=== PATIENT | female | born 1960 | race Caucasian/White ===

== ENCOUNTER → 2019-12-19 10:47 | Outpatient (BNVA) | payer MEDICAID, SELFPAY | PROVIDERS: Family Provider Physician Assistant Medical; PCP Physician Assistant Medical; Visit Provider Nurse Practitioner | DX: M51.36 Other intervertebral disc degeneration, lumbar region (principal); M25.511 Pain in right shoulder; F17.210 Nicotine dependence, cigarettes, uncomplicated; Z99.81 Dependence on supplemental oxygen; Z79.891 Long term (current) use of opiate analgesic | CPT/HCPCS: 99213; 99214 ==

== ENCOUNTER 2020-01-14 00:47 | Inpatient (IN) | payer MEDICAID, SELFPAY ==
[2020-01-14] VITALS (89 sets, daily range): BP systolic 107–143; BP diastolic 66–90; PULSE 83–108; RESP 12–33; TEMP 36.5–36.7; O2SAT 87–99; BMI 44.6
[2020-01-14 01:15] LABS: ABG PCO2 47.5 mmHg (35-45); ABG PH Result 7.39 (7.35-7.45); Arterial Blood Gas Hematocrit 46.1 % (37-47); Base Excess ABG 2.5 mmol/L (-2.0-2.0); Blood Gas Allen Test Pos; Blood Gas Sample Site Radial, right; Blood Gas Sample Type Arterial; HCO3 ABG 28.4 mmol/L (22-26); Oxygen Device BIPAP
[2020-01-14 02:05] LABS: Influenza A by IFA Negative (Negative); Influenza B by IFA Negative (Negative)
--- NOTE | 2020-01-14 02:39 | USCV_ITS ---
NunnSkylaReyna Age: 59 Gender: F : 1960 Exam Date: 01/14/2020 06:48 Ordering Phys: Teo Jay MD Technologist: Annmarie Wright [place] [facility] [place] SOB BP: 122 / 82 HR: 105 Rhythm: Sinus Technical Quality: TDS MEASUREMENTS (Male / Female) Normal Values 2D ECHO LV Diastolic Diameter PLAX 3.9 cm 4.2 - 5.9 / 3.9 - 5.3 cm LV Systolic Diameter PLAX 2.8 cm LV Chamber Size 3.2 cm IVS Diastolic Thickness 1.5 cm 0.6 - 1.0 / 0.6 - 0.9 cm IVS Systolic Thickness 2.0 cm LVPW Diastolic Thickness 1.4 cm 0.6 - 1.0 / 0.6 - 0.9 cm LVPW Systolic Thickness 1.8 cm RV Chamber Size 2.8 cm LVOT Diameter 2.1 cm LV Ejection Fraction 2D Teich 54.2 % LV Ejection Fraction MOD 2C 50.1 % LV Ejection Fraction 2C AL 47.8 % LA Diameter 3.5 cm LA Width 2.7 cm LA Height 5.1 cm RA Width 3.1 cm RA Height 5.0 cm Aorta at Sinotubular Diameter 3.0 cm M-MODE LV Diastolic Diameter MM 4.4 cm 4.2 - 5.9 / 3.9 - 5.3 cm LV Systolic Diameter MM 3.0 cm LV Ejection Fraction MM Teich 59.9 % IVS Diastolic Thickness MM 1.3 cm 0.6 - 1.0 / 0.6 - 0.9 cm IVS Systolic Thickness MM 1.4 cm LVPW Diastolic Thickness MM 1.3 cm 0.6 - 1.0 / 0.6 - 0.9 cm LVPW Systolic Thickness MM 1.6 cm RV Diastolic Diameter MM 1.9 cm Aortic Annulus Diameter 3.4 cm LA Ao Ratio MM 1.0 MV E Point Septal Separation 0.8 cm DOPPLER AV Peak Velocity 201.0 cm/s LVOT Peak Velocity 113.0 cm/s AV Area Cont Eq vti 2.1 cm squared AV Area Cont Eq pk 1.9 cm squared MV Area PHT 5.9 cm squared Mitral E to A Ratio 0.9 MV E' Velocity 10.0 cm/s Mitral E to MV E' Ratio 15.7 Mitral E to LV E' Lateral Ratio 13.3 Mitral E to LV E' Septal Ratio 19.4 TR Peak Velocity 298.3 cm/s TR Peak Gradient 35.6 mmHg TR Mean Velocity 198.6 cm/s TR Mean Gradient 19.1 mmHg TR Velocity Time Integral 72.8 cm TV Peak E Velocity 77.0 cm/s Right Atrial Pressure 8.0 mmHg Pulmonary Artery Systolic Pressu 43.6 mmHg PV Peak Velocity 85.0 cm/s RV Acceleration Time 0.1 s RV Ejection Time 0.2 s RV AcT/ET 0.5 FINDINGS Left Ventricle Examination is technically difficult due to the patient's constant coughing during the examination. The ventricle is poorly seen. There is likely normal size and wall motion of the ventricle. Ejection fraction is within normal limits. Grade 1 diastolic dysfunction. Right Ventricle Right ventricle not well visualized. Mild pulmonary hypertension, RVSP 43.6 mmHg. Right Atrium The right atrium is normal in size. Left Atrium The left atrium is normal in size. Mitral Valve Mitral valve not well visualized. Moderate mitral annular calcification. No mitral valve regurgitation. Aortic Valve Aortic valve not well visualized. There is at least mild mitral regurgitation though the valve is difficult to see. No obvious aortic stenosis. There may be slight aortic sclerosis. Tricuspid Valve Structurally normal tricuspid valve. Trace to mild tricuspid valve regurgitation. Pulmonic Valve Pulmonic valve not well visualized. Pericardium Normal pericardium without effusion. Aorta Normal ascending aorta dimension. CONCLUSIONS Examination is technically difficult due to the patient's constant coughing during the examination. The ventricle is poorly seen. There is likely normal size and wall motion of the ventricle. Ejection fraction is within normal limits. Grade 1 diastolic dysfunction. Right ventricle not well visualized. Mild pulmonary hypertension, RVSP 43.6 mmHg. There are no prior echocardiogram studies to compare. Dr. Mike Montelongo MD (Electronically Signed) Final Date: 14 January 2020 09:10 S
--- NOTE | 2020-01-14 02:39 | CTR_ITS ---
PROCEDURE INFORMATION: Exam: CT Chest With Contrast Exam date and time: 01/14/2020 9:11 AM Age: 59 years old Clinical indication: Shortness of breath; Additional info: SOB, cough TECHNIQUE: Imaging protocol: Computed tomography of the chest with intravenous contrast. Total DLP: 966.38 mGy-cm Radiation optimization: All CT scans at this facility use at least one of these dose optimization techniques: automated exposure control; mA and/or kV adjustment per patient size (includes targeted exams where dose is matched to clinical indication); or iterative reconstruction. Contrast material: OMNI 300; Contrast volume: 95 ml; Contrast route: LT AC; COMPARISON: No relevant prior studies available. FINDINGS: Lungs: Extensive tree in bud opacities/small acinar infiltrates throughout portions of both lungs somewhat greater on the right worrisome for infectious process. Pleural space: Unremarkable. No pneumothorax. No pleural effusion. Heart: Unremarkable. No cardiomegaly. No pericardial effusion. Aorta: 1.4 cm area of calcification aortic root region. No aortic aneurysm. Lymph nodes: 2.1 cm calcified azygos region mediastinal lymph node. Liver: Probable left hepatic lobe cysts the largest measuring 2.7 cm. Bones/joints: Degenerative lower thoracic spine vertebral body spurring. L1 superior endplate concave deformity, chronic. Soft tissues: Unremarkable. CT/CT chest w con* [id number] IMPRESSION: Extensive tree in bud opacities/small acinar infiltrates throughout portions of both lungs somewhat greater on the right worrisome for infectious process. Radiation Dose CTDIVOL = (mGy): DLP = 966.38 (mGy-cm)
--- NOTE | 2020-01-14 02:42 | PM.HP ---
Providers/Chief Complaint Admitting Physician: Teo Jay MD Primary Care Provider: Ed Hunter Chief Complaint: RESPIRATORY DISTRESS History of Present Illness Reyna Nunn is a 59 year old female with a past medical history of COPD 2 to 3 L oxygen dependent, chronic smoker, history of congestive heart failure, hypertension, chronic pain on opiate medications, bilateral lower extremity edema, hypothyroidism, GERD who presents to the emergency room due to complaints of shortness of breath, productive cough, fevers, chills for the last week and a half. Patient was a transfer from [facility] due to concerns for acute hypoxic hypercarbic respiratory failure. Patient states that for the past week and a half she has had shortness of breath at rest and with exertion, shortness of breath has progressively worsened, she has had a productive cough of yellow-green sputum, intermittent subjective fevers, chills, no lightheadedness, no dizziness, no chest pain, no sick contacts, no recent travel, no URI symptoms, denies orthopnea, no paroxysmal nocturnal dyspnea, but no bilateral lower extremity edema, no chest pain. Patient has been taking her medications as prescribed. At [facility] patient was found to have acute hypoxic hypercarbic respiratory failure she was put on 60 L high flow, still was short of breath, found to have a pneumonia, found to have pulmonary vascular congestion, was given Lasix, vancomycin, Zosyn, azithromycin, breathing treatments, steroids, the patient did not clinically improve, was still requiring 60 L 35% FiO2 thus was transferred to [facility] for further evaluation and treatment. Patient arrived in the intensive care unit, was found to be short of breath, having retractions, was placed on BiPAP, was doing well, her ABG shows a pH of 7.39, PCO2 47.5, PO2 of 181, is doing well on BiPAP, states that her breathing has improved, her flu was negative. Review of Systems Const: Reports: fever and chills; Denies: fatigue or malaise Eyes: Denies: change in vision or blurry vision ENMT: Denies: nasal congestion Card: Denies: chest pain or palpitations Resp: Reports: shortness of breath and productive cough GI: Denies: abdominal pain, nausea, vomiting, vomiting blood, diarrhea, constipation, blood in stool or black tarry stool : Denies: flank pain, painful urination or urinary frequency Musc: Denies: neck pain or back pain Skin/Breast: Denies: rash Neuro: Denies: headache, dizziness or vertigo Psych: Denies: anxiety or depression Endo: Denies: excessive urination or excessive thirst Medications/Allergies Home Medications Medication Instructions Recorded Confirmed Last Taken Type Nystop 100,000 unit TOPICAL BID 01/14/20 01/14/20 01/12/20 22:00 History famotidine 20 mg PO DAILY 01/14/20 01/14/20 01/12/20 08:00 History Allergies Allergy/AdvReac Type Severity Reaction Status Date / Time No Known Allergies Allergy Verified 12/19/19 10:56 Additional Medication Information Additional Medication Information: Albuterol Amlodipine 10 mg once daily Budesonide 0.25 mg twice daily Duloxetine 30 mg twice daily Famotidine 20 mg p.o. daily Lasix 20 mg p.o. every morning as needed Levothyroxine 25 mcg daily Lisinopril 10 mg twice daily Oxycodone 15 mg every 6 as needed Tiotropium PFSH Acute PFSH: Medical History (Updated 01/14/20 @ 02:48 by Teo Jay MD) Bilateral shoulder pain Carpal tunnel syndrome, bilateral CHF (congestive heart failure) COPD (chronic obstructive pulmonary disease) DDD (degenerative disc disease), lumbar Hypertension Hypothyroidism Long-term use of high-risk medication Paresthesia of right upper extremity Requires oxygen therapy Tobacco abuse Surgical History History of nasal surgery NOSE RESECTION S/P hernia surgery S/P hysterectomy Social History Smoking and tobacco status: current every day smoker cigarettes Packs smoked per day: 1 Alcohol intake: never Vitals/I&O/Wt Last Vital Signs Pulse 89 01/14/20 01:28 Pulse Ox 98 01/14/20 01:28 Weight last 48 hrs Weight 107.218 kg Physical Exam Const: COMMON NORMALS: no apparent distress and oriented x3 GENERAL APPEARANCE: cooperative and comfortable HENMT: COMMON NORMALS: normocephalic HEAD & SCALP: normocephalic Eye: COMMON NORMALS: PERRL, EOMs intact bilaterally and no papilledema GENERAL EYE: normal appearance of both eyes PUPIL: Yes PERRL DIRECT OPHTHALMOSCOPY: Yes no papilledema Neck/C-Spine: COMMON NORMALS: full ROM, no lymphadenopathy, no JVD and thyroid normal THYROID: thyroid normal Lymph: LYMPHATIC: no lymphadenopathy noted Resp: COMMON NORMALS: normal respiratory effort, no retractions, no use of accessory muscles and clear to auscultation bilaterally AUSCULTATION: clear to auscultation bilaterally Cardio: COMMON NORMALS: no JVD, regular rate, regular rhythm, S1 normal heart sound, S2 normal heart sound, no gallops, no clicks and no murmurs RATE: regular rate RHYTHM: regular rhythm HEART SOUNDS: S1 normal and S2 normal GI: COMMON NORMALS: normal to inspection, nondistended, normoactive bowel sounds, soft to palpation, non-tender and no hepatosplenomegaly PALPATION: Yes soft and Yes no hepatosplenomegaly Extremity: COMMON NORMALS: normal to inspection, full ROM and no pedal edema Neuro: COMMON NORMALS: oriented x3, moves all extremities and no focal motor deficits OTHER: Cannot follow full neurologic exam as is on BiPAP Psych: COMMON NORMALS: mental status grossly normal, thought process normal and cooperative THOUGHT PROCESS: normal thought process A&P Assessment and plan (1) Acute on chronic respiratory failure with hypoxia and hypercapnia: -Secondary to COPD, CHF, pneumonia, KEO -We will obtain a chest x-ray here, and a BNP Plan: -Admit to the ICU -BiPAP, can transition to nasal cannula when tolerated -Solu-Medrol 40 every 8 -Ipratropium every 4 hours scheduled, every 2 as needed -Azithromycin and Rocephin -Lasix 40 IV twice daily, monitor urine output -Respiratory cultures, blood cultures, urine bacterial antigen, Legionella -Continue telemetry monitoring Status: Acute Code(s): J96.21 - Acute and chronic respiratory failure with hypoxia; J96.22 - Acute and chronic respiratory failure with hypercapnia (2) KEO (obstructive sleep apnea): Stated that she could not do the sleep study, likely has sleep apnea Status: Acute Code(s): G47.33 - Obstructive sleep apnea (adult) (pediatric) (3) Hypertension: Status: Acute Code(s): I10 - Essential (primary) hypertension (4) COPD (chronic obstructive pulmonary disease): 2-3 oxygen later dependent at home Status: Acute Code(s): J44.9 - Chronic obstructive pulmonary disease, unspecified (5) CHF (congestive heart failure): Patient is not sure if she has systolic or diastolic CHF, no history of CAD We will obtain a cardiac echocardiogram Status: Acute Code(s): I50.9 - Heart failure, unspecified (6) Requires oxygen therapy: Status: Chronic Code(s): Z99.81 - Dependence on supplemental oxygen (7) Tobacco abuse: Status: Chronic Code(s): Z72.0 - Tobacco use (8) Chronically on opiate therapy: Status: Acute Code(s): Z79.891 - [facility] (current) use of opiate analgesic (9) Hypothyroidism: Status: Acute Code(s): E03.9 - Hypothyroidism, unspecified (10) Hypertensive urgency: -Had hypertensive urgency and [facility], systolics 200s over diastolic 100s -Resolved with treatment at [facility], -Blood pressure here is 138/50 -Continue home medications Status: Acute Code(s): I16.0 - Hypertensive urgency (11) NSTEMI (non-ST elevated myocardial infarction): -Troponin was 20, likely supply demand ischemia from respiratory failure -No active chest pain -Continue telemetry monitoring, monitor for chest pain -Aspirin, statin Status: Acute Code(s): I21.4 - Non-ST elevation (NSTEMI) myocardial infarction Attestations Medical Necessity Statement*: Patient requires ICU mission, greater than 2 minutes, for acute respiratory failure Coding Level of Care Code Acute Strategy Manager for [facility] Diagnoses Acute on chronic respiratory failure with hypoxia and hypercapnia J96.21; J96.22 KEO (obstructive sleep apnea) G47.33 Hypertension I10 COPD (chronic obstructive pulmonary disease) J44.9 CHF (congestive heart failure) I50.9 Requires oxygen therapy Z99.81 Tobacco abuse Z72.0 Chronically on opiate therapy Z79.891 Hypothyroidism E03.9 Hypertensive urgency I16.0 NSTEMI (non-ST elevated myocardial infarction) I21.4
[2020-01-14] MEDS: ipratropium-albuterol 3 mL Neb INHALATION ×5 (03:11→19:42)
[2020-01-14 03:16] LABS: NT Pro B Type Natriuretic Pept 649 pg/mL (0-125)
[2020-01-14] MEDS: enoxaparin 40 mg/0.4 mL Syringe SUBCUT (04:35)
[2020-01-14] MEDS: oxyCODONE IR 30 mg Tablet 15 MG PO ×3 (04:36→20:21)
[2020-01-14] MEDS: amlodipine 10 mg Tablet PO ×2 (04:36→09:37)
--- NOTE | 2020-01-14 05:43 | PC.NURSE ---
Patient arrived to the floor at 00:47 via direct admit from [facility] on a stretcher. staff assisted in the transfer x5. patient alert and oriented, pleasant. patient transferred to bipap on arrival, patient sob but looking better an hour or so after starting treatment.
--- NOTE | 2020-01-14 07:35 | PC.NURSE ---
resting in bed. moist raspy cough
[2020-01-14] MEDS: budesonide 0.5 mg/2 mL Neb 0.25 MG INHALATION ×2 (08:11→19:42)
[2020-01-14] MEDS: levothyroxine 25 mcg Tablet PO (09:37)
[2020-01-14] MEDS: famotidine 20 mg Tablet PO (09:37)
[2020-01-14] MEDS: aspirin 81 mg EC Tablet PO (09:37)
[2020-01-14] MEDS: duloxetine 30 mg Capsule PO ×2 (09:37→17:35)
[2020-01-14] MEDS: lisinopril 10 mg Tablet PO ×2 (09:37→17:35)
[2020-01-14] MEDS: FUROsemide 10 mg/mL SDV 4mL 40 MG IVP ×2 (09:38→17:36)
--- NOTE | 2020-01-14 09:49 | ECG_ITS ---
Measurements Intervals [place] Rate: 95 P: 67 [place]: 148 QRS: 56 QRSD: 85 T: 61 QT: 321 QTc: 405 SINUS RHYTHM No previous ECG available for comparison Electronically Signed On 01-15-2020 11:21:39 [employer]ORM DOOR MAKER by Mike Montelongo M.D. [email or web address]
--- NOTE | 2020-01-14 09:58 | PM.PN ---
Subjective Subjective: Interval history: Admitted overnight. H&P noted. Labs noted. Today morning on evaluation patient is lying comfortably in bed on 5 L nasal mask saturating at 94%. She denies of having any nausea, vomiting, headache, palpitations. She is concerned with her cough. Complains of greenish colored expectoration for last 10 days which is been getting worse. Medications: Medication Review Details: Albuterol Amlodipine 10 mg once daily Budesonide 0.25 mg twice daily Duloxetine 30 mg twice daily Famotidine 20 mg p.o. daily Lasix 20 mg p.o. every morning as needed Levothyroxine 25 mcg daily Lisinopril 10 mg twice daily Oxycodone 15 mg every 6 as needed Tiotropium Vitals/I&O/Wt Last Vital Signs Pulse 99 01/14/20 08:15 Resp 18 01/14/20 08:15 BP 143/84 01/14/20 04:00 Pulse Ox 98 01/14/20 08:15 01/13/20 01/14/20 01/14/20 22:59 06:59 14:59 Intake Total 400 / 400 Output Total 200 / 200 Balance 200 / 200 Weight last 48 hrs Weight 107.218 kg Weight 107.218 kg Physical Exam Const: COMMON NORMALS: no apparent distress and oriented x3 GENERAL APPEARANCE: cooperative and comfortable HENMT: COMMON NORMALS: normocephalic HEAD & SCALP: normocephalic Eye: COMMON NORMALS: PERRL, EOMs intact bilaterally and no papilledema GENERAL EYE: normal appearance of both eyes PUPIL: Yes PERRL DIRECT OPHTHALMOSCOPY: Yes no papilledema Neck/C-Spine: COMMON NORMALS: full ROM, no lymphadenopathy, no JVD and thyroid normal THYROID: thyroid normal Lymph: LYMPHATIC: no lymphadenopathy noted Resp: COMMON NORMALS: normal respiratory effort, no retractions, no use of accessory muscles and clear to auscultation bilaterally AUSCULTATION: clear to auscultation bilaterally Cardio: COMMON NORMALS: no JVD, regular rate, regular rhythm, S1 normal heart sound, S2 normal heart sound, no gallops, no clicks and no murmurs RATE: regular rate RHYTHM: regular rhythm HEART SOUNDS: S1 normal and S2 normal GI: COMMON NORMALS: normal to inspection, nondistended, normoactive bowel sounds, soft to palpation, non-tender and no hepatosplenomegaly PALPATION: Yes soft and Yes no hepatosplenomegaly Extremity: COMMON NORMALS: normal to inspection, full ROM and no pedal edema Neuro: COMMON NORMALS: oriented x3, moves all extremities and no focal motor deficits OTHER: Cannot follow full neurologic exam as is on BiPAP Psych: COMMON NORMALS: mental status grossly normal, thought process normal and cooperative THOUGHT PROCESS: normal thought process Data : 01/14/20 10:15 01/14/20 10:15 A&P Assessment and plan (1) Acute on chronic respiratory failure with hypoxia and hypercapnia: Status: Acute Code(s): J96.21 - Acute and chronic respiratory failure with hypoxia; J96.22 - Acute and chronic respiratory failure with hypercapnia (2) KEO (obstructive sleep apnea): Stated that she could not do the sleep study as is claustrophobic, likely has sleep apnea Status: Acute Code(s): G47.33 - Obstructive sleep apnea (adult) (pediatric) (3) COPD (chronic obstructive pulmonary disease): Status: Acute Code(s): J44.9 - Chronic obstructive pulmonary disease, unspecified (4) CHF (congestive heart failure): Status: Acute Code(s): I50.9 - Heart failure, unspecified (5) Hypertension: Status: Acute Code(s): I10 - Essential (primary) hypertension (6) Hypertensive urgency: Resolved. BP as above Status: Acute Code(s): I16.0 - Hypertensive urgency (7) Chronically on opiate therapy: Status: Acute Code(s): Z79.891 - [facility] (current) use of opiate analgesic (8) Hypothyroidism: Status: Acute Code(s): E03.9 - Hypothyroidism, unspecified (9) NSTEMI (non-ST elevated myocardial infarction): -Troponin was 20, likely supply demand ischemia from respiratory failure -No active chest pain -Continue telemetry monitoring, monitor for chest pain -Aspirin, statin Status: Acute Code(s): I21.4 - Non-ST elevation (NSTEMI) myocardial infarction (10) Tobacco abuse: Discussed in detail for over 10 minutes and advised and counseled for tobacco use cessation. Nicotine patch for now. Status: Chronic Code(s): Z72.0 - Tobacco use Additional A&P Information Acute hypercapnica nd hypoxic Resp failure: -Secondary to PNA causing COPD exacerbation with KEO and mild CHF Already started on ceftriaxone for community-acquired pneumonia. We will continue the same. Patient already started on ceftriaxone and azithromycin for community-acquired pneumonia. We will continue the same for now. We will de-escalate or change antibiotics as per the culture results. Blood culture and sputum culture already sent. Continue with budesonide twice daily and DuoNebs every 4 hours [id number]. Wean solumedrol to 40 mg IV Q12h Echocardiogram results appreciated. We will do CT chest with contrast. Chances of CHF low. proBNP only 649. For now we will decrease the Lasix from 40 mg every 12 to daily. Oxygen supplementation keeping saturation over 90%. Most likely exacerbation of KEO as well. BiPAP overnight as needed. Patient is noncompliant with CPAP at home. HTN: Blood pressure well controlled. Continue with home dose of amlodipine and lisinopril. We will continue to monitor. Transfer to floors. FC Lovenox Famotidine for PUD Cardiac diet Attestations Medical Necessity Statement*: Needs continued hospital stay for Resp failure Time Spent in Patient Care: Greater than 35 minutes Coding Level of Care Code Acute Hand Scraper for [facility] Diagnoses Acute on chronic respiratory failure with hypoxia and hypercapnia J96.21; J96.22 KEO (obstructive sleep apnea) G47.33 COPD (chronic obstructive pulmonary disease) J44.9 CHF (congestive heart failure) I50.9 Hypertension I10 Hypertensive urgency I16.0 Chronically on opiate therapy Z79.891 Hypothyroidism E03.9 NSTEMI (non-ST elevated myocardial infarction) I21.4 Tobacco abuse Z72.0
--- NOTE | 2020-01-14 10:44 | PC.NURSE ---
iv in left forearm, fell out. after 4 sticks by 2 staff members, household assistant inserted 20 ga. jelco in left ac space
[2020-01-14 10:49] LABS: Basophils % 0.3 %; Eosinophils % 0.2 %; Mean Corpuscular Volume 96.7 fL (81-99); Mean Platelet Volume 11.1 fL (7.4-10.4); Nucleated Red Blood Cells % 0 %; Red Cell Distribution Width 14.6 % (12.1-15.1)
[2020-01-14 10:55] LABS: Hematocrit 40.7 % (37.0-47.0); Hemoglobin 12.6 g/dL (11.5-15.3); Lymphocytes # 1.3 10^3/uL (0.8-4.8); Lymphocytes % 10.5 %; Mean Corpuscular Hemoglobin 29.9 pg (28.0-34.0); Monocytes # 0.9 10^3/uL (0.2-0.9); Monocytes % 7.4 %; Neutrophils # 9.7 10^3/uL (1.8-7.7); Neutrophils % 81.3 %; Platelet Count 297 10^3/cmm (130-400); Red Blood Count 4.21 10^6/uL (4.1-5.3); White Blood Count 11.9 10^3/uL (4.0-10.0)
[2020-01-14 11:22] LABS: Slide Review Slide Review Perform
[2020-01-14 11:23] LABS: Procalcitonin 0.64 ng/mL (0-0.5); Thyroid Stimulating Hormone 0.48 uIU/mL (0.27-4.20)
[2020-01-14 11:30] LABS: Absolute Segmented Neutrophil 4.7 10/cmm (1.6-7.1); Band Neutrophils Absolute 5.5 10^3/cmm (0.0-1.2); Lymphocytes 11 %; Monocytes Absolute 0.2 10^3/cmm (0.1-0.6); Segmented Neutrophils 40 %; Total Cells Counted 100 (0-100)
[2020-01-14 11:31] LABS: Platelet Estimate Normal (Normal); Toxic Granulation 1+
[2020-01-14 11:34] LABS: Alanine Aminotransferase 30 U/L (0-33); Albumin Level 2.8 g/dL (3.5-5.2); Alkaline Phosphatase 98 IU/L (35-105); Anion Gap 17.1 (5-19); Aspartate Amino Transferase 26 U/L (0-32); Blood Urea Nitrogen 35 mg/dL (8-23); Calcium 9.1 mg/dL (8.5-10.5); Carbon Dioxide 25 mmol/L (22-29); Chloride 100 mmol/L (98-107); Globulin 4.5 g/dL (1.3-4.6); Glomerular Filtration Rate 50.5 mL/min (90-130); Glucose 222 mg/dL (65-115); Potassium 4.1 mmol/L (3.5-5.1); Sodium 138 mmol/L (136-145); Total Bilirubin 0.3 mg/dL (0.15-1.2); Total Protein 7.3 g/dL (6.6-8.7)
[2020-01-14] MEDS: iohexol 300 mg/mL 100 mL Btl IV (12:59)
--- NOTE | 2020-01-14 14:12 | PC.NURSE ---
1100. new iv to left ac.
--- NOTE | 2020-01-14 19:00 | PC.NURSE ---
Introduction of staff and report received, aidet.
[2020-01-14] MEDS: guaiFENesin 100 mg/5 mL UDC 10 mL 200 MG PO (20:15)
[2020-01-14] MEDS: atorvastatin 40 mg Tablet PO (20:15)
[2020-01-14] MEDS: cefTRIAXone 1,000 MG in sodium chloride 0.9% (plus) 50 ML 100 MG IV (20:16)
[2020-01-14] MEDS: azithromycin 500 MG in sodium chloride 0.9% 250 ML 250 MG IV (21:53)
[2020-01-15] VITALS (23 sets, daily range): BP systolic 105–138; BP diastolic 54–72; PULSE 80–104; RESP 16–28; TEMP 36.5–36.7; O2SAT 90–98
[2020-01-15] MEDS: ipratropium-albuterol 3 mL Neb INHALATION ×7 (00:08→23:07)
[2020-01-15] MEDS: oxyCODONE IR 30 mg Tablet 15 MG PO ×3 (04:23→18:29)
[2020-01-15] MEDS: guaiFENesin 100 mg/5 mL UDC 10 mL 200 MG PO ×2 (04:23→21:26)
[2020-01-15] MEDS: enoxaparin 40 mg/0.4 mL Syringe SUBCUT (04:23)
--- NOTE | 2020-01-15 07:00 | XR_ITS ---
WS: [id number] XR chest 1V portable [id number] REASON FOR EXAM: sob FINDINGS: Along the right azygous lobe there is a nodular density suggesting either lymphadenopathy o r mass consideration of follow-up CT recommended. The heart is not grossly enlarged. The remaining lung art show normal aeration. No pneumonia, pleural effusion or pulmonary edema. XR/XR chest 1V portable [id number] IMPRESSION: A nodular density is seen in the region of the azygos lobe follow-up CT recomme nded.
[2020-01-15 07:04] LABS: Basophils % 0.2 %; Hematocrit 42.2 % (37.0-47.0); Hemoglobin 12.9 g/dL (11.5-15.3); Lymphocytes # 1.8 10^3/uL (0.8-4.8); Lymphocytes % 11.8 %; Mean Corpuscular HGB Conc 30.6 g/dL (30.0-36.0); Mean Corpuscular Hemoglobin 30.4 pg (28.0-34.0); Mean Corpuscular Volume 99.5 fL (81-99); Mean Platelet Volume 10.6 fL (7.4-10.4); Monocytes # 1.6 10^3/uL (0.2-0.9); Monocytes % 10.4 %; Neutrophils # 11.9 10^3/uL (1.8-7.7); Neutrophils % 76.9 %; Nucleated Red Blood Cells % 0 %; Platelet Count 351 10^3/cmm (130-400); Red Blood Count 4.24 10^6/uL (4.1-5.3); Red Cell Distribution Width 14.7 % (12.1-15.1); White Blood Count 15.5 10^3/uL (4.0-10.0)
[2020-01-15 07:22] LABS: Alanine Aminotransferase 26 U/L (0-33); Albumin Level 2.9 g/dL (3.5-5.2); Alkaline Phosphatase 121 IU/L (35-105); Anion Gap 16.4 (5-19); Aspartate Amino Transferase 18 U/L (0-32); Blood Urea Nitrogen 46 mg/dL (8-23); Calcium 9.3 mg/dL (8.5-10.5); Carbon Dioxide 26 mmol/L (22-29); Chloride 98 mmol/L (98-107); Globulin 4.5 g/dL (1.3-4.6); Glomerular Filtration Rate 45.7 mL/min (90-130); Glucose 244 mg/dL (65-115); Magnesium 2.4 mg/dL (1.7-2.3); Phosphorus 3.8 mg/dL (2.5-4.5); Potassium 4.4 mmol/L (3.5-5.1); Sodium 136 mmol/L (136-145); Total Bilirubin 0.2 mg/dL (0.15-1.2); Total Protein 7.4 g/dL (6.6-8.7)
[2020-01-15 07:37] LABS: Estmated Average Glucose 126
[2020-01-15] MEDS: budesonide 0.5 mg/2 mL Neb 0.25 MG INHALATION ×2 (08:08→19:53)
[2020-01-15] MEDS: duloxetine 30 mg Capsule PO ×2 (09:11→18:29)
[2020-01-15] MEDS: levothyroxine 25 mcg Tablet PO (09:11)
[2020-01-15] MEDS: famotidine 20 mg Tablet PO (09:11)
[2020-01-15] MEDS: lisinopril 10 mg Tablet PO ×2 (09:12→18:29)
[2020-01-15] MEDS: FUROsemide 10 mg/mL SDV 4mL 40 MG IVP (09:12)
[2020-01-15] MEDS: amlodipine 10 mg Tablet PO (09:12)
[2020-01-15] MEDS: aspirin 81 mg EC Tablet PO (09:12)
--- NOTE | 2020-01-15 13:58 | PC.RESP ---
Patient was given information on Smoking Cessation and Pulmonary Rehab.
--- NOTE | 2020-01-15 15:27 | P.PN_ITS ---
Subjective Subjective: Interval history: No acute overnight. This morning on evaluation patient states she is feeling very weak. Both the same her breathing is a lot better now. She is saturating more than 92% on 4 L nasal cannula. She denies of having any nausea, vomiting, headache. Continues to have cough but better than before. Vitals/I&O/Wt Last Vital Signs Temp 98.0 F 01/15/20 15:25 Pulse 88 01/15/20 15:25 Resp 18 01/15/20 15:25 BP 138/71 01/15/20 15:25 Pulse Ox 95 01/15/20 15:25 01/15/20 01/15/20 01/15/20 06:59 14:59 22:59 Intake Total 250 / 1740 900 / 900 Output Total 900 / 3450 1175 / 1175 Balance -650 / -1710 900 / 900 -1175 / -275 Weight last 48 hrs Weight 102.603 kg Weight 106.226 kg Weight 107.048 kg Weight 105.687 kg Weight 107.218 kg Weight 107.218 kg Physical Exam Narrative: EXAM NARRATIVE: General: No acute distress, AO x3 HEENT: PERRLA, pupils bilaterally equal and reactive Chest: Bilateral bronchial breath sounds left more than right, anterior more than posterior, more so than upper, equal good air entry bilaterally CVS: S1-S2 regular, no murmurs, no tachycardia, no gallops, no rubs Abdomen: Soft, nontender, no organomegaly, bowel sounds present Neuro: No focal deficits, no facial deformity, AO x3, power 5/5 in all limbs Data : 01/15/20 06:36 01/15/20 06:36 Micro: Microbiology 01/14/20 10:20 Blood Culture - Preliminary Blood NEGATIVE TO DATE 01/14/20 10:15 Blood Culture - Preliminary Blood NEGATIVE TO DATE 01/14/20 12:00 Gram Stain - Final Sputum - Expectorated Sputum Sputum Culture - Preliminary A&P Assessment and plan (1) Acute on chronic respiratory failure with hypoxia and hypercapnia: Status: Acute Code(s): J96.21 - Acute and chronic respiratory failure with hypoxia; J96.22 - Acute and chronic respiratory failure with hypercapnia (2) KEO (obstructive sleep apnea): Stated that she could not do the sleep study as is claustrophobic, likely has sleep apnea Status: Acute Code(s): G47.33 - Obstructive sleep apnea (adult) (pediatric) (3) COPD (chronic obstructive pulmonary disease): Status: Acute Code(s): J44.9 - Chronic obstructive pulmonary disease, unspecified (4) CHF (congestive heart failure): Status: Acute Code(s): I50.9 - Heart failure, unspecified (5) Hypertension: Status: Acute Code(s): I10 - Essential (primary) hypertension (6) Hypertensive urgency: Resolved. BP as above Status: Acute Code(s): I16.0 - Hypertensive urgency (7) Chronically on opiate therapy: Status: Acute Code(s): Z79.891 - custodial (current) use of opiate analgesic (8) Hypothyroidism: Status: Acute Code(s): E03.9 - Hypothyroidism, unspecified (9) NSTEMI (non-ST elevated myocardial infarction): -Troponin was 20, likely supply demand ischemia from respiratory failure -No active chest pain -Continue telemetry monitoring, monitor for chest pain -Aspirin, statin Status: Acute Code(s): I21.4 - Non-ST elevation (NSTEMI) myocardial infarction (10) Tobacco abuse: Discussed in detail for over 10 minutes and advised and counseled for tobacco use cessation. Nicotine patch for now. Status: Chronic Code(s): Z72.0 - Tobacco use Additional A&P Information Acute hypercapnica nd hypoxic Resp failure: -Secondary to PNA causing COPD exacerbation with KEO and mild CHF C/w Ceftriaxone and Azithro. Day 3 of treatment. We will de-escalate or change antibiotics as per the culture results. Blood culture and sputum culture already sent. Continue with budesonide twice daily and DuoNebs every 4 hours [id number]. C/w solumedrol to 40 mg IV Q12h CHF: Less likley. Echocardiogram results appreciated. Change lasix to orally 40 mg daily as creat 1.2 today from 1.1 yesterday. Net negative 1.8 L Strict I/O Daily weight. Oxygen supplementation keeping saturation over 90%. Most likely exacerbation of KEO as well. BiPAP overnight as needed. Patient is noncompliant with CPAP at home. HTN: Blood pressure well controlled. Continue with home dose of amlodipine and lisinopril. We will continue to monitor. Out of bed to chair. PT eval and treat FC Lovenox Famotidine for PUD Cardiac diet Attestations Medical Necessity Statement*: Continued for PNA and acute hypoxic and hypercapnic resp failure. Time Spent in Patient Care: Greater than 35 minutes Coding Level of Care Code Acute Principal Ios Developer for Chg Fwd Diagnoses Acute on chronic respiratory failure with hypoxia and hypercapnia J96.21; J96.22 KEO (obstructive sleep apnea) G47.33 COPD (chronic obstructive pulmonary disease) J44.9 CHF (congestive heart failure) I50.9 Hypertension I10 Hypertensive urgency I16.0 Chronically on opiate therapy Z79.891 Hypothyroidism E03.9 NSTEMI (non-ST elevated myocardial infarction) I21.4 Tobacco abuse Z72.0
--- NOTE | 2020-01-15 19:00 | PC.NURSE ---
Introduction of staff and report received, aidet.
[2020-01-15] MEDS: atorvastatin 40 mg Tablet PO (21:26)
[2020-01-15] MEDS: azithromycin 500 MG in sodium chloride 0.9% 250 ML 250 MG IV (21:28)
[2020-01-15] MEDS: cefTRIAXone 1,000 MG in sodium chloride 0.9% (plus) 50 ML 100 MG IV (21:28)
[2020-01-16] VITALS (19 sets, daily range): BP systolic 120–145; BP diastolic 69–82; PULSE 82–97; RESP 16–24; TEMP 36.4–36.7; O2SAT 90–96
[2020-01-16] MEDS: ipratropium-albuterol 3 mL Neb INHALATION ×6 (03:11→23:51)
[2020-01-16] MEDS: enoxaparin 40 mg/0.4 mL Syringe SUBCUT (04:14)
[2020-01-16] MEDS: oxyCODONE IR 30 mg Tablet 15 MG PO ×3 (04:18→17:37)
[2020-01-16 05:15] LABS: Basophils % 0.2 %; Hematocrit 43.2 % (37.0-47.0); Hemoglobin 13.4 g/dL (11.5-15.3); Lymphocytes % 13.7 %; Mean Corpuscular Hemoglobin 30.5 pg (28.0-34.0); Mean Corpuscular Volume 98.2 fL (81-99); Mean Platelet Volume 10.4 fL (7.4-10.4); Neutrophils # 11.3 10^3/uL (1.8-7.7); Neutrophils % 77.9 %; Nucleated Red Blood Cells % 0 %; Platelet Count 350 10^3/cmm (130-400); Red Cell Distribution Width 14.5 % (12.1-15.1); White Blood Count 14.5 10^3/uL (4.0-10.0)
[2020-01-16 05:30] LABS: Alanine Aminotransferase 29 U/L (0-33); Alkaline Phosphatase 111 IU/L (35-105); Anion Gap 16.6 (5-19); Aspartate Amino Transferase 26 U/L (0-32); Blood Urea Nitrogen 31 mg/dL (8-23); Calcium 9.5 mg/dL (8.5-10.5); Carbon Dioxide 28 mmol/L (22-29); Chloride 98 mmol/L (98-107); Globulin 4.4 g/dL (1.3-4.6); Glomerular Filtration Rate 63.7 mL/min (90-130); Glucose 179 mg/dL (65-115); Magnesium 2.5 mg/dL (1.7-2.3); Phosphorus 3.4 mg/dL (2.5-4.5); Potassium 4.6 mmol/L (3.5-5.1); Sodium 138 mmol/L (136-145); Total Bilirubin 0.2 mg/dL (0.15-1.2); Total Protein 7.4 g/dL (6.6-8.7)
[2020-01-16] MEDS: budesonide 0.5 mg/2 mL Neb 0.25 MG INHALATION ×2 (08:17→20:19)
[2020-01-16] MEDS: FUROsemide 40 mg Tablet PO (08:28)
[2020-01-16] MEDS: amlodipine 10 mg Tablet PO (08:28)
[2020-01-16] MEDS: levothyroxine 25 mcg Tablet PO (08:28)
[2020-01-16] MEDS: lisinopril 10 mg Tablet PO ×2 (08:28→17:37)
[2020-01-16] MEDS: aspirin 81 mg EC Tablet PO (08:28)
[2020-01-16] MEDS: famotidine 20 mg Tablet PO (08:28)
[2020-01-16] MEDS: duloxetine 30 mg Capsule PO ×2 (08:28→17:37)
--- NOTE | 2020-01-16 10:31 | PC.CHAP ---
Pastoral Care Encounter/Spiritual Assessment Type of Contact [] Declined marine engineering technicians visit [] Patient/Family/Request visit [] Outpatient visit [] Follow-up visit [] Physician referral [] Code/Alert [x] Routine visit [] Staff referral [] Actively dying [] Patient sleeping [] Family support [] [] Out of room [] Palliative care [] [] Receiving care in room [] Pre-surgical visit [] Trauma [] Long length of stay [] ICU visit [] Other: Relational/Emotional Strength [x] Patient feels connected with others/family/visitors/staff [x] Distress [] Loneliness/isolation [] Abandonment Spirituality of Patient [x] Person of Isa [] Attends Caodaism of their Isa [x] Believes in Prayer [] Reads Bible or Yarsanism materials [] There are Spiritual issues to be addressed Pension Manager Interventions [x] Prayer [x] Active listening [x] Non-anxious presence [x] Spiritual/emotional support [] Crisis/trauma care [x] Spiritual counseling [] Bereavement support [] Provided bereavement packet [] Provided Bible/devotional materials [] Provided toy/stuffed animal, coloring book to patient or family member [] Provided Communion [] Anointing/[place] [] Salvation [] Completed spiritual assessment [] Other: Impact on Illness or Injury [] Angry [x] Fearful [x] Anxious [] Often cries [] Exhaustion [x] Unable to work [] Unable to attend shinto [] Unable to walk/stand [] Unable to read [x] Unable to drive [] Unable to eat/drink [] Unable to sleep [] Unable to be with family [] Patient intubated [] Other: Summary Patient is depressed, shortness of breath, Dr are running tests. Patient is aware knows what shes is dealing with, not very hopefully and has a negative attitude. Time spent with patient 15 min
--- NOTE | 2020-01-16 14:28 | P.PN_ITS ---
Subjective Subjective: Interval history: Patient states that she continues to feel quite weak, fatigued, no fevers, no chills, no nausea, no vomiting, no lightheadedness, no dizziness, no chest pain, no palpitations, does feel short of breath with exertion I had a long discussion with the patient about her fatigue, weakness, shortness of breath, she is multifocal pneumonia, and a history of smoking and COPD, so it can take up to a year for lungs to fully recover from this insult, the best th ing that she can do for herself is to get up out of bed with physical therapy and use her incentive spirometer every hour. In addition it would be right my recommendation for her to go to short-term rehab for assistance and physical therapy if she feels this weak, patient states that she will think about this. Vitals/I&O/Wt Last Vital Signs Temp 97.8 F 01/16/20 11:00 Pulse 89 01/16/20 12:20 Resp 18 01/16/20 12:15 BP 145/82 01/16/20 11:00 Pulse Ox 94 01/16/20 12:15 01/15/20 01/16/20 01/16/20 22:59 06:59 14:59 Intake Total 600 / 1500 480 / 1980 600 / 600 Output Total 1400 / 1400 Balance -800 / 100 480 / 580 600 / 600 Weight last 48 hrs Weight 103.958 kg Weight 102.603 kg Weight 106.226 kg Physical Exam Const: COMMON NORMALS: no apparent distress and oriented x3 HENMT: COMMON NORMALS: normocephalic HEAD & SCALP: normocephalic Neck/C-Spine: COMMON NORMALS: no JVD Resp: COMMON NORMALS: normal respiratory effort, no retractions, no use of accessory muscles and clear to auscultation bilaterally AUSCULTATION: clear to auscultation bilaterally Cardio: COMMON NORMALS: no JVD, regular rate, regular rhythm, S1 normal heart sound and S2 normal heart sound RATE: regular rate RHYTHM: regular rhythm HEART SOUNDS: S1 normal and S2 normal GI: COMMON NORMALS: normal to inspection, nondistended, normoactive bowel soun ds, soft to palpation, non-tender, no hepatosplenomegaly, no masses and no bruits PALPATION: Yes soft and Yes no hepatosplenomegaly Extremity: COMMON NORMALS: normal capillary refill, no clubbing, cyanosis or edema, no calf tenderness and no pedal edema Neuro: COMMON NORMALS: oriented x3 Psych: COMMON NORMALS: mental status grossly normal Data : 01/16/20 04:56 01/16/20 04:56 Micro: Microbiology 01/16/20 05:30 MRSA Culture - Final Nose 01/14/20 12:00 Gram Stain - Final Sputum - Expectorated Sputum Sputum Culture - Preliminary 01/14/20 10:20 Blood Culture - Preliminary Blood NEGATIVE TO DATE 01/14/20 10:15 Blood Culture - Preliminary Blood NEGATIVE TO DATE A&P Assessment and plan (1) Acute on chronic respiratory failure with hypoxia and hypercapnia: Status: Acute Code(s): J96.21 - Acute and chronic respiratory failure with hypoxia; J96.22 - Acute and chronic respiratory failure with hypercapnia (2) KEO (obstructive sleep apnea): Stated that she could not do the sleep study as is claustrophobic, likely has sleep apnea Status: Acute Code(s): G47.33 - Obstructive sleep apnea (adult) (pediatric) (3) COPD (chronic obstructive pulmonary disease): Status: Acute Code(s): J44.9 - Chronic obstructive pulmonary disease, unspecified (4) CHF (congestive heart failure): Status: Acute Code(s): I50.9 - Heart failure, unspecified (5) Hypertension: Status: Acute Code(s): I10 - Essential (primary) hypertension (6) Hypertensive urgency: Resolved. BP as above Status: Acute Code(s): I16.0 - Hypertensive urgency (7) Chronically on opiate therapy: Status: Acute Code(s): Z79.891 - net development manager (current) use of opiate analgesic (8) Hypothyroidism: Status: Acute Code(s): E03.9 - Hypothyroidism, unspecified (9) NSTEMI (non-ST elevated myocardial infarction): -Troponin was 20, likely supply demand ischemia from respiratory failure -No active chest pain -Continue telemetry monitoring, monitor for chest pain -Aspirin, statin Status: Acute Code(s): I21.4 - Non-ST elevation (NSTEMI) myocardial infarction (10) Tobacco abuse: Discussed in detail for over 10 minutes and advised and counseled for tobacco use cessation. Nicotine patch for now. Status: Chronic Code(s): Z72.0 - Tobacco use Additional A&P Information Acute hypercapnica nd hypoxic Resp failure: -Secondary to PNA causing COPD exacerbation with KEO and mild CHF C/w Ceftriaxone and Azithro. Day 3 of treatment. We will de-escalate based on blood culture and sputum culture already sent. Continue with budesonide twice daily and DuoNebs every 4 hours [id number]. C/w solumedrol to 40 mg IV Q12h CHF: Less likley. Echocardiogram Grade 1 DDCHF, RVSP 43.6 lasix 40mg PO daily Strict I/O Daily weight. Oxygen supplementation keeping saturation over 90%. Most likely exacerbation of KEO as well. BiPAP overnight as needed. Patient is noncompliant with CPAP at home. HTN: Blood pressure well controlled. Continue with home dose of amlodipine and lisinopril. We will continue to monitor. Out of bed to chair. PT eval and treat FC Lovenox Famotidine for PUD Cardiac diet Attestations Medical Necessity Statement*: patient requires hospitalization for respiratory failure Coding Level of Care Code Acute Lard Bleacher for Chg Fwd Diagnoses Acute on chronic respiratory failure with hypoxia and hypercapnia J96.21; J96.22 KEO (obstructive sleep apnea) G47.33 COPD (chronic obstructive pulmonary disease) J44.9 CHF (congestive heart failure) I50.9 Hypertension I10 Hypertensive urgency I16.0 Chronically on opiate therapy Z79.891 Hypothyroidism E03.9 NSTEMI (non-ST elevated myocardial infarction) I21.4 Tobacco abuse Z72.0
--- NOTE | 2020-01-16 14:38 | PC.CHAP ---
Pastoral Care Encounter/Spiritual Assessment Type of Contact [] Declined roper operator visit [] Patient/Family/Request visit [] Outpatient visit [] Follow-up visit [] Physician referral [] Code/Alert [x] Routine visit [] Staff referral [] Actively dying [x] Patient sleeping [] Family support [] [] Out of room [] Palliative care [] [] Receiving care in room [] Pre-surgical visit [] Trauma [] Long length of stay [] ICU visit [] Other: Relational/Emotional Strength [] Patient feels connected with others/family/visitors/staff [] Distress [] Loneliness/isolation [] Abandonment Spirituality of Patient [] Person of Isa [] Attends Yazidi of their Isa [] Believes in Prayer [] Reads Bible or Zoroastrianism materials [] There are Spiritual issues to be addressed Food Mixer Interventions [] Prayer [] Active listening [] Non-anxious presence [] Spiritual/emotional support [] Crisis/trauma care [] Spiritual counseling [] Bereavement support [] Provided bereavement packet [] Provided Bible/devotional materials [] Provided toy/stuffed animal, coloring book to patient or family member [] Provided Communion [] Anointing/[place] [] Salvation [] Completed spiritual assessment [] Other: Impact on Illness or Injury [] Angry [] Fearful [] Anxious [] Often cries [] Exhaustion [] Unable to work [] Unable to attend gnosticism [] Unable to walk/stand [] Unable to read [] Unable to drive [] Unable to eat/drink [] Unable to sleep [] Unable to be with family [] Patient intubated [] Other: Summary Food Mixer attempted visit, but Patient sleeping. roper operator request follow up from on-coming roper operator Time spent with patient
[2020-01-16 15:23] LABS: Thyroid Stimulating Hormone 0.57 uIU/mL (0.27-4.20)
--- NOTE | 2020-01-16 19:00 | PC.NURSE ---
Introduction of staff and report received, aidet.
[2020-01-16] MEDS: atorvastatin 40 mg Tablet PO (21:02)
[2020-01-16] MEDS: cefTRIAXone 1,000 MG in sodium chloride 0.9% (plus) 50 ML 100 MG IV (21:04)
[2020-01-16] MEDS: azithromycin 500 MG in sodium chloride 0.9% 250 ML 250 MG IV (21:07)
[2020-01-16] MEDS: guaiFENesin 100 mg/5 mL UDC 10 mL 200 MG PO (21:08)
[2020-01-17] VITALS (19 sets, daily range): BP systolic 126–150; BP diastolic 72–86; PULSE 80–102; RESP 12–22; TEMP 36.6–37; O2SAT 90–96
[2020-01-17] MEDS: oxyCODONE IR 30 mg Tablet 15 MG PO ×3 (00:20→17:43)
[2020-01-17] MEDS: enoxaparin 40 mg/0.4 mL Syringe SUBCUT (01:41)
[2020-01-17] MEDS: ipratropium-albuterol 3 mL Neb INHALATION ×5 (03:33→20:24)
[2020-01-17 05:04] LABS: Basophils % 0.3 %; Hematocrit 42.8 % (37.0-47.0); Hemoglobin 13.5 g/dL (11.5-15.3); Lymphocytes # 2.2 10^3/uL (0.8-4.8); Lymphocytes % 16.9 %; Mean Corpuscular HGB Conc 31.5 g/dL (30.0-36.0); Mean Corpuscular Hemoglobin 29.5 pg (28.0-34.0); Mean Corpuscular Volume 93.4 fL (81-99); Mean Platelet Volume 10.5 fL (7.4-10.4); Monocytes % 7.8 %; Neutrophils # 9.4 10^3/uL (1.8-7.7); Neutrophils % 71.2 %; Nucleated Red Blood Cells % 0 %; Platelet Count 354 10^3/cmm (130-400); Red Blood Count 4.58 10^6/uL (4.1-5.3); Red Cell Distribution Width 14.3 % (12.1-15.1); White Blood Count 13.2 10^3/uL (4.0-10.0)
[2020-01-17 05:31] LABS: Alanine Aminotransferase 46 U/L (0-33); Albumin Level 3.2 g/dL (3.5-5.2); Alkaline Phosphatase 123 IU/L (35-105); Anion Gap 16.9 (5-19); Blood Urea Nitrogen 27 mg/dL (8-23); Calcium 9.3 mg/dL (8.5-10.5); Carbon Dioxide 30 mmol/L (22-29); Chloride 95 mmol/L (98-107); Globulin 4.3 g/dL (1.3-4.6); Glomerular Filtration Rate 63.7 mL/min (90-130); Glucose 203 mg/dL (65-115); Magnesium 2.4 mg/dL (1.7-2.3); Phosphorus 3.4 mg/dL (2.5-4.5); Potassium 4.9 mmol/L (3.5-5.1); Sodium 137 mmol/L (136-145); Total Bilirubin 0.2 mg/dL (0.15-1.2); Total Protein 7.5 g/dL (6.6-8.7)
[2020-01-17 05:53] LABS: Aspartate Amino Transferase 46 U/L (0-32)
[2020-01-17] MEDS: FUROsemide 40 mg Tablet PO (08:24)
[2020-01-17] MEDS: famotidine 20 mg Tablet PO (08:24)
[2020-01-17] MEDS: lisinopril 10 mg Tablet PO ×2 (08:24→17:43)
[2020-01-17] MEDS: duloxetine 30 mg Capsule PO ×2 (08:24→17:43)
[2020-01-17] MEDS: levothyroxine 25 mcg Tablet PO (08:24)
[2020-01-17] MEDS: aspirin 81 mg EC Tablet PO (08:24)
[2020-01-17] MEDS: amlodipine 10 mg Tablet PO (08:24)
[2020-01-17] MEDS: budesonide 0.5 mg/2 mL Neb 0.25 MG INHALATION ×2 (08:37→20:23)
[2020-01-17] MEDS: benzonatate 100 mg Capsule 200 MG PO (11:22)
--- NOTE | 2020-01-17 14:01 | P.PN_ITS ---
Subjective Subjective: Interval history: She still is complaining of significant shortness of breath, wheezing, shortness of breath with exertion, productive cough, but is improving, she states that she is just not ready to go home today Vitals/I&O/Wt Last Vital Signs Temp 97.8 F 01/17/20 11:12 Pulse 94 01/17/20 12:32 Resp 22 H 01/17/20 12:29 BP 126/76 01/17/20 11:12 Pulse Ox 92 01/17/20 12:32 01/16/20 01/17/20 01/17/20 22:59 06:59 14:59 Intake Total 540 / 1140 600 / 600 Output Total 550 / 550 150 / 700 Balance -10 / 590 -150 / 440 600 / 600 Weight last 48 hrs Weight 104.099 kg Weight 103.958 kg Physical Exam Const: COMMON NORMALS: no apparent distress and oriented x3 GENERAL APPEARANCE: cooperative and comfortable HENMT: COMMON NORMALS: normocephalic HEAD & SCALP: normocephalic Eye: COMMON NORMALS: PERRL, EOMs intact bilaterally and no papilledema GENERAL EYE: normal appearance of both eyes PUPIL: Yes PERRL DIRECT OPHTHALMOSCOPY: Yes no papilledema Neck/C-Spine: COMMON NORMALS: full ROM, no lymphadenopathy, no JVD and thyroid normal THYROID: thyroid normal Lymph: LYMPHATIC: no lymphadenopathy noted Resp: COMMON NORMALS: normal respiratory effort, no retractions, no use of accessory muscles and clear to auscultation bilaterally AUSCULTATION: clear to auscultation bilaterally Cardio: COMMON NORMALS: no JVD, regular rate, regular rhythm, S1 normal heart sound, S2 normal heart sound, no gallops, no clicks and no murmurs RATE: regular rate RHYTHM: regular rhythm HEART SOUNDS: S1 normal and S2 normal GI: COMMON NORMALS: normal to inspection, nondistended, normoactive bowel sounds, soft to palpation, non-tender, no hepatosplenomegaly, no masses and no bruits PALPATION: Yes soft and Yes no hepatosplenomegaly Extremity: COMMON NORMALS: normal to inspection, full ROM, normal capillary refill, no clubbing, cyanosis or edema, no calf tenderness and no pedal edema Neuro: COMMON NORMALS: oriented x3, moves all extremities and no focal motor deficits OTHER: Cannot follow full neurologic exam as is on BiPAP Psych: COMMON NORMALS: mental status grossly normal, thought process normal and cooperative THOUGHT PROCESS: normal thought process Data : 01/17/20 04:50 01/17/20 04:50 Micro: Microbiology 01/14/20 12:00 Gram Stain - Final Sputum - Expectorated Sputum Sputum Culture - Preliminary 01/16/20 05:30 MRSA Culture - Final Nose A&P Assessment and plan (1) Acute on chronic respiratory failure with hypoxia and hypercapnia: Status: Acute Code(s): J96.21 - Acute and chronic respiratory failure with hypoxia; J96.22 - Acute and chronic respiratory failure with hypercapnia (2) KEO (obstructive sleep apnea): Stated that she could not do the sleep study as is claustrophobic, likely has sleep apnea Status: Acute Code(s): G47.33 - Obstructive sleep apnea (adult) (pediatric) (3) COPD (chronic obstructive pulmonary disease): Status: Acute Code(s): J44.9 - Chronic obstructive pulmonary disease, unspecified (4) CHF (congestive heart failure): Status: Acute Code(s): I50.9 - Heart failure, unspecified (5) Hypertension: Status: Acute Code(s): I10 - Essential (primary) hypertension (6) Hypertensive urgency: Resolved. BP as above Status: Acute Code(s): I16.0 - Hypertensive urgency (7) Chronically on opiate therapy: Status: Acute Code(s): Z79.891 - [facility] (current) use of opiate analgesic (8) Hypothyroidism: Status: Acute Code(s): E03.9 - Hypothyroidism, unspecified (9) NSTEMI (non-ST elevated myocardial infarction): -Troponin was 20, likely supply demand ischemia from respiratory failure -No active chest pain -Continue telemetry monitoring, monitor for chest pain -Aspirin, statin Status: Acute Code(s): I21.4 - Non-ST elevation (NSTEMI) myocardial infarction (10) Tobacco abuse: Discussed in detail for over 10 minutes and advised and counseled for tobacco use cessation. Nicotine patch for now. Status: Chronic Code(s): Z72.0 - Tobacco use Additional A&P Information Acute hypercapnica nd hypoxic Resp failure: -Secondary to PNA causing COPD exacerbation with KEO and mild CHF C/w Ceftriaxone and Azithro. Day 4 of treatment. Continue with budesonide twice daily and DuoNebs every 4 hours [id number]. C/w solumedrol to 40 mg IV Q12h CHF: Less likley. Echocardiogram Grade 1 DDCHF, RVSP 43.6 lasix 40mg PO daily Strict I/O Daily weight. Oxygen supplementation keeping saturation over 90%. Most likely exacerbation of KEO as well. BiPAP overnight as needed. Patient is noncompliant with CPAP at home. HTN: Blood pressure well controlled. Continue with home dose of amlodipine and lisinopril. We will continue to monitor. Out of bed to chair. PT eval and treat FC Lovenox Famotidine for PUD Cardiac diet Attestations Medical Necessity Statement*: Requires continued hospitalization due to acute respiratory failure Coding Level of Care Code Acute Internal Grinder for Chg Fwd Diagnoses Acute on chronic respiratory failure with hypoxia and hypercapnia J96.21; J96.22 KEO (obstructive sleep apnea) G47.33 COPD (chronic obstructive pulmonary disease) J44.9 CHF (congestive heart failure) I50.9 Hypertension I10 Hypertensive urgency I16.0 Chronically on opiate therapy Z79.891 Hypothyroidism E03.9 NSTEMI (non-ST elevated myocardial infarction) I21.4 Tobacco abuse Z72.0
[2020-01-17 16:16] LABS: Legionella Antibody <1:256
--- NOTE | 2020-01-17 19:05 | PC.NURSE ---
Introduction of staff and report received, aidet.
[2020-01-17] MEDS: cefTRIAXone 1,000 MG in sodium chloride 0.9% (plus) 50 ML 100 MG IV (20:14)
[2020-01-17] MEDS: atorvastatin 40 mg Tablet PO (20:14)
[2020-01-17] MEDS: azithromycin 250 mg Tablet 500 MG PO (20:21)
[2020-01-17] MEDS: guaiFENesin 100 mg/5 mL UDC 10 mL 200 MG PO (23:19)
[2020-01-18] VITALS (18 sets, daily range): BP systolic 132–153; BP diastolic 75–83; PULSE 76–97; RESP 17–20; TEMP 36.6–36.9; O2SAT 90–96; BMI 42.7
[2020-01-18] MEDS: ipratropium-albuterol 3 mL Neb INHALATION ×5 (01:05→15:00)
[2020-01-18] MEDS: oxyCODONE IR 30 mg Tablet 15 MG PO ×2 (01:24→08:19)
[2020-01-18] MEDS: enoxaparin 40 mg/0.4 mL Syringe SUBCUT (03:58)
[2020-01-18 05:56] LABS: Basophils % 0.3 %; Hematocrit 42.6 % (37.0-47.0); Hemoglobin 13.7 g/dL (11.5-15.3); Lymphocytes # 2.6 10^3/uL (0.8-4.8); Lymphocytes % 16.2 %; Mean Corpuscular HGB Conc 32.2 g/dL (30.0-36.0); Mean Corpuscular Hemoglobin 29.7 pg (28.0-34.0); Mean Corpuscular Volume 92.4 fL (81-99); Mean Platelet Volume 10.6 fL (7.4-10.4); Monocytes # 1.7 10^3/uL (0.2-0.9); Monocytes % 10.7 %; Neutrophils # 10.8 10^3/uL (1.8-7.7); Neutrophils % 68.1 %; Nucleated Red Blood Cells % 0 %; Platelet Count 351 10^3/cmm (130-400); Red Blood Count 4.61 10^6/uL (4.1-5.3); Red Cell Distribution Width 13.9 % (12.1-15.1); White Blood Count 15.8 10^3/uL (4.0-10.0)
[2020-01-18 06:15] LABS: Alanine Aminotransferase 57 U/L (0-33); Albumin Level 3.4 g/dL (3.5-5.2); Alkaline Phosphatase 138 IU/L (35-105); Anion Gap 17.2 (5-19); Aspartate Amino Transferase 45 U/L (0-32); Blood Urea Nitrogen 25 mg/dL (8-23); Calcium 9.5 mg/dL (8.5-10.5); Carbon Dioxide 32 mmol/L (22-29); Chloride 92 mmol/L (98-107); Globulin 3.9 g/dL (1.3-4.6); Glomerular Filtration Rate 63.7 mL/min (90-130); Glucose 212 mg/dL (65-115); Magnesium 2.4 mg/dL (1.7-2.3); Phosphorus 3.1 mg/dL (2.5-4.5); Potassium 4.2 mmol/L (3.5-5.1); Sodium 137 mmol/L (136-145); Total Bilirubin 0.3 mg/dL (0.15-1.2); Total Protein 7.3 g/dL (6.6-8.7)
[2020-01-18] MEDS: budesonide 0.5 mg/2 mL Neb 0.25 MG INHALATION ×2 (07:24→11:29)
[2020-01-18] MEDS: amlodipine 10 mg Tablet PO (08:19)
[2020-01-18] MEDS: lisinopril 10 mg Tablet PO ×2 (08:19→17:05)
[2020-01-18] MEDS: levothyroxine 25 mcg Tablet PO (08:19)
[2020-01-18] MEDS: famotidine 20 mg Tablet PO (08:19)
[2020-01-18] MEDS: aspirin 81 mg EC Tablet PO (08:19)
[2020-01-18] MEDS: FUROsemide 40 mg Tablet PO (08:19)
[2020-01-18] MEDS: duloxetine 30 mg Capsule PO ×2 (08:19→17:05)
--- NOTE | 2020-01-18 12:20 | PM.PN ---
Subjective Subjective: Interval history: No acute events overnight. Patient states she is feeling a lot better now. She still continues to feel weak though. At present she denies of having any nausea, vomiting, shortness of breath, cough. Patient has been ambulating in her room does have some shortness of breath while ambulation but has improved than before as per the patient. Medications: Medication Review Details: Albuterol Amlodipine 10 mg once daily Budesonide 0.25 mg twice daily Duloxetine 30 mg twice daily Famotidine 20 mg p.o. daily Lasix 20 mg p.o. every morning as needed Levothyroxine 25 mcg daily Lisinopril 10 mg twice daily Oxycodone 15 mg every 6 as needed Tiotropium Vitals/I&O/Wt Last Vital Signs Temp 98.2 F 01/18/20 11:47 Pulse 97 01/18/20 11:47 Resp 18 01/18/20 11:47 BP 132/75 01/18/20 11:47 Pulse Ox 93 01/18/20 11:47 01/17/20 01/18/20 01/18/20 22:59 06:59 14:59 Intake Total 1160 / 1760 300 / 300 Output Total 1850 / 1850 400 / 2250 Balance -690 / -90 -400 / -490 300 / 300 Weight last 48 hrs Weight 102.71 kg Weight 102.71 kg Weight 104.099 kg Physical Exam Narrative: EXAM NARRATIVE: General: No acute distress, AO x3 HEENT: PERRLA, pupils bilaterally equal and reactive Chest: Bronchial breath sounds improving than before, equal good air entry bilaterally CVS: S1-S2 regular, no murmurs, no tachycardia, no gallops, no rubs Abdomen: Soft, nontender, no organomegaly, bowel sounds present Neuro: No focal deficits, no facial deformity, AO x3, power 5/5 in all limbs Data : 01/18/20 05:14 01/18/20 05:14 Micro: Microbiology 01/14/20 12:00 Gram Stain - Final Sputum - Expectorated Sputum Sputum Culture - Final A&P Assessment and plan (1) Acute on chronic respiratory failure with hypoxia and hypercapnia: Status: Acute Code(s): J96.21 - Acute and chronic respiratory failure with hypoxia; J96.22 - Acute and chronic respiratory failure with hypercapnia (2) KEO (obstructive sleep apnea): Stated that she could not do the sleep study as is claustrophobic, likely has sleep apnea Status: Acute Code(s): G47.33 - Obstructive sleep apnea (adult) (pediatric) (3) COPD (chronic obstructive pulmonary disease): Status: Acute Code(s): J44.9 - Chronic obstructive pulmonary disease, unspecified (4) CHF (congestive heart failure): Status: Acute Code(s): I50.9 - Heart failure, unspecified (5) Hypertension: Status: Acute Code(s): I10 - Essential (primary) hypertension (6) Hypertensive urgency: Resolved. BP as above Status: Acute Code(s): I16.0 - Hypertensive urgency (7) Chronically on opiate therapy: Status: Acute Code(s): Z79.891 - half-way (current) use of opiate analgesic (8) Hypothyroidism: Status: Acute Code(s): E03.9 - Hypothyroidism, unspecified (9) NSTEMI (non-ST elevated myocardial infarction): -Troponin was 20, likely supply demand ischemia from respiratory failure -No active chest pain -Continue telemetry monitoring, monitor for chest pain -Aspirin, statin Status: Acute Code(s): I21.4 - Non-ST elevation (NSTEMI) myocardial infarction (10) Tobacco abuse: Discussed in detail for over 10 minutes and advised and counseled for tobacco use cessation. Nicotine patch for now. Status: Chronic Code(s): Z72.0 - Tobacco use Additional A&P Information Acute hypercapnica nd hypoxic Resp failure: -Secondary to PNA causing COPD exacerbation with KEO and mild CHF C/w Ceftriaxone. Day 5 of treatment.Will d/c Azithromycin Continue with budesonide twice daily and DuoNebs every 6 hours [id number]. Decrease solumedrol to 40 mg IV daily. Will switch to Prednisone 40 mg for 5 days on discharge. CHF: Euvoluemic now. Echocardiogram Grade 1 DDCHF, RVSP 43.6 lasix 40mg PO daily Strict I/O Daily weight. Oxygen supplementation keeping saturation over 90%. Most likely exacerbation of KEO as well. BiPAP overnight as needed. Patient is noncompliant with CPAP at home. HTN: Blood pressure well controlled. Continue with home dose of amlodipine and lisinopril. We will continue to monitor. Out of bed to chair. Plan to d/c home tomorrow with home health. Patient was given option of going to SNF given severe weakness and deconditioning but would want to go to home health for further rehabilitation. FC Lovenox Famotidine for PUD Cardiac diet Attestations Medical Necessity Statement*: Resolving PNA Time Spent in Patient Care: Greater than 35 minutes Coding Level of Care Code Acute Transport Analyst for Chg Fwd Diagnoses Acute on chronic respiratory failure with hypoxia and hypercapnia J96.21; J96.22 KEO (obstructive sleep apnea) G47.33 COPD (chronic obstructive pulmonary disease) J44.9 CHF (congestive heart failure) I50.9 Hypertension I10 Hypertensive urgency I16.0 Chronically on opiate therapy Z79.891 Hypothyroidism E03.9 NSTEMI (non-ST elevated myocardial infarction) I21.4 Tobacco abuse Z72.0
[2020-01-18] MEDS: benzonatate 100 mg Capsule 200 MG PO (15:08)
[2020-01-18] MEDS: guaiFENesin 100 mg/5 mL UDC 10 mL 200 MG PO (17:07)
[2020-01-18] MEDS: cefTRIAXone 1,000 MG in sodium chloride 0.9% (plus) 50 ML 100 MG IV (21:22)
[2020-01-18] MEDS: atorvastatin 40 mg Tablet PO (21:22)
[2020-01-19] VITALS (20 sets, daily range): BP systolic 124–155; BP diastolic 72–88; PULSE 75–94; RESP 16–20; TEMP 36.6–36.9; O2SAT 87–95
[2020-01-19] MEDS: oxyCODONE IR 30 mg Tablet 15 MG PO ×4 (00:48→21:51)
[2020-01-19] MEDS: enoxaparin 40 mg/0.4 mL Syringe SUBCUT (03:40)
[2020-01-19] MEDS: ipratropium-albuterol 3 mL Neb INHALATION ×4 (04:19→15:57)
[2020-01-19 05:37] LABS: Alanine Aminotransferase 94 U/L (0-33); Albumin Level 3.4 g/dL (3.5-5.2); Alkaline Phosphatase 128 IU/L (35-105); Anion Gap 14.5 (5-19); Aspartate Amino Transferase 73 U/L (0-32); Blood Urea Nitrogen 35 mg/dL (8-23); Calcium 9.2 mg/dL (8.5-10.5); Carbon Dioxide 32 mmol/L (22-29); Chloride 96 mmol/L (98-107); Globulin 3.4 g/dL (1.3-4.6); Glomerular Filtration Rate 72.9 mL/min (90-130); Glucose 116 mg/dL (65-115); Potassium 4.5 mmol/L (3.5-5.1); Sodium 138 mmol/L (136-145); Total Bilirubin 0.3 mg/dL (0.15-1.2); Total Protein 6.8 g/dL (6.6-8.7)
[2020-01-19 05:52] LABS: Basophils # 0.1 10^3/uL (0.0-0.1); Basophils % 0.3 %; Hematocrit 43.8 % (37.0-47.0); Hemoglobin 13.9 g/dL (11.5-15.3); Lymphocytes # 5.7 10^3/uL (0.8-4.8); Mean Corpuscular HGB Conc 31.7 g/dL (30.0-36.0); Mean Corpuscular Hemoglobin 29.5 pg (28.0-34.0); Mean Platelet Volume 10.3 fL (7.4-10.4); Monocytes # 2.3 10^3/uL (0.2-0.9); Monocytes % 11.5 %; Neutrophils # 11.5 10^3/uL (1.8-7.7); Neutrophils % 56.5 %; Nucleated Red Blood Cells % 0 %; Platelet Count 388 10^3/cmm (130-400); Red Blood Count 4.71 10^6/uL (4.1-5.3); White Blood Count 20.4 10^3/uL (4.0-10.0)
[2020-01-19 06:23] LABS: Slide Review Slide Review Perform
[2020-01-19] MEDS: aspirin 81 mg EC Tablet PO (08:25)
[2020-01-19] MEDS: lisinopril 10 mg Tablet PO ×2 (08:25→17:07)
[2020-01-19] MEDS: levothyroxine 25 mcg Tablet PO (08:25)
[2020-01-19] MEDS: FUROsemide 40 mg Tablet PO (08:25)
[2020-01-19] MEDS: famotidine 20 mg Tablet PO (08:25)
[2020-01-19] MEDS: duloxetine 30 mg Capsule PO ×2 (08:25→17:07)
[2020-01-19] MEDS: amlodipine 10 mg Tablet PO (08:25)
[2020-01-19] MEDS: budesonide 0.5 mg/2 mL Neb 0.25 MG INHALATION (08:27)
[2020-01-19] MEDS: azithromycin 250 mg Tablet 500 MG PO (12:12)
[2020-01-19] MEDS: predniSONE 20 mg Tablet 40 MG PO (12:13)
--- NOTE | 2020-01-19 14:31 | PM.PN ---
Subjective Subjective: Interval history: No acute events overnight. Patient states she is feeling a lot better now. States she is not feeling as weak any more and is able to ambulate well in room with walker. She denies of having any nausea, vomiting, shortness of breath, cough. Medications: Medication Review Details: Albuterol Amlodipine 10 mg once daily Budesonide 0.25 mg twice daily Duloxetine 30 mg twice daily Famotidine 20 mg p.o. daily Lasix 20 mg p.o. every morning as needed Levothyroxine 25 mcg daily Lisinopril 10 mg twice daily Oxycodone 15 mg every 6 as needed Tiotropium Vitals/I&O/Wt Last Vital Signs Temp 98.1 F 01/19/20 11:45 Pulse 79 01/19/20 11:45 Resp 18 01/19/20 11:45 BP 124/72 01/19/20 11:45 Pulse Ox 88 L 01/19/20 14:05 01/18/20 01/19/20 01/19/20 22:59 06:59 14:59 Intake Total 360 / 780 250 / 1030 180 / 180 Output Total 1000 / 1000 Balance -640 / -220 250 / 30 180 / 180 Weight last 48 hrs Weight 103.419 kg Weight 103.419 kg Weight 102.71 kg Weight 102.71 kg Physical Exam Narrative: EXAM NARRATIVE: General: No acute distress, AO x3 HEENT: PERRLA, pupils bilaterally equal and reactive Chest: Bronchial breath sounds improving than before, equal good air entry bilaterally CVS: S1-S2 regular, no murmurs, no tachycardia, no gallops, no rubs Abdomen: Soft, nontender, no organomegaly, bowel sounds present Neuro: No focal deficits, no facial deformity, AO x3, power 5/5 in all limbs Const: COMMON NORMALS: no apparent distress and oriented x3 GENERAL APPEARANCE: cooperative and comfortable HENMT: COMMON NORMALS: normocephalic HEAD & SCALP: normocephalic Eye: COMMON NORMALS: PERRL, EOMs intact bilaterally and no papilledema GENERAL EYE: normal appearance of both eyes PUPIL: Yes PERRL DIRECT OPHTHALMOSCOPY: Yes no papilledema Neck/C-Spine: COMMON NORMALS: full ROM, no lymphadenopathy, no JVD and thyroid normal THYROID: thyroid normal Lymph: LYMPHATIC: no lymphadenopathy noted Resp: COMMON NORMALS: normal respiratory effort, no retractions, no use of accessory muscles and clear to auscultation bilaterally AUSCULTATION: clear to auscultation bilaterally Cardio: COMMON NORMALS: no JVD, regular rate, regular rhythm, S1 normal heart sound, S2 normal heart sound, no gallops, no clicks and no murmurs RATE: regular rate RHYTHM: regular rhythm HEART SOUNDS: S1 normal and S2 normal GI: COMMON NORMALS: normal to inspection, nondistended, normoactive bowel sounds, soft to palpation, non-tender and no hepatosplenomegaly PALPATION: Yes soft and Yes no hepatosplenomegaly Extremity: COMMON NORMALS: normal to inspection, full ROM and no pedal edema Neuro: COMMON NORMALS: oriented x3, moves all extremities and no focal motor deficits OTHER: Cannot follow full neurologic exam as is on BiPAP Psych: COMMON NORMALS: mental status grossly normal, thought process normal and cooperative THOUGHT PROCESS: normal thought process Data : 01/19/20 04:51 01/19/20 04:51 Micro: Microbiology 01/14/20 10:20 Blood Culture - Final Blood NO GROWTH AFTER 5 DAYS 01/14/20 10:15 Blood Culture - Final Blood NO GROWTH AFTER 5 DAYS 01/14/20 12:00 Gram Stain - Final Sputum - Expectorated Sputum Sputum Culture - Final A&P Assessment and plan (1) Acute on chronic respiratory failure with hypoxia and hypercapnia: Status: Acute Code(s): J96.21 - Acute and chronic respiratory failure with hypoxia; J96.22 - Acute and chronic respiratory failure with hypercapnia (2) KEO (obstructive sleep apnea): Stated that she could not do the sleep study as is claustrophobic, likely has sleep apnea Status: Acute Code(s): G47.33 - Obstructive sleep apnea (adult) (pediatric) (3) COPD (chronic obstructive pulmonary disease): Status: Acute Code(s): J44.9 - Chronic obstructive pulmonary disease, unspecified (4) CHF (congestive heart failure): Status: Acute Code(s): I50.9 - Heart failure, unspecified (5) Hypertension: Status: Acute Code(s): I10 - Essential (primary) hypertension (6) Hypertensive urgency: Resolved. 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 Nicotine patch for now. Status: Chronic Code(s): Z72.0 - Tobacco use Additional A&P Information Acute hypercapnica nd hypoxic Resp failure: -Secondary to PNA causing COPD exacerbation with KEO and mild CHF Last day of treatment with Ceftriaxone. Finisher day 5 of treatment. Legionella Ab positive so will c/w Azithromycin and finish a 7 day course. Continue with budesonide twice daily and DuoNebs every 6 hours [id number]. Decrease solumedrol to 40 mg IV daily. Will switch to Prednisone 40 mg for 5 days on discharge. CHF: Euvoluemic now. Echocardiogram Grade 1 DDCHF, RVSP 43.6 lasix 40mg PO daily Strict I/O Daily weight. Oxygen supplementation keeping saturation over 90%. Most likely exacerbation of KEO as well. BiPAP overnight as needed. Patient is noncompliant with CPAP at home. HTN: Blood pressure well controlled. Continue with home dose of amlodipine and lisinopril. We will continue to monitor. Out of bed to chair. Plan to d/c home tomorrow. Pt is refusing home health and SNF at present. Patient was given option of going to SNF given severe weakness and deconditioning but is refusing. Would like to do PT on her own . FC Lovenox Famotidine for PUD Cardiac diet Attestations Medical Necessity Statement*: For resolving acute hypoxic resp failure. Time Spent in Patient Care: 16 - 35 minutes Coding Level of Care Code Acute Pressure Vessel Inspector for Landon Fwjodi Diagnoses Acute on chronic respiratory failure with hypoxia and hypercapnia J96.21; J96.22 KEO (obstructive sleep apnea) G47.33 COPD (chronic obstructive pulmonary disease) J44.9 CHF (congestive heart failure) I50.9 Hypertension I10 Hypertensive urgency I16.0 Chronically on opiate therapy Z79.891 Hypothyroidism E03.9 NSTEMI (non-ST elevated myocardial infarction) I21.4 Tobacco abuse Z72.0
[2020-01-19] MEDS: guaiFENesin 100 mg/5 mL UDC 10 mL 200 MG PO ×2 (14:36→21:51)
[2020-01-19] MEDS: atorvastatin 40 mg Tablet PO (21:51)
[2020-01-19] MEDS: cefTRIAXone 1,000 MG in sodium chloride 0.9% (plus) 50 ML 100 MG IV (21:51)
[2020-01-20] VITALS (11 sets, daily range): BP systolic 123–132; BP diastolic 69–80; PULSE 72–97; RESP 17–18; TEMP 36.4–36.9; O2SAT 92–94
[2020-01-20] MEDS: ipratropium-albuterol 3 mL Neb INHALATION ×2 (00:47→07:36)
[2020-01-20] MEDS: enoxaparin 40 mg/0.4 mL Syringe SUBCUT (06:17)
[2020-01-20] MEDS: oxyCODONE IR 30 mg Tablet 15 MG PO (06:18)
[2020-01-20] MEDS: budesonide 0.5 mg/2 mL Neb 0.25 MG INHALATION (07:36)
[2020-01-20] MEDS: guaiFENesin 100 mg/5 mL UDC 10 mL 200 MG PO (08:15)
[2020-01-20] MEDS: lisinopril 10 mg Tablet PO (08:15)
[2020-01-20] MEDS: amlodipine 10 mg Tablet PO (08:15)
[2020-01-20] MEDS: levothyroxine 25 mcg Tablet PO (08:15)
[2020-01-20] MEDS: aspirin 81 mg EC Tablet PO (08:15)
[2020-01-20] MEDS: azithromycin 250 mg Tablet 500 MG PO (08:15)
[2020-01-20] MEDS: FUROsemide 40 mg Tablet PO (08:15)
[2020-01-20] MEDS: famotidine 20 mg Tablet PO (08:15)
[2020-01-20] MEDS: predniSONE 20 mg Tablet 40 MG PO (08:15)
[2020-01-20] MEDS: duloxetine 30 mg Capsule PO (08:15)
--- NOTE | 2020-01-20 12:23 | PM.DCS ---
Discharge Providers Date of Admission: 01/14/20 00:47 Date of Discharge: January 20, 2020 Attending Provider at Admission: Teo Jay MD Attending Provider at Discharge: Edwin Pace MD Primary Care Provider: Ed Hunter Diagnoses at Discharge Discharge Diagnosis (1) Acute on chronic respiratory failure with hypoxia and hypercapnia: Status: Acute (2) KEO (obstructive sleep apnea): Status: Acute (3) COPD (chronic obstructive pulmonary disease): Status: Acute (4) CHF (congestive heart failure): Status: Acute (5) Hypertension: Status: Acute (6) Hypertensive urgency: Status: Acute (7) Chronically on opiate therapy: Status: Acute (8) Hypothyroidism: Status: Acute (9) NSTEMI (non-ST elevated myocardial infarction): Status: Acute (10) Tobacco abuse: Status: Chronic Reason for Visit Reason for Visit: Reason For Visit: RESPIRATORY DISTRESS Hospital Course Discharge Summary: Reyna Nunn is a 59 year old female with a past medical history of COPD 2 to 3 L oxygen dependent, chronic smoker, history of congestive heart failure, hypertension, chronic pain on opiate medications, bilateral lower extremity edema, hypothyroidism, GERD who presented to the emergency room due to complaints of shortness of breath, productive cough, fevers, chills for the last week and a half. Patient was a transfer from [facility] on January 14 due to concerns for acute hypoxic hypercarbic respiratory failure. Patient states that for the past week and a half she has had shortness of breath at rest and with exertion, shortness of breath has progressively worsened, she has had a productive cough of yellow-green sputum, intermittent subjective fevers, chills, no lightheadedness, no dizziness, no chest pain, no sick contacts, no recent travel, no URI symptoms, denies orthopnea, no paroxysmal nocturnal dyspnea, but no bilateral lower extremity edema, no chest pain. Patient has been taking her medications as prescribed. At [facility] patient was found to have acute hypoxic hypercarbic respiratory failure she was put on 60 L high flow, still was short of breath, found to have a pneumonia, found to have pulmonary vascular congestion, was given Lasix, vancomycin, Zosyn, azithromycin, breathing treatments, steroids, the patient did not clinically improve, was still requiring 60 L 35% FiO2 thus was transferred to [facility] for further evaluation and treatment. Patient arrived in the intensive care unit, was found to be short of breath, having retractions, was placed on BiPAP, was doing well, her ABG shows a pH of 7.39, PCO2 47.5, PO2 of 181, is doing well on BiPAP, states that her breathing has improved, her flu was negative. Patient was treated with IV steroids, on top of nebulizations and antibiotics for community-acquired pneumonia. Patient's antibiotics were changed as per the culture results. Her Legionella antibody was mildly positive so she was continued on azithromycin and will need azithromycin for 7 more days on discharge. Patient responded well to the treatment and the steroids were weaned off. She requires steroids for 5 more days and then can be stopped. Echocardiogram was done which revealed a normal EF with a grade 1 diastolic dysfunction with mild pulmonary hypertension with RVSP of 44. CT chest was done which was concerning for tree-in-bud infiltrations bilaterally in the lung art concerning for atypical pneumonia. Patient responded well to the treatment and worked well with physical therapy. Due to her severe deconditioning and weakness home health option was given to the patient which she declined so she is been discharged in hemodynamically stable condition with home O2 evaluation needing 2 to 3 L oxygenation and has been provided with a list of exercises which she should be doing on her own. Physical Exam Narrative: EXAM NARRATIVE: General: No acute distress, AO x3 HEENT: PERRLA, pupils bilaterally equal and reactive Chest: Bronchial breath sounds improving than before, equal good air entry bilaterally CVS: S1-S2 regular, no murmurs, no tachycardia, no gallops, no rubs Abdomen: Soft, nontender, no organomegaly, bowel sounds present Neuro: No focal deficits, no facial deformity, AO x3, power 5/5 in all limbs Discharge Data Data Completed and Pending: Completed Studies During Hospitalization Category Date Time Status CT chest w con* [id number] Routine Cat Scan 01/14/20 02:39 Completed XR chest 1V yosvany ble [id number] Routine Exams 01/15/20 07:00 Completed CV echo complete* [id number] Routine Ultrasound 01/14/20 02:39 Completed Vitals: Last Vital Signs Temp 97.5 F L 01/20/20 08:00 Pulse 79 01/20/20 08:00 Resp 18 01/20/20 08:00 BP 125/74 01/20/20 08:00 Pulse Ox 92 02/22/20 08:00 Discharge Plan Discharge Patient Disposition: Home, Self-Care Condition: Stable Prescriptions: New guaifenesin 100 mg/5 mL Liquid 200 mg PO Q4H PRN (Reason: Cough And Congestion) Qty: 50 RF: 0 benzonatate 100 mg Capsule 200 mg PO TID PRN (Reason: Cough) Qty: 10 RF: 0 azithromycin 250 mg Tablet 500 mg PO DAILY 7 Days Qty: 7 RF: 0 prednisone 20 mg Tablet 40 mg PO DAILY Qty: 5 RF: 0 Continued duloxetine [Cymbalta] 30 mg capsule,delayed release(DR/EC) 30 mg PO BID Qty: 60 RF: 4 naproxen 500 mg tablet 500 mg PO BID Qty: 60 RF: 5 oxycodone 15 mg tablet 15 mg PO Q6H PRN (Reason: pain) 30 Days Qty: 120 RF: 0 lisinopril 10 mg tablet 10 mg PO BID RF: 0 amlodipine [Norvasc] 10 mg tablet 10 mg PO QDAY RF: 0 levothyroxine 25 mcg capsule 25 mcg PO QDAY RF: 0 promethazine-DM 6.25-15 mg/5 mL syrup 5 ml PO Q6H PRN (Reason: Cough) RF: 0 albuterol sulfate [Proventil HFA] 90 mcg/actuation HFA aerosol inhaler 2 puff INHALATION Q6H PRN (Reason: Shortness Of Breath) RF: 0 Stiolto Respimat 2.5-2.5 mcg/actuation mist 2 puff INHALATION QDAY RF: 0 budesonide [Pulmicort] 0.5 mg/2 mL suspension for nebulization 0.25 mg INHALATION BID RF: 0 famotidine 20 mg Tablet 20 mg PO DAILY RF: 0 Nystop powder 100,000 unit topical BID RF: 0 Changed furosemide [Lasix] 20 mg tablet 20 mg PO QAM Qty: 30 RF: 0 Discharge Orders: Discharge Order (Routine); Ordered 01/20/20 Ordered By: Edwin Pace Other Ambulatory Orders: DME: Vinny (Order) Location: None Selected Ordered By: Edwin Pace Referrals: Ed Hunter [Primary Care Provider] - 2 weeks Discharge Diet: Cardiac Discharge Activity: Resume usual activity Discharge Attestations Time Spent in Discharge Care*: greater than 30 min Specific Discharge Activities: Specific discharge activities: educating patient, discussing with case picker/social workers/dc planners and evaluating patient/reviewing data Status at Discharge: Cognitive status at discharge: cognitively intact, Behavioral status at discharge: cooperative, Functional status at discharge: uses cane/walker Overall status at discharge: patient is back to baseline Quality Metrics Clinical Quality Measures During this hospital stay, did patient experience: None Coding Level of Care Code Acute Photoengraving Finisher for Izzyg Fwd Diagnoses Acute on chronic respiratory failure with hypoxia and hypercapnia J96.21; J96.22 KEO (obstructive sleep apnea) G47.33 COPD (chronic obstructive pulmonary disease) J44.9 CHF (congestive heart failure) I50.9 Hypertension I10 Hypertensive urgency I16.0 Chronically on opiate therapy Z79.891 Hypothyroidism E03.9 NSTEMI (non-ST elevated myocardial infarction) I21.4 Tobacco abuse Z72.0
== END 2020-01-20 14:02 | disposition home or self-care (01) | DRG 189 ==
LOC: ICU 07:26 → MEDSURG 13:19
PROVIDERS: Admitting Provider Family Medicine; Family Provider Physician Assistant Medical; PCP Physician Assistant Medical; Visit Provider Student in an Organized Health Care Education/Training Program
DX: J96.21 Acute and chronic respiratory failure with hypoxia (principal); I21.A1 Myocardial infarction type 2; J18.9 Pneumonia, unspecified organism; J44.0 Chronic obstructive pulmonary disease with (acute) lower respiratory infection; J44.1 Chronic obstructive pulmonary disease with (acute) exacerbation; J96.22 Acute and chronic respiratory failure with hypercapnia; G47.33 Obstructive sleep apnea (adult) (pediatric); I50.9 Heart failure, unspecified; Z99.81 Dependence on supplemental oxygen; Z79.891 Long term (current) use of opiate analgesic; E03.9 Hypothyroidism, unspecified; I16.0 Hypertensive urgency; F40.240 Claustrophobia; K21.9 Gastro-esophageal reflux disease without esophagitis; M51.36 Other intervertebral disc degeneration, lumbar region; F17.210 Nicotine dependence, cigarettes, uncomplicated; Z79.890 Hormone replacement therapy; Z79.52 Long term (current) use of systemic steroids; Z79.899 Other long term (current) drug therapy; I11.0 Hypertensive heart disease with heart failure; I27.20 Pulmonary hypertension, unspecified
CPT/HCPCS: 12345; 36415; 71045; 71260; 80053; 82803; 83036; 83735; 83880; 84100; 84145; 84443; 85007; 85025; 86713; 87040; 87070; 87205; 87641; 87804; 93005; 93306; 94640; 94660; 96372; 96375; 97116; 97162; 97530; J0456; J0696; J1650; J1940; J2920; J7050; J7512; J7626; Q0144; Q9967

== ENCOUNTER → 2020-02-13 10:40 | Outpatient (BNVA) | payer MEDICAID, SELFPAY | PROVIDERS: Family Provider Physician Assistant Medical; PCP Physician Assistant Medical; Visit Provider Nurse Practitioner | DX: M54.9 Dorsalgia, unspecified (principal); M25.511 Pain in right shoulder; F17.210 Nicotine dependence, cigarettes, uncomplicated; Z79.891 Long term (current) use of opiate analgesic; Z71.6 Tobacco abuse counseling | CPT/HCPCS: 99213; 99214 ==

== ENCOUNTER 2020-06-10 19:26 | Inpatient (IN) | payer MEDICAID, SELFPAY ==
[2020-06-10] VITALS (7 sets, daily range): BP systolic 70–120; BP diastolic 53–63; PULSE 88–104; RESP 12–24; TEMP 36.4; O2SAT 91–99; BMI 43.4
--- NOTE | 2020-06-10 19:35 | XR_ITS ---
WS: [id number] CHEST XRAY TECHNIQUE: Portable chest. CLINICAL INFORMATION: Dyspnea COMPARISON: January 15, 2020 FINDINGS: Heart: Normal cardiac silhouette. Lungs: Patchy airspace infiltrates in the right lower lobe with a small right pleural effusion. Left lung is well aerated. Bones: Normal visualized bony structures. XR/XR chest 1V portable [id number] IMPRESSION: Right lower lobe pneumonia with small right pleural effusion.
--- NOTE | 2020-06-10 19:37 | ECG_ITS ---
[facility] Test Date: 2020-06-10 Pat Name: Reyna Nunn Department: Room: Gender: Female [employer] Operator: : 1960 Requested By: Alexandra Swain Order Number: [id number] Jaqueline MD: Elmo Spencer M.D. Measurements Intervals [place] Rate: 98 P: 55 AK: 139 QRS: 54 QRSD: 86 T: 27 QT: 310 QTc: 396 Interpretive Statements SINUS RHYTHM Compared to ECG 01/14/2020 10:52:09 No significant changes Electronically Signed On 06-11-2020 19:16:41 CDT by Elmo Spencer M.D. [id number]
[2020-06-10 19:54] LABS: ABG PCO2 55.2 mmHg (35-45); ABG PH Result 7.25 (7.35-7.45); Arterial Blood Gas Hematocrit 45.5 % (37-47); Base Excess ABG -3.9 mmol/L (-2.0-2.0); Blood Gas Sample Site Radial, left; Blood Gas Sample Type Arterial; Carboxyhemoglobin 0.1 %THgb (0.4-20.1); HCO3 ABG 24.2 mmol/L (22-26); HGB O2 Sat 92.7 % (95-100); Ionized Calcium Level - ABG 1.1 mmol/L (1.1-1.4); Methemoglobin 0.7 % (0.4-1.5); Oxygen Device NC; Oxygen Saturation ABG 93.4; PO2 ABG 83.9 mmHg (80.0-100.0); Potassium Level - ABG 4.4 mmol/L (3.5-5.0); Total Hemoglobin 14.8 g/dL (12-16)
[2020-06-10] MEDS: doxycycline 100 MG in sodium chloride 0.9% (plus) 100 ML IV (20:06)
[2020-06-10] MEDS: sodium chloride 0.9% 1,000 ML 75 ML IV (20:07)
[2020-06-10] MEDS: ipratropium-albuterol 3 mL Neb 9 ML INHALATION (20:19)
[2020-06-10 20:25] LABS: Basophils % 0.1 %; Eosinophils % 0.1 %; Hematocrit 44.7 % (37.0-47.0); Hemoglobin 13.9 g/dL (11.5-15.3); Lymphocytes # 1.6 10^3/uL (0.8-4.8); Lymphocytes % 11.8 %; Mean Corpuscular HGB Conc 31.1 g/dL (30.0-36.0); Mean Corpuscular Hemoglobin 30.7 pg (28.0-34.0); Mean Corpuscular Volume 98.7 fL (81-99); Mean Platelet Volume 11.2 fL (7.4-10.4); Monocytes % 7.3 %; Neutrophils # 10.81 10^3/uL (1.8-7.7); Neutrophils % 79.7 %; Nucleated Red Blood Cells % 0.3 %; Platelet Count 269 10^3/cmm (130-400); Red Blood Count 4.53 10^6/uL (4.1-5.3); Red Cell Distribution Width 14.3 % (12.1-15.1); White Blood Count 13.6 10^3/uL (4.0-10.0)
[2020-06-10 20:36] LABS: INR 1.05 (0.8-1.2)
--- NOTE | 2020-06-10 20:37 | ED_ITS ---
HPI - SOB/Dyspnea General: Chief Complaint: Shortness of Breath/Dyspnea Stated Complaint: SOB Time Seen by Provider: 06/10/20 19:34 Source: patient and EMS Mode of arrival: EMS Limitations: other (Respiratory distress) History of Present Illness: HPI Narrative: Reyna is a 59-year-old female brought in by EMS that is unable to give much if any history secondary to her respiratory distress. EMS reports the patient has been complaining of shortness of breath for 1 to 2 days. Anytime they try to get her to do anything in the room her symptoms got much worse. Patient only answers some yes/no questions otherwise is not cooperative. She does appear to be in significant respiratory distress at this time. All other information is taken from EMS or old charts. Review of Systems General: Reports: ROS unobtainable due to medical condition PFSH ED PFSH: Medical History Bilateral shoulder pain Carpal tunnel syndrome, bilateral CHF (congestive heart failure) COPD (chronic obstructive pulmonary disease) DDD (degenerative disc disease), lumbar Hypertension Hypothyroidism Long-term use of high-risk medication Opioid contract exists Paresthesia of right upper extremity Requires oxygen therapy Tobacco abuse Surgical History History of nasal surgery NOSE RESECTION S/P hernia surgery S/P hysterectomy Family History Father Cancer Heart disease Diabetes Mother Heart disease Diabetes Fibromyalgia Brother Heart disease Sister Heart disease Diabetes Social History Smoking and tobacco status: current every day smoker cigarettes Packs smoked per day: 1 Alcohol intake: never Lives independently: Yes Household members: other Details: Says daughter, although not sure how reliable her history is. It takes a while to recall her daughter's name. Marital status: / Physical Exam Const: EXAM LIMITATIONS: other limitations (Respiratory distress) GENERAL APPEARANCE: in distress, lethargic and ill appearing NUTRITIONAL APPEARANCE: obese ORIENTATION/CONSCIOUSNESS: Yes awake and Yes lethargic HENMT: COMMON NORMALS: normocephalic, atraumatic, external ears normal, EAC's normal and Normal external nose present HEAD & SCALP: normal to inspection, normocephalic and atraumatic FACE & SINUS: normal facial exam and face symmetric NOSE: Normal external nose present and Normal nares present EXTERNAL EAR: Yes external ears normal EXTERNAL AUDITORY CANAL: EAC's normal MOUTH: Normal oral and palatal mucosa present, lip normal and tongue normal Eye: COMMON NORMALS: Equal, round and reactive pupils present and conjunctivae normal GENERAL EYE: appearance normal, both eyes and all related structures ALIGNMENT: Yes alignment normal PERIORBITAL: periorbital findings normal EYELID: eyelids normal CONJUNCTIVA: Yes conjunctivae normal SCLERA: sclerae normal PUPIL: Yes Equal, round and reactive pupils present Neck/C-Spine: COMMON NORMALS: full ROM, no lymphadenopathy, supple, no meningeal signs and no JVD GENERAL: Yes normal visual inspection and Yes trachea midline Chest: COMMONS NORMALS: normal inspection of the chest and normal palpation of entire chest wall Resp: EFFORT & INSPECTION: Yes symmetric chest movement, Yes respiratory distress, Yes labored, Yes uses accessory muscles and Yes audible wheezes AUSCULTATION: no crackles, no rales, rhonchi, wheezes and diminished lung sounds Cardio: COMMON NORMALS: no JVD, regular rate, regular rhythm, S1 normal heart sound present and S2 normal heart sound present RATE: regular rate RHYTHM: regular rhythm HEART SOUNDS: S1 normal heart sound present, S2 normal heart sound present, no click, no gallops, no murmurs, no rubs and abnormal split S2 GI: COMMON NORMALS: Soft to palpation and No hepatosplenomegaly present PALPATION: Yes Soft to palpation, No Tenderness to palpation present (GI), No Guarding due to palpation present (GI), No Rigid due to palpation, Yes No hepatosplenomegaly present, No Hernia present, No Palpable mass present and No Pulsatile mass present : COMMON NORMALS: Yes no CVA tenderness BLADDER/KIDNEY EXAM: Yes no CVA tenderness EXTERNAL FEMALE EXAM: No Hernia present Back/Pelvis: COMMON NORMALS: no CVA tenderness, thoracic and lumbar spine normal to inspection, no thoracic nor lumbar tenderness and thoraco-lumbar ROM normal Extremity: COMMON NORMALS: normal to inspection, full ROM, capillary refill normal, no joint enlargement, no clubbing, cyanosis or edema and no calf tenderness Neuro: COMMON NORMALS: CN's II-XII intact bilaterally, moves all extremities, no focal motor deficits and no sensory deficits noted SENSORIUM/ORIENTATION: Yes lethargic MENINGEAL SIGNS: Yes no meningeal signs SPEECH: speech normal Psych: COMMON NORMALS: mental status grossly normal, Normal thought process present, cooperative, normal affect, speech normal and activity/motor behavior normal SPEECH: Yes normal speech THOUGHT PROCESS: Normal thought process present Skin: COMMON NORMALS: no rashes or lesions noted, turgor normal, no jaundice, no petechiae and no mottling GENERAL SKIN EXAM: no rashes or lesions noted and turgor normal Procedures Intubation Time out performed: Yes sedative: Etomidate Mg Given: 20 paralytic: Succinylcholine Mg Given: 150 Laryngoscope: Crystal ET Tube Size: 7.5 Tube Secured Depth (cm): 22 Tube Secured Location: lips Tube Placement Confirmation: visualized tube passing through cords, equal breath sounds bilaterally, no breath sounds over epigastrium and confirmation by capnometry Patient Tolerated Procedure: well Intubation Complications: none Course ED course: 2037 -Case reviewed with Dr. Kenyon. He agrees to a trial of a small dose of Ativan as the patient is severely anxious on the ventilator. 2223 -the patient's mentation has not changed she still alert but her ABG shows that she is continuing to fail. I have reviewed the case again with Dr. Lennon and he agrees with intubation. Vital Signs: Vital signs: Vital Signs Temperature 98.5 F 06/11/20 01:53 Pulse Rate 90 06/11/20 02:07 Respiratory Rate 15 06/11/20 02:10 Blood Pressure 119/68 06/11/20 01:52 Pulse Oximetry 95 06/11/20 02:07 MDM - SOB/Dyspnea MDM Narrative: Medical decision making narrative: The patient did not improve on BiPAP. Her mentation was unchanged but her ABG was not improving. I reviewed the case with Dr. Emanuel and he was agreeable to intubation. Patient's intubation went well. She has required some pressors after the intubation as she is very dehydrated and is receiving the bolus of IV fluids per the sepsis protocol but will need norepinephrine for a short time I believe until she has had volume repletion with saline and lactated Ringer's. She is be en covered empirically for pneumonia and aspiration with Zosyn. Cervantes catheter is been placed in the ET tube was confirmed on chest x-ray. Dr. Giraldo will continue care in the ICU. Lab Data: Attestation: I reviewed the patient's lab results. Labs: Lab Results 06/10/20 06/10/20 06/10/20 Range/Units 19:48 20:11 20:11 WBC 13.6 H (4.0-10.0) 10^3/ uL RBC 4.53 (4.1-5.3) 10^6/u L Hgb 13.9 (11.5-15.3) g/dL Hct 44.7 (37.0-47.0) % MCV 98.7 (81-99) fL MCH 30.7 (28.0-34.0) pg MCHC 31.1 (30.0-36.0) g/dL RDW 14.3 (12.1-15.1) % Plt Count 269 (130-400) 10^3/c mm MPV 11.2 H (7.4-10.4) fL Neut % (Auto) 79.7 % Lymph % (Auto) 11.8 % Harvey % (Auto) 7.3 % Eos % (Auto) 0.1 % Baso % (Auto) 0.1 % Neut # (Auto) 10.81 H (1.8-7.7) 10^3/u L Lymph # (Auto) 1.6 (0.8-4.8) 10^3/u L Harvey # (Auto) 1.0 H (0.2-0.9) 10^3/u L Eos # (Auto) 0.0 (0.0-0.8) 10^3/u L Baso # (Auto) 0.0 (0.0-0.1) 10^3/u L Nucleated RBC % (a uto) 0.3 % Nucleated RBCs # 0.0 /100WBC PT 14.10 H (10.5-13.3) SECO NDS INR 1.05 (0.8-1.2) Specimen Type Arterial Sample Site Radial, left ABG pH 7.25 L (7.35-7.45) ABG pCO2 55.2 H (35-45) mmHg ABG pO2 83.9 (80.0-100.0) mmH g ABG HCO3 24.2 (22-26) mmol/L ABG O2 Saturation 93.4 ABG Base Excess -3.9 L (-2.0-2.0) mmol/ L Faheem Test N/a Hematocrit 45.5 (37-47) % Hgb O2 Saturation 92.7 L (95-100) % Carboxyhemoglobin 0.1 L (0.4-20.1) %THgb Methemoglobin 0.7 (0.4-1.5) % Total Hemoglobin 14.8 (12-16) g/dL Sodium 135.0 (131-143) mmol/L Potassium 4.4 (3.5-5.0) mmol/L Glucose 128.0 H (70-115) mg/dL Ionized Calcium 1.1 (1.1-1.4) mmol/L O2 Delivery Device Nc O2 Liters/Min 6.0 % FiO2 % Supply Service Worker ID [email or web address] Chloride (98-107) mmol/L Carbon Dioxide (22-29) mmol/L Anion Gap (5-19) BUN (8-23) mg/dL Creatinine (0.5-0.9) mg/dL GFR Calculation (90-130) mL/min Calculated Osmolal ity (285-295) mOsm/k g Lactic Acid (0.5-2.2) mmol/L Calcium (8.5-10.5) mg/dL Magnesium (1.7-2.3) mg/dL Total Bilirubin (0.15-1.2) mg/dL AST (0-32) U/L ALT (0-33) U/L Alkaline Phosphata se (35-105) IU/L Troponin T Baselin e (0-10) ng/L Troponin T 120 Min [place] (0-10) ng/L Delta Troponin T (0-10) ABS# NT-Pro-B Natriuret Pep (0-125) pg/mL Total Protein (6.6-8.7) g/dL Albumin (3.5-5.2) g/dL Globulin (1.3-4.6) g/dL 06/10/20 06/10/20 06/10/20 Range/Units 20:11 20:11 20:12 WBC (4.0-10.0) 10^3/ uL RBC (4.1-5.3) 10^6/u L Hgb (11.5-15.3) g/dL Hct (37.0-47.0) % MCV (81-99) fL MCH (28.0-34.0) pg MCHC (30.0-36.0) g/dL RDW (12.1-15.1) % Plt Count (130-400) 10^3/c mm MPV (7.4-10.4) fL Neut % (Auto) % Lymph % (Auto) % Harvey % (Auto) % Eos % (Auto) % Baso % (Auto) % Neut # (Auto) (1.8-7.7) 10^3/u L Lymph # (Auto) (0.8-4.8) 10^3/u L Harvey # (Auto) (0.2-0.9) 10^3/u L Eos # (Auto) (0.0-0.8) 10^3/u L Baso # (Auto) (0.0-0.1) 10^3/u L Nucleated RBC % (a uto) % Nucleated RBCs # /100WBC PT (10.5-13.3) SECO NDS INR (0.8-1.2) Specimen Type Sample Site ABG pH (7.35-7.45) ABG pCO2 (35-45) mmHg ABG pO2 (80.0-100.0) mmH g ABG HCO3 (22-26) mmol/L ABG O2 Saturation ABG Base Excess (-2.0-2.0) mmol/ L Faheem Test Hematocrit (37-47) % Hgb O2 Saturation (95-100) % Carboxyhemoglobin (0.4-20.1) %THgb Methemoglobin (0.4-1.5) % Total Hemoglobin (12-16) g/dL Sodium 133 L (131-143) mmol/L Potassium 4.6 (3.5-5.0) mmol/L Glucose 139 H (70-115) mg/dL Ionized Calcium (1.1-1.4) mmol/L O2 Delivery Device O2 Liters/Min % FiO2 % Supply Service Worker ID Chloride 93 L (98-107) mmol/L Carbon Dioxide 24 (22-29) mmol/L Anion Gap 20.6 H (5-19) BUN 68 H (8-23) mg/dL Creatinine 2.5 H (0.5-0.9) mg/dL GFR Calculation 19.6 L (90-130) mL/min Calculated Osmolal ity 277 L (285-295) mOsm/k g Lactic Acid 2.2 (0.5-2.2) mmol/L Calcium 8.7 (8.5-10.5) mg/dL Magnesium 2.0 (1.7-2.3) mg/dL Total Bilirubin 0.8 (0.15-1.2) mg/dL AST 32 (0-32) U/L ALT 24 (0-33) U/L Alkaline Phosphata se 104 (35-105) IU/L Troponin T Baselin e 34 H (0-10) ng/L Troponin T 120 Min [place] (0-10) ng/L Delta Troponin T (0-10) ABS# NT-Pro-B Natriuret Pep 1713 H (0-125) pg/mL Total Protein 7.1 (6.6-8.7) g/dL Albumin 2.7 L (3.5-5.2) g/dL Globulin 4.4 (1.3-4.6) g/dL 06/10/20 06/10/20 Range/Units 22:04 22:05 WBC (4.0-10.0) 10^3/ uL RBC (4.1-5.3) 10^6/u L Hgb (11.5-15.3) g/dL Hct (37.0-47.0) % MCV (81-99) fL MCH (28.0-34.0) pg MCHC (30.0-36.0) g/dL RDW (12.1-15.1) % Plt Count (130-400) 10^3/c mm MPV (7.4-10.4) fL Neut % (Auto) % Lymph % (Auto) % Harvey % (Auto) % Eos % (Auto) % Baso % (Auto) % Neut # (Auto) (1.8-7.7) 10^3/u L Lymph # (Auto) (0.8-4.8) 10^3/u L Harvey # (Auto) (0.2-0.9) 10^3/u L Eos # (Auto) (0.0-0.8) 10^3/u L Baso # (Auto) (0.0-0.1) 10^3/u L Nucleated RBC % (a uto) % Nucleated RBCs # /100WBC PT (10.5-13.3) SECO NDS INR (0.8-1.2) Specimen Type Arterial Sample Site Brachial, left ABG pH 7.21 L (7.35-7.45) ABG pCO2 58.5 H (35-45) mmHg ABG pO2 95.6 (80.0-100.0) mmH g ABG HCO3 23.3 (22-26) mmol/L ABG O2 Saturation ABG Base Excess -5.5 L (-2.0-2.0) mmol/ L Faheem Test N/a Hematocrit 43.1 (37-47) % Hgb O2 Saturation (95-100) % Carboxyhemoglobin (0.4-20.1) %THgb Methemoglobin (0.4-1.5) % Total Hemoglobin (12-16) g/dL Sodium (131-143) mmol/L Potassium (3.5-5.0) mmol/L Glucose (70-115) mg/dL Ionized Calcium (1.1-1.4) mmol/L O2 Delivery Device Bipap O2 Liters/Min % FiO2 60.0 % Supply Service Worker ID [email or web address] Chloride (98-107) mmol/L Carbon Dioxide (22-29) mmol/L Anion Gap (5-19) BUN (8-23) mg/dL Creatinine (0.5-0.9) mg/dL GFR Calculation (90-130) mL/min Calculated Osmolal ity (285-295) mOsm/k g Lactic Acid (0.5-2.2) mmol/L Calcium (8.5-10.5) mg/dL Magnesium (1.7-2.3) mg/dL Total Bilirubin (0.15-1.2) mg/dL AST (0-32) U/L ALT (0-33) U/L Alkaline Phosphata se (35-105) IU/L Troponin T Baselin e (0-10) ng/L Troponin T 120 Min [place] 32.77 H (0-10) ng/L Delta Troponin T -1.23 L (0-10) ABS# NT-Pro-B Natriuret Pep (0-125) pg/mL Total Protein (6.6-8.7) g/dL Albumin (3.5-5.2) g/dL Globulin (1.3-4.6) g/dL Imaging Data^: CXR: My impression: Right lower lobe infiltrate, no evidence of CHF. CXR -post intubation: My impression: ET tube with good placement. EKG Data^: EKG 1: Attestation: I personally reviewed and interpreted this EKG as follows: EKG Interpretation Date: 06/10/20 EKG interpretation time: 20:01 Interpretation: Normal sinus rhythm at 98 beats a minute, normal axis, no acute ST or T wave changes. Critical Care Time Critical Care Time: Critical Care Time: Yes Total Critical Care Time: 30 Attestation: Critical care of the patient was necessitated by ongoing respiratory distress. Patient was acidotic and necessitated prolonged breathing treatments, BiPAP and management of her settings while on BiPAP. Critical care time consisted of assessing patient's response to BiPAP as well as reviewing labs and EKGs and radiologic studies. Discharge Plan Discharge Patient Disposition: Admitted As Inpatient Admit Provider: Ravi Emanuel Clinical Impression: Acute hypercapnic respiratory failure Condition: Stable Referrals: Ed Hunter [Primary Care Provider] - Discharge Date/Time: 06/11/20 01:47 Coding Level of Care Code ED Docent Coordinator for Chg Fwd Exam Comprehensive
[2020-06-10 20:50] LABS: Lactic Sepsis W/Reflex 2.2 mmol/L (0.5-2.2)
[2020-06-10] MEDS: LORazepam 2 mg/mL INJ 1 mL 0.25 MG IVP (20:50)
[2020-06-10] MEDS: levofloxacin-dextrose 5 % 750 MG/150 ML PREMIX 150 MG IV (20:50)
[2020-06-10 20:53] LABS: Troponin(5th) Baseline 34 ng/L (0-10)
[2020-06-10 21:02] LABS: Alanine Aminotransferase 24 U/L (0-33); Albumin Level 2.7 g/dL (3.5-5.2); Alkaline Phosphatase 104 IU/L (35-105); Anion Gap 20.6 (5-19); Aspartate Amino Transferase 32 U/L (0-32); Blood Urea Nitrogen 68 mg/dL (8-23); Calcium 8.7 mg/dL (8.5-10.5); Carbon Dioxide 24 mmol/L (22-29); Chloride 93 mmol/L (98-107); Globulin 4.4 g/dL (1.3-4.6); Glomerular Filtration Rate 19.6 mL/min (90-130); Glucose 139 mg/dL (65-115); NT Pro B Type Natriuretic Pept 1713 pg/mL (0-125); Osmolality Calculated 277 mOsm/kg (285-295); Potassium 4.6 mmol/L (3.5-5.1); Sodium 133 mmol/L (136-145); Total Bilirubin 0.8 mg/dL (0.15-1.2); Total Protein 7.1 g/dL (6.6-8.7)
[2020-06-10 21:36] LABS: Slide Review Slide Review Perform
--- NOTE | 2020-06-10 21:37 | ECG_ITS ---
[facility] Test Date: 2020-06-10 Pat Name: Reyna Nunn Department: Room: Gender: Female Ramp Supervisor: : 1960 Requested By: Alexandra Swain Order Number: [id number] Jaqueline MD: Elmo Spencer M.D. Measurements Intervals [place] Rate: 104 P: 53 IA: 134 QRS: 54 QRSD: 94 T: 31 QT: 307 QTc: 404 Interpretive Statements SINUS TACHYCARDIA ABNORMAL RHYTHM ECG Compared to ECG 06/10/2020 20:01:00 Sinus rhythm no longer present Electronically Signed On 06-11-2020 19:19:00 CDT by Elmo Spencer M.D. [id number]
[2020-06-10 22:01] LABS: Reflex Lactate Order REFLEX LACTIC ORDERD
--- NOTE | 2020-06-10 22:02 | PC.NURSE ---
Patient iv infiltrated, resp in room trying to get ABGs.
[2020-06-10 22:09] LABS: ABG PCO2 58.5 mmHg (35-45); ABG PH Result 7.21 (7.35-7.45); Arterial Blood Gas Hematocrit 43.1 % (37-47); Base Excess ABG -5.5 mmol/L (-2.0-2.0); Blood Gas Sample Site Brachial, left; Blood Gas Sample Type Arterial; HCO3 ABG 23.3 mmol/L (22-26); Oxygen Device BIPAP; PO2 ABG 95.6 mmHg (80.0-100.0)
[2020-06-10] MEDS: piperacillin-tazobactam 3.375 GM in sodium chloride 0.9% (plus) 50 ML IV (22:24)
[2020-06-10 22:25] LABS: Troponin 5 2HR 32.77 ng/L (0-10)
[2020-06-10 22:26] LABS: Troponin 5 2HR Delta -1.23 ABS# (0-10)
[2020-06-10] MEDS: LORazepam 2 mg/mL INJ 1 mL IVP (22:34)
[2020-06-10] MEDS: fentaNYL 50 mcg/mL INJ 2mL 100 MCG IVP (22:47)
[2020-06-10] MEDS: succinylcholine 20 mg/mL SDV 10mL 150 MG IVP (22:47)
--- NOTE | 2020-06-10 22:53 | XR_ITS ---
WS: [id number] CHEST XRAY TECHNIQUE: Portable chest. CLINICAL INFORMATION: Post intubation COMPARISON: June 10, 2020 FINDINGS: Enteric tube with tip in the stomach. Endotracheal tube with tip above the lois measuring 3.5 CM. Heart: Normal cardiac silhouette. Lungs: Small right pleural effusion with patchy infiltrates in right lower lobe consistent with pneum onia. Bones: Normal visualized bony structures. XR/XR chest 1V portable [id number] IMPRESSION: 1. Right lower lobe pneumonia. 2. Endotracheal tube with tip 3.4 cm above the lois. 3. Enteric tube with tip below the diaphragm.
[2020-06-10] MEDS: propofol 1,000 MG/100 ML INJ 12.5 MG IV (22:59)
--- NOTE | 2020-06-10 23:18 | P.HP_ITS ---
Providers/Chief Complaint Primary Care Provider: Ed Hunter Chief Complaint: SOB History of Present Illness Reyna Nunn is a 59 year old lady with COPD, on chronic O2 3L, from what she can remember, although very poor historian, active smoker, was assessed in ER for respiratory failure, with hypoxia, hypercapnia, respiratory acidosis, with acute encephalopathy, with noted right lower lobe pneumonia, suspected severe sepsis with leukocytosis, tachycardia on presentation, acute kidney injury, creatinine 2.5, with normal baseline previously. She received Solu- Medrol in route for COPD, 120 mg. In ER treatment was started initially with breathing treatment, doxycycline, Levaquin, and started on BiPAP support, although unfortunately did not respond well, with worsening respiratory acidosis, hypercapnia. Persistent encephalopathy. Due to this had to be intubated. This was discussed with her, although not sure how much insight she actually has into her condition currently. She is able to relate that she uses about 3 L of oxygen at home. She says she has breathing treatments. She says she smokes. She cannot recall exactly about whether she is a CPAP, although later states no. She is rather somnolent, and loses train of thought very easily. I attempted to contact her home number as she states her daughter and has been living with her, but could not reach anybody. She states that she is no longer . Attempted to reach her mother on listed phone number as well, but no answer. Review of Systems General: Reports: Other (She cannot provide a review of systems which is beyond very limited statements, confirming that she is short of breath.) Medications/Allergies Home Medications Medication Instructions Recorded Confirmed Last Taken Type albuterol sulfate 90 mcg/actuation 2 puff INHALATION Q6H PRN 12/18/19 06/10/20 01/12/20 08:00 History aerosol inhaler budesonide 0.5 mg/2 mL suspension 0.5 mg INHALATION BID 12/18/19 06/10/20 01/12/20 22:00 History for nebulization levothyroxine 25 mcg capsule 25 mcg PO DAILY 12/18/19 06/10/20 01/12/20 08:00 History lisinopril 10 mg tablet 10 mg PO BID 12/18/19 06/10/20 01/12/20 12:00 History tiotropium 2.5 mcg-olodaterol 2.5 2 puff INHALATION QDAY 12/18/19 06/10/20 01/12/20 08:00 History mcg/actuation mist for inhalation naproxen 500 mg tablet 500 mg PO BID #60 tab 12/19/19 06/10/20 01/12/20 22:00 Rx famotidine 20 mg PO BID 01/14/20 06/10/20 01/12/20 08:00 History furosemide [Lasix] 20 mg PO QAM #30 tab 01/20/20 06/10/20 01/12/20 08:00 Rx amlodipine 10 mg tablet 10 mg PO DAILY 02/13/20 06/10/20 Unknown History aspirin 81 mg chewable tablet 81 mg PO DAILY tab 02/13/20 06/10/20 Unknown History duloxetine 30 mg capsule,delayed 30 mg PO BID #60 cap 04/18/20 06/10/20 Unknown Rx release Stool Softener See Rx Instructions .ROUTE .COMPLEX 06/10/20 06/10/20 Unknown History nystatin [Nystop] 1 applic TOPICAL BID 06/10/20 06/10/20 Unknown History oxycodone 15 mg PO QID PRN 06/10/20 06/10/20 Unknown History Allergies Allergy/AdvReac Type Severity Reaction Status Date / Time No Known Allergies Allergy Verified 04/18/20 10:37 PFSH Acute PFSH: Medical History Bilateral shoulder pain Carpal tunnel syndrome, bilateral CHF (congestive heart failure) COPD (chronic obstructive pulmonary disease) DDD (degenerative disc disease), lumbar Hypertension Hypothyroidism Long-term use of high-risk medication Opioid contract exists Paresthesia of right upper extremity Requires oxygen therapy Tobacco abuse Surgical History History of nasal surgery NOSE RESECTION S/P hernia surgery S/P hysterectomy Family History Father Cancer Heart disease Diabetes Mother Heart disease Diabetes Fibromyalgia Brother Heart disease Sister Heart disease Diabetes Social History Smoking and tobacco status: current every day smoker cigarettes Packs smoked per day: 1 Alcohol intake: never Lives independently: Yes Household members: other Details: Says daughter, although not sure how reliable her history is. It takes a while to recall her daughter's name. Marital status: / Vitals/I&O/Wt Last Vital Signs Temp 97.6 F 06/10/20 19:32 Pulse 88 06/10/20 21:15 Resp 12 06/10/20 22:51 BP 70/53 06/10/20 21:09 Pulse Ox 99 06/10/20 21:15 Weight last 48 hrs Weight 104.326 kg Physical Exam Const: COMMON NORMALS: no acute distress EXAM LIMITATIONS: altered mental status (Lethargic) NUTRITIONAL APPEARANCE: obese ORIENTATION/CONSCIOUSNE SS: Yes confused HENMT: COMMON NORMALS: oropharynx normal Neck/C-Spine: OTHER: Very thick neck, cannot assess for JVD. Resp: COMMON NORMALS: normal respiratory effort AUSCULTATION: rales (RLL) and diminished lung sounds Cardio: COMMON NORMALS: no JVD, regular rhythm, S1 normal heart sound present, S2 normal heart sound present and No murmurs present (Cardio) RHYTHM: reg ular rhythm HEART SOUNDS: S1 normal heart sound present and S2 normal heart sound present GI: COMMON NORMALS: Normal to inspection, nondistended, normoactive bowel sounds present, Soft to palpation and non-tender PALPATION: Yes Soft to palpation Extremity: COMMON NORMALS: no joint enlargement and no pedal edema Neuro: COMMON NORMALS: patient oriented x3 and moves all extremities Skin: COMMON NORMALS: no rashes or lesions noted GENERAL SKIN EXAM: no rashes or lesions noted Data : 06/10/20 20:11 06/10/20 20:11 Micro: Microbiology 06/10/20 20:12 Blood Culture - Preliminary Blood SPECIMEN COLLECTED 06/10/20 20:11 Blood Culture - Preliminary Blood SPECIMEN COLLECTED A&P Assessment and plan (1) Acute on chronic respiratory failure with hypoxia and hypercapnia: Secondary to acute pneumonia, community-acquired, although suspect likely may be aspiration due to right lower lobe infiltrate, as well as acute encephalopathy, suspected secondary to acute hypercapnic respiratory failure. Failed BiPAP trial in ER. Required intubation. Due to suspected aspiration Zosyn was added. Continue Levaquin. No known recent hospitalizations since December. At this time admitted to intensive care for further ventilator support and treatment. Unfortunately could not reach any of the family. We will continue steroids, breathing treatments for COPD exacerbation. Status: Acute (2) Community acquired pneumonia: Right lower lobe infiltrate. With severe sepsis. Suspect aspiration may have been the cause given also respiratory acidosis probably being the cause of acute encephalopathy. At this time started on Zosyn plus Levaquin. Blood cultures requested. Will request sputum culture. Bacterial antigens. Antibiotics renally dosed for now. Monitor renal function, adjust dosing depending on progress. Status: Acute (3) COPD exacerbation: As above. At home on 3 L of oxygen. Reports has a nebulizer. We will request sputum culture, urine bacterial antigens. Breathing treatments are to be continued, as well as IV steroids at this time. Antibiotics as above for pneumonia. Status: Acute (4) Tobacco abuse: We will add nicotine replacement. Encourage cessation. Status: Chronic (5) Septic shock: At this time severe sepsis, with pulmonary source due to pneumonia, with leukocytosis 13.6, tachycardia on presentation. With acute kidney injury, creatinine 2.5. Lactic acid high normal at 2.2. Received 30 mL/kg fluid boluses. Blood pressure still soft 70/53. At this time we will add Levophed to be titrated per protocol, maintain MAP above 60 mmHg. Titrate down as tolerating. Status: Acute (6) SELVIN (acute kidney injury): Creatinine 2.5. Previously back in December normal. At this time suspected secondary to severe sepsis and septic shock. Hold lisinopril, appears also may be on naproxen at home, although medication list cannot be obtained. We will obtain kidney ultrasound at this time to rule out obstruction. Treatment for severe sepsis as above. Maintain blood pressure. Status: Acute Additional A&P Information Mild troponin elevation, baseline 34, 2-hour 32.7. Complete EKG and troponin trend. Not having chest pain, although review of systems is not very reliable. Suspected secondary to mismatch and demand supply. Attestations Medical Necessity Statement*: Admission of over 2 midnights is going to be needed for assessment of management of acute respiratory failure, sepsis with septic shock. Critical Care Time: In addition to noncritical issues medical care time 45 minutes critical care time spent on assessment management of hemodynamic instability, severe sepsis with kidney injury, troponin abnormality, pneumonia, respiratory failure requiring intubation, mechanical ventilatory support. Discussed with ER physician. Coding Level of Care Code Acute Recruitment Advertising Manager for Chg Fwd Exam Comprehensive Diagnoses Acute on chronic respiratory failure with hypoxia and hypercapnia J96.21; J96.22 Community acquired pneumonia J18.9 COPD exacerbation J44.1 Tobacco abuse Z72.0 Septic shock A41.9; R65.21 SELVIN (acute kidney injury) N17.9
[2020-06-10] MEDS: vecuronium 10 mg SDV IVP (23:36)
[2020-06-11] VITALS (25 sets, daily range): BP systolic 101–171; BP diastolic 53–93; PULSE 88–116; RESP 14–25; TEMP 36.9–37.5; O2SAT 95–100
[2020-06-11 00:06] LABS: Lactic Acid level (Lactate) 2.1 mmol/L (0.5-2.2)
[2020-06-11] MEDS: piperacillin-tazobactam 3.375 GM in sodium chloride 0.9% (plus) 50 ML IV ×3 (00:43→17:04)
--- NOTE | 2020-06-11 01:23 | US_ITS ---
WS: [id number] ULTRASOUND RENAL TECHNIQUE: Ultrasound examination of both kidneys. CLINICAL INFORMATION: SELVIN COMPARISON: None. FINDINGS: RIGHT: Right kidney is normal in size and appearance. Echogenicity: Normal. Cortical thickness: 1.1 cm; Normal. Hydronephrosis: None. Perinephric fluid: None. Right kidney measures: 10.8 cm x 4.6 cm x 4.1 cm. LEFT: Left kidney difficult to visualize. Left kidney appears normal visualized Echogenicity: Normal. Cortical thickness: 1.9 cm; Normal. Hydronephrosis: None. Perinephric fluid: None. Left kidney measures: 10.9 cm x 5.1 cm x 5.5 cm. Normal visualized aorta. Cervantes catheter. US/US renal BI with bladder IMPRESSION: 1. Technically difficult examination. 2. Considering limitations, kidneys are normal in appearance. No hydronephrosi s. 3. Limited views of the left kidney. 4. Cervantes catheter in the bladder.
[2020-06-11] MEDS: sodium chloride 0.9% 1,000 ML 100 ML IV ×3 (02:06→22:34)
[2020-06-11] MEDS: ipratropium-albuterol 3 mL Neb INHALATION ×8 (02:06→23:52)
[2020-06-11] MEDS: heparin 5,000 unit/mL INJ 1 mL 5000 UNIT SUBCUT ×3 (02:06→17:49)
[2020-06-11 03:51] LABS: ABG PCO2 53.8 mmHg (35-45); ABG PH Result 7.21 (7.35-7.45); Arterial Blood Gas Hematocrit 45.4 % (37-47); Base Excess ABG -7.2 mmol/L (-2.0-2.0); Blood Gas Sample Site Brachial, left; Blood Gas Sample Type Arterial; HCO3 ABG 21.3 mmol/L (22-26); Oxygen Device VENT
[2020-06-11] MEDS: propofol 1,000 MG/100 ML INJ 12.5 MG IV (04:43)
[2020-06-11 05:20] LABS: Basophils % 0.1 %; Hematocrit 42.9 % (37.0-47.0); Hemoglobin 13.3 g/dL (11.5-15.3); Lymphocytes % 7.7 %; Mean Corpuscular Hemoglobin 30.6 pg (28.0-34.0); Mean Corpuscular Volume 98.8 fL (81-99); Mean Platelet Volume 11.3 fL (7.4-10.4); Monocytes # 0.9 10^3/uL (0.2-0.9); Monocytes % 6.4 %; Neutrophils # 11.37 10^3/uL (1.8-7.7); Neutrophils % 84.8 %; Nucleated Red Blood Cells # 0.1 /100WBC; Nucleated Red Blood Cells % 0.5 %; Platelet Count 230 10^3/cmm (130-400); Red Blood Count 4.34 10^6/uL (4.1-5.3); Red Cell Distribution Width 14.5 % (12.1-15.1); White Blood Count 13.4 10^3/uL (4.0-10.0)
[2020-06-11 05:33] LABS: Alanine Aminotransferase 24 U/L (0-33); Albumin Level 2.2 g/dL (3.5-5.2); Alkaline Phosphatase 91 IU/L (35-105); Anion Gap 17.8 (5-19); Aspartate Amino Transferase 39 U/L (0-32); Blood Urea Nitrogen 64 mg/dL (8-23); Calcium 7.8 mg/dL (8.5-10.5); Carbon Dioxide 20 mmol/L (22-29); Chloride 101 mmol/L (98-107); Globulin 4.1 g/dL (1.3-4.6); Glomerular Filtration Rate 25.3 mL/min (90-130); Glucose 176 mg/dL (65-115); Osmolality Calculated 281 mOsm/kg (285-295); Potassium 4.8 mmol/L (3.5-5.1); Sodium 134 mmol/L (136-145); Total Bilirubin 1.1 mg/dL (0.15-1.2); Total Protein 6.3 g/dL (6.6-8.7)
[2020-06-11 05:48] LABS: Slide Review Slide Review Perform
[2020-06-11] MEDS: FUROsemide 20 mg Tablet PO (06:12)
[2020-06-11] MEDS: budesonide 0.5 mg/2 mL Neb INHALATION ×2 (08:25→20:19)
[2020-06-11] MEDS: levothyroxine 25 mcg Tablet PO (08:35)
[2020-06-11] MEDS: nicotine 21 mg Patch 1 PATCH TRANSDERMA (08:35)
[2020-06-11] MEDS: aspirin 81 mg Chew Tablet PO (08:35)
[2020-06-11] MEDS: nystatin powder 15 gm Btl 1 APPLIC TOPICAL ×2 (08:37→17:49)
[2020-06-11 12:06] LABS: Glucose Point of Care 132 mg/dL (70-110)
--- NOTE | 2020-06-11 12:20 | PM.PN ---
Subjective Subjective: Interval history: Chart reviewed, had 500 mL urine output overnight, remains on vent support with FiO2-60%, hypercapnic, and respiratory acidosis per ABG this AM. Some improvement in renal function, stable leukocytosis. Has had some intermittent grimacing and restlessness per nursing staff. Arouses easily to verbal and tactile stimulation. Off Levophed. BP trending up, mild tachycardia. Has had a fair amount of thick secretions so far requiring quite a bit of suctioning. Medications: Reviewed: Yes Medication Review Details: Active Medications Generic Name Dose Route Start Last Admin Trade Name Freq PRN Reason Stop Dose Admin Acetaminophen 650 mg 06/11/20 01:23 Tylenol PO Q6H PRN Mild/Mod Pain Or Temp >/= 101 Albuterol/Ipratrop ium 3 ml 06/11/20 01:23 06/11/20 11:05 Duoneb INHALATION 3 ml Q4H PRN Administration SHORTNESS OF ERICA TH Albuterol/Ipratrop ium 3 ml 06/11/20 01:23 06/11/20 08:25 Duoneb INHALATION 3 ml Q4H.RESPIRATORY S CH Administration Aspirin 81 mg 06/11/20 09:00 06/11/20 08:35 Aspirin Chewable PO 81 mg DAILY LALITO Administration Budesonide 0.5 mg 06/11/20 09:00 06/11/20 08:25 Pulmicort INHALATION 0.5 mg BID LALITO Administration Furosemide 20 mg 06/11/20 06:00 06/11/20 06:12 Lasix PO 20 mg QAM LALITO Administration Heparin Sodium (Be ef Lung) 5,000 unit 06/11/20 01:30 06/11/20 08:34 Heparin SUBCUT 5,000 unit Q8H LALITO Administration Propofol 1,000 mg in 100 m ls @ 0 mls/hr 06/10/20 22:15 06/11/20 04:43 Diprivan IV 20 mcg/kg/min .Q0M LALITO 12.5 mls/hr Administration Protocol Per Protocol Norepinephrine Bit artrate 4 mg 254 mls @ 0 mls/h r 06/10/20 22:15 06/11/20 01:23 / Dextrose IV 2 mcg/min .Q0M LALITO 7.6 mls/hr Titration Protocol Per Protocol Sodium Chloride 1,000 mls @ 100 m ls/hr 06/11/20 01:23 06/11/20 12:06 Sodium Chloride 0.9% IV 100 mls/hr .Q10H LALITO Administration Levofloxacin/Dextr ose 750 mg in 150 mls @ 100 mls/hr 06/12/20 20:30 Levaquin-D5w IV Q48H LALITO Protocol Piperacillin Sod/T azobactam 50 mls @ 12.5 mls /hr 06/11/20 16:30 Sod 3.375 gm/ So dium Chloride IV Q8H LALITO Protocol Levothyroxine Sodi um 25 mcg 06/11/20 09:00 06/11/20 08:35 Synthroid PO 25 mcg DAILY LALITO Administration Methylprednisolone Sodium Succinate 60 mg 06/11/20 01:23 06/11/20 08:34 Solu-Medrol IVP 60 mg Q6H LALITO Administration Nicotine 1 patch 06/11/20 09:00 06/11/20 08:35 Nicoderm 21 Mg P atch TRANSDERMA 1 patch DAILY LALITO Administration Non-Formulary Medi cation 20 mg 06/11/20 09:00 Famotidine PO BID LALITO Nystatin 1 applic 06/11/20 09:00 06/11/20 08:37 Nystatin Powder TOPICAL 1 applic BID LALITO Administration No Known Allergies Allergy (Verified 04/18/20 10:37) Vitals/I&O/Wt Last Vital Signs Temp 98.5 F 06/11/20 03:56 Pulse 116 H 06/11/20 11:05 Resp 20 H 06/11/20 11:05 BP 171/93 06/11/20 07:23 Pulse Ox 96 06/11/20 11:05 06/10/20 06/11/20 06/11/20 22:59 06:59 14:59 Intake Total 73.575 / 73.575 1000 / 1000 Output Total 500 / 500 Balance -426.425 / -175.751 4153 / 1000 Weight last 48 hrs Weight 107.048 kg Weight 104.326 kg Physical Exam Const: COMMON NORMALS: no acute distress GENERAL APPEARANCE: cooperative, comfortable and patient mechanically ventilated NUTRITIONAL APPEARANCE: obese morbidly obese OTHER: -arouses easily to verbal and tactile stimulation HENMT: COMMON NORMALS: normocephalic, atraumatic and hearing grossly normal bilaterally HEAD & SCALP: normocephalic and atraumatic OTHER: -ETT-24 cm at lip Eye: COMMON NORMALS: Equal, round and reactive pupils present, EOMs intact bilaterally and conjunctivae normal CONJUNCTIVA: Yes conjunctivae normal PUPIL: Yes Equal, round and reactive pupils present Neck/C-Spine: COMMON NORMALS: full ROM GENERAL: Yes normal visual inspection and Yes trachea midline Resp: COMMON NORMALS: normal respiratory effort, No retractions and No use of accessory muscles EFFORT & INSPECTION: Yes symmetric chest movement and Yes tachypneic AUSCULTATION: diminished lung sounds bilateral OTHER: -on vent support, FiO2-60% Cardio: COMMON NORMALS: regular rhythm, S1 normal heart sound present, S2 normal heart sound present and No murmurs present (Cardio) RATE: tachycardic (mildly) RHYTHM: regular rhythm HEART SOUNDS: S1 normal heart sound present and S2 normal heart sound present GI: COMMON NORMALS: Normal to inspection, nondistended, normoactive bowel sounds present, Soft to palpation and non-tender INSPECTION: Yes central obesity PALPATION: Yes Soft to palpation : BLADDER/KIDNEY EXAM: Yes catheter in place Catheter type (Female): urethral Extremity: COMMON NORMALS: normal to inspection, full ROM and no clubbing, cyanosis or edema; negative for no pedal edema Neuro: COMMON NORMALS: moves all extremities, no focal motor deficits and no sensory deficits noted SENSORIUM/ORIENTATION: Yes other (sedated though arouses easily to stimulation) Psych: OTHER: -sedated Skin: COMMON NORMALS: no rashes or lesions noted, no jaundice, no petechiae and no mottling GENERAL SKIN EXAM: no rashes or lesions noted Urinary Catheter Management^: Cervantes: Cath Placed During This Visit: yes Reason for Continuing Indwelling Catheter: Accurate Measurement of Urinary Output in Critically Ill Patients Urinary Catheter Date of Insertion: 06/10/20 Urinary Catheter Time of Insertion: 23:33 Data : 06/11/20 05:01 06/11/20 05:01 Micro: Microbiology 06/11/20 02:15 Bacterial Antigens - Final Urine,Voided 06/11/20 02:15 Legionella Urinary Antigen - Final Urine Catheterized 06/10/20 20:12 Blood Culture - Preliminary Blood SPECIMEN COLLECTED 06/10/20 20:11 Blood Culture - Preliminary Blood SPECIMEN COLLECTED A&P Assessment and plan (1) Acute on chronic respiratory failure with hypoxia and hypercapnia: -failed trial of BiPAP, intubated in ED (06/10) -remains on vent support, sedation -daily ABGs, CXR while intubated -noted respiratory acidosis, hypercapnia on AM ABG -stable leukocytosis, afebrile, lactic acid wnl -continue to trend WBC -continue to monitor respiratory status -continue to monitor vital signs -weaning trial when appropriate -secondary to RLL pneumonia, acute COPD exacerbation -telemetry monitoring Status: Acute (2) Community acquired pneumonia: -imaging reviewed, evidence of RLL infiltrate consistent with pneumonia -with associated severe sepsis as evidenced by respiratory failure requiring intubation, leukocytosis, hypotension, tachycardia, tachypnea, SELVIN -continue broad spectrum IV antibiotics with Levaquin, Zosyn -negative bacterial antigens, Legionella -f/u blood and sputum cx Status: Acute Qualifiers: Laterality: right Lung location: lower lobe of lung Qualified Code(s): J18.9 - Pneumonia, unspecified organism (3) SELVIN (acute kidney injury): -likely secondary to severe sepsis -some improvement in renal function today, continue to monitor -avoid nephrotoxins, renally dose meds -has Cervantes catheter in place, monitor urine output -renal US pending -ACEi on hold Status: Acute (4) Septic shock: -pressor support as needed; weaned off currently -as noted above -noted troponin elevation, with no significant delta. likely type II due to demand ischemia from respiratory illness Status: Acute (5) COPD exacerbation: -on IV steroids in addition to treatment noted above -baseline oxygen requirement of 3 L NC Status: Acute (6) Hypothyroidism: -on levothyroxine Status: Chronic Qualifiers: Hypothyroidism type: unspecified Qualified Code(s): E03.9 - Hypothyroidism, unspecified (7) CHF (congestive heart failure): -on Lasix -Echo (12/2019): EF wnl, G1DD, mild pulmonary HTN Status: Chronic Qualifiers: Heart failure chronicity: chronic Heart failure type: diastolic Qualified Code(s): I50.32 - Chronic diastolic (congestive) heart failure (8) Hypertension: -due to hypotension, required pressor support which has since been weaned off -continue to monitor vital signs closely Status: Chronic Qualifiers: Hypertension type: essential hypertension Qualified Code(s): I10 - Essential (primary) hypertension (9) KEO (obstructive sleep apnea): Status: Chronic (10) Tobacco abuse: -nicotine replacement therapy Status: Chronic Additional A&P Information -Morbid obesity: BMI-45 kg/m2 -limited hx, unable to reach family for collateral information. Attempted to reach daughter Areli Chandler ([phone]) unsuccessfully -NPO as on vent support -DVT ppx with heparin -GI ppx with famotidine -Dispo: home -Code status: FULL code -ICU care due to vent support Attestations Medical Necessity Statement*: Patient requires hospitalization for continued vent support, IV antibiotics, IV steroids, due to acute respiratory failure, pneumonia, acute COPD exacerbation, sepsis. Time Spent in Patient Care: Greater than 35 minutes (>than 50% of time spent in counselling and/or direct pt care on unit). Critical Care Time: The high probability of a clinically significant, sudden or life threatening deterioration of the patient's [cardiovascular, respiratory] system(s) required my full and direct attention, intervention and personal management. The critical care time is as shown. This time is in addition to time spent performing any reported procedures but includes the following: [x] Data and vital sign review and interpretation [x] Patient assessment, examination and intervention [x] Documentation [x] Medication orders and management Critical Care Time (min): 25 Coding Level of Care Code Acute Health Director for Chg Fwd Exam Comprehensive Diagnoses Acute on chronic respiratory failure with hypoxia and hypercapnia J96.21; J96.22 Community acquired pneumonia J18.9 Laterality: right Lung location: lower lobe of lung SELVIN (acute kidney injury) N17.9 Septic shock A41.9; R65.21 COPD exacerbation J44.1 Hypothyroidism E03.9 Hypothyroidism type: unspecified CHF (congestive heart failure) I50.32 Heart failure chronicity: chronic Heart failure type: diastolic Hypertension I10 Hypertension type: essential hypertension KEO (obstructive sleep apnea) G47.33 Tobacco abuse Z72.0
[2020-06-11] MEDS: famotidine 20 mg/2 mL INJ IVP (14:36)
[2020-06-11] MEDS: morphine 4 mg/mL SDV 1 mL 2 MG IVP (14:37)
--- NOTE | 2020-06-11 19:00 | PC.NURSE ---
Received report from DEBO Molina. Patient is resting comfortably at this time. Vital signs are stable. Soft restraints are applied to bilateral upper extremities. Pulses are present, skin is warm. Bed in lowest position. No concerns at this time.
[2020-06-11] MEDS: propofol 1,000 MG/100 ML INJ 25 MG IV (20:42)
[2020-06-11] MEDS: LORazepam 2 mg/mL INJ 1 mL IVP (20:56)
[2020-06-12] VITALS (29 sets, daily range): BP systolic 102–178; BP diastolic 58–98; PULSE 76–128; RESP 14–30; TEMP 37.5–37.7; O2SAT 93–96
[2020-06-12] MEDS: piperacillin-tazobactam 3.375 GM in sodium chloride 0.9% (plus) 50 ML IV ×3 (00:03→15:45)
[2020-06-12] MEDS: propofol 1,000 MG/100 ML INJ 25 MG IV (00:03)
[2020-06-12] MEDS: famotidine 20 mg/2 mL INJ IVP ×2 (00:03→13:38)
[2020-06-12] MEDS: heparin 5,000 unit/mL INJ 1 mL 5000 UNIT SUBCUT ×3 (01:33→15:51)
[2020-06-12] MEDS: propofol 1,000 MG/100 ML INJ 31.3 MG IV ×3 (03:38→08:59)
[2020-06-12] MEDS: hyDRALAzine 20 mg/mL INJ 1 mL 10 MG IVP (03:52)
[2020-06-12] MEDS: LORazepam 2 mg/mL INJ 1 mL IVP ×2 (04:03→08:42)
[2020-06-12 05:05] LABS: Basophils # 0.1 10^3/uL (0.0-0.1); Basophils % 0.5 %; Hematocrit 39.5 % (37.0-47.0); Hemoglobin 13.2 g/dL (11.5-15.3); Lymphocytes # 1.4 10^3/uL (0.8-4.8); Mean Corpuscular HGB Conc 33.4 g/dL (30.0-36.0); Mean Corpuscular Hemoglobin 30.8 pg (28.0-34.0); Mean Corpuscular Volume 92.3 fL (81-99); Monocytes # 1.3 10^3/uL (0.2-0.9); Monocytes % 10.5 %; Neutrophils # 9.18 10^3/uL (1.8-7.7); Neutrophils % 74.4 %; Nucleated Red Blood Cells % 0.3 %; Platelet Count 284 10^3/cmm (130-400); Red Blood Count 4.28 10^6/uL (4.1-5.3); Red Cell Distribution Width 14.6 % (12.1-15.1); White Blood Count 12.3 10^3/uL (4.0-10.0)
--- NOTE | 2020-06-12 06:00 | XRR_ITS ---
PROCEDURE INFORMATION: Exam: XR Chest, 1 View Exam date and time: 06/12/2020 5:42 AM Age: 59 years old Clinical indication: Shortness of breath; Additional info: On vent support, rll pneumonia TECHNIQUE: Imaging protocol: XR of the chest Views: 1 view. COMPARISON: [facility] X[facility] chest 1V portable [id number] 06/10/2020 11:31 PM FINDINGS: Tubes, catheters and devices: Endotracheal tube, tip 2.7 cm above lois. Nasogastric tube, tip below diaphragm and off image. Lungs: Marked patchy airspace opacities (atelectasis and/or pneumonia) in the right lung base, similar to prior study. Mild patchy airspace opacities (atelectasis and/or pneumonia) in the left lung base, similar to prior study. Pulmonary vasculature within normal limits. Pleural space: No visible pneumothorax. Small right pleural effusion, similar to prior study. Heart/Mediastinum: Heart size within normal limits. Bones/joints: No emergent findings identified. XR/XR chest 1V portable [id number] IMPRESSION: 1. Marked patchy airspace opacities (atelectasis and/or pneumonia) in the right lung base, similar to prior study. 2. Mild patchy airspace opacities (atelectasis and/or pneumonia) in the left lung base, similar to prior study. 3. Small right pleural effusion, similar to prior study.
[2020-06-12 06:02] LABS: ABG PCO2 32.6 mmHg (35-45); ABG PH Result 7.45 (7.35-7.45); Arterial Blood Gas Hematocrit 40.7 % (37-47); Base Excess ABG -0.4 mmol/L (-2.0-2.0); Blood Gas Sample Site Brachial, right; Blood Gas Sample Type Arterial; HCO3 ABG 22.8 mmol/L (22-26); Oxygen Device VENT
[2020-06-12] MEDS: FUROsemide 20 mg Tablet PO (06:24)
[2020-06-12] MEDS: ipratropium-albuterol 3 mL Neb INHALATION ×5 (08:01→23:10)
[2020-06-12] MEDS: budesonide 0.5 mg/2 mL Neb INHALATION ×2 (08:01→19:39)
[2020-06-12] MEDS: sodium chloride 0.9% 1,000 ML 100 ML IV ×2 (08:40→15:49)
[2020-06-12] MEDS: metoprolol tartrate 1 mg/1 mL SDV 5 mL 5 MG IV (08:41)
[2020-06-12] MEDS: morphine 4 mg/mL SDV 1 mL 2 MG IVP ×3 (08:41→22:36)
[2020-06-12] MEDS: acetaminophen 325 mg Tablet 650 MG PO (08:43)
[2020-06-12] MEDS: nicotine 21 mg Patch 1 PATCH TRANSDERMA (08:43)
[2020-06-12] MEDS: levothyroxine 25 mcg Tablet PO (08:43)
[2020-06-12] MEDS: aspirin 81 mg Chew Tablet PO (08:43)
[2020-06-12 09:39] LABS: Alanine Aminotransferase 26 U/L (0-33); Albumin Level 2.2 g/dL (3.5-5.2); Alkaline Phosphatase 99 IU/L (35-105); Blood Urea Nitrogen 60 mg/dL (8-23); Calcium 8.2 mg/dL (8.5-10.5); Carbon Dioxide 22 mmol/L (22-29); Chloride 106 mmol/L (98-107); Globulin 4.1 g/dL (1.3-4.6); Glomerular Filtration Rate 41.6 mL/min (90-130); Glucose 173 mg/dL (65-115); Osmolality Calculated 291 mOsm/kg (285-295); Sodium 139 mmol/L (136-145); Total Bilirubin 0.8 mg/dL (0.15-1.2); Total Protein 6.3 g/dL (6.6-8.7)
[2020-06-12 09:55] LABS: Anion Gap 15.3 (5-19); Aspartate Amino Transferase 44 U/L (0-32); Potassium 4.3 mmol/L (3.5-5.1)
--- NOTE | 2020-06-12 10:29 | PC.RESP ---
Smoking Cessation and Pulmonary Rehab information sent to patient with a schedule of classes.
--- NOTE | 2020-06-12 11:33 | P.PN_ITS ---
Subjective Subjective: Interval history: Remains on vent support, FiO2 down to 50%, ABG shows decreased hypercapnia, stable vital signs though intermittently tachypneic. Had 900 mL urine output overnight. Currently on propofol at 50 mcg/kg/min. decreased leukocytosis, stable hemoglobin, improved renal function. Chest x-ray per my review shows improved aeration of the left lung, persistent right lower lobe infiltrate. Received a dose of hydralazine this morning. Medications: Reviewed: Yes Medication Review Details: Active Medications Generic Name Dose Route Start Last Admin Trade Name Freq PRN Reason Stop Dose Admin Acetaminophen 650 mg 06/11/20 01:23 06/12/20 08:43 Tylenol PO 650 mg Q6H PRN Administration Mild/Mod Pain Or Temp >/= 101 Albuterol/Ipratrop ium 3 ml 06/11/20 01:23 06/11/20 11:05 Duoneb INHALATION 3 ml Q4H PRN Administration SHORTNESS OF ERICA TH Albuterol/Ipratrop ium 3 ml 06/11/20 01:23 06/12/20 08:01 Duoneb INHALATION 3 ml Q4H.RESPIRATORY S CH Administration Aspirin 81 mg 06/11/20 09:00 06/12/20 08:43 Aspirin Chewable PO 81 mg DAILY LALITO Administration Budesonide 0.5 mg 06/11/20 09:00 06/12/20 08:01 Pulmicort INHALATION 0.5 mg BID LALITO Administration Famotidine 20 mg 06/11/20 12:45 06/12/20 00:03 Pepcid Inj IVP 20 mg Q12H LALITO Administration Furosemide 20 mg 06/11/20 06:00 06/12/20 06:24 Lasix PO 20 mg QAM LALITO Administration Heparin Sodium (Be ef Lung) 5,000 unit 06/11/20 01:30 06/12/20 01:33 Heparin SUBCUT 5,000 unit Q8H LALITO Administration Hydralazine HCl 10 mg 06/11/20 13:49 06/12/20 03:52 Apresoline IVP 10 mg Q4H PRN Administration SYSTOLIC BLOOD HI ESSURE Propofol 1,000 mg in 100 m ls @ 0 mls/hr 06/10/20 22:15 06/12/20 09:32 Diprivan IV 35 mcg/kg/min .Q0M LALITO 21.9 mls/hr Titration Protocol Per Protocol Sodium Chloride 1,000 mls @ 50 ml s/hr 06/11/20 01:23 06/12/20 08:40 Sodium Chloride 0.9% IV 100 mls/hr .Q20H LALITO Administration Levofloxacin/Dextr ose 750 mg in 150 mls @ 100 mls/hr 06/12/20 20:30 Levaquin-D5w IV Q48H LALITO Protocol Piperacillin Sod/T azobactam 50 mls @ 12.5 mls /hr 06/11/20 16:30 06/12/20 08:40 Sod 3.375 gm/ So dium Chloride IV 12.5 mls/hr Q8H LALITO Administration Protocol Levothyroxine Sodi um 25 mcg 06/11/20 09:00 06/12/20 08:43 Synthroid PO 25 mcg DAILY LALITO Administration Lorazepam 2 mg 06/11/20 13:49 06/12/20 08:42 Ativan IVP 2 mg Q4H PRN Administration ANXIETY Methylprednisolone Sodium Succinate 60 mg 06/11/20 01:23 06/12/20 08:39 Solu-Medrol IVP 60 mg Q6H LALITO Administration Metoprolol Tartrat e 5 mg 06/11/20 13:49 06/12/20 08:41 Metoprolol Tartr ate IV 5 mg Q4H PRN Administration HEART RATE-HIGH Morphine Sulfate 2 mg 06/11/20 13:49 06/12/20 08:41 Morphine IVP 2 mg Q4H PRN Administration SEVERE PAIN Nicotine 1 patch 06/11/20 09:00 06/12/20 08:43 Nicoderm 21 Mg P atch TRANSDERMA 1 patch DAILY LALITO Administration Nystatin 1 applic 06/11/20 09:00 06/11/20 17:49 Nystatin Powder TOPICAL 1 applic BID LALITO Administration No Known Allergies Allergy (Verified 04/18/20 10:37) Vitals/I&O/Wt Last Vital Signs Temp 99.4 F 06/11/20 22:30 Pulse 99 06/12/20 08:02 Resp 21 H 06/12/20 11:15 BP 142/88 06/12/20 06:08 Pulse Ox 95 06/12/20 08:02 06/11/20 06/12/20 06/12/20 22:59 06:59 14:59 Intake Total 1050 / 2150 309.930 / 2459.930 1098.073 / 1098.073 Output Total 1025 / 1025 1500 / 2525 Balance 25 / 1125 -1190.070 / -65.070 1098.073 / 1098.073 Weight last 48 hrs Weight 108.522 kg Weight 107.048 kg Weight 104.326 kg Physical Exam Const: COMMON NORMALS: no acute distress GENERAL APPEARANCE: cooperative, comfortable and patient mechanically ventilated NUTRITIONAL APPEARANCE: obese morbidly obese ORIENTATION/CONSCIOUSNESS: Yes awake OTHER: -arouses easily to verbal and tactile stimulation HENMT: COMMON NORMALS: normocephalic, atraumatic and hearing grossly normal bilaterally HEAD & SCALP: normocephalic and atraumatic OTHER: -ETT-24 cm at lip Eye: COMMON NORMALS: Equal, round and reactive pupils present, EOMs intact bilaterally and conjunctivae normal CONJUNCTIVA: Yes conjunctivae normal PUPIL: Yes Equal, round and reactive pupils present Neck/C-Spine: COMMON NORMALS: full ROM GENERAL: Yes normal visual inspection and Yes trachea midline Resp: COMMON NORMALS: normal respiratory effort, No retractions and No use of accessory muscles EFFORT & INSPECTION: Yes symmetric chest movement and Yes tachypneic AUSCULTATION: diminished lung sounds bilateral OTHER: -on vent support, FiO2-50% Cardio: COMMON NORMALS: regular rate, regular rhythm, S1 normal heart sound present, S2 normal heart sound present and No murmurs present (Cardio) RATE: regular rate RHYTHM: regular rhythm HEART SOUNDS: S1 normal heart sound present and S2 normal heart sound present GI: COMMON NORMALS: Normal to inspection, nondistended, normoactive bowel sounds present, Soft to palpation and non-tender INSPECTION: Yes central obesity PALPATION: Yes Soft to palpation : BLADDER/KIDNEY EXAM: Yes catheter in place Catheter type (Female): urethral Extremity: COMMON NORMALS: normal to inspection, full ROM and no clubbing, cyanosis or edema; negative for no pedal edema Neuro: COMMON NORMALS: moves all extremities, no focal motor deficits and no sensory deficits noted SENSORIUM/ORIENTATION: Yes other (sedated though arouses easily to stimulation) Psych: OTHER: -sedated Skin: COMMON NORMALS: no rashes or lesions noted, no jaundice, no petechiae and no mottling GENERAL SKIN EXAM: no rashes or lesions noted Urinary Catheter Management^: Cervantes: Cath Placed During This Visit: yes Reason for Continuing Indwelling Catheter: Accurate Measurement of Urinary Output in Critically Ill Patients Urinary Catheter Date of Insertion: 06/10/20 Urinary Catheter Time of Insertion: 23:33 Data : 06/12/20 04:12 06/12/20 09:12 Micro: Microbiology 06/10/20 20:12 Blood Culture - Preliminary Blood NEGATIVE TO DATE 06/10/20 20:11 Blood Culture - Preliminary Blood NEGATIVE TO DATE 06/11/20 16:40 Gram Stain - Final Sputum - Endotracheal Tube Aspirate 06/11/20 02:15 Bacterial Antigens - Final Urine,Voided 06/11/20 02:15 Legionella Urinary Antigen - Final Urine Catheterized A&P Assessment and plan (1) Acute on chronic respiratory failure with hypoxia and hypercapnia: -failed trial of BiPAP, intubated in ED (06/10) -remains on vent support, sedation -daily ABGs, CXR while intubated -noted respiratory acidosis, hypercapnia on AM ABG -decreasing leukocytosis, afebrile, lactic acid wnl -continue to trend WBC -continue to monitor respiratory status -continue to monitor vital signs; stable -weaning trial when appropriate -secondary to RLL pneumonia, acute COPD exacerbation -telemetry monitoring Status: Acute (2) Community acquired pneumonia: -imaging reviewed, evidence of RLL infiltrate consistent with pneumonia -with associated severe sepsis as evidenced by respiratory failure requiring intubation, leukocytosis, hypotension, tachycardia, tachypnea, SELVIN all of which is improving -continue broad spectrum IV antibiotics with Levaquin, Zosyn -negative bacterial antigens, Legionella -blood cx: prelim negative -sputum cx: pending, gram stain with few WBC Status: Acute Qualifiers: Laterality: right Lung location: lower lobe of lung Qualified Code(s): J18.9 - Pneumonia, unspecified organism (3) SELVIN (acute kidney injury): -likely secondary to severe sepsis -improvement in renal function today, continue to monitor -avoid nephrotoxins, renally dose meds -has Cervantes catheter in place, continue to monitor urine output -renal US unremarkable -ACEi on hold Status: Acute (4) Septic shock: -weaned off pressor support -as noted above -noted troponin elevation, with no significant delta. likely type II due to demand ischemia from respiratory illness Status: Acute (5) COPD exacerbation: -on IV steroids in addition to treatment noted above -baseline oxygen requirement of 3 L NC Status: Acute (6) Hypothyroidism: -on levothyroxine Status: Chronic Qualifiers: Hypothyroidism type: unspecified Qualified Code(s): E03.9 - Hypothyroidism, unspecified (7) CHF (congestive heart failure): -on Lasix -Echo (12/2019): EF wnl, G1DD, mild pulmonary HTN Status: Chronic Qualifiers: Heart failure type: diastolic Heart failure chronicity: chronic Qualified Code(s): I50.32 - Chronic diastolic (congestive) heart failure (8) Hypertension: -due to hypotension, required pressor support which has since been weaned off. BP starting to trend up; hydralazine PRN -continue to monitor vital signs closely -resume amlodipine Status: Chronic Qualifiers: Hypertension type: essential hypertension Qualified Code(s): I10 - Essential (primary) hypertension (9) KEO (obstructive sleep apnea): Status: Chronic (10) Tobacco abuse: -nicotine replacement therapy Status: Chronic Additional A&P Information -Morbid obesity: BMI-45 kg/m2 -limited hx, unable to reach family for collateral information. Attempted to reach daughter Areli Chandler ([phone]) unsuccessfully -NPO as on vent support -DVT ppx with heparin -GI ppx with famotidine -Dispo: home -Code status: FULL code -ICU care due to vent support Attestations Medical Necessity Statement*: Patient requires hospitalization for continued management of acute respiratory failure, on vent support, IV antibiotics, steroids; needs continued monitoring of hemodynamic and respiratory status. Time Spent in Patient Care: 16 - 35 minutes (>than 50% of time spent in counselling and/or direct pt care on unit) . Critical Care Time: The high probability of a clinically significant, sudden or life threatening deterioration of the patient's [cardivascular, respiratory] system(s) required my full and direct attention, intervention and personal management. The critical care time is as shown. This time is in addition to time spent performing any reported procedures but includes the following: [x] Data and vital sign review and interpretation [x] Patient assessment, examination and intervention [x] Documentation [x] Medication orders and management Critical Care Time (min): 15 Coding Level of Care Code Acute Septic Tank Servicer for Izzy Fwd Diagnoses Acute on chronic respiratory failure with hypoxia and hypercapnia J96.21; J96.22 Community acquired pneumonia J18.9 Laterality: right Lung location: lower lobe of lung SELVIN (acute kidney injury) N17.9 Septic shock A41.9; R65.21 COPD exacerbation J44.1 Hypothyroidism E03.9 Hypothyroidism type: unspecified CHF (congestive heart failure) I50.32 Heart failure type: diastolic Heart failure chronicity: chronic Hypertension I10 Hypertension type: essential hypertension KEO (obstructive sleep apnea) G47.33 Tobacco abuse Z72.0
[2020-06-12] MEDS: propofol 1,000 MG/100 ML INJ 21.9 MG IV (13:38)
[2020-06-12] MEDS: amlodipine 5 mg Tablet OG-TUBE (13:38)
[2020-06-12] MEDS: propofol 1,000 MG/100 ML INJ 18.8 MG IV ×2 (15:48→22:37)
--- NOTE | 2020-06-12 18:09 | PC.NURSE ---
Patient turned q2hr. skin wnl other than groin and under panus. nystatin crusting and noted bleeding in spots of the creases, interdry ag placed after skin cleaned well. patient given a fan. noted patient takes chronic pain meds and duloxtine so morphine was given and ativan given in smaller doses in hopes she would wake up enough to follow directions. by the end of the shift she maintained calm and did not have a continuous coughing fit with dipravan at 25 to 30 , morphine and one divided dose of ms 2 , pain was treated 2x. her family was tod on the phone that she could not visit with them ie speak to them but her son did not get this message and came to see her but left in 3 min.
--- NOTE | 2020-06-12 19:00 | PC.NURSE ---
Received report from DEBO Camejo. Patient is currently on Propofol at 30 mcg/kg/min. Resting comfortably. Vital signs stable. Soft restraints present, pulses present, skin warm.
[2020-06-12] MEDS: levofloxacin-dextrose 5 % 750 MG/150 ML PREMIX 100 MG IV (19:54)
[2020-06-13] VITALS (44 sets, daily range): BP systolic 116–165; BP diastolic 56–105; PULSE 68–93; RESP 15–24; TEMP 37–37.8; O2SAT 91–98
[2020-06-13] MEDS: famotidine 20 mg/2 mL INJ IVP ×2 (00:42→12:34)
[2020-06-13] MEDS: piperacillin-tazobactam 3.375 GM in sodium chloride 0.9% (plus) 50 ML IV ×3 (00:42→16:36)
[2020-06-13] MEDS: LORazepam 2 mg/mL INJ 1 mL IVP ×3 (00:57→20:24)
[2020-06-13] MEDS: propofol 1,000 MG/100 ML INJ 18.8 MG IV (01:05)
[2020-06-13] MEDS: acetaminophen 325 mg Tablet 650 MG PO (01:16)
[2020-06-13] MEDS: heparin 5,000 unit/mL INJ 1 mL 5000 UNIT SUBCUT ×3 (01:16→16:36)
[2020-06-13] MEDS: ipratropium-albuterol 3 mL Neb INHALATION ×5 (03:02→23:45)
[2020-06-13] MEDS: propofol 1,000 MG/100 ML INJ 25 MG IV ×3 (04:13→22:46)
[2020-06-13 05:19] LABS: ABG PCO2 30.7 mmHg (35-45); ABG PH Result 7.45 (7.35-7.45); Arterial Blood Gas Hematocrit 40.5 % (37-47); Base Excess ABG -1.8 mmol/L (-2.0-2.0); Blood Gas Allen Test Pos; Blood Gas Sample Site Radial, left; Blood Gas Sample Type Arterial; HCO3 ABG 21.3 mmol/L (22-26); Oxygen Device VENT
[2020-06-13] MEDS: FUROsemide 20 mg Tablet PO (05:50)
--- NOTE | 2020-06-13 06:00 | XR_ITS ---
WS: [id number] CHEST XRAY TECHNIQUE: Portable chest. CLINICAL INFORMATION: on vent support, RLL pneumonia COMPARISON: June 12, 2020 FINDINGS: Endotracheal tube with tip above the lois. Enteric tube with tip below the diaphragm. Heart: Normal cardiac silhouette. Lungs: Chronic emphysematous changes. Right lower lobe pneumonia with small right greater than left p leural effusions. Slight patchy infiltrates left lower lobe. Bones: Normal visualized bony structures. XR/XR chest 1V portable [id number] IMPRESSION: Stable right lower lobe pneumonia
[2020-06-13 06:11] LABS: Basophils % 0.3 %; Hematocrit 37.8 % (37.0-47.0); Hemoglobin 12.3 g/dL (11.5-15.3); Lymphocytes # 1.4 10^3/uL (0.8-4.8); Lymphocytes % 15.5 %; Mean Corpuscular HGB Conc 32.5 g/dL (30.0-36.0); Mean Corpuscular Hemoglobin 29.6 pg (28.0-34.0); Mean Corpuscular Volume 91.1 fL (81-99); Mean Platelet Volume 10.9 fL (7.4-10.4); Monocytes % 10.6 %; Neutrophils # 6.31 10^3/uL (1.8-7.7); Neutrophils % 67.9 %; Nucleated Red Blood Cells % 0 %; Platelet Count 281 10^3/cmm (130-400); Red Blood Count 4.15 10^6/uL (4.1-5.3); Red Cell Distribution Width 14.9 % (12.1-15.1); White Blood Count 9.3 10^3/uL (4.0-10.0)
--- NOTE | 2020-06-13 06:28 | PC.NURSE ---
SHIFT SUMMARY No acute events over night. Vital signs are stable. Propofol is currently at 35 mcg/kg/min. Patient is resting comfortably.
[2020-06-13 06:38] LABS: Alanine Aminotransferase 22 U/L (0-33); Albumin Level 2.4 g/dL (3.5-5.2); Alkaline Phosphatase 82 IU/L (35-105); Aspartate Amino Transferase 29 U/L (0-32); Blood Urea Nitrogen 62 mg/dL (8-23); Calcium 7.7 mg/dL (8.5-10.5); Carbon Dioxide 20 mmol/L (22-29); Chloride 109 mmol/L (98-107); Globulin 3.3 g/dL (1.3-4.6); Glomerular Filtration Rate 38.2 mL/min (90-130); Glucose 187 mg/dL (65-115); Osmolality Calculated 298 mOsm/kg (285-295); Sodium 142 mmol/L (136-145); Total Bilirubin 0.6 mg/dL (0.15-1.2); Total Protein 5.7 g/dL (6.6-8.7)
[2020-06-13 07:18] LABS: Slide Review Slide Review Perform
[2020-06-13] MEDS: propofol 1,000 MG/100 ML INJ 21.9 MG IV ×2 (07:22→12:40)
[2020-06-13] MEDS: nicotine 21 mg Patch 1 PATCH TRANSDERMA (08:48)
[2020-06-13] MEDS: levothyroxine 25 mcg Tablet PO (08:49)
[2020-06-13] MEDS: amlodipine 5 mg Tablet OG-TUBE (08:49)
[2020-06-13] MEDS: aspirin 81 mg Chew Tablet PO (08:49)
[2020-06-13] MEDS: budesonide 0.5 mg/2 mL Neb INHALATION ×2 (08:53→20:00)
--- NOTE | 2020-06-13 09:21 | PM.PN ---
Subjective Subjective: Interval history: Remains on vent support, FiO2-50%, had 900 mL urine output overnight and 150 mL gastric output. Resolved leukocytosis, stable renal function, low grade temp of 100 F early this AM, afebrile and otherwise hemodynamically stable. ABG noted, CXR relatively unchanged. During afternoon rounds noted to have FiO2 dropped to 40%. Attempts earlier in the day at weaning unsuccessful. Medications: Reviewed: Yes Medication Review Details: Active Medications Generic Name Dose Route Start Last Admin Trade Name Freq PRN Reason Stop Dose Admin Acetaminophen 650 mg 06/11/20 01:23 06/13/20 01:16 Tylenol PO 650 mg Q6H PRN Administration Mild/Mod Pain Or Temp >/= 101 Albuterol/Ipratrop ium 3 ml 06/11/20 01:23 06/11/20 11:05 Duoneb INHALATION 3 ml Q4H PRN Administration SHORTNESS OF ERICA TH Albuterol/Ipratrop ium 3 ml 06/11/20 01:23 06/13/20 08:53 Duoneb INHALATION 3 ml Q4H.RESPIRATORY S CH Administration Amlodipine Besylat e 5 mg 06/12/20 11:45 06/13/20 08:49 Norvasc OG-TUBE 5 mg DAILY LALITO Administration Aspirin 81 mg 06/11/20 09:00 06/13/20 08:49 Aspirin Chewable PO 81 mg DAILY LALITO Administration Budesonide 0.5 mg 06/11/20 09:00 06/13/20 08:53 Pulmicort INHALATION 0.5 mg BID LALITO Administration Famotidine 20 mg 06/11/20 12:45 06/13/20 00:42 Pepcid Inj IVP 20 mg Q12H LALITO Administration Furosemide 20 mg 06/11/20 06:00 06/13/20 05:50 Lasix PO 20 mg QAM LALITO Administration Heparin Sodium (Be ef Lung) 5,000 unit 06/11/20 01:30 06/13/20 08:49 Heparin SUBCUT 5,000 unit Q8H LALITO Administration Hydralazine HCl 10 mg 06/11/20 13:49 06/12/20 03:52 Apresoline IVP 10 mg Q4H PRN Administration SYSTOLIC BLOOD PA ESSURE Propofol 1,000 mg in 100 m ls @ 0 mls/hr 06/10/20 22:15 06/13/20 08:43 Diprivan IV 30 mcg/kg/min .Q0M LALITO 18.8 mls/hr Titration Protocol Per Protocol Sodium Chloride 1,000 mls @ 50 ml s/hr 06/11/20 01:23 06/12/20 15:49 Sodium Chloride 0.9% IV 100 mls/hr .Q20H LALITO Administration Levofloxacin/Dextr ose 750 mg in 150 mls @ 100 mls/hr 06/12/20 20:30 06/12/20 21:24 Levaquin-D5w IV Infused Q48H LALITO Infusion Protocol Piperacillin Sod/T azobactam 50 mls @ 12.5 mls /hr 06/11/20 16:30 06/13/20 08:33 Sod 3.375 gm/ So dium Chloride IV 12.5 mls/hr Q8H LALITO Administration Protocol Levothyroxine Sodi um 25 mcg 06/11/20 09:00 06/13/20 08:49 Synthroid PO 25 mcg DAILY LALITO Administration Lorazepam 2 mg 06/11/20 13:49 06/13/20 05:50 Ativan IVP 2 mg Q4H PRN Administration ANXIETY Methylprednisolone Sodium Succinate 60 mg 06/11/20 01:23 06/13/20 07:18 Solu-Medrol IVP 60 mg Q6H LALITO Administration Metoprolol Tartrat e 5 mg 06/11/20 13:49 06/12/20 08:41 Metoprolol Tartr ate IV 5 mg Q4H PRN Administration HEART RATE-HIGH Morphine Sulfate 2 mg 06/11/20 13:49 06/12/20 22:36 Morphine IVP 2 mg Q4H PRN Administration SEVERE PAIN Nicotine 1 patch 06/11/20 09:00 06/13/20 08:48 Nicoderm 21 Mg P atch TRANSDERMA 1 patch DAILY LALITO Administration Nystatin 1 applic 06/11/20 09:00 06/12/20 15:49 Nystatin Powder TOPICAL Not Given BID [facility] No Known Allergies Allergy (Verified 04/18/20 10:37) Vitals/I&O/Wt Last Vital Signs Temp 98.6 F 06/13/20 07:00 Pulse 82 06/13/20 08:58 Resp 15 06/13/20 08:54 BP 147/87 06/13/20 07:00 Pulse Ox 94 06/13/20 08:54 06/12/20 06/13/20 06/13/20 22:59 06:59 14:59 Intake Total 1102.595 / 2642.378 199.863 / 2842.241 59.495 / 59.495 Output Total 1115 / 1115 1050 / 2165 Balance -12.405 / 1527.378 -850.137 / 677.241 59.495 / 59.495 Weight last 48 hrs Weight 109.911 kg Weight 108.522 kg Physical Exam Const: COMMON NORMALS: no acute distress GENERAL APPEARANCE: cooperative, comfortable and patient mechanically ventilated NUTRITIONAL APPEARANCE: obese morbidly obese ORIENTATION/CONSCIOUSNESS: Yes awake OTHER: -arouses easily to verbal and tactile stimulation HENMT: COMMON NORMALS: normocephalic, atraumatic and hearing grossly normal bilaterally HEAD & SCALP: normocephalic and atraumatic OTHER: -ETT-24 cm at lip Eye: COMMON NORMALS: Equal, round and reactive pupils present, EOMs intact bilaterally and conjunctivae normal CONJUNCTIVA: Yes conjunctivae normal PUPIL: Yes Equal, round and reactive pupils present Neck/C-Spine: COMMON NORMALS: full ROM GENERAL: Yes normal visual inspection and Yes trachea midline Resp: COMMON NORMALS: normal respiratory effort, No retractions and No use of accessory muscles EFFORT & INSPECTION: Yes symmetric chest movement and Yes tachypneic AUSCULTATION: diminished lung sounds bilateral OTHER: -on vent support, FiO2-50% -Air entry is improving though she continues to have lots of thick secretions Cardio: COMMON NORMALS: regular rate, regular rhythm, S1 normal heart sound present, S2 normal heart sound present and No murmurs present (Cardio) RATE: regular rate RHYTHM: regular rhythm HEART SOUNDS: S1 normal heart sound present and S2 normal heart sound present GI: COMMON NORMALS: Normal to inspection, nondistended, normoactive bowel sounds present, Soft to palpation and non-tender INSPECTION: Yes central obesity PALPATION: Yes Soft to palpation : BLADDER/KIDNEY EXAM: Yes catheter in place Catheter type (Female): urethral Extremity: COMMON NORMALS: normal to inspection, full ROM and no clubbing, cyanosis or edema; negative for no pedal edema Neuro: COMMON NORMALS: moves all extremities, no focal motor deficits and no sensory deficits noted SENSORIUM/ORIENTATION: Yes other (sedated though arouses easily to stimulation) Psych: COMMON NORMALS: mental status grossly normal, Normal thought process present, cooperative, normal affect and speech normal SPEECH: Yes normal speech THOUGHT PROCESS: Normal thought process present OTHER: -sedated Skin: COMMON NORMALS: no rashes or lesions noted, no jaundice, no petechiae and no mottling GENERAL SKIN EXAM: no rashes or lesions noted Urinary Catheter Management^: Cervantes: Cath Placed During This Visit: yes Reason for Continuing Indwelling Catheter: Accurate Measurement of Urinary Output in Critically Ill Patients Urinary Catheter Date of Insertion: 06/10/20 Urinary Catheter Time of Insertion: 23:33 Data : 06/13/20 05:45 06/13/20 05:45 A&P Assessment and plan (1) Acute on chronic respiratory failure with hypoxia and hypercapnia: -failed trial of BiPAP, intubated in ED (06/10) -remains on vent support, sedation -daily ABGs, CXR while intubated -noted AM ABG -resolved leukocytosis, afebrile, lactic acid wnl -continue to monitor respiratory status -continue to monitor vital signs; stable -weaning trial today -secondary to RLL pneumonia, acute COPD exacerbation -telemetry monitoring Status: Acute (2) Community acquired pneumonia: -imaging reviewed, evidence of RLL infiltrate consistent with pneumonia -with associated severe sepsis as evidenced by respiratory failure requiring intubation, leukocytosis, hypotension, tachycardia, tachypnea, SELVIN all of which is improving -continue broad spectrum IV antibiotics with Levaquin, Zosyn -negative bacterial antigens, Legionella -blood cx: prelim negative -sputum cx: pending, gram stain with few WBC Status: Acute Qualifiers: Laterality: right Lung location: lower lobe of lung Qualified Code(s): J18.9 - Pneumonia, unspecified organism (3) SELVIN (acute kidney injury): -likely secondary to severe sepsis -stable renal function today, continue to monitor -avoid nephrotoxins, renally dose meds -has Cervantes catheter in place, continue to monitor urine output -renal US unremarkable -ACEi on hold Status: Acute (4) Septic shock: -weaned off pressor support -as noted above -noted troponin elevation, with no significant delta. likely type II due to demand ischemia from respiratory illness Status: Resolved (5) COPD exacerbation: -on IV steroids in addition to treatment noted above -baseline oxygen requirement of 3 L NC Status: Acute (6) Hypothyroidism: -on levothyroxine Status: Chronic Qualifiers: Hypothyroidism type: unspecified Qualified Code(s): E03.9 - Hypothyroidism, unspecified (7) CHF (congestive heart failure): -on Lasix -Echo (12/2019): EF wnl, G1DD, mild pulmonary HTN Status: Chronic Qualifiers: Heart failure chronicity: chronic Heart failure type: diastolic Qualified Code(s): I50.32 - Chronic diastolic (congestive) heart failure (8) Hypertension: -due to hypotension, required pressor support which has since been weaned off. BP starting to trend up; hydralazine PRN, scheduled amlodipine -continue to monitor vital signs closely Status: Chronic Qualifiers: Hypertension type: essential hypertension Qualified Code(s): I10 - Essential (primary) hypertension (9) KEO (obstructive sleep apnea): Status: Chronic (10) Tobacco abuse: -nicotine replacement therapy Status: Chronic Additional A&P Information -Morbid obesity: BMI-46 kg/m2 -limited hx, unable to reach family for collateral information. Attempted to reach daughter Areli Chandler ([phone]) unsuccessfully -NPO as on vent support -DVT ppx with heparin -GI ppx with famotidine -Dispo: home -Code status: FULL code -ICU care due to vent support Attestations Medical Necessity Statement*: Patient requires hospitalization for continued management of acute respiratory failure, remains on vent support, IV antibiotics, IV steroids. Time Spent in Patient Care: 16 - 35 minutes (>than 50% of time spent in counselling and/or direct pt care on unit). Critical Care Time: The high probability of a clinically significant, sudden or life threatening deterioration of the patient's [cardiovascular, respiratory] system(s) required my full and direct attention, intervention and personal management. The critical care time is as shown. This time is in addition to time spent performing any reported procedures but includes the following: [x] Data and vital sign review and interpretation [x] Patient assessment, examination and intervention [x] Documentation [x] Medication orders and management Critical Care Time (min): 25 Coding Level of Care Code Acute Zinc Etcher for [facility] Fwd Exam Comprehensive Diagnoses Acute on chronic respiratory failure with hypoxia and hypercapnia J96.21; J96.22 Community acquired pneumonia J18.9 Laterality: right Lung location: lower lobe of lung SELVIN (acute kidney injury) N17.9 Septic shock A41.9; R65.21 COPD exacerbation J44.1 Hypothyroidism E03.9 Hypothyroidism type: unspecified CHF (congestive heart failure) I50.32 Heart failure chronicity: chronic Heart failure type: diastolic Hypertension I10 Hypertension type: essential hypertension KEO (obstructive sleep apnea) G47.33 Tobacco abuse Z72.0
[2020-06-13] MEDS: nystatin powder 15 gm Btl 1 APPLIC TOPICAL ×2 (10:39→17:12)
--- NOTE | 2020-06-13 12:51 | PC.NURSE ---
propofol was increased. conts. to reach for e.t. at times
[2020-06-13] MEDS: sodium chloride 0.9% 1,000 ML 50 ML IV (14:35)
[2020-06-13] MEDS: propofol 1,000 MG/100 ML INJ 28.2 MG IV (20:06)
--- NOTE | 2020-06-13 20:54 | PC.NURSE ---
call to physician Patient very restless after ETT suction. respirations staying above 40 and restless in bed. ativan 2mg given per PRN order to help calm patient and Propofol increased to 50mcg. patient hard to calm down and still restless even after medications. call to and informed of patient condition. verbal order for additional sedation medication of fentanyl drip. will continue to monitor.
[2020-06-14] VITALS (37 sets, daily range): BP systolic 130–163; BP diastolic 66–97; PULSE 60–87; RESP 15–26; TEMP 36.5–37.2; O2SAT 94–97
[2020-06-14] MEDS: famotidine 20 mg/2 mL INJ IVP ×2 (01:06→11:46)
[2020-06-14] MEDS: piperacillin-tazobactam 3.375 GM in sodium chloride 0.9% (plus) 50 ML IV ×3 (01:06→16:54)
[2020-06-14] MEDS: hyDRALAzine 20 mg/mL INJ 1 mL 10 MG IVP (01:20)
[2020-06-14] MEDS: heparin 5,000 unit/mL INJ 1 mL 5000 UNIT SUBCUT ×3 (01:20→17:04)
[2020-06-14] MEDS: propofol 1,000 MG/100 ML INJ 25 MG IV ×4 (02:12→23:04)
[2020-06-14] MEDS: LORazepam 2 mg/mL INJ 1 mL IVP ×2 (03:35→21:11)
[2020-06-14 05:15] LABS: ABG PCO2 31.8 mmHg (35-45); ABG PH Result 7.45 (7.35-7.45); Arterial Blood Gas Hematocrit 41.5 % (37-47); Base Excess ABG -0.8 mmol/L (-2.0-2.0); Blood Gas Sample Site Brachial, right; Blood Gas Sample Type Arterial; HCO3 ABG 22.3 mmol/L (22-26)
[2020-06-14] MEDS: FUROsemide 20 mg Tablet PO (05:55)
[2020-06-14 06:54] LABS: Basophils % 0.2 %; Hematocrit 40.1 % (37.0-47.0); Hemoglobin 12.8 g/dL (11.5-15.3); Lymphocytes # 1.5 10^3/uL (0.8-4.8); Lymphocytes % 16.2 %; Mean Corpuscular HGB Conc 31.9 g/dL (30.0-36.0); Mean Corpuscular Hemoglobin 29.4 pg (28.0-34.0); Monocytes # 0.7 10^3/uL (0.2-0.9); Monocytes % 7.8 %; Neutrophils # 6.35 10^3/uL (1.8-7.7); Neutrophils % 70.5 %; Nucleated Red Blood Cells % 0 %; Platelet Count 312 10^3/cmm (130-400); Red Blood Count 4.36 10^6/uL (4.1-5.3); Red Cell Distribution Width 14.6 % (12.1-15.1)
[2020-06-14 07:14] LABS: Blood Urea Nitrogen 55 mg/dL (8-23); Calcium 7.8 mg/dL (8.5-10.5); Carbon Dioxide 21 mmol/L (22-29); Chloride 112 mmol/L (98-107); Glomerular Filtration Rate 50.5 mL/min (90-130); Glucose 209 mg/dL (65-115); Osmolality Calculated 305 mOsm/kg (285-295); Sodium 145 mmol/L (136-145)
[2020-06-14] MEDS: ipratropium-albuterol 3 mL Neb INHALATION ×7 (07:37→19:51)
[2020-06-14 07:43] LABS: Anion Gap 16.1 (5-19); Potassium 4.1 mmol/L (3.5-5.1)
[2020-06-14 07:44] LABS: Slide Review Slide Review Perform
--- NOTE | 2020-06-14 07:49 | P.PN_ITS ---
Subjective Subjective: Interval history: FiO2 down to 40%, tolerating tube feeds well so far though at low rate, secretions seem to be loosening, had 1050 mL urine output overnight. Received dose of hydralazine this AM due to increased BP. Fentanyl started overnight for additional sedation. Afebrile, no leukocytosis, normal H/H, improving renal function. Corrected calcium is 9.1. Medications: Reviewed: Yes Medication Review Details: Active Medications Generic Name Dose Route Start Last Admin Trade Name Freq PRN Reason Stop Dose Admin Acetaminophen 650 mg 06/11/20 01:23 06/13/20 01:16 Tylenol PO 650 mg Q6H PRN Administration Mild/Mod Pain Or Temp >/= 101 Albuterol/Ipratrop ium 3 ml 06/11/20 01:23 06/13/20 23:45 Duoneb INHALATION 3 ml Q4H PRN Administration SHORTNESS OF ERICA TH Albuterol/Ipratrop ium 3 ml 06/11/20 01:23 06/14/20 07:38 Duoneb INHALATION 3 ml Q4H.RESPIRATORY S CH Administration Amlodipine Besylat e 10 mg 06/14/20 09:00 Norvasc OG-TUBE DAILY LALITO Aspirin 81 mg 06/11/20 09:00 06/13/20 08:49 Aspirin Chewable PO 81 mg DAILY LALITO Administration Budesonide 0.5 mg 06/11/20 09:00 06/13/20 20:00 Pulmicort INHALATION 0.5 mg BID LALITO Administration Famotidine 20 mg 06/11/20 12:45 06/14/20 01:06 Pepcid Inj IVP 20 mg Q12H LALITO Administration Furosemide 20 mg 06/11/20 06:00 06/14/20 05:55 Lasix PO 20 mg QAM LALITO Administration Heparin Sodium (Be ef Lung) 5,000 unit 06/11/20 01:30 06/14/20 01:20 Heparin SUBCUT 5,000 unit Q8H LALITO Administration Hydralazine HCl 10 mg 06/11/20 13:49 06/14/20 01:20 Apresoline IVP 10 mg Q4H PRN Administration SYSTOLIC BLOOD ID ESSURE Propofol 1,000 mg in 100 m ls @ 0 mls/hr 06/10/20 22:15 06/14/20 07:37 Diprivan IV 25 mcg/kg/min .Q0M LALITO 15.6 mls/hr Titration Protocol Per Protocol Sodium Chloride 1,000 mls @ 50 ml s/hr 06/11/20 01:23 06/13/20 14:35 Sodium Chloride 0.9% IV 50 mls/hr .Q20H LALITO Administration Levofloxacin/Dextr ose 750 mg in 150 mls @ 100 mls/hr 06/12/20 20:30 06/12/20 21:24 Levaquin-D5w IV Infused Q48H LALITO Infusion Protocol Piperacillin Sod/T azobactam 50 mls @ 12.5 mls /hr 06/11/20 16:30 06/14/20 01:06 Sod 3.375 gm/ So dium Chloride IV 12.5 mls/hr Q8H LALITO Administration Protocol Fentanyl 1,000 mcg / Sodium 100 mls @ 0 mls/h r 06/13/20 21:00 06/14/20 02:13 Chloride IV 50 mcg/hr .Q0M LALITO 5 mls/hr Titration Protocol Per Protocol Levothyroxine Sodi um 25 mcg 06/11/20 09:00 06/13/20 08:49 Synthroid PO 25 mcg DAILY LALITO Administration Lorazepam 2 mg 06/11/20 13:49 06/14/20 03:35 Ativan IVP 2 mg Q4H PRN Administration ANXIETY Methylprednisolone Sodium Succinate 60 mg 06/11/20 01:23 06/14/20 01:20 Solu-Medrol IVP 60 mg Q6H LALITO Administration Metoprolol Tartrat e 5 mg 06/11/20 13:49 06/12/20 08:41 Metoprolol Tartr ate IV 5 mg Q4H PRN Administration HEART RATE-HIGH Morphine Sulfate 2 mg 06/11/20 13:49 06/12/20 22:36 Morphine IVP 2 mg Q4H PRN Administration SEVERE PAIN Nicotine 1 patch 06/11/20 09:00 06/13/20 08:48 Nicoderm 21 Mg P atch TRANSDERMA 1 patch DAILY LALITO Administration Nystatin 1 applic 06/11/20 09:00 06/13/20 17:12 Nystatin Powder TOPICAL 1 applic BID LALITO Administration No Known Allergies Allergy (Verified 04/18/20 10:37) Vitals/I&O/Wt Last Vital Signs Temp 98.9 F 06/14/20 01:00 Pulse 74 06/14/20 07:39 Resp 24 H 06/14/20 07:39 BP 150/79 06/14/20 05:00 Pulse Ox 96 06/14/20 07:39 06/13/20 06/14/20 06/14/20 22:59 06:59 14:59 Intake Total 319.926 / 1520.296 203.500 / 1723.796 26.645 / 26.645 Output Total 1450 / 2200 550 / 2750 Balance -1130.074 / -679.704 -346.500 / -1026.204 26.645 / 26.645 Weight last 48 hrs Weight 108.097 kg Weight 109.911 kg Physical Exam Const: COMMON NORMALS: no acute distress GENERAL APPEARANCE: cooperative, comfortable and patient mechanically ventilated NUTRITIONAL APPEARANCE: obese morbidly obese ORIENTATION/CONSCIOUSNESS: Yes awake OTHER: -arouses easily to verbal and tactile stimulation HENMT: COMMON NORMALS: normocephalic, atraumatic and hearing grossly normal bilaterally HEAD & SCALP: normocephalic and atraumatic OTHER: -ETT-24 cm at lip -OGT in place Eye: COMMON NORMALS: Equal, round and reactive pupils present, EOMs intact bilaterally and conjunctivae normal CONJUNCTIVA: Yes conjunctivae normal PUPIL: Yes Equal, round and reactive pupils present Neck/C-Spine: COMMON NORMALS: full ROM GENERAL: Yes normal visual inspection and Yes trachea midline Resp: COMMON NORMALS: normal respiratory effort, No retractions and No use of accessory muscles EFFORT & INSPECTION: Yes symmetric chest movement and Yes tachypneic AUSCULTATION: diminished lung sounds bilateral OTHER: -on vent support, FiO2-40% -Air entry is improving though she continues to have lots of thick secretions, somewhat loosening -coarse breath sounds Cardio: COMMON NORMALS: regular rate, regular rhythm, S1 normal heart sound present, S2 normal heart sound present and No murmurs present (Cardio) RATE: regular rate RHYTHM: regular rhythm HEART SOUNDS: S1 normal heart sound present and S2 normal heart sound present GI: COMMON NORMALS: Normal to inspection, nondistended, normoactive bowel sounds present, Soft to palpation and non-tender INSPECTION: Yes central obesity PALPATION: Yes Soft to palpation : BLADDER/KIDNEY EXAM: Yes catheter in place Catheter type (Female): urethral Extremity: COMMON NORMALS: normal to inspection, full ROM and no pedal edema NARRATIVE EXTREMITY EXAM: -non-pitting edema of bilateral hands Neuro: COMMON NORMALS: moves all extremities, no focal motor deficits and no sensory deficits noted SENSORIUM/ORIENTATION: Yes other (sedated though arouses easily to stimulation) Psych: OTHER: -sedated Skin: COMMON NORMALS: no rashes or lesions noted, no jaundice, no petechiae and no mottling GENERAL SKIN EXAM: no rashes or lesions noted Urinary Catheter Management^: Cervantes: Cath Placed During This Visit: yes Reason for Continuing Indwelling Catheter: Accurate Measurement of Urinary Output in Critically Ill Patients Urinary Catheter Date of Insertion: 06/10/20 Urinary Catheter Time of Insertion: 23:33 Data : 06/14/20 06:06 06/14/20 06:06 Micro: Microbiology 06/11/20 16:40 Gram Stain - Final Sputum - Endotracheal Tube Aspirate Sputum Culture - Preliminary A&P Assessment and plan (1) Acute on chronic respiratory failure with hypoxia and hypercapnia: -failed trial of BiPAP, intubated in ED (06/10) -remains on vent support, sedation -daily ABGs, CXR while intubated -noted AM ABG -resolved leukocytosis, afebrile, lactic acid wnl -continue to monitor respiratory status -continue to monitor vital signs; stable -weaning trial today -secondary to RLL pneumonia, acute COPD exacerbation -telemetry monitoring -with initiation of tube feeds, will d/c IVF Status: Acute (2) Community acquired pneumonia: -imaging reviewed, evidence of RLL infiltrate consistent with pneumonia -with associated severe sepsis as evidenced by respiratory failure requiring intubation, leukocytosis, hypotension, tachycardia, tachypnea, SELVIN all of which is improving -continue broad spectrum IV antibiotics with Levaquin, Zosyn -negative bacterial antigens, Legionella -blood cx: prelim negative -sputum cx: prelim mixed bhupendra; gram stain with few WBC Status: Acute Qualifiers: Laterality: right Lung location: lower lobe of lung Qualified Code(s): J18.9 - Pneumonia, unspecified organism (3) SELVIN (acute kidney injury): -likely secondary to severe sepsis -improved renal function today, continue to monitor -avoid nephrotoxins, renally dose meds -has Cervantes catheter in place, continue to monitor urine output -renal US unremarkable -ACEi on hold -baseline Cr wnl Status: Acute (4) Septic shock: -weaned off pressor support -as noted above -noted troponin elevation, with no significant delta. likely type II due to demand ischemia from respiratory illness Status: Resolved (5) COPD exacerbation: -on IV steroids in addition to treatment noted above -baseline oxygen requirement of 3 L NC Status: Acute (6) Hypothyroidism: -on levothyroxine Status: Chronic Qualifiers: Hypothyroidism type: unspecified Qualified Code(s): E03.9 - Hypo thyroidism, unspecified (7) CHF (congestive heart failure): -on Lasix -Echo (12/2019): EF wnl, G1DD, mild pulmonary HTN Status: Chronic Qualifiers: Heart failure type: diastolic Heart failure chronicity: chronic Qualified Code(s): I50.32 - Chronic diastolic (congestive) heart failure (8) Hypertension: -due to hypotension, required pressor support which has since been weaned off. BP starting to trend up; hydralazine PRN, scheduled amlodipine, add low dose BB -continue to monitor vital signs closely -may be able to resume ACEi once renal function normalizes Status: Chronic Qualifiers: Hypertension type: essential hypertension Qualified Code(s): I10 - Essential (primary) hypertension (9) KEO (obstructive sleep apnea): Status: Chronic (10) Tobacco abuse: -nicotine replacement therapy Status: Chronic Additional A&P Information -Morbid obesity: BMI-45 kg/m2 -Hypocalcemia; corrected Ca is 9.1 -Hyperglycemia, no hx of DM with last A1c-6.0 (12/2019), likely secondary to acute illness and steroids -limited hx, unable to reach family for collateral information initially. Daughter Areli Chandler ([phone]) -started on tube feeding with [facility] as on vent support; tolerating well, titrate as tolerated -DVT ppx with heparin -GI ppx with famotidine -Dispo: home -Code status: FULL code -ICU care due to vent support Attestations Medical Necessity Statement*: Patient requires hospitalization for continued management of acute respiratory failure on vent support, weaning trial today. Time Spent in Patient Care: 16 - 35 minutes (>than 50% of time spent in counselling and/or direct pt care on unit) . Critical Care Time: The high probability of a clinically significant, sudden or life threatening deterioration of the patient's [cardiovascular, respiratory] system(s) required my full and direct attention, intervention and personal management. The critical care time is as shown. 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
[2020-06-14] MEDS: budesonide 0.5 mg/2 mL Neb INHALATION ×2 (08:01→19:51)
[2020-06-14] MEDS: amlodipine 10 mg Tablet OG-TUBE (08:27)
[2020-06-14] MEDS: aspirin 81 mg Chew Tablet PO (08:27)
[2020-06-14] MEDS: levothyroxine 25 mcg Tablet PO (08:27)
[2020-06-14] MEDS: nicotine 21 mg Patch 1 PATCH TRANSDERMA (08:28)
[2020-06-14] MEDS: metoprolol tartrate 25 mg Tablet OG-TUBE ×2 (08:28→17:01)
[2020-06-14] MEDS: nystatin powder 15 gm Btl 1 APPLIC TOPICAL ×2 (11:15→17:01)
[2020-06-14] MEDS: levofloxacin-dextrose 5 % 750 MG/150 ML PREMIX 100 MG IV (11:47)
--- NOTE | 2020-06-14 12:43 | PC.NURSE ---
labored RR noted, RR low 30's, increased propofol to from 20 to 30 mcg/kg/min per protocol, regular RR 18 at this time, o2 95 with FIO2 40%resting quietly 45 degrees at this time, responds to verbal stimuli
[2020-06-14 14:03] LABS: Glucose Point of Care 210 mg/dL (70-110)
[2020-06-14] MEDS: propofol 1,000 MG/100 ML INJ 18.8 MG IV (16:51)
--- NOTE | 2020-06-14 17:56 | PC.NURSE ---
rapid RR noted, not resting comfortably, Propofol increased to 40 mcg/kg/min per protocol, regular unlabored RR 15 resting quietly HOB 45 degrees at this time, responds to verbal stimuli
[2020-06-14] MEDS: morphine 4 mg/mL SDV 1 mL 2 MG IVP (19:41)
[2020-06-14 20:44] LABS: Glucose Point of Care 166 mg/dL (70-110)
[2020-06-15] VITALS (35 sets, daily range): BP systolic 133–167; BP diastolic 71–90; PULSE 56–82; RESP 15–28; TEMP 36.4–36.9; O2SAT 92–97; BMI 45.0
[2020-06-15] MEDS: ipratropium-albuterol 3 mL Neb INHALATION ×7 (00:30→23:58)
[2020-06-15] MEDS: famotidine 20 mg/2 mL INJ IVP ×2 (00:41→12:50)
[2020-06-15] MEDS: piperacillin-tazobactam 3.375 GM in sodium chloride 0.9% (plus) 50 ML IV ×3 (00:41→15:42)
[2020-06-15] MEDS: heparin 5,000 unit/mL INJ 1 mL 5000 UNIT SUBCUT ×3 (00:41→17:40)
[2020-06-15] MEDS: morphine 4 mg/mL SDV 1 mL 2 MG IVP ×4 (01:20→21:37)
[2020-06-15] MEDS: LORazepam 2 mg/mL INJ 1 mL IVP (02:05)
[2020-06-15] MEDS: propofol 1,000 MG/100 ML INJ 25 MG IV ×2 (03:14→07:23)
[2020-06-15 05:15] LABS: ABG PCO2 33.6 mmHg (35-45); ABG PH Result 7.46 (7.35-7.45); Arterial Blood Gas Hematocrit 40.7 % (37-47); Base Excess ABG 0.8 mmol/L (-2.0-2.0); Blood Gas Allen Test Pos; Blood Gas Sample Site Radial, right; Blood Gas Sample Type Arterial; Oxygen Device VENT
[2020-06-15] MEDS: FUROsemide 20 mg Tablet PO (05:58)
--- NOTE | 2020-06-15 06:00 | XRR_ITS ---
PROCEDURE INFORMATION: Exam: XR Chest, 1 View Exam date and time: 06/15/2020 4:56 AM Age: 59 years old Clinical indication: Other: Pneumonia on vent; Additional info: On vent support, rll pneumonia TECHNIQUE: Imaging protocol: XR of the chest Views: 1 view. COMPARISON: CR XR chest 1V portable [id number] 06/13/2020 5:27 AM FINDINGS: Tubes, catheters and devices: Traci not well visualized, but tip of the ET tube probably about 4 cm above it representing no significant interval change. Continued extension of the enteric tube below the diaphragm with its tip not included. Lungs: Interval decrease in the airspace disease in both lung bases. Suspicion of slight residual atelectasis in the left base. Possible atelectasis or fluid in the minor fissure over the lower right lung. Pleural space: Right pleural effusion again evident. No suggestion of an interval pneumothorax. No obvious left pleural fluid currently. Heart/Mediastinum: Still no cardiomegaly. Calcified azygos node still conceivable. Bones/joints: No visible acute bony disease. XR/XR chest 1V portable [id number] IMPRESSION: Interval improvement in the bibasilar lung disease as detailed above. Right pleural effusion again evident. Life-supporting tubes still in adequate position.
[2020-06-15 07:14] LABS: Blood Urea Nitrogen 54 mg/dL (8-23); Calcium 8.2 mg/dL (8.5-10.5); Carbon Dioxide 18 mmol/L (22-29); Chloride 112 mmol/L (98-107); Glomerular Filtration Rate 63.7 mL/min (90-130); Glucose 200 mg/dL (65-115); Osmolality Calculated 298 mOsm/kg (285-295); Sodium 142 mmol/L (136-145)
[2020-06-15 07:29] LABS: Glucose Point of Care 175 mg/dL (70-110)
[2020-06-15] MEDS: metoprolol tartrate 25 mg Tablet OG-TUBE (08:10)
[2020-06-15] MEDS: amlodipine 10 mg Tablet OG-TUBE (08:10)
[2020-06-15] MEDS: nystatin powder 15 gm Btl 1 APPLIC TOPICAL ×2 (08:11→17:45)
[2020-06-15] MEDS: nicotine 21 mg Patch 1 PATCH TRANSDERMA (08:11)
[2020-06-15] MEDS: levothyroxine 25 mcg Tablet PO (08:11)
[2020-06-15] MEDS: aspirin 81 mg Chew Tablet PO (08:11)
[2020-06-15] MEDS: budesonide 0.5 mg/2 mL Neb INHALATION ×2 (08:52→20:51)
[2020-06-15 09:15] LABS: Basophils % 0.1 %; Hematocrit 40.8 % (37.0-47.0); Hemoglobin 12.7 g/dL (11.5-15.3); Lymphocytes # 1.5 10^3/uL (0.8-4.8); Lymphocytes % 17.1 %; Mean Corpuscular HGB Conc 31.1 g/dL (30.0-36.0); Mean Corpuscular Hemoglobin 29.7 pg (28.0-34.0); Mean Corpuscular Volume 95.3 fL (81-99); Mean Platelet Volume 10.8 fL (7.4-10.4); Monocytes # 0.6 10^3/uL (0.2-0.9); Monocytes % 7.1 %; Neutrophils # 6.51 10^3/uL (1.8-7.7); Neutrophils % 72.3 %; Nucleated Red Blood Cells % 0.2 %; Platelet Count 322 10^3/cmm (130-400); Red Blood Count 4.28 10^6/uL (4.1-5.3); Red Cell Distribution Width 14.5 % (12.1-15.1)
--- NOTE | 2020-06-15 09:30 | P.PN_ITS ---
Subjective Subjective: Interval history: Remains on vent support, FiO2-30%, normalized Cr. Some improvement noted on repeat CXR. Weaning trial again today. Had 825 mL urine output overnight. Has been on pressure support for about 1 hr per respiratory therapy, propofol has already been weaned off, working on titrating fentanyl. She is quite anxious particularly when multiple people in the room. Medications: Reviewed: Yes Medication Review Details: Active Medications Generic Name Dose Route Start Last Admin Trade Name Freq PRN Reason Stop Dose Admin Acetaminophen 650 mg 06/11/20 01:23 06/13/20 01:16 Tylenol PO 650 mg Q6H PRN Administration Mild/Mod Pain Or Temp >/= 101 Albuterol/Ipratrop ium 3 ml 06/11/20 01:23 06/13/20 23:45 Duoneb INHALATION 3 ml Q4H PRN Administration SHORTNESS OF ERICA TH Albuterol/Ipratrop ium 3 ml 06/11/20 01:23 06/15/20 08:52 Duoneb INHALATION 3 ml Q4H.RESPIRATORY S CH Administration Amlodipine Besylat e 10 mg 06/14/20 09:00 06/15/20 08:10 Norvasc OG-TUBE 10 mg DAILY LALITO Administration Aspirin 81 mg 06/11/20 09:00 06/15/20 08:11 Aspirin Chewable PO 81 mg DAILY LALITO Administration Budesonide 0.5 mg 06/11/20 09:00 06/15/20 08:52 Pulmicort INHALATION 0.5 mg BID LALITO Administration Dextrose 25 ml 06/14/20 20:02 D50w IVP ONCE PRN hypoglycemia prot ocol Protocol Dextrose 50 ml 06/14/20 20:02 D50w IVP PRN PRN hypoglycemia prot ocol Protocol Famotidine 20 mg 06/11/20 12:45 06/15/20 00:41 Pepcid Inj IVP 20 mg Q12H LALITO Administration Furosemide 20 mg 06/11/20 06:00 06/15/20 05:58 Lasix PO 20 mg QAM LALITO Administration Glucagon 1 mg 06/14/20 20:02 Glucagen IM ONCE PRN Adult Acute Hypog lycemia Prot. Protocol Heparin Sodium (Be ef Lung) 5,000 unit 06/11/20 01:30 06/15/20 08:27 Heparin SUBCUT 5,000 unit Q8H LALITO Administration Hydralazine HCl 10 mg 06/11/20 13:49 06/14/20 01:20 Apresoline IVP 10 mg Q4H PRN Administration SYSTOLIC BLOOD LA ESSURE Propofol 1,000 mg in 100 m ls @ 0 mls/hr 06/10/20 22:15 06/15/20 07:23 Diprivan IV 40 mcg/kg/min .Q0M LALITO 25 mls/hr Administration Protocol Per Protocol Piperacillin Sod/T azobactam 50 mls @ 12.5 mls /hr 06/11/20 16:30 06/15/20 08:00 Sod 3.375 gm/ So dium Chloride IV 12.5 mls/hr Q8H LALITO Administration Protocol Fentanyl 1,000 mcg / Sodium 100 mls @ 0 mls/h r 06/13/20 21:00 06/15/20 05:58 Chloride IV 50 mcg/hr .Q0M LALITO 5 mls/hr Administration Protocol Per Protocol Levofloxacin/Dextr ose 750 mg in 150 mls @ 100 mls/hr 06/14/20 11:30 06/14/20 15:03 Levaquin-D5w IV Infused Q24H LALITO Infusion Protocol Dextrose 500 mls @ 100 mls /hr 06/14/20 20:02 D5w IV ONCE PRN Adult Acute Hypog lycemia Prot Protocol Insulin Aspart 0 unit 06/14/20 21:00 06/15/20 07:29 Novolog SUBCUT 2 unit WM&BEDTIME LALITO Administration Protocol Levothyroxine Sodi um 25 mcg 06/11/20 09:00 06/15/20 08:11 Synthroid PO 25 mcg DAILY LALITO Administration Lorazepam 2 mg 06/11/20 13:49 06/15/20 02:05 Ativan IVP 2 mg Q4H PRN Administration ANXIETY Methylprednisolone Sodium Succinate 40 mg 06/14/20 08:00 06/15/20 07:22 Solu-Medrol IVP 40 mg Q6H LALITO Administration Metoprolol Tartrat e 5 mg 06/11/20 13:49 06/12/20 08:41 Metoprolol Tartr ate IV 5 mg Q4H PRN Administration HEART RATE-HIGH Metoprolol Tartrat e 25 mg 06/14/20 09:00 06/15/20 08:10 Lopressor OG-TUBE 25 mg BID LALITO Administration Morphine Sulfate 2 mg 06/11/20 13:49 06/15/20 05:57 Morphine IVP 2 mg Q4H PRN Administration SEVERE PAIN Nicotine 1 patch 06/11/20 09:00 06/15/20 08:11 Nicoderm 21 Mg P atch TRANSDERMA 1 patch DAILY LALITO Administration Nystatin 1 applic 06/11/20 09:00 06/15/20 08:11 Nystatin Powder TOPICAL 1 applic BID LALITO Administration No Known Allergies Allergy (Verified 04/18/20 10:37) Vitals/I&O/Wt Last Vital Signs Temp 98.4 F 06/15/20 08:00 Pulse 62 06/15/20 09:09 Resp 20 H 06/15/20 09:09 BP 165/86 06/15/20 08:00 Pulse Ox 95 06/15/20 09:09 06/14/20 06/15/20 06/15/20 22:59 06:59 14:59 Intake Total 2283.829 / 2421.746 513.333 / 2935.079 100 / 100 Output Total 2024 400 / 2425 150 / 150 Balance 258.829 / 396.746 113.333 / 510.079 -50 / -50 Weight last 48 hrs Weight 108.136 kg Weight 108.097 kg Physical Exam Const: COMMON NORMALS: no acute distress GENERAL APPEARANCE: cooperative, comfortable, anxious and patient mechanically ventilated NUTRITIONAL APPEARANCE: obese morbidly obese ORIENTATION/CONSCIOUSNESS: Yes awake OTHER: -arouses easily to verbal and tactile stimulation HENMT: COMMON NORMALS: normocephalic, atraumatic and hearing grossly normal bilaterally HEAD & SCALP: normocephalic and atraumatic OTHER: -ETT-24 cm at lip -OGT in place Eye: COMMON NORMALS: Equal, round and reactive pupils present, EOMs intact bilaterally and conjunctivae normal CONJUNCTIVA: Yes conjunctivae normal PUPIL: Yes Equal, round and reactive pupils present Neck/C-Spine: COMMON NORMALS: full ROM GENERAL: Yes normal visual inspection and Yes trachea midline Resp: COMMON NORMALS: normal respiratory effort, No retractions and No use of accessory muscles EFFORT & INSPECTION: Yes symmetric chest movement and Yes tachypneic (seems anxiety-driven) AUSCULTATION: diminished lung sounds bilateral OTHER: -on vent support, FiO2-30% -Air entry is improving though she continues to have lots of thick secretions, somewhat loosening -coarse breath sounds Cardio: COMMON NORMALS: regular rate, regular rhythm, S1 normal heart sound present, S2 normal heart sound present and No murmurs present (Cardio) RATE: regular rate RHYTHM: regular rhythm HEART SOUNDS: S1 normal heart sound p resent and S2 normal heart sound present GI: COMMON NORMALS: Normal to inspection, nondistended, normoactive bowel sounds present, Soft to palpation and non-tender INSPECTION: Yes central obesity PALPATION: Yes Soft to palpation : BLADDER/KIDNEY EXAM: Yes catheter in place Catheter type (Female): urethral Extremity: COMMON NORMALS: normal to inspection, full ROM and no pedal edema NARRATIVE EXTREMITY EXAM: -non-pitting edema of bilateral hands, worse on the R likely due to some infiltration due to peripheral IV Neuro: COMMON NORMALS: moves all extremities, no focal motor deficits and no sensory deficits noted SENSORIUM/ORIENTATION: Yes other (sedated though arouses easily to stimulation) Psych: MOOD & AFFECT: Yes anxious OTHER: -sedated Skin: COMMON NORMALS: no rashes or lesions noted, no jaundice, no petechiae and no mottling GENERAL SKIN EXAM: no rashes or lesions noted Urinary Catheter Management^: Cervantes: Cath Placed During This Visit: yes Reason for Continuing Indwelling Catheter: Accurate Measurement of Urinary Output in Critically Ill Patients Urinary Catheter Date of Insertion: 06/10/20 Urinary Catheter Time of Insertion: 23:33 Data : 06/15/20 08:58 06/15/20 05:47 Micro: Microbiology 06/11/20 16:40 Gram Stain - Final Sputum - Endotracheal Tube Aspirate Sputum Culture - Final A&P Assessment and plan (1) Acute on chronic respiratory failure with hypoxia and hypercapnia: -failed trial of BiPAP, intubated in ED (06/10) -remains on vent support, sedation -daily ABGs, CXR while intubated -noted AM ABG -resolved leukocytosis, afebrile, lactic acid wnl -continue to monitor respiratory status -continue to monitor vital signs; stable -weaning trial today, anticipate extubation later this AM -secondary to RLL pneumonia, acute COPD exacerbation -telemetry monitoring -on tube feeds, off IVF Status: Acute (2) Community acquired pneumonia: -imaging reviewed, evidence of RLL infiltrate consistent with pneumonia -with associated severe sepsis as evidenced by respiratory failure requiring intubation, leukocytosis, hypotension, tachycardia, tachypnea, SELVIN all of which has resolved -continue broad spectrum IV antibiotics with Levaquin, Zosyn -negative bacterial antigens, Legionella -blood cx: negative -sputum cx: prelim mixed bhupendra; gram stain with few WBC Status: Acute Qualifiers: Laterality: right Lung location: lower lobe of lung Qualified Code(s): J18.9 - Pneumonia, unspecified organism (3) SELVIN (acute kidney injury): -likely secondary to severe sepsis -improved BUN, normalized Cr, continue to monitor -avoid nephrotoxins, renally dose meds -has Cervantes catheter in place, continue to monitor urine output -renal US unremarkable -start on low dose ACEi -baseline Cr wnl Status: Acute (4) Septic shock: -weaned off pressor support -as noted above -noted troponin elevation, with no significant delta. likely type II due to demand ischemia from respiratory illness Status: Resolved (5) COPD exacerbation: -on IV steroids in addition to treatment noted above -baseline oxygen requirement of 3 L NC Status: Acute (6) Hypothyroidism: -on levothyroxine Status: Chronic Qualifiers: Hypothyroidism type: unspecified Qualified Code(s): E03.9 - Hypothyroidism, unspecified (7) CHF (congestive heart failure): -on Lasix -Echo (12/2019): EF wnl, G1DD, mild pulmonary HTN Status: Chronic Qualifiers: Heart failure chronicity: chronic Heart failure type: diastolic Qualified Code(s): I50.32 - Chronic diastolic (congestive) heart failure (8) Hypertension: -due to hypotension, required pressor support which has since been weaned off. Hypertensive; hydralazine PRN, amlodipine, low dose BB; resume low dose ACEi -continue to monitor vital signs closely Status: Chronic Qualifiers: Hypertension type: essential hypertension Qualified Code(s): I10 - Essential (primary) hypertension (9) KEO (obstructive sleep apnea): Status: Chronic (10) Tobacco abuse: -nicotine replacement therapy Status: Chronic Additional A&P Information -Morbid obesity: BMI-45 kg/m2 -Hypocalcemia; corrected Ca is 9.5 -Hyperglycemia, no hx of DM with last A1c-6.0 (12/2019), likely secondary to acute illness and steroids, Accuchecks, ISS -limited hx, unable to reach family for collateral information initially. Jose Chandler ([phone]) -on tube feeding with [employer] as on vent support; tolerating well, titrate as tolerated -DVT ppx with heparin -GI ppx with famotidine -Dispo: home -Code status: FULL code -ICU care due to vent support Attestations Medical Necessity Statement*: Patient requires hospitalization for continued management of acute respiratory failure, on vent support, IV steroids, IV anti biotics. Time Spent in Patient Care: 16 - 35 minutes (>than 50% of time spent in counselling and/or direct pt care on unit) . Critical Care Time: The high probability of a clinically significant, sudden or life threatening deterioration of the patient's [respiratory, cardiovascular] system(s) required my full and direct attention, intervention and personal management. The critical care time is as shown. 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
[2020-06-15 09:38] LABS: Anion Gap 16.7 (5-19); Potassium 4.7 mmol/L (3.5-5.1)
[2020-06-15] MEDS: levofloxacin-dextrose 5 % 750 MG/150 ML PREMIX 100 MG IV (10:36)
--- NOTE | 2020-06-15 10:46 | PC.NURSE ---
71.1 ml of fentanyl was wasted with RN SOLOMON present as a witness. This was the remaining amount from the Infusion.
[2020-06-15] MEDS: sodium chloride 0.9% (100 ml) 100 ML 10 ML ×2 (10:49→11:55)
[2020-06-15 12:48] LABS: Glucose Point of Care 158 mg/dL (70-110)
[2020-06-15 16:49] LABS: Glucose Point of Care 124 mg/dL (70-110)
[2020-06-15] MEDS: metoprolol tartrate 25 mg Tablet PO (17:40)
--- NOTE | 2020-06-15 18:25 | PC.NURSE ---
monitored wasted james shannon
[2020-06-15 20:30] LABS: Glucose Point of Care 145 mg/dL (70-110)
[2020-06-16] VITALS (22 sets, daily range): BP systolic 115–148; BP diastolic 61–108; PULSE 63–80; RESP 12–26; TEMP 36.4–36.7; O2SAT 90–98; BMI 45.0
[2020-06-16] MEDS: piperacillin-tazobactam 3.375 GM in sodium chloride 0.9% (plus) 50 ML IV ×2 (00:20→08:03)
[2020-06-16] MEDS: famotidine 20 mg/2 mL INJ IVP ×2 (00:20→14:09)
[2020-06-16] MEDS: heparin 5,000 unit/mL INJ 1 mL 5000 UNIT SUBCUT ×3 (03:07→18:53)
[2020-06-16] MEDS: ipratropium-albuterol 3 mL Neb INHALATION ×5 (03:25→21:06)
[2020-06-16 05:20] LABS: Anion Gap 15.4 (5-19); Blood Urea Nitrogen 41 mg/dL (8-23); Calcium 8.5 mg/dL (8.5-10.5); Carbon Dioxide 23 mmol/L (22-29); Chloride 109 mmol/L (98-107); Glomerular Filtration Rate 72.9 mL/min (90-130); Glucose 97 mg/dL (65-115); Osmolality Calculated 294 mOsm/kg (285-295); Potassium 4.4 mmol/L (3.5-5.1); Sodium 143 mmol/L (136-145)
[2020-06-16] MEDS: FUROsemide 20 mg Tablet PO (06:23)
[2020-06-16 06:28] LABS: Glucose Point of Care 90 mg/dL (70-110)
[2020-06-16 07:48] LABS: Glucose Point of Care 88 mg/dL (70-110)
[2020-06-16] MEDS: budesonide 0.5 mg/2 mL Neb INHALATION ×2 (08:03→21:06)
[2020-06-16] MEDS: morphine 4 mg/mL SDV 1 mL 2 MG IVP ×4 (08:04→22:08)
--- NOTE | 2020-06-16 08:27 | P.PN_ITS ---
Subjective Subjective: Interval history: Patient did well overnight, down to 3 L NC which is her baseline, hemodynamically stable, afebrile, had 1900 mL urine output overnight. Seen and examined, sitting in chair by bedside, states that she is quite weak and has noted difficulty transferring from bed to chair. Tolerating oral intake without difficulty. Medications: Reviewed: Yes Medication Review Details: Active Medications Generic Name Dose Route Start Last Admin Trade Name Freq PRN Reason Stop Dose Admin Acetaminophen 650 mg 06/11/20 01:23 06/13/20 01:16 Tylenol PO 650 mg Q6H PRN Administration Mild/Mod Pain Or Temp >/= 101 Albuterol/Ipratrop ium 3 ml 06/11/20 01:23 06/13/20 23:45 Duoneb INHALATION 3 ml Q4H PRN Administration SHORTNESS OF ERICA TH Albuterol/Ipratrop ium 3 ml 06/11/20 01:23 06/16/20 08:03 Duoneb INHALATION 3 ml Q4H.RESPIRATORY S CH Administration Amlodipine Besylat e 10 mg 06/16/20 09:00 Norvasc PO DAILY LALITO Aspirin 81 mg 06/11/20 09:00 06/15/20 08:11 Aspirin Chewable PO 81 mg DAILY LAILTO Administration Budesonide 0.5 mg 06/11/20 09:00 06/16/20 08:03 Pulmicort INHALATION 0.5 mg BID LALITO Administration Dextrose 25 ml 06/14/20 20:02 D50w IVP ONCE PRN hypoglycemia prot ocol Protocol Dextrose 50 ml 06/14/20 20:02 D50w IVP PRN PRN hypoglycemia prot ocol Protocol Famotidine 20 mg 06/11/20 12:45 06/16/20 00:20 Pepcid Inj IVP 20 mg Q12H LALITO Administration Furosemide 20 mg 06/11/20 06:00 06/16/20 06:23 Lasix PO 20 mg QAM LALITO Administration Glucagon 1 mg 06/14/20 20:02 Glucagen IM ONCE PRN Adult Acute Hypog lycemia Prot. Protocol Heparin Sodium (Be ef Lung) 5,000 unit 06/11/20 01:30 06/16/20 03:07 Heparin SUBCUT 5,000 unit Q8H LALITO Administration Hydralazine HCl 10 mg 06/11/20 13:49 06/14/20 01:20 Apresoline IVP 10 mg Q4H PRN Administration SYSTOLIC BLOOD [place] ESSURE Piperacillin Sod/T azobactam 50 mls @ 12.5 mls /hr 06/11/20 16:30 06/16/20 08:03 Sod 3.375 gm/ So dium Chloride IV 12.5 mls/hr Q8H LALITO Administration Protocol Levofloxacin/Dextr ose 750 mg in 150 mls @ 100 mls/hr 06/14/20 11:30 06/15/20 12:46 Levaquin-D5w IV Infused Q24H LALITO Infusion Protocol Dextrose 500 mls @ 100 mls /hr 06/14/20 20:02 D5w IV ONCE PRN Adult Acute Hypog lycemia Prot Protocol Insulin Aspart 0 unit 06/14/20 21:00 06/16/20 07:55 Novolog SUBCUT Not Given WM&BEDTIME [facility] Protocol Lanolin 1 applic 06/15/20 22:25 Lanolin Oint TOPICAL PRN PRN DRYNESS Levothyroxine Sodi um 25 mcg 06/11/20 09:00 06/15/20 08:11 Synthroid PO 25 mcg DAILY [facility] Administration Lisinopril 5 mg 06/16/20 09:00 Prinivil PO DAILY [facility] Lorazepam 2 mg 06/11/20 13:49 06/15/20 02:05 Ativan IVP 2 mg Q4H PRN Administration ANXIETY Metoprolol Tartrat e 5 mg 06/11/20 13:49 06/12/20 08:41 Metoprolol Tartr ate IV 5 mg Q4H PRN Administration HEART RATE-HIGH Metoprolol Tartrat e 25 mg 06/15/20 18:00 06/15/20 17:40 Lopressor PO 25 mg BID [facility] Administration Morphine Sulfate 2 mg 06/11/20 13:49 06/16/20 08:04 Morphine IVP 2 mg Q4H PRN Administration SEVERE PAIN Nicotine 1 patch 06/11/20 09:00 06/15/20 08:11 Nicoderm 21 Mg P atch TRANSDERMA 1 patch DAILY [facility] Administration Nystatin 1 applic 06/11/20 09:00 06/15/20 17:45 Nystatin Powder TOPICAL 1 applic BID [facility] Administration Prednisone 40 mg 06/16/20 09:00 Prednisone PO DAILY [facility] No Known Allergies Allergy (Verified 04/18/20 10:37) Vitals/I&O/Wt Last Vital Signs Temp 98.1 F 06/16/20 06:00 Pulse 70 06/16/20 08:06 Resp 18 06/16/20 08:06 BP 148/93 06/16/20 06:00 Pulse Ox 93 06/16/20 08:06 06/15/20 06/16/20 06/16/20 22:59 06:59 14:59 Intake Total 600 / 1173.459 350 / 1523.459 Output Total 850 / 1300 1900 / 3200 Balance -250 / -126.541 -1550 / -1676.541 Weight last 48 hrs Weight 108.136 kg Weight 108.136 kg Physical Exam Const: COMMON NORMALS: no acute distress, patient oriented x3 and alert GENERAL APPEARANCE: cooperative and comfortable NUTRITIONAL APPEARANCE: obese morbidly obese ORIENTATION/CONSCIOUSNESS: Yes awake HENMT: COMMON NORMALS: normocephalic, atraumatic and hearing grossly normal bilaterally HEAD & SCALP: normocephalic and atraumatic Eye: COMMON NORMALS: Equal, round and reactive pupils present, EOMs intact bilaterally and conjunctivae normal CONJUNCTIVA: Yes conjunctivae normal PUPIL: Yes Equal, round and reactive pupils present Neck/C-Spine: COMMON NORMALS: full ROM GENERAL: Yes normal visual inspection and Yes trachea midline Resp: COMMON NORMALS: normal respiratory effort, No retractions and No use of accessory muscles EFFORT & INSPECTION: Yes symmetric chest movement AUSCULTATION: diminished lung sounds bilateral OTHER: -Air entry is improving Cardio: COMMON NORMALS: regular rate, regular rhythm, S1 normal heart sound present, S2 normal heart sound present and No murmurs present (Cardio) RATE: regular rate RHYTHM: regular rhythm HEART SOUNDS: S1 normal heart sound present and S2 normal heart sound present GI: COMMON NORMALS: Normal to inspection, nondistended, normoactive bowel sounds present, Soft to palpation and non-tender INSPECTION: Yes central obesity PALPATION: Yes Soft to palpation : BLADDER/KIDNEY EXAM: Yes catheter in place Catheter type (Female): uret hral Extremity: COMMON NORMALS: normal to inspection, full ROM and no pedal edema NARRATIVE EXTREMITY EXAM: -non-pitting edema of bilateral hands, worse on the R likely due to some infiltration due to peripheral IV; improving Neuro: COMMON NORMALS: patient oriented x3, moves all extremities, no focal motor deficits and no sensory deficits noted SENSORIUM/ORIENTATION: Yes alert OTHER: -Generally quite weak Psych: COMMON NORMALS: mental status grossly normal, Normal thought process present, cooperative, normal affect and speech normal SPEECH: Yes normal speech THOUGHT PROCESS: Normal thought process present Skin: COMMON NORMALS: no rashes or lesions noted, no jaundice, no petechiae and no mottling GENERAL SKIN EXAM: no rashes or lesions noted Urinary Catheter Management^: Cervantes: Cath Placed During This Visit: yes Reason for Continuing Indwelling Catheter: Accurate Measurement of Urinary Output in Critically Ill Patients Urinary Catheter Date of Insertion: 06/10/20 Urinary Catheter Time of Insertion: 23:33 Data : 06/15/20 08:58 06/16/20 04:25 Micro: Microbiology 06/10/20 20:12 Blood Culture - Final Blood NO GROWTH AFTER 5 DAYS 06/10/20 20:11 Blood Culture - Final Blood NO GROWTH AFTER 5 DAYS A&P Assessment and plan (1) Acute on chronic respiratory failure with hypoxia and hypercapnia: -failed trial of BiPAP, intubated in ED (06/10) -extubated and off sedation (06/15) -resolved leukocytosis, afebrile, lactic acid wnl -continue to monitor respiratory status -continue to monitor vital signs; stable -secondary to RLL pneumonia, acute COPD exacerbation; both of which are improving -telemetry monitoring Status: Acute (2) Community acquired pneumonia: -imaging reviewed, evidence of RLL infiltrate consistent with pneumonia -with associated severe sepsis as evidenced by respiratory failure requiring intubation, leukocytosis, hypotension, tachycardia, tachypnea, SELVIN all of which has resolved -continue broad spectrum IV antibiotics with Levaquin, Zosyn. With clinical improvement, will de-escalate abx regimen -negative bacterial antigens, Legionella -blood cx: negative -sputum cx: prelim mixed bhupendra; gram stain with few WBC Status: Acute Qualifiers: Laterality: right Lung location: lower lobe of lung Qualified Code(s): J18.9 - Pneumonia, unspecified organism (3) SELVIN (acute kidney injury): -likely secondary to severe sepsis -improved BUN, normalized Cr, continue to monitor -avoid nephrotoxins, renally dose meds -has Cervantes catheter in place, continue to monitor urine output -renal US unremarkable -on low dose ACEi -baseline Cr wnl Status: Acute (4) Septic shock: -off pressor support -as noted above -noted troponin elevation, with no significant delta. likely type II due to demand ischemia from respiratory illness Status: Resolved (5) COPD exacerbation: -on steroids in addition to treatment noted above -baseline oxygen requirement of 3 L NC Status: Acute (6) Hypothyroidism: -on levothyroxine Status: Chronic Qualifiers: Hypothyroidism type: unspecified Qualified Code(s): E03.9 - Hypothyroidism, unspecified (7) CHF (congestive heart failure): -on Lasix -Echo (12/2019): EF wnl, G1DD, mild pulmonary HTN Status: Chronic Qualifiers: Heart failure chronicity: chronic Heart failure type: diastolic Qualified Code(s): I50.32 - Chronic diastolic (congestive) heart failure (8) Hypertension: -due to hypotension, required pressor support which has since been weaned off. Hypertensive; hydralazine PRN, amlodipine, low dose BB, low dose ACEi -continue to monitor vital signs closely Status: Chronic Qualifiers: Hypertension type: essential hypertension Qualified Code(s): I10 - Essential (primary) hypertension (9) KEO (obstructive sleep apnea): Status: Chronic (10) Tobacco abuse: -nicotine replacement therapy Status: Chronic Additional A&P Information -Morbid obesity: BMI-45 kg/m2 -Hypocalcemia; corrected Ca is 9.5 -Hyperglycemia, no hx of DM with last A1c-6.0 (12/2019), likely secondary to acute illness and steroids, Accuchecks, ISS. Hyperglycemia resolved -Deconditioning with acute illness; up with assist, PT evaluation -limited hx, unable to reach family for collateral information initially. Daughter Areli Chandler ([phone]) -on consistent carb diet -DVT ppx with heparin -GI ppx with famotidine -Dispo: home -Code status: FULL code -transfer to floor for continued care Attestations Medical Necessity Statement*: Patient requires hospitalization for continued t reatment of pneumonia, off vent support. Time Spent in Patient Care: 16 - 35 minutes (>than 50% of time spent in counselling and/or direct pt care on unit) . 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
[2020-06-16] MEDS: nicotine 21 mg Patch 1 PATCH TRANSDERMA (09:21)
[2020-06-16] MEDS: levothyroxine 25 mcg Tablet PO (09:21)
[2020-06-16] MEDS: aspirin 81 mg Chew Tablet PO (09:22)
[2020-06-16] MEDS: lisinopril 5 mg Tablet PO (09:22)
[2020-06-16] MEDS: metoprolol tartrate 25 mg Tablet PO ×2 (09:22→18:05)
[2020-06-16] MEDS: amlodipine 10 mg Tablet PO (09:23)
[2020-06-16] MEDS: predniSONE 20 mg Tablet 40 MG PO (09:23)
[2020-06-16] MEDS: nystatin powder 15 gm Btl 1 APPLIC TOPICAL ×2 (09:38→18:08)
[2020-06-16 11:25] LABS: Glucose Point of Care 118 mg/dL (70-110)
[2020-06-16] MEDS: levofloxacin-dextrose 5 % 750 MG/150 ML PREMIX 100 MG IV (14:44)
[2020-06-16 17:01] LABS: Glucose Point of Care 189 mg/dL (70-110)
[2020-06-16] MEDS: acetaminophen 325 mg Tablet 650 MG PO (18:05)
[2020-06-16 22:09] LABS: Glucose Point of Care 95 mg/dL (70-110)
[2020-06-17] VITALS (20 sets, daily range): BP systolic 107–164; BP diastolic 68–81; PULSE 65–78; RESP 16–28; TEMP 36–36.8; O2SAT 93–98
[2020-06-17] MEDS: famotidine 20 mg/2 mL INJ IVP (00:16)
[2020-06-17] MEDS: ipratropium-albuterol 3 mL Neb INHALATION ×5 (00:37→23:23)
[2020-06-17] MEDS: morphine 4 mg/mL SDV 1 mL 2 MG IVP ×2 (02:04→10:32)
[2020-06-17] MEDS: heparin 5,000 unit/mL INJ 1 mL 5000 UNIT SUBCUT ×3 (02:51→20:17)
[2020-06-17] MEDS: acetaminophen 325 mg Tablet 650 MG PO ×2 (04:19→12:52)
[2020-06-17] MEDS: FUROsemide 20 mg Tablet PO (05:52)
--- NOTE | 2020-06-17 06:10 | PC.NURSE ---
SHIFT SUMMARY Spent much of the night up in recliner. Says she sleeps in recliner at home all the time. c/o back pain and receiving IV Morphine and po Tylenol for this. Says would like to get back to taking her Oxycodone that she receives from pain clinic because it works better for her. SOB with exertion and occ prod cough. Has edema to BLE but says is much improved. Numerous bruises to arms and abdomen
[2020-06-17 06:58] LABS: Glucose Point of Care 90 mg/dL (70-110)
[2020-06-17] MEDS: nicotine 21 mg Patch 1 PATCH TRANSDERMA (08:40)
[2020-06-17] MEDS: predniSONE 20 mg Tablet 40 MG PO (08:40)
[2020-06-17] MEDS: aspirin 81 mg Chew Tablet PO (08:40)
[2020-06-17] MEDS: lisinopril 5 mg Tablet PO (08:40)
[2020-06-17] MEDS: amlodipine 10 mg Tablet PO (08:40)
[2020-06-17] MEDS: metoprolol tartrate 25 mg Tablet PO ×2 (08:40→17:31)
[2020-06-17] MEDS: levothyroxine 25 mcg Tablet PO (08:40)
[2020-06-17] MEDS: nystatin powder 15 gm Btl 1 APPLIC TOPICAL ×2 (08:43→17:32)
[2020-06-17] MEDS: budesonide 0.5 mg/2 mL Neb INHALATION ×2 (09:02→19:54)
[2020-06-17] MEDS: levofloxacin-dextrose 5 % 750 MG/150 ML PREMIX 100 MG IV (10:49)
[2020-06-17 11:13] LABS: Glucose Point of Care 133 mg/dL (70-110)
[2020-06-17 12:59] LABS: Oxygen Device VENT
--- NOTE | 2020-06-17 13:14 | PM.PN ---
Subjective Subjective: Interval history: Patient seen and examined, sitting in recliner, it seems that she slept in the recliner as this is what she does at home as well. Had 2400 mL urine output overnight for total negative fluid balance of 4.9 L. Complains of nausea so we will go ahead and give some Zofran. Requesting resumption of her home dose of oxycodone for osteoarthritis. She is concerned about having missed her pain clinic appointment due to need for narcotic refill. Has been maintained on her baseline oxygen requirement of 3 L nasal cannula. Is still concerned about unsteady gait and difficulty maintaining her balance. Rollator at bedside. Will discontinue Cervantes catheter. Medications: Reviewed: Yes Medication Review Details: Active Medications Generic Name Dose Route Start Last Admin Trade Name Freq PRN Reason Stop Dose Admin Acetaminophen 650 mg 06/11/20 01:23 06/17/20 12:52 Tylenol PO 650 mg Q6H PRN Administration Mild/Mod Pain Or Temp >/= 101 Albuterol/Ipratrop ium 3 ml 06/11/20 01:23 06/13/20 23:45 Duoneb INHALATION 3 ml Q4H PRN Administration SHORTNESS OF ERICA TH Albuterol/Ipratrop ium 3 ml 06/11/20 01:23 06/17/20 09:02 Duoneb INHALATION 3 ml Q4H.RESPIRATORY S CH Administration Amlodipine Besylat e 10 mg 06/16/20 09:00 06/17/20 08:40 Norvasc PO 10 mg DAILY LALITO Administration Aspirin 81 mg 06/11/20 09:00 06/17/20 08:40 Aspirin Chewable PO 81 mg DAILY LALITO Administration Budesonide 0.5 mg 06/11/20 09:00 06/17/20 09:02 Pulmicort INHALATION 0.5 mg BID LALITO Administration Dextrose 25 ml 06/14/20 20:02 D50w IVP ONCE PRN hypoglycemia prot ocol Protocol Dextrose 50 ml 06/14/20 20:02 D50w IVP PRN PRN hypoglycemia prot ocol Protocol Furosemide 20 mg 06/11/20 06:00 06/17/20 05:52 Lasix PO 20 mg QAM LALITO Administration Glucagon 1 mg 06/14/20 20:02 Glucagen IM ONCE PRN Adult Acute Hypog lycemia Prot. Protocol Heparin Sodium (Be ef Lung) 5,000 unit 06/11/20 01:30 06/17/20 10:54 Heparin SUBCUT 5,000 unit Q8H LALITO Administration Dextrose 500 mls @ 100 mls /hr 06/14/20 20:02 D5w IV ONCE PRN Adult Acute Hypog lycemia Prot Protocol Insulin Aspart 0 unit 06/14/20 21:00 06/17/20 11:16 Novolog SUBCUT Not Given WM&BEDTIME [facility] Protocol Lanolin 1 applic 06/15/20 22:25 Lanolin Oint TOPICAL PRN PRN DRYNESS Levofloxacin 750 mg 06/18/20 06:00 Levaquin PO DAILY@0600 [facility] Protocol Levothyroxine Sodi um 25 mcg 06/11/20 09:00 06/17/20 08:40 Synthroid PO 25 mcg DAILY [facility] Administration Lisinopril 5 mg 06/16/20 09:00 06/17/20 08:40 Prinivil PO 5 mg DAILY [facility] Administration Lorazepam 2 mg 06/11/20 13:49 06/15/20 02:05 Ativan IVP 2 mg Q4H PRN Administration ANXIETY Metoprolol Tartrat e 5 mg 06/11/20 13:49 06/12/20 08:41 Metoprolol Tartr ate IV 5 mg Q4H PRN Administration HEART RATE-HIGH Metoprolol Tartrat e 25 mg 06/15/20 18:00 06/17/20 08:40 Lopressor PO 25 mg BID [facility] Administration Morphine Sulfate 2 mg 06/11/20 13:49 06/17/20 10:32 Morphine IVP 2 mg Q4H PRN Administration SEVERE PAIN Nicotine 1 patch 06/11/20 09:00 06/17/20 08:40 Nicoderm 21 Mg P atch TRANSDERMA 1 patch DAILY [facility] Administration Nystatin 1 applic 06/11/20 09:00 06/17/20 08:43 Nystatin Powder TOPICAL 1 applic BID [facility] Administration Ondansetron HCl 4 mg 06/17/20 13:14 Zofran IVP Q6H PRN NAUSEA AND VOMITI NG Oxycodone HCl 10 mg 06/17/20 13:02 Oxycodone Ir PO Q6H PRN SEVERE PAIN Pantoprazole Sodiu m 40 mg 06/18/20 09:00 Protonix PO DAILY [facility] Prednisone 40 mg 06/16/20 09:00 06/17/20 08:40 Prednisone PO 40 mg DAILY LALITO Administration No Known Allergies Allergy (Verified 04/18/20 10:37) Vitals/I&O/Wt Last Vital Signs Temp 96.9 F L 06/17/20 12:00 Pulse 74 06/17/20 12:00 Resp 18 06/17/20 12:00 BP 107/68 06/17/20 12:00 Pulse Ox 94 06/17/20 12:00 06/16/20 06/17/20 06/17/20 22:59 06:59 14:59 Intake Total 710 / 1448 300 / 1748 720 / 720 Output Total 2500 / 3300 1000 / 4300 800 / 800 Balance -1790 / -1852 -700 / -2552 -80 / -80 Weight last 48 hrs Weight 108.136 kg Physical Exam Const: COMMON NORMALS: no acute distress, patient oriented x3 and alert GENERAL APPEARANCE: cooperative; not comfortable (due to pain and nausea) NUTRITIONAL APPEARANCE: obese morbidly obese ORIENTATION/CONSCIOUSNESS: Yes awake HENMT: COMMON NORMALS: normocephalic, atraumatic and hearing grossly normal bilaterally HEAD & SCALP: normocephalic and atraumatic Eye: COMMON NORMALS: Equal, round and reactive pupils present, EOMs intact bilaterally and conjunctivae normal CONJUNCTIVA: Yes conjunctivae normal PUPIL: Yes Equal, round and reactive pupils present Neck/C-Spine: COMMON NORMALS: full ROM GENERAL: Yes normal visual inspection and Yes trachea midline Resp: COMMON NORMALS: normal respiratory effort, No retractions and No use of accessory muscles EFFORT & INSPECTION: Yes symmetric chest movement AUSCULTATION: diminished lung sounds bilateral OTHER: -Air entry is improving, symmetrical -on 3 L NC Cardio: COMMON NORMALS: regular rate, regular rhythm, S1 normal heart sound present, S2 normal heart sound present and No murmurs present (Cardio) RATE: regular rate RHYTHM: regular rhythm HEART SOUNDS: S1 normal heart sound present and S2 normal heart sound present GI: COMMON NORMALS: Normal to inspection, nondistended, normoactive bowel sounds present, Soft to palpation and non-tender INSPECTION: Yes central obesity PALPATION: Yes Soft to palpation : BLADDER/KIDNEY EXAM: Yes catheter in place Catheter type (Female): urethral Extremity: COMMON NORMALS: normal to inspection, full ROM and no pedal edema NARRATIVE EXTREMITY EXAM: -non-pitting edema of bilateral hands, worse on the R likely due to some infiltration due to peripheral IV; improving Neuro: COMMON NORMALS: patient oriented x3, moves all extremities, no focal motor deficits and no sensory deficits noted SENSORIUM/ORIENTATION: Yes alert OTHER: -Generally quite weak Psych: COMMON NORMALS: mental status grossly normal, Normal thought process present, cooperative, normal affect and speech normal SPEECH: Yes normal speech MOOD & AFFECT: Yes anxious THOUGHT PROCESS: Normal thought process present Skin: COMMON NORMALS: no rashes or lesions noted, no jaundice, no petechiae and no mottling GENERAL SKIN EXAM: no rashes or lesions noted Urinary Catheter Management^: Cervantes: Cath Placed During This Visit: yes Reason for Continuing Indwelling Catheter: Accurate Measurement of Urinary Output in Critically Ill Patients Urinary Catheter Date of Insertion: 06/10/20 Urinary Catheter Time of Insertion: 23:33 Data : 06/15/20 08:58 06/16/20 04:25 A&P Assessment and plan (1) Acute on chronic respiratory failure with hypoxia and hypercapnia: -failed trial of BiPAP, intubated in ED (06/10) -extubated and off sedation (06/15) -resolved leukocytosis, afebrile, lactic acid wnl -continue to monitor respiratory status -continue to monitor vital signs; stable -secondary to RLL pneumonia, acute COPD exacerbation; both of which are improving -telemetry monitoring Status: Acute (2) Community acquired pneumonia: -imaging reviewed, evidence of RLL infiltrate consistent with pneumonia -with associated severe sepsis as evidenced by respiratory failure requiring intubation, leukocytosis, hypotension, tachycardia, tachypnea, SELVIN all of which has resolved -continue broad spectrum IV antibiotics with Levaquin, Zosyn. With clinical improvement, will de-escalate abx regimen -negative bacterial antigens, Legionella -blood cx: negative -sputum cx: prelim mixed bhupendra; gram stain with few WBC Status: Acute Qualifiers: Laterality: right Lung location: lower lobe of lung Qualified Code(s): J18.9 - Pneumonia, unspecified organism (3) SELVIN (acute kidney injury): -likely secondary to severe sepsis -improved BUN, normalized Cr, continue to monitor -avoid nephrotoxins, renally dose meds -has Cervantes catheter in place, continue to monitor urine output -renal US unremarkable -on low dose ACEi -baseline Cr wnl Status: Acute (4) Septic shock: -off pressor support -as noted above -noted troponin elevation, with no significant delta. likely type II due to demand ischemia from respiratory illness Status: Resolved (5) COPD exacerbation: -on steroids in addition to treatment noted above -baseline oxygen requirement of 3 L NC Status: Acute (6) Hypothyroidism: -on levothyroxine Status: Chronic Qualifiers: Hypothyroidism type: unspecified Qualified Code(s): E03.9 - Hypothyroidism, unspecified (7) CHF (congestive heart failure): -on Lasix -Echo (12/2019): EF wnl, G1DD, mild pulmonary HTN Status: Chronic Qualifiers: Heart failure type: diastolic Heart failure chronicity: chronic Qualified Code(s): I50.32 - Chronic diastolic (congestive) heart failure (8) Hypertension: -due to hypotension, required pressor support which has since been weaned off. Hypertensive; hydralazine PRN, amlodipine, low dose BB, low dose ACEi -continue to monitor vital signs closely Status: Chronic Qualifiers: Hypertension type: essential hypertension Qualified Code(s): I10 - Essential (primary) hypertension (9) KEO (obstructive sleep apnea): Status: Chronic (10) Tobacco abuse: -nicotine replacement therapy Status: Chronic Additional A&P Information -Morbid obesity: BMI-45 kg/m2 -Hypocalcemia; corrected Ca is 9.5 -Hyperglycemia, no hx of DM with last A1c-6.0 (12/2019), likely secondary to acute illness and steroids, Accuchecks, ISS. Hyperglycemia resolved -Deconditioning with acute illness; up with assist, PT evaluation appreciated; rollator ordered -OA, DJD; resume oxycodone; will need pain clinic appointment rescheduled on discharge -on consistent carb diet -DVT ppx with heparin -GI ppx with famotidine -Dispo: home with HH due to noted deconditioning -Code status: FULL code Attestations Medical Necessity Statement*: Patient requires hospitalization for continued management of pneumonia and acute COPD exacerbation, appropriate pain control. Time Spent in Patient Care: 16 - 35 minutes (>than 50% of time spent in counselling and/or direct pt care on unit). 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
[2020-06-17] MEDS: ondansetron 2 mg/ML SDV 2 mL 4 MG IVP (14:10)
[2020-06-17] MEDS: oxyCODONE 5 mg IR Tab/Cap 10 MG PO ×2 (14:11→21:04)
[2020-06-17 16:58] LABS: Glucose Point of Care 167 mg/dL (70-110)
[2020-06-17 20:43] LABS: Glucose Point of Care 158 mg/dL (70-110)
[2020-06-18] VITALS (8 sets, daily range): BP systolic 124–162; BP diastolic 77–85; PULSE 68–77; RESP 16–24; TEMP 36.1–36.5; O2SAT 96–97; BMI 45.0
[2020-06-18] MEDS: ipratropium-albuterol 3 mL Neb INHALATION ×2 (02:59→07:44)
[2020-06-18] MEDS: heparin 5,000 unit/mL INJ 1 mL 5000 UNIT SUBCUT ×2 (03:52→10:50)
[2020-06-18] MEDS: oxyCODONE 5 mg IR Tab/Cap 10 MG PO (03:54)
[2020-06-18 06:32] LABS: Glucose Point of Care 91 mg/dL (70-110)
[2020-06-18] MEDS: metoprolol tartrate 25 mg Tablet PO (08:28)
[2020-06-18] MEDS: levoFLOXacin 750 mg Tablet PO (08:28)
[2020-06-18] MEDS: budesonide 0.5 mg/2 mL Neb INHALATION (08:28)
[2020-06-18] MEDS: amlodipine 10 mg Tablet PO (08:28)
[2020-06-18] MEDS: lisinopril 5 mg Tablet PO (08:28)
[2020-06-18] MEDS: aspirin 81 mg Chew Tablet PO (08:28)
[2020-06-18] MEDS: pantoprazole DR 40 mg Tablet PO (08:28)
[2020-06-18] MEDS: predniSONE 20 mg Tablet 40 MG PO (08:28)
[2020-06-18] MEDS: nicotine 21 mg Patch 1 PATCH TRANSDERMA (08:29)
[2020-06-18] MEDS: levothyroxine 25 mcg Tablet PO (08:29)
[2020-06-18] MEDS: FUROsemide 20 mg Tablet PO (08:29)
[2020-06-18] MEDS: nystatin powder 15 gm Btl 1 APPLIC TOPICAL (08:29)
--- NOTE | 2020-06-18 09:52 | PM.DCS ---
Discharge Providers Date of Admission: 06/11/20 01:23 Date of Discharge: June 18, 2020 Attending Provider at Admission: Ravi Emanuel Attending Provider at Discharge: Izzy Escalante MD Primary Care Provider: Ed Hunter Diagnoses at Discharge Discharge Diagnosis (1) Acute on chronic respiratory failure with hypoxia and hypercapnia: Status: Resolved Problem details: -failed trial of BiPAP, intubated in ED (06/10) -extubated and off sedation (06/15) -resolved leukocytosis, afebrile, lactic acid wnl -continue to monitor respiratory status -continue to monitor vital signs; stable -secondary to RLL pneumonia, acute COPD exacerbation; both of which are improving -telemetry monitoring (2) Community acquired pneumonia: Status: Acute Problem details: -imaging reviewed, evidence of RLL infiltrate consistent with pneumonia -with associated severe sepsis as evidenced by respiratory failure requiring intubation, leukocytosis, hypotension, tachycardia, tachypnea, SELVIN all of which has resolved -continue broad spectrum IV antibiotics with Levaquin, Zosyn. With clinical improvement, will de-escalate abx regimen -negative bacterial antigens, Legionella -blood cx: negative -sputum cx: prelim mixed bhupendra; gram stain with few WBC Qualifiers: Laterality: right Lung location: lower lobe of lung Qualified Code(s): J18.9 - Pneumonia, unspecified organism (3) SELVIN (acute kidney injury): Status: Acute Problem details: -likely secondary to severe sepsis -improved BUN, normalized Cr, continue to monitor -avoid nephrotoxins, renally dose meds -has Cervantes catheter in place, continue to monitor urine output -renal US unremarkable -on low dose ACEi -baseline Cr wnl (4) Septic shock: Status: Resolved Problem details: -off pressor support -as noted above -noted troponin elevation, with no significant delta. likely type II due to demand ischemia from respiratory illness (5) COPD exacerbation: Status: Acute Problem details: -on steroids in addition to treatment noted above -baseline oxygen requirement of 3 L NC (6) Hypothyroidism: Status: Chronic Problem details: -on levothyroxine Qualifiers: Hypothyroidism type: unspecified Qualified Code(s): E03.9 - Hypothyroidism, unspecified (7) CHF (congestive heart failure): Status: Chronic Problem details: -on Lasix -Echo (12/2019): EF wnl, G1DD, mild pulmonary HTN -total negative fluid balance of 7 L Qualifiers: Heart failure type: diastolic Heart failure chronicity: chronic Qualified Code(s): I50.32 - Chronic diastolic (congestive) heart failure (8) Hypertension: Status: Chronic Problem details: -due to hypotension, required pressor support which has since been weaned off. Hypertensive; hydralazine PRN, amlodipine, low dose BB, low dose ACEi -continue to monitor vital signs closely Qualifiers: Hypertension type: essential hypertension Qualified Code(s): I10 - Essential (primary) hypertension (9) KEO (obstructive sleep apnea): Status: Chronic (10) Tobacco abuse: Status: Chronic Other Information Additional DC diagnoses/information: -Morbid obesity: BMI-45 kg/m2 -Hypocalcemia; corrected Ca is 9.5 -Hyperglycemia, no hx of DM with last A1c-6.0 (12/2019), likely secondary to acute illness and steroids, Accuchecks, ISS. Hyperglycemia resolved -Deconditioning with acute illness; up with assist, PT evaluation appreciated; rollator ordered -OA, DJD; resume oxycodone; will need pain clinic appointment rescheduled on discharge Reason for Visit Reason for Visit: SOB Hospital Course Hospital Course: Patient was initially admitted to ICU secondary to intubation following acute on chronic respiratory failure after failed trial of BiPAP in ER. She has maintained on sedation while on mechanical ventilator support. She was covered with empiric antibiotic therapy, steroids due to right lower lobe pneumonia and acute COPD exacerbation respectively. She was initially septic as evidenced by respiratory failure, leukocytosis, hypotension, tachycardia, tachypnea, SELVIN all of which has resolved with treatment. She did require some pressor support that was weaned off with improved hemodynamic stability. Due to noted renal impairment MASON inhibitor was held and then resumed once creatinine had normalized. She was weaned off the ventilator and extubated on 06/15, and gradually weaned to her baseline oxygen requirement of 3 L nasal cannula. She was subsequently transferred to the medical surgical floor for continued care and treatment. Following extubation she has been evaluated by therapy and cleared for discharge home with use of walker and home health services arranged for continued therapy at home. She has been hemodynamically stable and has diuresed well with her home dose of oral Lasix with a total negative fluid balance of 7 L. Leukocytosis has resolved, hemoglobin has been stable and within normal limits, renal function has improved with normalization of creatinine. Accu-Cheks were monitored and she was initially hyperglycemic secondary to IV steroid use. This has improved with transition to oral prednisone. She will be continued on oral Levaquin to complete her treatment course as well as 3 more days of prednisone. Cervantes catheter was initially placed in ER following intubation. This has been discontinued and she has been able to void independently without difficulty. She will need follow-up with her primary care provider within 1 week and is to continue to follow-up at the pain medicine clinic. Narcotics have been prescribed to allow for bridging between her discharge and appointment at the pain clinic. She is advised to seek medical attention immediately should her symptoms worsen or recur. She feels ready to go home today. Discharge Summary: -Patient to follow-up with primary care provider within 1 week -Patient to continue to follow-up at pain medicine clinic Physical Exam Const: COMMON NORMALS: no acute distress, patient oriented x3 and alert GENERAL APPEARANCE: cooperative; not comfortable (due to pain and nausea) NUTRITIONAL APPEARANCE: obese morbidly obese ORIENTATION/CONSCIOUSNESS: Yes awake HENMT: COMMON NORMALS: normocephalic, atraumatic and hearing grossly normal bilaterally HEAD & SCALP: normocephalic and atraumatic Eye: COMMON NORMALS: Equal, round and reactive pupils present, EOMs intact bilaterally and conjunctivae normal CONJUNCTIVA: Yes conjunctivae normal PUPIL: Yes Equal, round and reactive pupils present Neck/C-Spine: COMMON NORMALS: full ROM GENERAL: Yes normal visual inspection and Yes trachea midline Resp: COMMON NORMALS: normal respiratory effort, No retractions and No use of accessory muscles EFFORT & INSPECTION: Yes symmetric chest movement AUSCULTATION: diminished lung sounds bilateral OTHER: -Air entry is improving, symmetrical -on 3 L NC Cardio: COMMON NORMALS: regular rate, regular rhythm, S1 normal heart sound present, S2 normal heart sound present and No murmurs present (Cardio) RATE: regular rate RHYTHM: regular rhythm HEART SOUNDS: S1 normal heart sound present and S2 normal heart sound present GI: COMMON NORMALS: Normal to inspection, nondistended, normoactive bowel sounds present, Soft to palpation and non-tender INSPECTION: Yes central obesity PALPATION: Yes Soft to palpation Extremity: COMMON NORMALS: normal to inspection, full ROM and no pedal edema NARRATIVE EXTREMITY EXAM: -non-pitting edema of bilateral hands, worse on the R likely due to some infiltration due to peripheral IV; improving Neuro: COMMON NORMALS: patient oriented x3, moves all extremities, no focal motor deficits and no sensory deficits noted SENSORIUM/ORIENTATION: Yes alert OTHER: -Generally quite weak Psych: COMMON NORMALS: mental status grossly normal, Normal thought process present, cooperative, normal affect and speech normal SPEECH: Yes normal speech MOOD & AFFECT: Yes anxious THOUGHT PROCESS: Normal thought process present Skin: COMMON NORMALS: no rashes or lesions noted, no jaundice, no petechiae and no mottling GENERAL SKIN EXAM: no rashes or lesions noted Urinary Catheter Management^: Cervantes: Cath Placed During This Visit: yes Reason for Continuing Indwelling Catheter: Accurate Measurement of Urinary Output in Critically Ill Patients Urinary Catheter Date of Insertion: 06/10/20 Urinary Catheter Time of Insertion: 23:33 Discharge Data Data Completed and Pending: Completed Studies During Hospitalization Category Date Time Status XR chest 1V yosvany ble [id number] Routine Exams 06/12/20 06:00 Completed XR chest 1V yosvany ble [id number] Routine Exams 06/13/20 06:00 Completed XR chest 1V yosvany ble [id number] Routine Exams 06/15/20 06:00 Completed XR chest 1V yosvany ble [id number] Stat Exams 06/10/20 19:35 Completed XR chest 1V yosvany ble [id number] Stat Exams 06/10/20 22:53 Completed US renal BI with bladder Routine Ultrasound 06/11/20 01:23 Completed Labs from last 24 hours 06/18/20 06/17/20 06/17/20 06:22 20:37 16:54 O2 Delivery Device Blood Gas Notified Time POC Glucose 91 158 167 06/17/20 06/14/20 11:05 05:00 O2 Delivery Device Vent Blood Gas Notified Time 0530 POC Glucose 133 Vitals: Last Vital Signs Temp 97.7 F 06/18/20 07:38 Pulse 77 06/18/20 07:47 Resp 18 06/18/20 07:47 BP 132/80 06/18/20 07:38 Pulse Ox 96 06/18/20 07:47 Discharge Plan Discharge Patient Disposition: Home Health Service Condition: Stable Prescriptions: New prednisone 20 mg Tablet 40 mg PO DAILY Qty: 6 RF: 0 levofloxacin 750 mg Tablet 750 mg PO DAILY@0600 Qty: 5 RF: 0 metoprolol tartrate 25 mg Tablet 25 mg PO BID Qty: 30 RF: 0 Continued naproxen 500 mg tablet 500 mg PO BID Qty: 60 RF: 5 aspirin 81 mg tablet,chewable 81 mg PO DAILY RF: 0 duloxetine [Cymbalta] 30 mg capsule,delayed release(DR/EC) 30 mg PO BID Qty: 60 RF: 1 levothyroxine 25 mcg capsule 25 mcg PO DAILY RF: 0 albuterol sulfate [Proventil HFA] 90 mcg/actuation HFA aerosol inhaler 2 puff INHALATION Q6H PRN (Reason: Shortness Of Breath) RF: 0 Stiolto Respimat 2.5-2.5 mcg/actuation mist 2 puff INHALATION QDAY RF: 0 budesonide [Pulmicort] 0.5 mg/2 mL suspension for nebulization 0.5 mg INHALATION BID RF: 0 famotidine 20 mg Tablet 20 mg PO BID RF: 0 Nystop 100,000 unit/gram powder 1 applic TOPICAL BID RF: 0 Stool Softener See Rx Instructions .ROUTE .COMPLEX RF: 0 oxycodone 15 mg tablet 15 mg PO QID PRN (Reason: pain) Qty: 30 RF: 0 Norvasc 10 mg tablet 10 mg PO DAILY Qty: 30 RF: 0 lisinopril 10 mg tablet 10 mg PO BID Qty: 30 RF: 0 Lasix 20 mg tablet 20 mg PO QAM Qty: 30 RF: 0 Discharge Orders: Discharge Order (Routine); Ordered 06/18/20 Ordered By: Izzy Escalante Other Ambulatory Orders: DME: Walker (Order) Location: None Selected Ordered By: Izzy Escalante Referrals: [facility] [place] [Outside] [facility] [Outside] George Prathre MD [Physician] - 7-10 days (Follow up appointment, missed prior scheduled appointment due to hospital admission) Ed Hunter [Primary Care Provider] - 06/24/20 3:00 pm (Post hospital discharge follow up. Treated for acute COPD exacerbation and pneumonia. ) Discharge Diet: Cardiac Discharge Activity: Use walker/crutches as instructed, As per PT/OT instructions and Oxygen as instructed Activity Restrictions/Additional Instructions: -Please continue to use supplemental oxygen, 3 L nasal cannula. Please avoid close contact with flammable material due to combustibility of oxygen -Please use walker consistently as instructed Discharge Attestations Time Spent in Discharge Care*: greater than 30 min Specific Discharge Activities: Specific discharge activities: educating patient, discussing with residential case manager/social workers/dc planners, documenting/other paperwork and evaluating patient/reviewing data Status at Discharge: Cognitive status at discharge: cognitively intact, Behavioral status at discharge: cooperative, Functional status at discharge: uses cane/walker Overall status at discharge: patient is progressing back to baseline Quality Metrics Clinical Quality Measures During this hospital stay, did patient experience: None Coding Level of Care Code 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
== END 2020-06-18 11:36 | disposition home health service (06) | DRG 870 ==
LOC: ER 19:45 → ICU 06-11 00:08 → MEDSURG 06-16 11:47
PROVIDERS: Emergency Medicine; Admitting Provider Internal Medicine; PCP Physician Assistant Medical; Visit Provider Family Medicine
DX: A41.9 Sepsis, unspecified organism (principal); R65.21 Severe sepsis with septic shock; J69.0 Pneumonitis due to inhalation of food and vomit; J96.22 Acute and chronic respiratory failure with hypercapnia; J96.21 Acute and chronic respiratory failure with hypoxia; E87.2 Acidosis; N17.9 Acute kidney failure, unspecified; J44.1 Chronic obstructive pulmonary disease with (acute) exacerbation; I50.32 Chronic diastolic (congestive) heart failure; Z68.42 Body mass index [BMI] 45.0-49.9, adult; I11.0 Hypertensive heart disease with heart failure; E03.9 Hypothyroidism, unspecified; G47.33 Obstructive sleep apnea (adult) (pediatric); F17.210 Nicotine dependence, cigarettes, uncomplicated; E66.01 Morbid (severe) obesity due to excess calories; M19.90 Unspecified osteoarthritis, unspecified site; E83.51 Hypocalcemia; R73.9 Hyperglycemia, unspecified; Z79.82 Long term (current) use of aspirin
CPT/HCPCS: 12345; 31500; 36415; 36416; 36600; 51702; 71045; 76770; 76857; 80048; 80051; 80053; 82803; 82810; 82962; 83605; 83735; 83880; 83986; 84484; 85025; 85610; 86403; 87040; 87070; 87205; 87449; 93005; 94002; 94003; 94640; 94660; 94799; 96365; 96366; 96367; 96368; 96372; 96375; 96376; 97110; 97116; 97162; 97530; 99284; 99291; A4570; J0330; J0360; J1644; J1815; J1956; J2060; J2270; J2405; J2543; J2704; J2920; J2930; J3010; J3490; J7030; J7512; J7626

== ENCOUNTER → 2020-07-05 08:28 | Outpatient (BNVA) | payer MEDICAID, SELFPAY | PROVIDERS: PCP Physician Assistant Medical; Visit Provider Anesthesiology | DX: M51.36 Other intervertebral disc degeneration, lumbar region (principal); M54.9 Dorsalgia, unspecified; F17.210 Nicotine dependence, cigarettes, uncomplicated; Z99.81 Dependence on supplemental oxygen; Z79.891 Long term (current) use of opiate analgesic; Z71.6 Tobacco abuse counseling | CPT/HCPCS: 99214 ==

== ENCOUNTER → 2020-09-03 09:45 | Outpatient (BNVA) | payer MEDICAID, SELFPAY | PROVIDERS: PCP Physician Assistant Medical; Visit Provider Anesthesiology | DX: M51.36 Other intervertebral disc degeneration, lumbar region (principal); M54.9 Dorsalgia, unspecified; Z99.81 Dependence on supplemental oxygen; F17.210 Nicotine dependence, cigarettes, uncomplicated; Z79.891 Long term (current) use of opiate analgesic; Z71.6 Tobacco abuse counseling | CPT/HCPCS: 99214 ==

== ENCOUNTER → 2020-11-01 10:00 | Outpatient (BNVA) | payer MEDICAID, SELFPAY | PROVIDERS: PCP Physician Assistant Medical; Visit Provider Nurse Practitioner | DX: M51.36 Other intervertebral disc degeneration, lumbar region (principal); M54.9 Dorsalgia, unspecified; M25.511 Pain in right shoulder; F17.210 Nicotine dependence, cigarettes, uncomplicated; Z79.891 Long term (current) use of opiate analgesic; Z71.6 Tobacco abuse counseling | CPT/HCPCS: 99213 ==

== ENCOUNTER → 2020-12-27 10:07 | Outpatient (BNVA) | payer MEDICAID, SELFPAY | PROVIDERS: PCP Physician Assistant Medical; Visit Provider Nurse Practitioner | DX: G89.29 Other chronic pain (principal); M51.36 Other intervertebral disc degeneration, lumbar region; M54.9 Dorsalgia, unspecified; M25.511 Pain in right shoulder; M25.512 Pain in left shoulder; F17.210 Nicotine dependence, cigarettes, uncomplicated; Z79.899 Other long term (current) drug therapy; Z79.891 Long term (current) use of opiate analgesic | CPT/HCPCS: 99214 ==

== ENCOUNTER → 2021-02-07 10:18 | Outpatient (BNVA) | payer MEDICAID, SELFPAY | PROVIDERS: PCP Physician Assistant Medical; Visit Provider Anesthesiology | DX: G89.29 Other chronic pain (principal); M51.36 Other intervertebral disc degeneration, lumbar region; M54.9 Dorsalgia, unspecified; M25.511 Pain in right shoulder; M25.512 Pain in left shoulder; R20.2 Paresthesia of skin; F17.210 Nicotine dependence, cigarettes, uncomplicated; Z79.899 Other long term (current) drug therapy; Z79.891 Long term (current) use of opiate analgesic | CPT/HCPCS: 99214 ==

== ENCOUNTER 2021-04-03 05:14 | Inpatient (IN) | payer MEDICAID, SELFPAY ==
[2021-04-03] VITALS (10 sets, daily range): BP systolic 92–131; BP diastolic 63–83; PULSE 79–91; RESP 18–22; TEMP 36.2–36.8; O2SAT 89–94; BMI 40.3
--- NOTE | 2021-04-03 05:29 | PM.HP ---
Providers/Chief Complaint Admitting Physician: Elmo Davis MD Primary Care Provider: Ed Hunter Chief Complaint: diverticulitis with perforation History of Present Illness Reyna Nunn is a 60 year old female who carries multiple comorbid conditions such as oxygen dependent COPD uses 2 L of oxygen(was intubated secondary to COPD exacerbation in May of last year), congestive heart failure, chronic opioid use secondary to back pain, hypothyroidism, presented to [facility] with chief complaint of abdominal pain. She was diagnosed with sigmoid diverticulitis with perforation and acute abscess, she was given 3.375 mg of Zosyn, leukocytosis 11.9 she was afebrile no signs of sepsis bicarb 27 lactic was not drawn, she was transferred to our facility for further management. Patient is stating that he has been having abdominal pain intermittently for last 2 months, she was treated for UTI with ciprofloxacin, her abdominal pain got worse at 8 PM yesterday. She has been having dry heaves no episode of emesis. No fever at home. She is describing her pain as excruciating, 20/10, periumbilical, hypogastric left lower quadrant and right lower quadrant areas. She is denying dysuria. At the outside facility she was given 200 mg of fentanyl along 1 L normal saline Zofran, EKG showed sinus rhythm, UA unremarkable, creatinine 1.04, potassium 3.9, white count 11.9. She is afebrile, systolic blood pressure 92 requested 1 L normal saline, requested stat CBC, BMP, lactic acid and blood cultures Review of Systems Const: Reports: chills, body aches and fatigue; Denies: fever(s) Eyes: Denies: change in vision ENMT: Denies: throat pain Card: Denies: chest pain Resp: Denies: dyspnea GI: Reports: abdominal pain, nausea and GI cramping; Denies: vomiting : Denies: flank pain Musc: Denies: neck pain Skin/Breast: Denies: rash Neuro: Denies: headache(s) Psych: Reports: anxiety Endo: Denies: polyuria Praveen/Lymph: Denies: easy bruising All/Imm: Denies: urticaria Medications/Allergies Home Medications Medication Instructions Recorded Confirmed Last Taken Type albuterol sulfate 90 mcg/actuation 2 puff INHALATION Q6H PRN 12/18/19 02/07/2101/12/20 08:00 History aerosol inhaler budesonide 0.5 mg/2 mL suspension 0.5 mg INHALATION BID 12/18/19 02/07/21 01/12/20 22:00 History for nebulization levothyroxine 25 mcg capsule 25 mcg PO DAILY 12/18/19 02/07/21 01/12/20 08:00 History tiotropium 2.5 mcg-olodaterol 2.5 2 puff INHALATION QDAY 12/18/19 02/07/21 01/12/20 08:00 History mcg/actuation mist for inhalation naproxen 500 mg tablet 500 mg PO BID #60 tab 12/19/19 02/07/21 01/12/20 22:00 Rx famotidine 20 mg PO BID 01/14/20 02/07/21 01/12/20 08:00 History aspirin 81 mg chewable tablet 81 mg PO DAILY tab 02/13/20 02/07/21 Unknown History Nystop 1 applic TOPICAL BID 06/10/20 02/07/21 Unknown History Stool Softener See Rx Instructions .ROUTE .COMPLEX 06/10/20 02/07/21 Unknown History Lasix 20 mg PO QAM #30 tab 06/18/20 02/07/21 Unknown Rx amlodipine [Norvasc] 10 mg PO DAILY #30 tab 06/18/20 02/07/21 Unknown Rx lisinopril 10 mg PO BID #30 tab 06/18/20 02/07/21 Unknown Rx metoprolol tartrate 25 mg PO BID #30 tab 06/18/20 02/07/21 Unknown Rx promethazine 6.25 mg/5 mL oral 6.25 mg PO Q6H PRN ml 09/03/20 02/07/21 Unknown History syrup duloxetine 30 mg capsule,delayed 30 mg PO BID #60 cap 02/07/21 02/07/21 Unknown Rx release oxycodone 15 mg tablet 15 mg PO .5 times a day PRN 30 02/07/21 02/07/21 Unknown Rx Days #150 tab oxycodone 15 mg tablet 15 mg PO .5 times daily PRN 30 02/07/21 02/07/21 Unknown Rx Days #150 tab Allergies Allergy/AdvReac Type Severity Reaction Status Date / Time No Known Allergies Allergy Verified 02/07/21 10:29 PFSH Acute PFSH: Medical History Acute on chronic respiratory failure with hypoxia and hypercapnia Bilateral shoulder pain Carpal tunnel syndrome, bilateral CHF (congestive heart failure) -on Lasix -Echo (12/2019): EF wnl, G1DD, mild pulmonary HTN - COPD (chronic obstructive pulmonary disease) DDD (degenerative disc disease), lumbar Hypertension Hypothyroidism -on levothyroxine Long-term use of high-risk medication Opioid contract exists KEO (obstructive sleep apnea) Paresthesia of right upper extremity Requires oxygen therapy Tobacco abuse Surgical History History of nasal surgery NOSE RESECTION S/P hernia surgery S/P hysterectomy Family History Father Cancer Heart disease Diabetes Mother Heart disease Diabetes Fibromyalgia Brother Heart disease Sister Heart disease Diabetes Social History Smoking and tobacco status: current every day smoker cigarettes [ Other cigarette details: 01/30 pck day ] Alcohol intake: never Lives independently: Yes Household members: other Details: Says daughter, although not sure how reliable her history is. It takes a while to recall her daughter's name. Marital status: / History of recent travel: No Physical Exam Narrative: EXAM NARRATIVE: elderly female appears stated age currently distressed because abdominal pain On 3 to nasal cannula saturating well Soft blood pressure systolic blood pressure 92 mmHg, Excruciating abdominal pain, with signs of peritonitis, extremely tender to superficial palpation S1-S2 no active signs of heart failure No acute audible stridor or wheezing Distress secondary to abdominal pain EOMI, PERRLA GCS 15 no neurological deficits A&P Assessment and plan (1) Diverticular 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: Status: Acute Additional A&P Information Sigmoid diverticular perforation with abscess Excruciating pain with signs of peritonitis, Keep her n.p.o. started Zosyn Giving her another liter of normal saline bolus, if her pressure is not responding to fluid resuscitation would recommend ICU transfer and vasopressors, Dilaudid for analgesia Requested stat lactic acid and blood cultures to rule out sepsis, she is hyperventilating with abdominal pain General surgery consulted, she will need intervention for abscess drainage Preserved ejection fraction heart failure with mild pulmonary hypertension: No acute exacerbation patient is getting fluid resuscitation for abdominal pain and hypotension closely monitor for signs of fluid overload and he saturating well on 3 L nasal cannula COPD without acute exacerbation Required intubation in May of last year for COPD exacerbation currently she is hyperventilating however saturating well on 3 L nasal cannula DuoNeb every 4 as needed Hypothyroidism current: Continue levothyroxine regimen N.p.o. Full code DVT prophylaxis contraindicated in anticipation of surgical intervention Attestations Medical Necessity Statement*: Anticipating stay in the hospital cross more than 2 midnights for sigmoid diverticular perforation with abscess management Time Spent in Patient Care: (>than 50% of time spent in counselling and/or direct pt care on unit). 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
[2021-04-03] MEDS: sodium chloride 0.9% 1,000 ML 999 ML IV (05:59)
[2021-04-03] MEDS: HYDROmorphone 1 mg/mL INJ 1 mL 0.5 MG IVP ×2 (06:16→13:34)
[2021-04-03] MEDS: piperacillin-tazobactam 3.375 GM in sodium chloride 0.9% (plus) 50 ML IV ×3 (06:16→22:08)
--- NOTE | 2021-04-03 06:29 | PC.NURSE ---
pt arrived to [facility] on [facility] floor at 0525 on stretcher via EMS. pt transferred over to bed via EMS and nursing staff. pt on 3L NC
[2021-04-03 06:31] LABS: Glucose Point of Care 124 mg/dL (70-110)
[2021-04-03 06:56] LABS: Lactate (Lactic Acid level) 1.8 mmol/L (0.5-2.2)
--- NOTE | 2021-04-03 07:01 | P.CONIM_ITS ---
Providers/Reason For Consult Consulting Physican/Specialty*: Pablo Vergara MD Reason for Consult*: Sigmoid colon diverticulitis with abscess formation Requesting Physcian: Dr. Davis Attending Physician: Elmo Davis MD Primary Care Provider: Ed Hunter History of Present Illness History of Present Illness Chief Complaint: Abdominal pain History of present illness: Reyna Nunn is a 60 year old female with multiple associated medical comorbidities in the form of history of COPD requires 2 L of oxygen. Congestive heart failure, chronic opioid use secondary to back pain, hypothyroidism. Patient was admitted to the hospital with COPD exacerbation last year and required intubation. Apparently the patient has been complaining of abdominal pain for quite some time and yesterday morning got worse decided to go to the emergency department at [facility] where she did undergo blood work that showed leukocytosis of 11.9 thousand and was given a dose of Zosyn. Hematocrit 39.6 and hemoglobin 12.2, platelets 682, neutrophils 10.05. Sodium 138, potassium 3.9, creatinine 1.04 and albumin of 2.6, lipase 10. No lactic acid available. Patient was accepted by the hospitalist service for admission CT scan of the abdomen and pelvis done at an outside facility report showed #1 acute perforated diverticulitis of the sigmoid colon with pericolonic 5 x 5 x 1.3 abscess, small free air roughly 14 cm segment of the mid to distal sigmoid colon is markedly inflamed to demonstrate concentric mucosal thickening with associated pericolonic edema and pericolonic collections and gas compatible with acute perforated diverticulitis. #2 moderate to large colonic stool burden may correlate with clinical symptoms of constipation #3 incidental periurethral cyst and multiple hepatic cysts. General surgery was consulted for further evaluation and care, unfortunately at this point the see the disc is not loaded yet 07:26 AM. Review of Systems General: Reports: 10 or more systems reviewed and unremarkable except in HPI and below Meds/Allergies Home Medications and Allergies Home Medications Medication Instructions Recorded Confirmed Last Taken Type albuterol sulfate 90 mcg/actuation 2 puff INHALATION Q6H PRN 12/18/19 04/03/21 01/12/20 08:00 History aerosol inhaler budesonide 0.5 mg/2 mL suspension 0.5 mg INHALATION BID 12/18/19 04/03/21 01/12/20 22:00 History for nebulization levothyroxine 25 mcg capsule 25 mcg PO DAILY 12/18/19 04/03/21 04/02/21 History naproxen 500 mg tablet 500 mg PO BID #60 tab 12/19/19 04/03/21 04/02/21 Rx aspirin 81 mg chewable tablet 81 mg PO DAILY tab 02/13/20 04/03/21 04/02/21 History nystatin [Nystop] 1 applic TOPICAL BID 06/10/20 04/03/21 Unknown History amlodipine [Norvasc] 10 mg PO DAILY #30 tab 06/18/20 04/03/21 04/02/21 Rx furosemide [Lasix] 20 mg PO QAM #30 tab 06/18/20 04/03/21 04/02/21 Rx lisinopril 10 mg PO BID #30 tab 06/18/20 04/03/21 04/02/21 Rx metoprolol tartrate 25 mg PO BID #30 tab 06/18/20 04/03/21 04/02/21 Rx duloxetine 30 mg capsule,delayed 30 mg PO BID #60 cap 02/07/21 04/03/21 04/02/21 Rx release levothyroxine [Euthyrox] 25 mcg PO DAILY@0600 04/03/21 04/03/21 04/02/21 History oxycodone 15 mg PO 5XD 04/03/21 04/03/21 04/02/21 History Allergies Allergy/AdvReac Type Severity Reaction Status Date / Time No Known Allergies Allergy Verified 02/07/21 10:29 Current Medications Current Medications Generic Name Dose Route Start Last Admin Trade Name Freq PRN Reason Stop Dose Admin Hydromorphone HCl 0.5 mg 04/03/21 05:35 04/03/21 06:16 Hydromorphone 1 Mg/Ml Inj 1 Ml IVP 0.5 mg Q4H PRN Administration Abdominal pain Piperacillin Sod/Tazobactam 50 mls @ 12.5 mls/hr 04/03/21 06:00 04/03/21 06:16 Sod 3.375 gm/ Sodium Chloride IV 12.5 mls/hr Q8H LALITO Administration Protocol PFSH Acute PFSH: Medical History Acute on chronic respiratory failure with hypoxia and hypercapnia Bilateral shoulder pain Carpal tunnel syndrome, bilateral CHF (congestive heart failure) -on Lasix -Echo (12/2019): EF wnl, G1DD, mild pulmonary HTN - COPD (chronic obstructive pulmonary disease) DDD (degenerative disc disease), lumbar Hypertension Hypothyroidism -on levothyroxine Long-term use of high-risk medication Opioid contract exists KEO (obstructive sleep apnea) Paresthesia of right upper extremity Requires oxygen therapy Tobacco abuse Surgical History History of nasal surgery NOSE RESECTION S/P hernia surgery S/P hysterectomy Family History Father Cancer Heart disease Diabetes Mother Heart disease Diabetes Fibromyalgia Brother Heart disease Sister Heart disease Diabetes Social History Smoking and tobacco status: current every day smoker cigarettes [ Other cigarette details: 01/30 pck day ] Alcohol intake: never Lives independently: Yes Household members: other Details: Says daughter, although not sure how reliable her history is. It takes a while to recall her daughter's name. Marital status: / History of recent travel: No Vitals/I&O/Wt Last Vital Signs Temp 97.8 F 04/03/21 05:48 Pulse 80 04/03/21 05:48 Resp 22 H 04/03/21 06:16 BP 92/63 04/03/21 05:48 Pulse Ox 94 04/03/21 05:48 Weight last 48 hrs Weight 213 lb 6.4 oz Physical Exam Narrative: EXAM NARRATIVE: Patient is conscious alert oriented X3 Yet appears to be sleepy likely due to recent administration of IV narcotic BMI 40 Head and neck examination PERRLA no masses no cervical lymphadenopathy no jaundice Cardiac examination audible S1-S2 no murmurs no gallops no arrhythmias Chest is clear bilateral,abscence of Rhonchi or wheezes,no surgical emphysema Abdomen diffuse tenderness particularly at the lower abdomen and left lower quadrant, moderately distended Morbidly obese Data Micro: Micro: Microbiology 04/03/21 06:24 Blood Culture - Pr eliminary Blood SPECIMEN COLLE TAN 04/03/21 06:22 Blood Culture - Pr eliminary Blood SPECIMEN [facility] TAN A&P Assessment and plan (1) Diverticular 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: After history taking physical examination and reviewing the chart and images of the CT scan with my personal interpretation, I do appreciate the inflamed segment of the sigmoid colon but not necessarily a distinct abscess formation. And no pneumoperitoneum I did discuss with the patient briefly that if her condition gets to be worse she may require surgery in the form of sigmoid colectomy and Torres's procedure with a colostomy I did discuss with the patient that she is at higher risk of potential complications due to her morbid obesity status and COPD with oxygen dependency. That there is a higher chance of not being able to be extubated and will require mechanical ventilation AND potential future tracheostomy. We will continue to follow Keep n.p.o. Continue broad-spectrum antibiotics Repeat physical examination cardiac monitor and pulse ox Strict I's and O's Patient appears to be sleepy due to excess narcotics may require closer observation in the ICU, will defer to hospitalist service with that. Strict I's and O's Pharmacologic DVT prophylaxis I did discuss the CT scan images at 8:[address] Bush our radiologist and he confirmed the inflamed segment of the sigmoid colon but no pneumoperitoneum and no distinct abscess formation rather pelvic ascites which not amenable for drainage. From that point we will continue broad-spectrum IV antibiotics and we will continue coordinating with hospitalist service. Patient reports that she signS her own consent Thank you for consulting general surgery to participate taking care Ms. Nunn Status: Acute Consult Attestations Medical Necessity Statement: Patient requiring inpatient hospitalization for medical care in the form of resuscitation and broad-spectrum IV antibiotics with potential IR intervention and surgical management. Time Spent in Patient Care: (>than 50% of time spent in counselling and/or direct pt care on unit) . 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
[2021-04-03 07:11] LABS: Hematocrit 39.1 % (37.0-47.0); Hemoglobin 11.8 g/dL (11.5-15.3); Mean Corpuscular HGB Conc 30.2 g/dL (30.0-36.0); Mean Corpuscular Hemoglobin 28.2 pg (28.0-34.0); Mean Corpuscular Volume 93.5 fL (81-99); Mean Platelet Volume 9.6 fL (7.4-10.4); Platelet Count 670 10^3/cmm (130-400); Red Blood Count 4.18 10^6/uL (4.1-5.3); Red Cell Distribution Width 14.5 % (12.1-15.1); Slide Review Slide Review Perform; White Blood Count 22.2 10^3/uL (4.0-10.0)
[2021-04-03 07:13] LABS: Absolute Segmented Neutrophil 7.8 10/cmm (1.6-7.1); Band Neutrophils Absolute 12.7 10^3/cmm (0.0-1.2); Lymphocytes 5 %; Monocytes Absolute 0.7 10^3/cmm (0.1-0.6); Segmented Neutrophils 35 %; Total Cells Counted 100 (0-100)
[2021-04-03 07:14] LABS: Absolute Neutrophil 20.4 10^3/cmm (1.4-6.5); Eosinophils 0 %; Hypochromasia 1+; Lymphocytes Absolute 1.1 10^3/cmm (1.2-3.4); Platelet Estimate Increased (Normal)
[2021-04-03] MEDS: sodium chloride 0.9% 1,000 ML 75 ML IV ×2 (08:45→22:03)
[2021-04-03] MEDS: levothyroxine 25 mcg Tablet PO (08:48)
[2021-04-03] MEDS: heparin 5,000 unit/mL INJ 1 mL 5000 UNIT SUBCUT ×2 (09:14→17:37)
--- NOTE | 2021-04-03 10:14 | PC.RESP ---
Pt refuses Auto CPAP, states she does not wear one at home. States does use breathing treatments and oxygen.
[2021-04-03 10:57] LABS: Glucose Point of Care 106 mg/dL (70-110)
--- NOTE | 2021-04-03 12:51 | PC.NURSE ---
Patient's called to check ob her at this time.
[2021-04-03 16:50] LABS: Glucose Point of Care 113 mg/dL (70-110)
[2021-04-03] MEDS: acetaminophen 1,000 MG/100 ML PIGGYBACK 400 MG IV (17:38)
[2021-04-03 18:24] LABS: ABG PCO2 44.8 mmHg (35-45); ABG PH Result 7.43 (7.35-7.45); Arterial Blood Gas Hematocrit 34.6 % (37-47); Base Excess ABG 4.5 mmol/L (-2.0-2.0); Blood Gas Allen Test Pos; Blood Gas LPM 3.5 %; Blood Gas Operator Identificat GD; Blood Gas Sample Site Radial, left; Blood Gas Sample Type Arterial; HCO3 ABG 29.5 mmol/L (22-26); Oxygen Device NC; PO2 ABG 66.4 mmHg (80.0-100.0)
--- NOTE | 2021-04-03 18:52 | PC.NURSE ---
Report to Joellen MARTIN at this time.
--- NOTE | 2021-04-03 19:32 | P.PN_ITS ---
Subjective Subjective: Interval history: At the time. Her earlier this morning was noted to be more somnolent, likely as a result of Dilaudid, at the time of my assessment, she was much more alert awake and oriented. ABG was performed which did not show any signs of hypercapnia this. 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: no focal neuro deficits Urinary Catheter Management^: Cervantes: Cath Placed During This Visit: yes Reason for Continuing Indwelling Catheter: Acute Urinary Retention or Obstruction Urinary Catheter Date of Insertion: 04/03/21 Urinary Catheter Time of Insertion: 13:30 Data : 04/03/21 06:24 Micro: Microbiology 04/03/21 06:24 Blood Culture - Preliminary Blood SPECIMEN COLLECTED 04/03/21 06:22 Blood Culture - Preliminary Blood SPECIMEN COLLECTED A&P Assessment and plan (1) Diverticular 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: Status: Acute Additional A&P Information Sigmoid diverticular perforation with abscess Keep her n.p.o. ;started Zosyn add toradol for pain control Currently BP is maintained, awake, alert and oriented at time of assessment this afternoon Dilaudid for analgesia appreciat egenral surgery consult Preserved ejection fraction heart failure with mild pulmonary hypertension: No acute exacerbation patient is getting fluid resuscitation for abdominal pain and hypotension closely monitor for signs of fluid overload and he saturating well on 3 L nasal cannula COPD without acute exacerbation Required intubation in May of last year for COPD exacerbation currently she is hyperventilating however saturating well on 3 L nasal cannula DuoNeb every 4 schdeuled,. add budesonide, ABG as above, CPAP at night Hypothyroidism current: Continue levothyroxine regimen N.p.o. 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
[2021-04-03 20:15] LABS: Glucose Point of Care 92 mg/dL (70-110)
[2021-04-03] MEDS: ketorolac 30 mg/mL INJ 15 MG IVP (20:44)
[2021-04-03] MEDS: HYDROmorphone 1 mg/mL INJ 1 mL IVP (23:37)
[2021-04-04] VITALS (63 sets, daily range): BP systolic 79–131; BP diastolic 55–93; PULSE 99–130; RESP 10–25; TEMP 36.6–37.1; O2SAT 91–100
[2021-04-04] MEDS: heparin 5,000 unit/mL INJ 1 mL 5000 UNIT SUBCUT (02:02)
[2021-04-04] MEDS: acetaminophen 1,000 MG/100 ML PIGGYBACK 400 MG IV (02:43)
--- NOTE | 2021-04-04 02:54 | CTR_ITS ---
PROCEDURE INFORMATION: Exam: CT Abdomen And Pelvis With Contrast Exam date and time: 04/04/2021 2:56 AM Age: 60 years old Clinical indication: Abdominal pain; Generalized; Patient HX: Transfer from outside facility for diverticulitis with perforation. Patient C/O worsening pain with increased abd distention. ; Additional info: Divert abscess TECHNIQUE: Imaging protocol: Computed tomography of the abdomen and pelvis with contrast. Radiation optimization: All CT scans at this facility use at least one of these dose optimization techniques: automated exposure control; mA and/or kV adjustment per patient size (includes targeted exams where dose is matched to clinical indication); or iterative reconstruction. Contrast material: VISI 320; Contrast volume: 95 ml; Contrast route: INTRAVENOUS (IV); COMPARISON: CT abdomen pelvis w con* [id number] 04/03/2021 1:10 AM RADIATION DOSE METRICS: Total DLP (mGy-cm): 1698.24 FINDINGS: Lungs: There is bibasilar atelectasis. Liver: Multiple hepatic cysts, largest of which is 3.1 cm. Gallbladder and bile ducts: Gallbladder is distended but otherwise normal. Pancreas: Normal. No ductal dilation. Spleen: There are multiple calcified splenic granulomata . Adrenal glands: Normal. No mass. Kidneys and ureters: Normal. No hydronephrosis. Stomach and bowel: There is mild reactive small bowel wall thickening. Appendix: The appendix is not positively identified. However, no secondary changes of appendicitis are present. Intraperitoneal space: Small amount of ascites. There is diverticulosis with perisigmoid fat stranding and moderate amounts of free air. Vasculature: Unremarkable. No abdominal aortic aneurysm. Lymph nodes: Unremarkable. No enlarged lymph nodes. Urinary bladder: There is a Cervantes catheter with the balloon present in the urinary bladder. Reproductive: Unremarkable as visualized. Bones/joints: Unremarkable. No acute fracture. Soft tissues: Unremarkable. CT/CT abdomen pelvis w con* [id number] IMPRESSION: 1. Acute sigmoid diverticulitis with perforation resulting in moderate free air. Small amounts of free fluid are present in the abdomen as well. No abscess. 2. Gallbladder is distended but otherwise normal. 3. Small amount of ascites. 4. The appendix is not positively identified. However, no secondary changes of appendicitis are present. 5. There is mild reactive small bowel wall thickening. Radiation Dose CTDIVOL = (mGy): DLP = 1698.24 (mGy-cm)
[2021-04-04] MEDS: HYDROmorphone 1 mg/mL INJ 1 mL IVP ×2 (03:05→19:19)
[2021-04-04] MEDS: iodixanol 320 mg/mL 100mL Btl IV (03:13)
--- NOTE | 2021-04-04 03:25 | PC.NURSE ---
Addendum entered by Herlinda Levin RN 04/04/21 03:30: This was reported off to Francine oLng RN in ICU at the time of transfer. Original Note: Dilaudid 1 mg ivp x 1 given at 0305. Unable to save in MAR. MAR says Currently being updated by another user in [employer].
[2021-04-04 03:28] LABS: Basophils # 0.2 10^3/uL (0.0-0.1); Basophils % 0.6 %; Eosinophils # 0.1 10^3/uL (0.0-0.8); Eosinophils % 0.5 %; Hematocrit 35.8 % (37.0-47.0); Lymphocytes # 1.9 10^3/uL (0.8-4.8); Lymphocytes % 7.8 %; Mean Corpuscular HGB Conc 30.7 g/dL (30.0-36.0); Mean Corpuscular Volume 91.1 fL (81-99); Mean Platelet Volume 9.5 fL (7.4-10.4); Monocytes # 1.3 10^3/uL (0.2-0.9); Monocytes % 5.4 %; Neutrophils # 20.43 10^3/uL (1.8-7.7); Neutrophils % 84.8 %; Nucleated Red Blood Cells % 0 %; Platelet Count 672 10^3/cmm (130-400); Red Blood Count 3.93 10^6/uL (4.1-5.3); Red Cell Distribution Width 14.6 % (12.1-15.1); White Blood Count 24.1 10^3/uL (4.0-10.0)
[2021-04-04] MEDS: ipratropium-albuterol 3 mL Neb INHALATION ×4 (03:51→20:00)
[2021-04-04 03:52] LABS: Alanine Aminotransferase 10 U/L (0-33); Albumin Level 2.3 g/dL (3.5-5.2); Alkaline Phosphatase 93 IU/L (35-105); Anion Gap 13.1 (5-19); Aspartate Amino Transferase 11 U/L (0-32); Blood Urea Nitrogen 14 mg/dL (8-23); Carbon Dioxide 28 mmol/L (22-29); Chloride 103 mmol/L (98-107); Globulin 3.2 g/dL (1.3-4.6); Glomerular Filtration Rate 63.4 mL/min (90-130); Glucose 101 mg/dL (65-115); Osmolality Calculated 291 mOsm/kg (285-295); Potassium 4.1 mmol/L (3.5-5.1); Sodium 140 mmol/L (136-145); Total Bilirubin 0.4 mg/dL (0.15-1.2); Total Protein 5.5 g/dL (6.6-8.7)
[2021-04-04 03:53] LABS: Lactate (Lactic Acid level) 1.7 mmol/L (0.5-2.2)
--- NOTE | 2021-04-04 03:57 | PM.EVENT ---
Event Note Event Note: I was notified regarding excruciating abdominal pain, Dilaudid was given and patient was brought to CT scan room for stat CT abdomen pelvis with contrast study Stat CBC CMP and lactate was drawn She was transferred to ICU afterward She was saturating well on 2 L nasal cannula, blood pressure 109/62mmhg, afebrile, tachypneic On physical exam she was in distress because abdominal pain active signs of peritonitis no guarding or rigidity CT abdomen pelvis revealed pneumoperitoneum perforated sigmoid colon, acute diverticulitis, Dr. Vergara was notified, plan is to take her to the OR for laparotomy on stat basis She is currently on Zosyn, heparin on hold CT abdomen pelvis does show large distended abdomen, NG tube was placed which revealed 800 mL bilious content as soon as we were able to get NG down Currently hemodynamically stable Nurses notified Patient is very anxious, increased risk of mortality and morbidity including explained to the patient
--- NOTE | 2021-04-04 04:00 | PC.NURSE ---
PATIENT UPDATE PATIENT HAD PAIN IN LEFT LOWER QUADRANT OF ABDOMEN, THROUGH OUT THE NIGHT THE PAIN MEDICATIONS WAS NOT PROVIDING RELIEF. PATIENT STATED I WOKE UP AND THE PAIN IS SO BAD I CANT STAND IT. THERE IS NO RELIEF IT IS CONSTANT. I CAN'T DO THIS ANYMORE, GOD PLEASE HELP ME. THIS NURSE ADMINISTERED 100MG OF TYLENOL VIA IV WITH NO RELIEF. DR. MOTT WAS CALLED AND UPDATED AND HE ORDERED A ONE TIME DOSE OF HYDROMORPHONE TO BE GIVEN VIA IVP, AND A STAT CT OF ABDOMEN. THIS NURSE AND Antione BORREGO CNA TRANSPORTED PATIENT TO CT. DR. MOTT MET US THERE, VERBALLY GAVE ORDER TO TRANSFER TO ICU AFTER CT WAS DONE. CT WAS COMPLETED, LAB CAME AND DARELL BLOOD, PATIENT WAS THEN TRANSPORTED TO ICU ROOM 6 AND BEDSIDE REPORT WAS GIVEN TO KOSTAS EDMONDSON WITH THE CHARGE NURSE CAMILO EDMONDSON IN THE ROOM WELL. THIS NURSE IS NOTIFYING FAMILY OF PATIENT TRANSFER.
--- NOTE | 2021-04-04 04:17 | PM.PN ---
Subjective Subjective: Interval history: Patient overall feeling worse, required transfer to the ICU and a CT scan of the abdomen pelvis was obtained that showed; 1. Acute sigmoid diverticulitis with perforation resulting in moderate free air. Small amounts of free fluid are present in the abdomen as well. No abscess. 2. Gallbladder is distended but otherwise normal. 3. Small amount of ascites. 4. The appendix is not positively identified. However, no secondary changes of appendicitis are present. 5. There is mild reactive small bowel wall thickening. Medications: Reviewed: Yes Vitals/I&O/Wt Last Vital Signs Temp 98.4 F 04/04/21 00:00 Pulse 102 H 04/04/21 04:02 Resp 20 H 04/04/21 03:51 BP 121/84 04/04/21 00:00 Pulse Ox 94 04/04/21 03:51 04/03/21 04/03/21 04/04/21 14:59 22:59 06:59 Intake Total 1050 / 1050 1147.5 / 2197.5 150 / 2347.5 Output Total 450 / 450 Balance 1050 / 1050 697.5 / 1747.5 150 / 1897.5 Weight last 48 hrs Weight 213 lb 6.4 oz Physical Exam Narrative: EXAM NARRATIVE: Patient is conscious alert oriented X3 BMI 40 Head and neck examination PERRLA no masses no cervical lymphadenopathy no jaundice Abdomen diffuse tenderness ,LESS distended after NG insertion, presence of guarding AND rigidity/with signs of peritonitis Extremities no cyanosis no clubbing no edema Urinary Catheter Management^: Cervantes: Cath Placed During This Visit: yes Reason for Continuing Indwelling Catheter: Acute Urinary Retention or Obstruction Urinary Catheter Date of Insertion: 04/03/21 Urinary Catheter Time of Insertion: 13:30 Data : 04/04/21 03:20 04/04/21 03:20 Micro: Microbiology 04/03/21 06:24 Blood Culture - Preliminary Blood SPECIMEN COLLECTED 04/03/21 06:22 Blood Culture - Preliminary Blood SPECIMEN COLLECTED A&P Assessment and plan (1) Diverticular 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: Based on the clinical evolution of the patient's condition resulting in worsening abdominal pain the presence of leukocytosis of 24,000, a CT scan was obtained of the abdomen and pelvis that showed pneumoperitoneum that was not demonstrated before and the stomach was remarkable distended, based on the clinical deterioration patient was transferred to the ICU with NG placement and had about 1200 ml out. Surgery was notified in the interim and the plan is to take the patient for surgery for exploratory laparotomy with bowel resection and possible colostomy. Patient reports that she signs her own consent An attempt was made to contact Liana Nunn on [phone] with no answer at 4:24 AM Also an attempt was made to contact Thomas Nunn at [phone] without success at 4:35 AM Later on I was able to get a hold of Ms. Gaines on [phone] and I did explain for her the procedure with potential risks benefits alternatives and indications and the potential high risk of staying on mechanical ventilation after surgery because of the patient's COPD. I had Ms. Richardson nursing staff to verify with Ms. Gaines her understanding about the procedure and potential complications associated with so she does understand that Ms. Nunn will end up by having a colostomy. Thank you for consulting general surgery to participate taking care Ms. Nunn Status: Acute Attestations Medical Necessity Statement*: Patient requiring inpatient hospitalization for medical and surgical intervention Time Spent in Patient Care: (>than 50% of time spent in counselling and/or direct pt care on unit). Coding Level of Care Code Acute Cheese Pancake Roller for Landon Cha Diagnoses Diverticular 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 K57.80
--- NOTE | 2021-04-04 04:49 | P.ANESASSM_ITS ---
Pre-Anesthetic Assessment Pre-Anesthetic Assessment: Height/Weight: Height 1.55 m Weight 96.797 kg Temp Pulse Resp BP Pulse Ox 98.8 F 102 H 20 H 131/81 92 04/04/21 04:00 04/04/21 04:02 04/04/21 03:51 04/04/21 04:00 04/04/21 04:00 Preop Diagnosis: Peritonitis Proposed Procedure: Operation Date: 04/04/21 05:15 Proposed Procedures p Exploratory Laparotomy(Not Applicable) - Pablo Vergara MD Was Beta Maria E taken within 24 hours: N/A Social: Social History: Tobacco and No alcohol Exam: Pre-Anes Outpt Exam: alert, oriented x 3, clear to auscultation bilaterally and regular rate & rhythm Airway: Submandibular: WNL Cervical ROM: WNL MP: 2 Dentition: Full Pulmonary: Pulmonary: COPD (Home O2 2L) CV/HEM: CV/HEM: Anemia, CHF, HTN and MS Metabolic: Metabolic: Thyroid Musc/skel: Musc/skel: Lower Back Pain Comments: Chronic pain/opioid Neuropsych: Comments: Paresthesia of RUE Anesthetic Plan: ASA status: 3E Anesthesia: General (RSI) Risk of > 500 ml blood loss (7ml/kg in children): No Meds/Allergies Current Medications: Current Medications Generic Name Dose Route Start Last Admin Trade Name Freq PRN Reason Stop Dose Admin Albuterol/Ipratrop ium 3 ml 04/03/21 21:00 04/04/21 03:51 Ipratropium-Albu terol 3 Ml Neb INHALATION 3 ml Q6H.RESPIRATORY S CH Administration Amlodipine Besylat e 10 mg 04/03/21 09:00 04/03/21 08:47 Amlodipine 10 Mg Tablet PO Not Given DAILY LALITO Budesonide 0.5 mg 04/03/21 20:00 04/04/21 03:40 Budesonide 0.5 M g/2 Ml Neb INHALATION Not Given BID.RESPIRATORY S CH Heparin Sodium (Be ef Lung) 5,000 unit 04/03/21 09:00 04/04/21 02:02 Heparin 5,000 Un it/Ml Inj 1 Ml SUBCUT 5,000 unit Q8H LALITO Administration Hydromorphone HCl 1 mg 04/03/21 19:34 04/03/21 23:37 Hydromorphone 1 Mg/Ml Inj 1 Ml IVP 1 mg Q4H PRN Administration Abdominal pain Piperacillin Sod/T azobactam 50 mls @ 12.5 mls /hr 04/03/21 06:00 04/04/21 02:29 Sod 3.375 gm/ So dium Chloride IV Infused Q8H LALITO Infusion Protocol Sodium Chloride 1,000 mls @ 75 ml s/hr 04/03/21 05:45 04/03/21 22:03 Sodium Chloride 0.9% IV 75 mls/hr .[id number] LALITO Administration Acetaminophen 1,000 mg in 100 m ls @ 400 mls/hr 04/03/21 17:15 04/04/21 02:59 Acetaminophen IV 04/04/21 09:29 Infused Q8H PRN Infusion PAIN Insulin Aspart 0 unit 04/03/21 08:00 04/03/21 21:02 Insulin Aspart 1 00 Unit/1 Ml SUBCUT Not Given WM&BEDTIME LALITO Protocol Ketorolac Trometha mine 15 mg 04/03/21 19:34 04/03/21 20:44 Ketorolac 30 Mg/ Ml Inj IVP 04/08/21 19:44 15 mg Q8H PRN Administration pain Levothyroxine Sodi um 25 mcg 04/03/21 09:00 04/03/21 08:48 Levothyroxine 25 Mcg Tablet PO 25 mcg DAILY LALITO Administration Metoprolol Tartrat e 25 mg 04/03/21 09:00 04/03/21 17:37 Metoprolol Tartr ate 25 Mg Tablet PO Not Given BID [facility] PFSH Anesthesia PFSH: Medical History Acute on chronic respiratory failure with hypoxia and hypercapnia Bilateral shoulder pain Carpal tunnel syndrome, bilateral CHF (congestive heart failure) -on Lasix -Echo (12/2019): EF wnl, G1DD, mild pulmonary HTN - COPD (chronic obstructive pulmonary disease) DDD (degenerative disc disease), lumbar Hypertension Hypothyroidism -on levothyroxine Long-term use of high-risk medication Opioid contract exists KEO (obstructive sleep apnea) Paresthesia of right upper extremity Requires oxygen therapy Tobacco abuse Surgical History History of nasal surgery NOSE RESECTION S/P hernia surgery S/P hysterectomy Family History Father Cancer Heart disease Diabetes Mother Heart disease Diabetes Fibromyalgia Brother Heart disease Sister Heart disease Diabetes Social History Smoking and tobacco status: current every day smoker cigarettes [ Other cigarette details: 01/30 pc day ] Alcohol intake: never Lives independently: Yes Household members: other Details: Says daughter, although not sure how reliable her history is. It takes a while to recall her daughter's name. Marital status: / History of recent travel: No Data Anesthesia CBC & Chem 7: 04/04/21 03:20 04/04/21 03:20 Other Labs: Laboratory Results - last 48 hr 04/03/21 04/03/21 04/03/21 05:50 06:24 06:24 WBC 22.2 H RBC 4.18 Hgb 11.8 Hct 39.1 MCV 93.5 MCH 28.2 MCHC 30.2 RDW 14.5 Plt Count 670 H MPV 9.6 Neut % (Auto) Lymph % (Auto) Not Reportable Howard % (Auto) Not Reportable Eos % (Auto) Baso % (Auto) Neut # (Auto) Lymph # (Auto) Not Reportable Howard # (Auto) Not Reportable Eos # (Auto) Baso # (Auto) Nucleated RBC % (auto) Total Counted 100 Atypical Lymphs % 0.0 Absolute Neutrophils 20.4 H Segmented Neutrophils 35 Abs Segm Neuts (Man) 7.8 H Band Neutrophils 57.0 Abs Band Neuts (Man) 12.7 H Absolute Lymphocytes 1.1 L Lymphocytes (Manual) 5 Monocytes (Manual) 3.0 Absolute Monocytes 0.7 H Eosinophils (Manual) 0 Absolute Eosinophils 0.0 Basophils (Manual) 0.0 Absolute Basophils 0.0 Nucleated RBCs # Platelet Estimate Increased H Hypochromasia 1+ H Specimen Type Sample Site ABG pH ABG pCO2 ABG pO2 ABG HCO3 ABG Base Excess Faheem Test Hematocrit O2 Delivery Device O2 Liters/Min Lawn Care Technician ID Sodium Potassium Chloride Carbon Dioxide Anion Gap BUN Creatinine GFR Calculation Glucose POC Glucose 124 H Calculated Osmolality Lactate 1.8 Calcium Total Bilirubin AST ALT Alkaline Phosphatase Total Protein Albumin Globulin 04/03/21 04/03/21 04/03/21 10:49 16:37 18:10 WBC RBC Hgb Hct MCV MCH MCHC RDW Plt Count MPV Neut % (Auto) Lymph % (Auto) Howard % (Auto) Eos % (Auto) Baso % (Auto) Neut # (Auto) Lymph # (Auto) Howard # (Auto) Eos # (Auto) Baso # (Auto) Nucleated RBC % (auto) Total Counted Atypical Lymphs % Absolute Neutrophils Segmented Neutrophils Abs Segm Neuts (Man) Band Neutrophils Abs Band Neuts (Man) Absolute Lymphocytes Lymphocytes (Manual) Monocytes (Manual) Absolute Monocytes Eosinophils (Manual) Absolute Eosinophils Basophils (Manual) Absolute Basophils Nucleated RBCs # Platelet Estimate Hypochromasia Specimen Type Arterial Sample Site Radial, left ABG pH 7.43 ABG pCO2 44.8 ABG pO2 66.4 L ABG HCO3 29.5 H ABG Base Excess 4.5 H Faheem Test Pos Hematocrit 34.6 L O2 Delivery Device Nc O2 Liters/Min 3.5 Lawn Care Technician ID Gd Sodium Potassium Chloride Carbon Dioxide Anion Gap BUN Creatinine GFR Calculation Glucose POC Glucose 106 113 H Calculated Osmolality Lactate Calcium Total Bilirubin AST ALT Alkaline Phosphatase Total Protein Albumin Globulin 04/03/21 04/04/21 04/04/21 20:12 03:20 03:20 WBC 24.1 H RBC 3.93 L Hgb 11.0 L Hct 35.8 L MCV 91.1 MCH 28.0 MCHC 30.7 RDW 14.6 Plt Count 672 H MPV 9.5 Neut % (Auto) 84.8 Lymph % (Auto) 7.8 Howard % (Auto) 5.4 Eos % (Auto) 0.5 Baso % (Auto) 0.6 Neut # (Auto) 20.43 H Lymph # (Auto) 1.9 Howard # (Auto) 1.3 H Eos # (Auto) 0.1 Baso # (Auto) 0.2 H Nucleated RBC % (auto) 0 Total Counted Atypical Lymphs % Absolute Neutrophils Segmented Neutrophils Abs Segm Neuts (Man) Band Neutrophils Abs Band Neuts (Man) Absolute Lymphocytes Lymphocytes (Manual) Monocytes (Manual) Absolute Monocytes Eosinophils (Manual) Absolute Eosinophils Basophils (Manual) Absolute Basophils Nucleated RBCs # 0.0 Platelet Estimate Hypochromasia Specimen Type Sample Site ABG pH ABG pCO2 ABG pO2 ABG HCO3 ABG Base Excess Faheem Test Hematocrit O2 Delivery Device O2 Liters/Min Lawn Care Technician ID Sodium 140 Potassium 4.1 Chloride 103 Carbon Dioxide 28 Anion Gap 13.1 BUN 14 Creatinine 0.9 GFR Calculation 63.4 L Glucose 101 POC Glucose 92 Calculated Osmolality 291 Lactate Calcium 8.0 L Total Bilirubin 0.4 AST 11 ALT 10 Alkaline Phosphatase 93 Total Protein 5.5 L Albumin 2.3 L Globulin 3.2 04/04/21 03:20 WBC RBC Hgb Hct MCV MCH MCHC RDW Plt Count MPV Neut % (Auto) Lymph % (Auto) Howard % (Auto) Eos % (Auto) Baso % (Auto) Neut # (Auto) Lymph # (Auto) Howard # (Auto) Eos # (Auto) Baso # (Auto) Nucleated RBC % (auto) Total Counted Atypical Lymphs % Absolute Neutrophils Segmented Neutrophils Abs Segm Neuts (Man) Band Neutrophils Abs Band Neuts (Man) Absolute Lymphocytes Lymphocytes (Manual) Monocytes (Manual) Absolute Monocytes Eosinophils (Manual) Absolute Eosinophils Basophils (Manual) Absolute Basophils Nucleated RBCs # Platelet Estimate Hypochromasia Specimen Type Sample Site ABG pH ABG pCO2 ABG pO2 ABG HCO3 ABG Base Excess Faheem Test Hematocrit O2 Delivery Device O2 Liters/Min Lawn Care Technician ID Sodium Potassium Chloride Carbon Dioxide Anion Gap BUN Creatinine GFR Calculation Glucose POC Glucose Calculated Osmolality Lactate 1.7 Calcium Total Bilirubin AST ALT Alkaline Phosphatase Total Protein Albumin Globulin Micro: Microbiology 04/03/21 06:24 Blood Culture - Preliminary Blood SPECIMEN COLLECTED 04/03/21 06:22 Blood Culture - Preliminary Blood SPECIMEN COLLECTED Cardiac Studies: No Data to Display
[2021-04-04] MEDS: piperacillin-tazobactam 3.375 GM in sodium chloride 0.9% (plus) 50 ML IV ×3 (05:00→21:43)
[2021-04-04] MEDS: metroNIDAZOLE IV 500 MG/100 ML PREMIX 100 MG IV ×4 (05:15→21:53)
--- NOTE | 2021-04-04 06:17 | ANES.PROC ---
Anesthesia Procedures Procedure/Date: 04/04/21 Arterial Line: Time Out Performed: Yes Consent: requested by attending/covering physician, from patient, risks and benefits reviewed and patient agrees to proceed Size (Gauge): 20 Technique Used: guide wire technique Post-Procedure: dry sterile dressing placed Patient Tolerated Procedure: well Complications: other (Hematoma) Site: left and radial Additional Comments: 4 attempts at left radial, hypotensive
--- NOTE | 2021-04-04 06:44 | PC.NURSE ---
03:25 Pt transferred from Med-surg unit, brought emergently from CT, Pt in extreme pain in her left lower abdominal area. Dr. Davis at bedside, NG tube placed with 1L green bile output. Pt prepped & consented for exp. lap, Dr. Prince called and notified family. 05:00 Pt taken emergently to the OR.
--- NOTE | 2021-04-04 08:25 | P.OP_ITS ---
Operative Report Date of procedure: April 04, 2021 Pre-op Diagnosis: Peritonitis Post-op diagnosis: same (Purulent peritonitis with perforation of the sigmoid colon) Post-op Findings: Markedly inflamed sigmoid colon with distal perforation at the rectosigmoid junction Procedure Done: Ex lap with open sigmoid colectomy and Torres's procedure. Peritoneal lavage Implants: 19 [place] round Dimitris drain towards the pelvis Specimens removed/disposition: Sigmoid colectomy sutures marked proximal Staple line Surgeon: Pablo Vergara Barrel Racer: Surgical techs Annabella Jefferson Shift change Tracy and Nathan Circulating nurses Areli LOVING, shift change Naya Anesthesia: General (Sixto Ornelas and Dr. Maki/shift change Omer) Estimated blood loss (mL): 50 IV fluids: 700 mL crystalloids and 250 mL 5% albumin Urine output (mL): 50 Condition: stable Disposition: ICU Procedure: The patient was brought from the ICU directly to the operating room and was placed in a supine position on the operating room table. General endot ngozi anesthesia was induced. Timeout was done verifying the patient's name/date of /planned procedure and destination after the procedure, all were in agreement.SCDs confirmed to be functioning, preoperative antibiotics administered per protocol, and beta eda protocol was confirmed. Patient already had an NG tube and Cervantes catheter The abdomen was prepped and draped in a sterile fashion. A midline incision was carried out from just above the umbilicus to the pubis. Cautery was used to divide the subcutaneous tissue and the midline fascia and the peritoneal cavity was entered purulent material was appreciated. The Sheldon retractor was used for exposure. Palpation revealed a remarkably thickened and inflamed sigmoid colon with appreciated perforation towards the rectosigmoid junction with feculent material.No liver masses were palpated. No other obvious abnormalities were seen or palpated. Except for some interloop small bowel abscesses as one of the small bowel was encasing the site of the perforation that was dismantled manually without injuring the bowel. Copious irrigation was done and at this point I started mobilizing the sigmoid colon through the line of Toldt using combination of sharp and blunt dissection in addition to LigaSure device. Was able to mobilize the colon up to splenic flexure, at this point the TAY pedicle was identified and a white load of [place] 45 mm stapler was applied x2 to control the pedicle. The dissection down towards the rectum with remarkable scar tissues and desmoplastic reaction. I was able to free the rectosigmoid segment and identify a healthier distal part of the colon meaning the proximal rectum and at this point an [place] 45 mm green load was applied x2 leaving behind a healthy stump of the rectum. Further mobilization towards the splenic flexure and distal transverse colon was achieved to free up an appropriate segment of the colon for creation of future colostomy. Proximal part of the sigmoid colon towards the healthy distal descending colon was a part of division using [place] 45 mm blue load.At that point the sigmoid colon was passed to the circulating nurse with sutures marked proximal. I decided at this point to apply Prolene sutures to kush the Rectal stump for future reference. At this point copious and thorough irrigation was repeated again to all 4 quadrants of the abdomen about 10 L at least of warm saline were used for irrigation. I Decided at this point about the appropriate potential site of colostomy as a tension-free colostomy towards the left upper side of the abdome n. Incision was created under direct visualization to accommodate the colostomy, dissection was carried all the way subcutaneous tissues and muscle layer, the site was wide enough to accommodate my 2 examining fingers, at that point the distal part of the descending colon was retrieved without tension via that site.A 2-0 Vicryl were used to pexy the segment of the colon at the colostomy site from within the abdomen to the posterior abdominal wall direct visualization. Hemostasis was achieved, at this point I ran the small bowel from the ligament of Treitz to the terminal ileum which,showed no abnormalities,no evidence of carcinomatosis, there was some flakes of fibrinous exudates that was peeled of gently of the serosal layer of the small bowel segment. There was some serosal tears at the descending part of the colon that was repaired by 3-0 silk's figure of eights and additional serosal tear towards the distal part of transverse colon that was also repaired by 3-0 silk. The rest of the colon was normal looking well as the spleen and the stomach, the NG felt to be in good position. The midline fascia was closed using a looped #1 PDS. The subcutaneous tissue was extensively irrigated and the skin was then approximated using skin kellie leaving behind gaps of the skin incision for packing with wet-to-dry Kerlix followed by ABD. Attention now was deviated towards creation of the closed A curved Benítez was used to take the staple line off the colostomy passed to the circulating nurse for permanent pathology At this 0.3 0 Vicryl was used circumfe rentially to maintain the colostomy in good position, I used 3-0 Vicryl at the 4 poles of the colostomy ,stitch was placed in the mucosa then seromuscular and then subdermal layer at the 4 poles,followed by interrupted sutures between the mucosa and the subdermal layer. An ostomy appliance was applied now. Patient continued to be stable and was transferred directly to the ICU and maintained to be intubated for further resuscitation. I was present for the whole entire procedure.
--- NOTE | 2021-04-04 08:28 | PC.RESP ---
SMOKING CESSATION AND PULMONARY REHAB INFORMATION SENT TO PATIENT.
--- NOTE | 2021-04-04 09:06 | P.PN_ITS ---
Subjective Subjective: Interval history: overnoght events noted, continued to c/o abdominal pain which resulted in rechecking CT abdomen, revealing pneumoperitonium and perforarted diverticulitis. Now s/p Ex lap with open sigmoid colectomy and Torres's procedure. OR findings with markedly inflamed sigmoid colon with distal perforation at the rectosigmoid junction. Intraoperatively with hypotension requiring phenylephrine support, now on levophed post operatively. Medications: Reviewed: Yes Vitals/I&O/Wt Last Vital Signs Temp 98.8 F 04/04/21 04:00 Pulse 110 H 04/04/21 05:07 Resp 20 H 04/04/21 03:51 BP 131/81 04/04/21 04:00 Pulse Ox 92 04/04/21 04:00 04/03/21 04/04/21 04/04/21 22:59 06:59 14:59 Intake Total 1147.5 / 2197.5 300 / 2497.5 Output Total 450 / 450 50 / 50 Balance 697.5 / 1747.5 300 / 2047.5 -50 / -50 Weight last 48 hrs Weight 96.797 kg Physical Exam Narrative: EXAM NARRATIVE: GEN: Intubated, sedated post op CVS: S1S2 N RS: CTA B/L anteriorly Abd: distended, surgical dresing, colostomy in place WOOLING MACHINE OPERATOR: unable to assess Urinary Catheter Management^: Cervantes: Cath Placed During This Visit: yes Reason for Continuing Indwelling Catheter: Accurate Measurement of Urinary Output in Critically Ill Patients Urinary Catheter Date of Insertion: 04/03/21 Urinary Catheter Time of Insertion: 13:30 Data : 04/04/21 03:20 04/04/21 03:20 Micro: Microbiology 04/03/21 06:24 Blood Culture - Preliminary Blood NEGATIVE TO DATE 04/03/21 06:22 Blood Culture - Preliminary Blood NEGATIVE TO DATE A&P Assessment and plan (1) Diverticular 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: Status: Acute Additional A&P Information Sigmoid diverticular perforation with abscess Overnight with woresening clinical status, taken to OR this am for Ex lap with open sigmoid colectomy and Torres's procedure. Currently remains intubated post op Expect difficult extubation in view of COPD, obesity hypoventilation , CHF and PAH Currently on pressors and IVF, monitoring respiratory status closely Preserved ejection fraction heart failure with mild pulmonary hypertension: No acute exacerbation patient is getting fluid resuscitation for abdominal pain and hypotension closely monitor for signs of fluid overload and he saturating well on 3 L nasal cannula Hypothyroidism current: Continue levothyroxine regimen N.p.o. Full code DVT prophylaxis : Heparin Attestations Medical Necessity Statement*: s/p ex lap today, remains intubated post procedure, needs respiratory optimization priro to exubation Procedures Arterial Line Size (Gauge): 20 Coding Level of Care Code Acute Physically Impaired Teacher for Chg Fwd Diagnoses Diverticular 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 K57.80
--- NOTE | 2021-04-04 09:14 | ANE.PACU2 ---
Inpatient post-anesthesia follow up: Airway intact: Yes (ETT) Vital signs: Temperature 98.8 F Pulse Rate 110 Respiratory Rate 20 Blood Pressure 131/81 Pulse Oximetry 92 Oxygen Delivery Me thod Nasal Cannula Oxygen Flow Rate 4 Fraction of Inspir ed Oxygen Hydration adequate: No Nausea and vomiting: No Pain level: 2 Mental status: Altered (Sedated) Additional Comments: Intubated/ventilated to ICU, stable, mild dehydration.
[2021-04-04] MEDS: budesonide 0.5 mg/2 mL Neb INHALATION ×2 (09:23→19:58)
[2021-04-04] MEDS: propofol 1,000 MG/100 ML INJ 5.8 MG IV (09:42)
--- NOTE | 2021-04-04 09:43 | PC.NURSE ---
Propofol gtt started for ETT tolerance et per physician request. Pt back to ICU from OR at 0850. Anesthesia administered Versed et vecuronium prior to transport.
--- NOTE | 2021-04-04 09:47 | XR_ITS ---
WS: [id number] Portable AP upright chest, 04/04/2021 Clinical Data: ETT and gastric tube placement Comparison: Portable chest, 06/15/2020. Findings: The endotracheal tube and nasogastric tube remain in good position. No nodules, masses or e ffusions are seen. The heart is normal. The pulmonary vascularity is not increased. No pneumonia or p neumothorax is present. There is a monitor lead on the left chest wall. XR/XR chest 1V portable [id number] Impression: Satisfactory position of endotracheal tube and nasogastric tube.
[2021-04-04 10:02] LABS: ABG PCO2 59.3 mmHg (35-45); ABG PH Result 7.22 (7.35-7.45); Arterial Blood Gas Hematocrit 37.8 % (37-47); Base Excess ABG -4.5 mmol/L (-2.0-2.0); Blood Gas Operator Identificat GD; Blood Gas Sample Site Not specified; Blood Gas Sample Type Arterial; Carboxyhemoglobin < 0.0 %THgb (0.4-20.1); HGB O2 Sat 97.9 % (95-100); Ionized Calcium Level - ABG 1.3 mmol/L (1.1-1.4); Methemoglobin 1.2 % (0.4-1.5); Oxygen Device VENT; Oxygen Saturation ABG 99.1; Potassium Level - ABG 3.8 mmol/L (3.5-5.0); Total Hemoglobin 12.3 g/dL (12-16)
[2021-04-04] MEDS: sodium chloride 0.9% 1,000 ML 75 ML IV (11:17)
[2021-04-04 14:08] LABS: Glucose Point of Care 115 mg/dL (70-110)
[2021-04-04 14:08] LABS: Glucose Point of Care 102 mg/dL (70-110)
[2021-04-04 15:59] LABS: ABG PCO2 44.2 mmHg (35-45); ABG PH Result 7.32 (7.35-7.45); Alveolar-Arterial Oxygen Gradi 18.4 mmHg (5-10); Arterial Blood Gas Hematocrit 36.1 % (37-47); Base Excess ABG -3.6 mmol/L (-2.0-2.0); Blood Gas Operator Identificat GD; Blood Gas Sample Site Not specified; Blood Gas Sample Type Arterial; Carboxyhemoglobin 0.5 %THgb (0.4-20.1); HCO3 ABG 22.5 mmol/L (22-26); HGB O2 Sat 94.1 % (95-100); Ionized Calcium Level - ABG 1.2 mmol/L (1.1-1.4); Methemoglobin 1.5 % (0.4-1.5); Oxygen Device VENT; Oxygen Saturation ABG 95.9; PO2 ABG 89.7 mmHg (80.0-100.0); Potassium Level - ABG 3.9 mmol/L (3.5-5.0); Total Hemoglobin 11.8 g/dL (12-16)
--- NOTE | 2021-04-04 17:25 | PC.NURSE ---
Physical assessment note: Patient will open eyes spontaneously et follow simple commands. Patient attempt to mouth words. Patient does state that she has pain et requests water. RN educated patient on procedure today, plan of care new medications she is on.
[2021-04-04] MEDS: sodium chloride 0.9% 1,000 ML 125 ML IV ×2 (17:45→23:56)
--- NOTE | 2021-04-04 17:45 | PC.NURSE ---
Called Dr. Murray to update on pts low urine output, vital signs et need for vasopressors.Updated on patient condition, new orders noted et implemented. Will continue to monitor.
[2021-04-04 18:25] LABS: Glucose Point of Care 191 mg/dL (70-110)
[2021-04-04 18:26] LABS: Glucose Point of Care 234 mg/dL (70-110)
[2021-04-04] MEDS: albumin 12.5 GM/50 ML VIAL IV (18:28)
[2021-04-04] MEDS: propofol 1,000 MG/100 ML INJ 11.6 MG IV (19:55)
[2021-04-04] MEDS: HYDROmorphone 1 mg/mL INJ 1 mL 2 MG IVP (20:25)
[2021-04-04 20:57] LABS: Glucose Point of Care 183 mg/dL (70-110)
[2021-04-04] MEDS: norepinephrine 8 MG in dextrose 5 % 500 ML 53.3 MG IV (22:12)
[2021-04-04] MEDS: propofol 1,000 MG/100 ML INJ 20.3 MG IV (23:13)
[2021-04-05] VITALS (78 sets, daily range): BP systolic 74–141; BP diastolic 35–77; PULSE 78–107; RESP 14–25; TEMP 36.8–37.3; O2SAT 92–98
[2021-04-05] MEDS: ipratropium-albuterol 3 mL Neb INHALATION ×4 (02:21→20:10)
[2021-04-05] MEDS: propofol 1,000 MG/100 ML INJ 23.2 MG IV (02:39)
[2021-04-05] MEDS: HYDROmorphone 1 mg/mL INJ 1 mL 2 MG IVP ×4 (03:36→23:29)
[2021-04-05] MEDS: metroNIDAZOLE IV 500 MG/100 ML PREMIX 100 MG IV ×2 (03:47→11:27)
[2021-04-05 04:26] LABS: ABG PCO2 41.4 mmHg (35-45); ABG PH Result 7.33 (7.35-7.45); Blood Gas Sample Type Arterial; HCO3 ABG 21.7 mmol/L (22-26); PO2 ABG 88.1 mmHg (80.0-100.0)
[2021-04-05 04:28] LABS: Blood Gas Operator Identificat HARKR; Blood Gas Sample Site Not specified; Oxygen Device VENT
[2021-04-05 04:56] LABS: Basophils # 0.2 10^3/uL (0.0-0.1); Basophils % 0.6 %; Hematocrit 33.3 % (37.0-47.0); Hemoglobin 10.2 g/dL (11.5-15.3); Lymphocytes # 1.7 10^3/uL (0.8-4.8); Lymphocytes % 6.5 %; Mean Corpuscular HGB Conc 30.6 g/dL (30.0-36.0); Mean Corpuscular Hemoglobin 28.3 pg (28.0-34.0); Mean Corpuscular Volume 92.2 fL (81-99); Mean Platelet Volume 9.8 fL (7.4-10.4); Monocytes # 1.3 10^3/uL (0.2-0.9); Monocytes % 5.1 %; Neutrophils % 86.5 %; Nucleated Red Blood Cells % 0 %; Platelet Count 696 10^3/cmm (130-400); Red Blood Count 3.61 10^6/uL (4.1-5.3); White Blood Count 25.5 10^3/uL (4.0-10.0)
[2021-04-05] MEDS: piperacillin-tazobactam 3.375 GM in sodium chloride 0.9% (plus) 50 ML IV ×3 (05:06→22:01)
[2021-04-05 05:32] LABS: Anion Gap 12.4 (5-19); Blood Urea Nitrogen 22 mg/dL (8-23); Calcium 7.6 mg/dL (8.5-10.5); Carbon Dioxide 23 mmol/L (22-29); Chloride 107 mmol/L (98-107); Creatinine Clr Calc Pharmacy 44.3308; Glomerular Filtration Rate 38.1 mL/min (90-130); Glucose 145 mg/dL (65-115); Osmolality Calculated 294 mOsm/kg (285-295); Potassium 3.4 mmol/L (3.5-5.1); Sodium 139 mmol/L (136-145)
[2021-04-05 05:49] LABS: Slide Review Slide Review Perform
--- NOTE | 2021-04-05 06:04 | PM.PN ---
Subjective Subjective: Interval history: Patient continues to be critical status requiring pressors on mechanical ventilation. Marginal urine output. Patient is requiring more narcotics for pain control. Medications: Reviewed: Yes Vitals/I&O/Wt Last Vital Signs Temp 97.9 F 04/04/21 12:00 Pulse 100 04/05/21 05:15 Resp 18 04/05/21 04:35 BP 101/61 04/05/21 04:00 Pulse Ox 95 04/05/21 04:35 04/04/21 04/04/21 04/05/21 14:59 22:59 06:59 Intake Total 1231.437 / 2150.914 6332.496 / 3071.933 1767.472 / 4839.405 Output Total 155 / 155 490 / 645 610 / 1255 Balance 1076.437 / 4311.181 0572.496 / 2426.933 1157.472 / 3584.405 Weight last 48 hrs Weight 213 lb 6.4 oz Physical Exam Narrative: EXAM NARRATIVE: Patient is conscious, semialert, sedated on mechanical ventilation BMI 40 Head and neck examination PERRLA no masses no cervical lymphadenopathy no jaundice NG in place Cardiac examination audible S1-S2 no murmurs no gallops no arrhythmias Chest is clear bilateral,abscence of Rhonchi or wheezes,no surgical emphysema Abdomen nontender nondistended soft no organomegaly guarding or rigidity/no signs of peritonitis Wound bed is clean and packing was removed and replaced by pa bedside Cervantes catheter in place with concentrated urine Extremities no cyanosis no clubbing no edema Urinary Catheter Management^: Cervantes: Cath Placed During This Visit: yes Reason for Continuing Indwelling Catheter: Accurate Measurement of Urinary Output in Critically Ill Patients Urinary Catheter Date of Insertion: 04/03/21 Urinary Catheter Time of Insertion: 13:30 Data : 04/05/21 03:46 04/05/21 03:46 Micro: Microbiology 04/04/21 11:20 Gram Stain - Final Sputum - Endotracheal Tube Aspirate 04/03/21 06:24 Blood Culture - Preliminary Blood NEGATIVE TO DATE 04/03/21 06:22 Blood Culture - Preliminary Blood NEGATIVE TO DATE A&P Assessment and plan (1) Diverticular 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: Patient is a status post exploratory laparotomy with Torres's procedure(open sigmoid colectomy with colostomy) 04/04/2021 Plan: PLAN OF CARE from surgical standpoint of view: CVS: Continue continuous cardiac monitoring, heart rate normalized, will continue resuscitation Anemia stable H&H IV fluid normal saline 1 L bolus We will resume heparin subcu 5000 subcutaneous every 8 hours for pharmacologic DVT prophylaxis Pain control; will add affirmative 1 g every 8 hours as needed as a nonnarcotic to help alleviating the pain, Toradol is a potential appropriate medication yet patient's kidney functions showing elevated creatinine of 1.4, I would be cautious using it for pain medication at this time yet I will defer to hospitalist service to weigh the risk benefit PULMONARY: Weaning of mechanical ventilation per protocol and with coordination with hospitalist service Continue Aggressive pulmonary toilet GI: Pepcid 20 mg IV was ordered as patient on mechanical ventilation Once patient is weaned off pressors will consider trophic feeds via NG tube Keep NG tube to low intermittent wall suction and to be flushed with 50 mL of saline every 8 hours as needed NUTRITION: Shall Patient continues to be on pressors for longer period of time,consideration of PICC line and TPN with nutrition consultation would be appropriate. RENAL: Continue monitoring kidney functions Strict I's and O's Continue electrolyte protocols for replacement including calcium potassium and magnesium INFECTIOUS DISEASE: Continue antibiotics per hospitalist service. NEUROLOGY: No evidence of neurological deficit MOBILITY: Consult physical therapy SKIN AND WOUND: Daily wet to dry dressing change for abdominal incision, packing with Kerlix followed by ABDs Thank you for consulting general surgery to participate taking care Ms. Nunn Status: Acute Attestations Medical Necessity Statement*: Patient will require inpatient hospitalization passing 2 midnights for critical care Time Spent in Patient Care: (>than 50% of time spent in counselling and/or direct pt care on unit). Procedures Arterial Line Size (Gauge): 20 Coding Level of Care Code Acute Vehicle Safety Inspector for g Fwd Diagnoses Diverticular 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 K57.80
[2021-04-05] MEDS: famotidine 20 mg/2 mL INJ IVP ×2 (06:23→18:17)
[2021-04-05] MEDS: propofol 1,000 MG/100 ML INJ 20.3 MG IV (06:23)
[2021-04-05] MEDS: sodium chloride 0.9% 1,000 ML 999 ML IV (06:24)
[2021-04-05] MEDS: acetaminophen 1,000 MG/100 ML PIGGYBACK 400 MG IV (06:34)
[2021-04-05] MEDS: heparin 5,000 unit/mL INJ 1 mL 5000 UNIT SUBCUT ×2 (06:49→22:01)
--- NOTE | 2021-04-05 07:30 | PC.NURSE ---
Upon assessing patient, RN noticed that the patients right arm proximal to right wrist IV site was leaking a large amount of fluid et was very swollen. Patient was receiving a NS bolus at a rate of 999/hr, fentanyl @ 200 mcg/hr levophed @ 8 mcg/min et zosyn aat 12.5 ml/hr. All infusions were immediately stopped. The IV in the right AC was assessed et flushed with 10 mL NS. The right AC IV did not return blood but did flush well. All infusion were then moved to the Right AC IV. A warm compress was applied to the right wrist infiltrated IV. Since the patient was receiving levophed through the IV that infiltrated, pharmacy was contacted about the need of treatment of levophed infiltration. Will also notify the physician.
[2021-04-05] MEDS: budesonide 0.5 mg/2 mL Neb INHALATION ×2 (08:10→20:10)
[2021-04-05 09:08] LABS: Glucose Point of Care 118 mg/dL (70-110)
[2021-04-05] MEDS: levothyroxine 25 mcg Tablet PO (09:16)
[2021-04-05] MEDS: propofol 1,000 MG/100 ML INJ 26.1 MG IV ×2 (09:52→22:24)
[2021-04-05] MEDS: sodium chloride 0.9% 1,000 ML 125 ML IV (10:30)
[2021-04-05] MEDS: nitroglycerin 1 gm/inch oint Pkt 0.5 INCH TOPICAL ×3 (11:22→22:01)
--- NOTE | 2021-04-05 11:51 | P.CONIM_ITS ---
Providers/Reason For Consult Consulting Physican/Specialty*: Pulmonary critical care medicine Reason for Consult*: Critically ill patient with colonic perforation Attending Physician: Fatimah Murray MD Primary Care Provider: Ed Hunter History of Present Illness History of Present Illness Reyna Nunn is a 60 year old female who presented to the hospital on April 03 after being transferred from an outside hospital with perforated sigmoid diverticulitis, pneumoperitoneum and abscess. The patient was initially managed conservatively however due to deterioration of her clinical condition was taken to the OR and underwent exploratory laparotomy with open sigmoid colectomy and Rosamaria procedure on April 04. The patient carries a previous diagnosis of COPD with chronic hypoxic respiratory failure requiring 2 L oxygen. She also carries a diagnosis of heart failure and pulmonary hypertension. She is on chronic pain medication at home for back pain. Her echocardiogram from December 2019 revealed likely normal left ventricular function. The echocardiogram was of poor quality. There is grade 1 diastolic dysfunction. Mild pulmonary hypertension with RVSP of 43.6 was measured. The atria were of normal size. Patient likely has at least mild aortic regurgitation based on the rate although it reads mitral regurgitation under aortic valve. There is no previous pulmonary function test. The only chest x-ray I could find from last year consolidation involving right lower lung zone. No CT scan of the chest available from before. The patient was seen and examined in the intensive care unit today. She is currently intubated and sedated. On volume control?assist control mode of ventilation. The patient is arousable. Currently she is off of pressors. The patient is more than 5 L positive. I performed a bedside ultrasound. The patient has B-lines on lung ultrasound, no significant pleural effusion on the left side, mild pleural effusion on the right side. Review of Systems Narrative: Unable to obtain because of clinical status Meds/Allergies Home Medications and Allergies Home Medications Medication Instructions Recorded Confirmed Last Taken Type albuterol sulfate 90 mcg/actuation 2 puff INHALATION Q6H PRN 12/18/19 04/03/21 01/12/20 08:00 History aerosol inhaler budesonide 0.5 mg/2 mL suspension 0.5 mg INHALATION BID 12/18/19 04/03/21 01/12/20 22:00 History for nebulization levothyroxine 25 mcg capsule 25 mcg PO DAILY 12/18/19 04/03/21 04/02/21 History naproxen 500 mg tablet 500 mg PO BID #60 tab 12/19/19 04/03/21 04/02/21 Rx aspirin 81 mg chewable tablet 81 mg PO DAILY tab 02/13/20 04/03/21 04/02/21 History nystatin [Nystop] 1 applic TOPICAL BID 06/10/20 04/03/21 Unknown History amlodipine [Norvasc] 10 mg PO DAILY #30 tab 06/18/20 04/03/21 04/02/21 Rx furosemide [Lasix] 20 mg PO QAM #30 tab 06/18/20 04/03/21 04/02/21 Rx lisinopril 10 mg PO BID #30 tab 06/18/20 04/03/21 04/02/21 Rx metoprolol tartrate 25 mg PO BID #30 tab 06/18/20 04/03/21 04/02/21 Rx duloxetine 30 mg capsule,delayed 30 mg PO BID #60 cap 02/07/21 04/03/21 04/02/21 Rx release levothyroxine [Euthyrox] 25 mcg PO DAILY@0600 04/03/21 04/03/21 04/02/21 History oxycodone 15 mg PO 5XD 04/03/21 04/03/21 04/02/21 History Allergies Allergy/AdvReac Type Severity Reaction Status Date / Time No Known Allergies Allergy Verified 02/07/21 10:29 Current Medications Current Medications Generic Name Dose Route Start Last Admin Trade Name Freq PRN Reason Stop Dose Admin Albuterol/Ipratropium 3 ml 04/03/21 21:00 04/05/21 08:10 Ipratropium-Albuterol 3 Ml Neb INHALATION 3 ml Q6H.RESPIRATORY LALITO Administration Amlodipine Besylate 10 mg 04/03/21 09:00 04/05/21 09:14 Amlodipine 10 Mg Tablet PO Not Given DAILY LALITO Budesonide 0.5 mg 04/03/21 20:00 04/05/21 08:10 Budesonide 0.5 Mg/2 Ml Neb INHALATION 0.5 mg BID.RESPIRATORY LALITO Administration Famotidine 20 mg 04/05/21 07:00 04/05/21 06:23 Famotidine 20 Mg/2 Ml Inj IVP 20 mg Q12H LALITO Administration Heparin Sodium (Beef Lung) 5,000 unit 04/05/21 07:00 04/05/21 06:49 Heparin 5,000 Unit/Ml Inj 1 Ml SUBCUT 5,000 unit Q8H LALITO Administration Hydromorphone HCl 2 mg 04/04/21 20:11 04/05/21 03:36 Hydromorphone 1 Mg/Ml Inj 1 Ml IVP 2 mg Q4H PRN Administration Abdominal pain Piperacillin Sod/Tazobactam 50 mls @ 12.5 mls/hr 04/03/21 06:00 04/05/21 09:06 Sod 3.375 gm/ Sodium Chloride IV Infused Q8H LALITO Infusion Protocol Metronidazole 500 mg in 100 mls @ 100 mls/hr 04/04/21 04:45 04/05/21 11:27 Flagyl Iv IV 100 mls/hr Q6H LALITO Administration Protocol Fentanyl 1,000 mcg/ Sodium 100 mls @ 0 mls/hr 04/04/21 09:15 04/05/21 05:53 Chloride IV 125 mcg/hr .Q0M LALITO 12.5 mls/hr Titration Protocol Per Protocol Propofol 1,000 mg in 100 mls @ 0 mls/hr 04/04/21 09:15 04/05/21 11:00 Diprivan IV 50 mcg/kg/min .Q0M LALITO 29 mls/hr Titration Protocol Per Protocol Sodium Chloride 1,000 mls @ 125 mls/hr 04/04/21 17:45 04/05/21 10:30 Sodium Chloride 0.9% IV 125 mls/hr .Q8H LALITO Administration Norepinephrine Bitartrate 8 mg 508 mls @ 0 mls/hr 04/04/21 21:30 04/05/21 10:28 / Dextrose IV Infused .Q0M LALITO Titration Protocol Per Protocol Acetaminophen 1,000 mg in 100 mls @ 400 mls/hr 04/05/21 06:15 04/05/21 06:49 Acetaminophen IV 04/05/21 22:29 Infused Q8H PRN Infusion mild PAIN Insulin Aspart 0 unit 04/03/21 08:00 04/05/21 08:53 Insulin Aspart 100 Unit/1 Ml SUBCUT Not Given WM&BEDTIME LALITO Protocol Ketorolac Tromethamine 15 mg 04/03/21 19:34 04/03/21 20:44 Ketorolac 30 Mg/Ml Inj IVP 04/08/21 19:44 15 mg Q8H PRN Administration moderate pain Levothyroxine Sodium 25 mcg 04/03/21 09:00 04/05/21 09:16 Levothyroxine 25 Mcg Tablet PO 25 mcg DAILY LALITO Administration Metoprolol Tartrate 25 mg 04/03/21 09:00 04/05/21 09:15 Metoprolol Tartrate 25 Mg Tablet PO Not Given BID LALITO Nitroglycerin 0.5 inch 04/05/21 10:00 04/05/21 11:22 Nitroglycerin 1 Gm/Inch Oint Pkt TOPICAL 04/06/21 04:01 0.5 inch Q6H LALITO Administration PFSH Acute PFSH: Medical History Acute on chronic respiratory failure with hypoxia and hypercapnia Bilateral shoulder pain Carpal tunnel syndrome, bilateral CHF (congestive heart failure) -on Lasix -Echo (12/2019): EF wnl, G1DD, mild pulmonary HTN - COPD (chronic obstructive pulmonary disease) DDD (degenerative disc disease), lumbar Hypertension Hypothyroidism -on levothyroxine Long-term use of high-risk medication Opioid contract exists KEO (obstructive sleep apnea) Paresthesia of right upper extremity Requires oxygen therapy Tobacco abuse Surgical History History of nasal surgery NOSE RESECTION S/P hernia surgery S/P hysterectomy Family History Father Cancer Heart disease Diabetes Mother Heart disease Diabetes Fibromyalgia Brother Heart disease Sister Heart disease Diabetes Social History Smoking and tobacco status: current every day smoker cigarettes [ Other cigarette details: 01/30 k day ] Alcohol intake: never Lives independently: Yes Household members: other Details: Says daughter, although not sure how reliable her history is. It takes a while to recall her daughter's name. Marital status: / History of recent travel: No Vitals/I&O/Wt Last Vital Signs Temp 98.9 F 04/05/21 08:00 Pulse 100 04/05/21 10:30 Resp 15 04/05/21 09:37 BP 106/57 04/05/21 10:30 Pulse Ox 95 04/05/21 10:30 04/04/21 04/05/21 04/05/21 22:59 06:59 14:59 Intake Total 1840.496 / 3071.933 2890.090 / 5962.023 1319.646 / 1319.646 Output Total 490 / 645 610 / 1255 85 / 85 Balance 1350.496 / 2426.933 2280.090 / 4707.023 1234.646 / 1234.646 Physical Exam Narrative: EXAM NARRATIVE: General: Patient intubated and sedated. Able to respond by nodding head Neck: No JVD Respiratory: Auscultation: Reduced breath sound bilaterally, crackles at the posterior lung bases, no wheezing but diffuse rhonchi Cardiovascular: Regular rate and rhythm, S1-S2 present, generalized puffiness overall Abdomen: Soft, mild tenderness with palpation, distended from obesity, colostomy wound looks clean, no signs of peritonitis Skin: No rash Neuro: Unable to assess completely, moves all extremities Urinary Catheter Management^: Cervantes: Cath Placed During This Visit: yes Reason for Continuing Indwelling Catheter: Accurate Measurement of Urinary Output in Critically Ill Patients Urinary Catheter Date of Insertion: 04/03/21 Urinary Catheter Time of Insertion: 13:30 Data Micro: Micro: Microbiology 04/04/21 11:20 Gram Stain - Final Sputum - Endotrac heal Tube Aspirate Other Data: Attestation for Other Data: I personally reviewed and interpreted the following: Other data: I have reviewed the patient's laboratory, microbiologic and radiologic data. The patient has leukocytosis. Chest x-ray revealed right-sided pleural effusion. There is SELVIN with a creatinine of 1.4. A&P Assessment and plan (1) Acute and chronic respiratory failure with hypoxia: This is a 60-year-old lady with a history of COPD and chronic hypoxic respiratory failure requiring 2 L of oxygen at home. The patient was hospitalized with sigmoid diverticulitis, perforation, abscess formation and underwent expiratory laparotomy with colostomy and Rosamaria procedure on April 04. Currently the patient is intubated and mechanically ventilated. She is currently on volume control mechanical ventilation. Her oxygen requirement is minimal at this point. I have stopped the ongoing IV fluid. The patient is about 5 L positive. Given her history of heart failure, COPD and chronic hypoxic respiratory failure the patient is at high risk for volume overload and developing pulmonary edema in the setting of postoperative pain and increased ADH secretion leading to fluid retention. The reduced urinary output the patient is having is likely secondary to acute tubular injury as well as increased ADH level. At this point, I am going to start the patient on IV Lasix. The patient will actually continue to get IV fluid in the form of sedating medications. Will optimize the Lasix dose based on the input and output. Our goal is going to be keeping the patient even prior to extubation. Currently the patient is not on any pressors. If required, the patient can be started on norepinephrine again. Status: Acute (2) Diverticular 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: The patient has undergone expiratory laparotomy with colostomy and Rosamaria procedure on 04/04/2021. There is no sign of peritonitis. I am hoping that within the next couple of days will be able to start trickle tube feed. The patient is currently on Zosyn and metronidazole. We will only continue with Zosyn given the similar anaerobic coverage with both antibiotics. Status: Acute (3) Heart failure with preserved ejection fraction: Once the patient is stable and the pressors are off, we will start her with heart failure medications which will include beta-blockers. Status: Acute (4) COPD (chronic obstructive pulmonary disease): There is mild rhonchi at this time on chest auscultation. The diuresis may help. In addition, the patient is on budesonide nebulizer. Since the shweta ent recently had surgical intervention we will hold off on steroid as this may affect wound healing for the time being. If necessary we will use a small dose of systemic steroid in the future if there is evidence of increasing airway resistance on the ventilator. Thank you for the consultation. I will continue to follow the patient closely. 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
[2021-04-05] MEDS: norepinephrine 8 MG in dextrose 5 % 500 ML 11.4 MG IV ×2 (11:52→17:34)
[2021-04-05 12:23] LABS: Glucose Point of Care 104 mg/dL (70-110)
[2021-04-05] MEDS: propofol 1,000 MG/100 ML INJ 29 MG IV ×3 (12:41→19:05)
[2021-04-05] MEDS: FUROsemide 10 mg/mL SDV 10mL 60 MG IVP (12:41)
--- NOTE | 2021-04-05 16:00 | PC.NURSE ---
Dr. Murray at bedside to place central line. Time out performed. Family was updated on procedure but the consent was for medical emergency. Dr. Murray unable to place central line. Patient tolerated well.
--- NOTE | 2021-04-05 16:30 | PC.NURSE ---
Dr. Maki at bedside to place subclavian central line. Dr. Maki order 50 mg rocurnium. Patient was sedated with propofol et fentanyl continious gtts et rocurinium given. Left triple lumen subclavian line placed. Patient tolerated well. Will obtain chest x-ray for placement.
--- NOTE | 2021-04-05 16:32 | XRR_ITS ---
PROCEDURE INFORMATION: Exam: XR Chest Exam date and time: 04/05/2021 4:52 PM Age: 60 years old Clinical indication: Device placement; Other: Central line placement TECHNIQUE: Imaging protocol: XR of the chest. Views: 1 view. COMPARISON: CR XR chest 1V portable [id number] 04/04/2021 10:11 AM FINDINGS: Tubes, catheters and devices: A left-sided central venous catheter projects over the upper SVC. Enteric tube terminates over the upper abdomen outside of the field of view. Lungs: Mild left basilar atelectasis. Pleural spaces: Unremarkable. No pleural effusion. No pneumothorax. Heart/Mediastinum: The cardiac shadow is normal in size. Bones/joints: No acute abnormality. XR/XR chest 1V portable [id number] IMPRESSION: 1. A left-sided central venous catheter projects over the upper SVC. 2. Mild left basilar atelectasis.
[2021-04-05] MEDS: rocuronium 10 mg/mL INJ 5mL 50 MG (16:34)
--- NOTE | 2021-04-05 16:36 | ANES.PROC ---
Anesthesia Procedures Procedure/Date: 04/05/21 Central Venous Insert: Time Out Performed: Yes Consent: requested by attending/covering physician, risks and benefits reviewed and emergency procedure Central Line: New Anesthesia monitors: pulse oximetry, EKG, BP cuff and oxygen Vein cannulated: left subclavian Post procedure: Other (CXR pending) Additional Comments: Patient in supine/leg up position, sterile prep and drape, gown, mask and gloves. Seldinger technique, 3-lumen 20cm catheter, sutured, sterile dressing. Patient tolerted well (sedated, paralyzed, vent).
--- NOTE | 2021-04-05 17:41 | PM.PN ---
Subjective Subjective: Interval history: persisting leukocytosis at 25, afebrile, levophed requirements coming down at 4mics, Ana with cr trending to 1.4 Medications: Reviewed: Yes Vitals/I&O/Wt Last Vital Signs Temp 99.2 F 04/05/21 16:00 Pulse 78 04/05/21 17:15 Resp 15 04/05/21 15:38 BP 86/49 04/05/21 17:15 Pulse Ox 95 04/05/21 17:15 04/05/21 04/05/21 04/05/21 06:59 14:59 22:59 Intake Total 2890.090 / 5962.023 1593.255 / 1593.255 245.207 / 1838.462 Output Total 610 / 1255 170 / 170 2125 / 2295 Balance 2280.090 / 4707.023 1423.255 / 1423.255 -1879.793 / -456.538 Physical Exam Narrative: EXAM NARRATIVE: GEN: Intubated, sedated CVS: S1S2 N RS: CTA B/L anteriorly Abd: non distended, midline surgical dressing in place PRECISION LENS GENERATOR: unable to assess as intubated and sedated Urinary Catheter Management^: Cervantes: Cath Placed During This Visit: yes Reason for Continuing Indwelling Catheter: Accurate Measurement of Urinary Output in Critically Ill Patients Urinary Catheter Date of Insertion: 04/03/21 Urinary Catheter Time of Insertion: 13:30 Data : 04/05/21 03:46 04/05/21 03:46 Micro: Microbiology 04/04/21 11:20 Gram Stain - Final Sputum - Endotracheal Tube Aspirate Sputum Culture - Preliminary A&P Assessment and plan (1) Septic shock: Status: Acute (2) Diverticular 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: Status: Acute (3) Heart failure with preserved ejection fraction: Status: Acute Qualifiers: Heart failure chronicity: acute on chronic Qualified Code(s): I50.33 - Acute on chronic diastolic (congestive) heart failure (4) Acute and chronic respiratory failure with hypoxia: Status: Acute (5) COPD (chronic obstructive pulmonary disease): Status: Acute Qualifiers: COPD type: unspecified COPD Qualified Code(s): J44.9 - Chronic obstructive pulmonary disease, unspecified Additional A&P Information # Sigmoid diverticular perforation with abscess s/p Ex lap with open sigmoid colectomy and Torres's procedure. Currently remains intubated post operatively Currently on pressors and IVF received fluid boluses this am, now appearing to be with signs of fluid overload, pulm edema, d/c IVF and start lasix. Pulm/crit care consult to assist with volume and ventilator management and weaning # septic shock as a result of above Reducing pressor requirements today Continue Zosyn and monitor closely, if persisting leukocytosis/clinical worsening will add vancomycin for additonal enterococcal coverage # Acute and chronic respiratory failure with hypoxia contributed by COPD, obesity hypoventilation , CHF and PAH Overall ~5L net positive since admission D/c IVF LAsix today N.p.o. Full code DVT prophylaxis : Heparin Attestations Medical Necessity Statement*: pressor support, iv abx, post op monitoring Critical Care Time: The high probability of a clinically significant, sudden or life threatening deterioration of the patient's [cardiac, respiratory, GI] system(s) required my full and direct attention, intervention and personal management. The critical care time is as shown. 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
[2021-04-05 20:40] LABS: Glucose Point of Care 106 mg/dL (70-110)
[2021-04-06] VITALS (38 sets, daily range): BP systolic 82–118; BP diastolic 49–68; PULSE 80–110; RESP 14–27; TEMP 36.3–36.6; O2SAT 90–100
[2021-04-06] MEDS: FUROsemide 10 mg/mL SDV 10mL 40 MG IVP ×3 (00:03→17:33)
[2021-04-06 00:38] LABS: Anion Gap 13.7 (5-19); Blood Urea Nitrogen 23 mg/dL (8-23); Calcium 7.6 mg/dL (8.5-10.5); Carbon Dioxide 23 mmol/L (22-29); Chloride 108 mmol/L (98-107); Glomerular Filtration Rate 41.5 mL/min (90-130); Glucose 102 mg/dL (65-115); Osmolality Calculated 296 mOsm/kg (285-295); Potassium 3.7 mmol/L (3.5-5.1); Sodium 141 mmol/L (136-145)
[2021-04-06] MEDS: propofol 1,000 MG/100 ML INJ 26.1 MG IV ×3 (01:40→11:36)
[2021-04-06] MEDS: ipratropium-albuterol 3 mL Neb INHALATION ×4 (02:28→20:23)
[2021-04-06] MEDS: nitroglycerin 1 gm/inch oint Pkt 0.5 INCH TOPICAL (03:07)
[2021-04-06] MEDS: lidocaine 1% 5 ML in potassium chloride premix 100 ML 25 ML IV (04:16)
[2021-04-06] MEDS: propofol 1,000 MG/100 ML INJ 31.9 MG IV (04:39)
[2021-04-06 05:11] LABS: ABG PCO2 44.1 mmHg (35-45); ABG PH Result 7.38 (7.35-7.45); Arterial Blood Gas Hematocrit 31.8 % (37-47); Base Excess ABG 0.7 mmol/L (-2.0-2.0); Blood Gas Operator Identificat HARKR; Blood Gas Sample Type Arterial; Blood Gas Tidal Volume 0.45; Oxygen Device VENT; PO2 ABG 64.4 mmHg (80.0-100.0)
[2021-04-06] MEDS: piperacillin-tazobactam 3.375 GM in sodium chloride 0.9% (plus) 50 ML IV ×3 (06:15→22:26)
--- NOTE | 2021-04-06 06:26 | PM.PN ---
Subjective Subjective: Interval history: Weaning off pressors to about 7 or 8 mics of Levophed, improved urine output likely the patient responding to Lasix. 130 mL serous from the drain. Not much from the colostomy Vitals/I&O/Wt Last Vital Signs Temp 97.4 F L 04/06/21 04:00 Pulse 87 04/06/21 06:00 Resp 14 04/06/21 05:14 BP 101/49 04/06/21 01:00 Pulse Ox 93 04/06/21 05:14 04/05/21 04/05/21 04/06/21 14:59 22:59 06:59 Intake Total 1593.255 / 6225.545 6526.901 / 3251.156 690.204 / 3941.360 Output Total 170 / 170 3285 / 3455 1320 / 4775 Balance 1423.255 / 1423.255 -1627.099 / -203.844 -629.796 / -833.640 Physical Exam Narrative: EXAM NARRATIVE: Patient is complete sedated on mechanical ventilation BMI 40 Head and neck examination PERRLA no masses no cervical lymphadenopathy no jaundice NG in place with gastric output Cardiac examination audible S1-S2 no murmurs no gallops no arrhythmias Chest fair air entry bilateral Abdomen nontender moderately distended soft no organomegaly guarding or rigidity/no signs of peritonitis Morbidly obese Colostomy is pink and patent there is some dry scabs at the circumferential part otherwise looks healthy Right lower quadrant drain in place with serous output Wound bed is clean, packing in place Cervantes catheter in place with clearER urine Extremities no cyanosis no clubbing no edema Urinary Catheter Management^: Cervantes: Cath Placed During This Visit: yes Reason for Continuing Indwelling Catheter: Accurate Measurement of Urinary Output in Critically Ill Patients Urinary Catheter Date of Insertion: 04/03/21 Urinary Catheter Time of Insertion: 13:30 Data : 04/05/21 03:46 04/05/21 23:54 Micro: Microbiology 04/04/21 11:20 Gram Stain - Final Sputum - Endotracheal Tube Aspirate Sputum Culture - Preliminary A&P Assessment and plan (1) Diverticular 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: Patient is a status post exploratory laparotomy with Torres's procedure(open sigmoid colectomy with colostomy) 04/04/2021 Plan: PLAN OF CARE from surgical standpoint of view: CVS: Continue continuous cardiac monitoring Anemia stable H&H Continue heparin subcu 5000 subcutaneous every 8 hours for pharmacologic DVT prophylaxis Pain control; seems adequately controlled PULMONARY: Weaning of mechanical ventilation per protocol and with coordination with hospitalist service Continue Aggressive pulmonary toilet I appreciate pulmonary service input Please be cautious with diuretics as it can deplete the patient from the intravascular compartment and may cause ischemia to the colostomy. GI: Continue Pepcid 20 mg IV was ordered as patient on mechanical ventilation Once patient is weaned off pressors will consider trophic feeds via NG tube Keep NG tube to low intermittent wall suction and to be flushed with 50 mL of saline every 8 hours as needed NUTRITION: Shall Patient continues to be on pressors for longer period of time,consideration of PICC line and TPN with nutrition consultation would be appropriate. RENAL: Continue monitoring kidney functions Strict I's and O's Continue electrolyte protocols for replacement including calcium potassium and magnesium INFECTIOUS DISEASE: Continue antibiotics per hospitalist service. NEUROLOGY: No evidence of neurological deficit MOBILITY: Consult physical therapy SKIN AND WOUND: Daily wet to dry dressing change for abdominal incision, packing with Kerlix followed by ABDkeira Thank you for consulting general surgery to participate taking care Ms. Nunn Status: Acute Attestations Medical Necessity Statement*: Patient will require inpatient hospitalization passing 2 midnights for critical care Time Spent in Patient Care: (>than 50% of time spent in counselling and/or direct pt care on unit). Procedures Arterial Line Size (Gauge): 20 Coding Level of Care Code Acute Funeral Counselor for g Fwd Diagnoses Diverticular 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 K57.80
[2021-04-06] MEDS: famotidine 20 mg/2 mL INJ IVP ×2 (06:33→17:33)
[2021-04-06] MEDS: HYDROmorphone 1 mg/mL INJ 1 mL 2 MG IVP ×4 (06:33→21:42)
[2021-04-06] MEDS: heparin 5,000 unit/mL INJ 1 mL 5000 UNIT SUBCUT ×3 (06:33→22:27)
[2021-04-06] MEDS: ondansetron 2 mg/ML SDV 2 mL 4 MG IVP (07:26)
[2021-04-06] MEDS: budesonide 0.5 mg/2 mL Neb INHALATION ×2 (07:28→20:23)
[2021-04-06] MEDS: levothyroxine 25 mcg Tablet PO (08:05)
[2021-04-06 08:09] LABS: Glucose Point of Care 117 mg/dL (70-110)
[2021-04-06 11:26] LABS: Glucose Point of Care 112 mg/dL (70-110)
--- NOTE | 2021-04-06 11:36 | P.PN_ITS ---
Subjective Subjective: Interval history: remains intubated this am, levophed requirement at 6 christiane, Labs N/A currently. Medications: Reviewed: Yes Vitals/I&O/Wt Last Vital Signs Temp 97.9 F 04/06/21 09:01 Pulse 107 H 04/06/21 09:01 Resp 18 04/06/21 11:11 BP 97/54 04/06/21 09:01 Pulse Ox 95 04/06/21 11:11 04/05/21 04/06/21 04/06/21 22:59 06:59 14:59 Intake Total 1657.901 / 3251.156 741.363 / 3992.519 179.293 / 179.293 Output Total 3285 / 3455 1320 / 4775 500 / 500 Balance -1627.099 / -203.844 -578.637 / -782.481 -320.707 / -320.707 Physical Exam Narrative: EXAM NARRATIVE: GEN: Intubated, sedated CVS: S1S2 N RS: CTA B/L anteriorly Abd: non distended, midline surgical dressing in place MULTIMEDIA SPECIALIST: unable to assess as intubated and sedated Urinary Catheter Management^: Cervantes: Cath Placed During This Visit: yes Reason for Continuing Indwelling Catheter: Accurate Measurement of Urinary Output in Critically Ill Patients Urinary Catheter Date of Insertion: 04/03/21 Urinary Catheter Time of Insertion: 13:30 Data : 04/05/21 03:46 04/05/21 23:54 Micro: Microbiology 04/04/21 11:20 Gram Stain - Final Sputum - Endotracheal Tube Aspirate Sputum Culture - Preliminary A&P Assessment and plan (1) Septic shock: Status: Acute (2) Diverticular 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: Status: Acute (3) Heart failure with preserved ejection fraction: Status: Acute Qualifiers: Heart failure chronicity: acute on chronic Qualified Code(s): I50.33 - Acute on chronic diastolic (congestive) heart failure (4) Acute and chronic respiratory failure with hypoxia: Status: Acute (5) COPD (chronic obstructive pulmonary disease): Status: Acute Qualifiers: COPD type: unspecified COPD Qualified Code(s): J44.9 - Chronic obstructive pulmonary disease, unspecified Additional A&P Information # Sigmoid diverticular perforation with abscess s/p Ex lap with open sigmoid colectomy and Torres's procedure March Currently remains intubated post operatively with attempted weaning today Start PPN today awaiting return of bowel function, has not had a BM yet maintain NGT to suction # septic shock as a result of above Reducing pressor requirements Continue Zosyn and monitor closely, if persisting leukocytosis/clinical worsening will add vancomycin for additonal enterococcal coverage , pending labs this morning Check blood culture additionally # Acute and chronic respiratory failure with hypoxia contributed by COPD, obesity hypoventilation , CHF and PAH Overall ~5L net positive since admission Currently diuresing well with iv lasix Plan for vent weaning and possible extubation today N.p.o., start PPN, enteral nutrition per gen/surg Full code DVT prophylaxis : Heparin 5000s/c q8h Attestations Medical Necessity Statement*: optimization of respiratory status, ventilator weaning attenpts, pressor support Critical Care Time: The high probability of a clinically significant, sudden or life threatening deterioration of the patient's [cardiac, respiratory,GI] system(s) required my full and direct attention, intervention and personal management. The critical care time is as shown. This time is in addition to time spent performing any reported procedures but includes the following: [x] Data and vital sign review and interpretation [x] Patient assessment, examination and intervention [x] Documentation [x] Medication orders and management Critical Care Time (min): 35 Procedures Arterial Line Size (Gauge): 20 Coding Level of Care Code Acute Senior Datastage Developer for Chg Fwd Diagnoses Septic shock A41.9; R65.21 Diverticular 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 K57.80 Heart failure with preserved ejection fraction I50.33 Heart failure chronicity: acute on chronic Acute and chronic respiratory failure with hypoxia J96.21 COPD (chronic obstructive pulmonary disease) J44.9 COPD type: unspecified COPD
--- NOTE | 2021-04-06 11:55 | PC.NUTR ---
NUTR SUPPORT NOTED: 1. Start nutrition support ADAL 2. TPN via PICC line. Start TPN at 40 ml/hr and increase by 10 ml Q8H as tolerated till goal rate of 83 ml/hr is met. Suggest fluids per physician. 3. TF RECOMMENDATIONS: Pulmocare of 20 ml/hr initiated if TF is appropriate. Goal rate to be reassessed on follow up.
--- NOTE | 2021-04-06 12:04 | PM.PN ---
Subjective Subjective: Interval history: The patient was seen and examined. She diuresed very well with the Lasix yesterday. Currently the patient is on volume control mechanical ventilation, I have switched her to pressure support ventilation with PSV of 8 and a PEEP of 5. She is on 35% oxygen. Her tidal volume is ranging from 4 60-500. Currently the patient is on 30 mcg of propofol and 100 mcg of fentanyl. The patient is actually able to answer questions by nodding her head. Patient is on a minimal dose of Medications: Reviewed: Yes Vitals/I&O/Wt Last Vital Signs Temp 97.9 F 04/06/21 09:01 Pulse 107 H 04/06/21 09:01 Resp 17 04/06/21 12:02 BP 97/54 04/06/21 09:01 Pulse Ox 95 04/06/21 12:02 04/05/21 04/06/21 04/06/21 22:59 06:59 14:59 Intake Total 1657.901 / 3251.156 741.363 / 3992.519 263.248 / 263.248 Output Total 3285 / 3455 1320 / 4775 500 / 500 Balance -1627.099 / -203.844 -578.637 / -782.481 -236.752 / -236.752 Physical Exam Narrative: EXAM NARRATIVE: General: Patient intubated and sedated. Able to respond by nodding head Neck: No JVD Respiratory: Auscultation: Clear breath sound bilaterally, no crackles wheezing or rhonchi Cardiovascular: Regular rate and rhythm, S1-S2 present, no peripheral edema Abdomen: Soft, distended from obesity, colostomy wound looks clean, no signs of peritonitis Skin: No rash Neuro: Unable to assess completely, able to follow commands, moves all extremities Urinary Catheter Management^: Cervantes: Cath Placed During This Visit: yes Reason for Continuing Indwelling Catheter: Accurate Measurement of Urinary Output in Critically Ill Patients Urinary Catheter Date of Insertion: 04/03/21 Urinary Catheter Time of Insertion: 13:30 Data : 04/05/21 03:46 04/05/21 23:54 Micro: Microbiology 04/04/21 11:20 Gram Stain - Final Sputum - Endotracheal Tube Aspirate Sputum Culture - Preliminary Attestation for Other Data: I personally reviewed and interpreted the following: Other data: I have reviewed the patient's laboratory, microbiologic and radiologic data. There is persistent leukocytosis and thrombocytosis. Serum electrolytes are stable. Chest x-ray obtained after central line placement yesterday revealed clear chest with central line in place. All microbiologic studies have been negative so far. A&P Assessment and plan (1) Acute and chronic respiratory failure with hypoxia: This is a 60-year-old lady with a history of COPD and chronic hypoxic respiratory failure requiring 2 L of oxygen at home. The patient was hospitalized with sigmoid diverticulitis, perforation, abscess formation and underwent expiratory laparotomy with colostomy and Rosamaria procedure on April 04. The patient is doing well. There is no evidence of pulmonary edema. She diuresed well with the Lasix. I have put the patient on pressure support ventilation and she is pulling good tidal volume. The patient is also arousable and follows simple commands. At this point, we will start the patient on a Precedex drip and titrate the propofol and fentanyl down. I believe the patient will be extubated today. The patient is on chronic pain medication at home. I am hoping that the Precedex will help with that. Status: Acute (2) Diverticular 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: The patient has undergone expiratory laparotomy with colostomy and Rosamaria procedure on 04/04/2021. There is no sign of peritonitis. I am hoping that within the next couple of days will be able to start trickle tube feed. The patient is currently on Zosyn and vancomycin was added due to persistent leukocytosis Status: Acute (3) Heart failure with preserved ejection fraction: We will restart the home medication for heart failure once the patient is stable. She will likely require intermittent doses of Lasix. Status: Acute Qualifiers: Heart failure chronicity: acute on chronic Qualified Code(s): I50.33 - Acute on chronic diastolic (congestive) heart failure (4) COPD (chronic obstructive pulmonary disease): Chest auscultation is clear. We will continue with the nebulized therapy. Status: Acute Qualifiers: COPD type: unspecified COPD Qualified Code(s): J44.9 - Chronic obstructive pulmonary disease, unspecified Attestations Medical Necessity Statement*: Will defer to the primary team Procedures Arterial Line Size (Gauge): 20 Coding Level of Care Code Acute Size Marker for [facility] Diagnoses Acute and chronic respiratory failure with hypoxia J96.21 Diverticular 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 K57.80 Heart failure with preserved ejection fraction I50.33 Heart failure chronicity: acute on chronic COPD (chronic obstructive pulmonary disease) J44.9 COPD type: unspecified COPD
[2021-04-06] MEDS: albumin 12.5 GM/50 ML VIAL IV (12:45)
[2021-04-06] MEDS: dexmedetomidine 400 MCG in sodium chloride 0.9% (100 ml) 100 ML IV (13:02)
[2021-04-06 13:45] LABS: Basophils # 0.1 10^3/uL (0.0-0.1); Basophils % 0.3 %; Eosinophils # 0.1 10^3/uL (0.0-0.8); Eosinophils % 0.6 %; Hematocrit 31.4 % (37.0-47.0); Hemoglobin 9.7 g/dL (11.5-15.3); Lymphocytes # 2.1 10^3/uL (0.8-4.8); Lymphocytes % 10.3 %; Mean Corpuscular HGB Conc 30.9 g/dL (30.0-36.0); Mean Corpuscular Hemoglobin 28.2 pg (28.0-34.0); Mean Corpuscular Volume 91.3 fL (81-99); Mean Platelet Volume 9.8 fL (7.4-10.4); Monocytes # 1.3 10^3/uL (0.2-0.9); Monocytes % 6.3 %; Neutrophils # 16.82 10^3/uL (1.8-7.7); Neutrophils % 81.6 %; Nucleated Red Blood Cells % 0.1 %; Platelet Count 645 10^3/cmm (130-400); Red Blood Count 3.44 10^6/uL (4.1-5.3); Red Cell Distribution Width 15.6 % (12.1-15.1); White Blood Count 20.6 10^3/uL (4.0-10.0)
[2021-04-06 14:02] LABS: Alanine Aminotransferase 12 U/L (0-33); Albumin Level 1.9 g/dL (3.5-5.2); Alkaline Phosphatase 90 IU/L (35-105); Anion Gap 15.9 (5-19); Aspartate Amino Transferase 32 U/L (0-32); Blood Urea Nitrogen 23 mg/dL (8-23); Calcium 7.7 mg/dL (8.5-10.5); Carbon Dioxide 23 mmol/L (22-29); Chloride 103 mmol/L (98-107); Globulin 3.4 g/dL (1.3-4.6); Glomerular Filtration Rate 32.7 mL/min (90-130); Glucose 108 mg/dL (65-115); Osmolality Calculated 290 mOsm/kg (285-295); Potassium 3.9 mmol/L (3.5-5.1); Sodium 138 mmol/L (136-145); Total Bilirubin 0.4 mg/dL (0.15-1.2); Total Protein 5.3 g/dL (6.6-8.7)
[2021-04-06] MEDS: AA-Dex 5%-20% w/Lytes 1,000 ML 10 ML IV (15:37)
--- NOTE | 2021-04-06 16:50 | PC.NURSE ---
WASTE FENTANYL wasted 30 cc of fentanyl after medication discontinued. Witnessed by Tracy Yeung RN.
[2021-04-06 17:45] LABS: Glucose Point of Care 122 mg/dL (70-110)
[2021-04-06] MEDS: norepinephrine 8 MG in dextrose 5 % 500 ML 22.9 MG IV (19:01)
[2021-04-06 21:53] LABS: Glucose Point of Care 117 mg/dL (70-110)
[2021-04-07] VITALS (36 sets, daily range): BP systolic 78–139; BP diastolic 49–102; PULSE 78–98; RESP 13–28; TEMP 36.6–37.7; O2SAT 86–98
[2021-04-07] MEDS: dexmedetomidine 400 MCG in sodium chloride 0.9% (100 ml) 100 ML 7.6 MCG IV (02:35)
[2021-04-07] MEDS: HYDROmorphone 1 mg/mL INJ 1 mL 2 MG IVP ×5 (03:24→22:17)
[2021-04-07 03:40] LABS: Basophils # 0.1 10^3/uL (0.0-0.1); Basophils % 0.3 %; Eosinophils # 0.2 10^3/uL (0.0-0.8); Eosinophils % 0.9 %; Hematocrit 29.7 % (37.0-47.0); Hemoglobin 9.1 g/dL (11.5-15.3); Lymphocytes # 2.9 10^3/uL (0.8-4.8); Lymphocytes % 15.4 %; Mean Corpuscular HGB Conc 30.6 g/dL (30.0-36.0); Mean Corpuscular Hemoglobin 27.7 pg (28.0-34.0); Mean Corpuscular Volume 90.5 fL (81-99); Mean Platelet Volume 9.8 fL (7.4-10.4); Monocytes # 1.7 10^3/uL (0.2-0.9); Monocytes % 8.8 %; Neutrophils # 13.97 10^3/uL (1.8-7.7); Neutrophils % 73.4 %; Nucleated Red Blood Cells % 0 %; Platelet Count 611 10^3/cmm (130-400); Red Blood Count 3.28 10^6/uL (4.1-5.3); Red Cell Distribution Width 15.6 % (12.1-15.1)
[2021-04-07 04:10] LABS: Alanine Aminotransferase 15 U/L (0-33); Albumin Level 1.9 g/dL (3.5-5.2); Alkaline Phosphatase 81 IU/L (35-105); Anion Gap 16.6 (5-19); Aspartate Amino Transferase 36 U/L (0-32); Blood Urea Nitrogen 23 mg/dL (8-23); Calcium 7.5 mg/dL (8.5-10.5); Carbon Dioxide 24 mmol/L (22-29); Chloride 102 mmol/L (98-107); Creatinine Clr Calc Pharmacy 44.3308; Globulin 3.4 g/dL (1.3-4.6); Glomerular Filtration Rate 38.1 mL/min (90-130); Glucose 112 mg/dL (65-115); Osmolality Calculated 292 mOsm/kg (285-295); Potassium 3.6 mmol/L (3.5-5.1); Sodium 139 mmol/L (136-145); Total Bilirubin 0.6 mg/dL (0.15-1.2); Total Protein 5.3 g/dL (6.6-8.7)
[2021-04-07] MEDS: heparin 5,000 unit/mL INJ 1 mL 5000 UNIT SUBCUT ×3 (06:18→22:12)
[2021-04-07] MEDS: FUROsemide 10 mg/mL SDV 10mL 40 MG IVP ×2 (06:18→16:43)
[2021-04-07] MEDS: piperacillin-tazobactam 3.375 GM in sodium chloride 0.9% (plus) 50 ML IV ×3 (06:18→21:53)
[2021-04-07] MEDS: famotidine 20 mg/2 mL INJ IVP ×2 (06:19→17:58)
--- NOTE | 2021-04-07 07:33 | P.PN_ITS ---
Subjective Subjective: Interval history: Patient got extubated yesterday. No acute events overnight and seems to be doing well. Serous output per drain and colostomy have minimal output. Trending down and leukocytosis. Medications: Reviewed: Yes Vitals/I&O/Wt Last Vital Signs Temp 99.8 F H 04/07/21 04:00 Pulse 78 04/07/21 06:00 Resp 19 H 04/07/21 05:00 BP 111/68 04/07/21 05:00 Pulse Ox 96 04/07/21 05:00 04/06/21 04/07/21 04/07/21 22:59 06:59 14:59 Intake Total 310.515 / 712.298 244.16 / 956.458 Output Total 700 / 1200 2100 / 3300 Balance -389.485 / -487.702 -1855.84 / -2343.542 Physical Exam Narrative: EXAM NARRATIVE: Patient is conscious alert oriented X3 BMI 40 Head and neck examination PERRLA no masses no cervical lymphadenopathy no jaundice Cardiac examination audible S1-S2 no murmurs no gallops no arrhythmias Chest is clear bilateral,abscence of Rhonchi or wheezes,no surgical emphysema Abdomen nontender except mildly at the incision site nondistended soft no organomegaly guarding or rigidity/no signs of peritonitis Morbidly obese. Wound bed is clean and right lower quadrant drain in place with serous output Left-sided colostomy is pink patent with some residual debris is on the side. And minimal output per stoma bag. Urinary Catheter Management^: Cervantes: Cath Placed During This Visit: yes Reason for Continuing Indwelling Catheter: Accurate Measurement of Urinary Output in Critically Ill Patients Urinary Catheter Date of Insertion: 04/03/21 Urinary Catheter Time of Insertion: 13:30 Data : 04/07/21 03:07 04/07/21 03:07 Micro: Microbiology 04/04/21 11:20 Gram Stain - Final Sputum - Endotracheal Tube Aspirate Sputum Culture - Final 04/06/21 13:20 Blood Culture - Preliminary Blood SPECIMEN COLLECTED 04/06/21 13:15 Blood Culture - Preliminary Blood SPECIMEN COLLECTED A&P Assessment and plan (1) Diverticular 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: Patient is a status post exploratory laparotomy with Torres's procedure(open sigmoid colectomy with colostomy) 04/04/2021 Plan: PLAN OF CARE from surgical standpoint of view: CVS: Continue continuous cardiac monitoring Anemia stable H&H Continue heparin subcu 5000 subcutaneous every 8 hours for pharmacologic DVT prophylaxis Pain control; seems adequately controlled PULMONARY: Continue Aggressive pulmonary toilet I appreciate pulmonary service input Please be cautious with diuretics as it can deplete the patient from the intravascular compartment and may cause ischemia to the colos patricia. GI: Continue Pepcid 20 mg IV was ordered as patient on mechanical ventilation Once patient have a functioning colostomy we will start clear liquid diet and protein shakes to optimize nutrition. We will continue PPN for now NUTRITION: Peripheral parenteral nutrition RENAL: Continue monitoring kidney functions Strict I's and O's Continue electrolyte protocols for replacement including calcium potassium and magnesium INFECTIOUS DISEASE: Continue antibiotics per hospitalist service. NEUROLOGY: No evidence of neurological deficit MOBILITY: We will follow on physical therapy Likely the patient would benefit from placement for LTAC, will defer further evaluation per hospitalist service SKIN AND WOUND: Daily wet to dry dressing change for abdominal incision, packing with Kerlix followed by ABDs We will follow on pathology results Thank you for consulting general surgery to participate taking care Ms. Nunn Status: Acute Attestations Medical Necessity Statement*: Patient requiring inpatient hospitalization for medical optimization and surgical care of the wound and the stoma and also resuming bowel functions. Time Spent in Patient Care: (>than 50% of time spent in counselling and/or direct pt care on unit) . Procedures Arterial Line Size (Gauge): 20 Coding Level of Care Code Acute Newspaper Publisher for g Fwd Diagnoses Diverticular 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 K57.80
[2021-04-07] MEDS: levothyroxine 25 mcg Tablet PO (08:23)
[2021-04-07] MEDS: budesonide 0.5 mg/2 mL Neb INHALATION ×2 (10:05→20:29)
[2021-04-07] MEDS: ipratropium-albuterol 3 mL Neb INHALATION ×3 (10:05→20:29)
[2021-04-07] MEDS: phenol oral Spray 177 mL 3 SPRAY MUCOUS MEM (10:19)
[2021-04-07 10:59] LABS: Glucose Point of Care 116 mg/dL (70-110)
--- NOTE | 2021-04-07 12:22 | PM.PN ---
Subjective Subjective: Interval history: No acute events overnight and seems to be doing well.Robust urine output with Lasix:4.5 Ls in the last 12 hrs. Serous output per drain and colostomy have minimal output. Trending down and leukocytosis. Medications: Reviewed: Yes Vitals/I&O/Wt Last Vital Signs Temp 98.3 F 04/07/21 08:00 Pulse 82 04/07/21 10:08 Resp 18 04/07/21 11:40 BP 111/68 04/07/21 08:00 Pulse Ox 96 04/07/21 10:08 04/06/21 04/07/21 04/07/21 22:59 06:59 14:59 Intake Total 310.515 / 712.298 244.16 / 956.458 515.950 / 515.950 Output Total 700 / 1200 2100 / 3300 3150 / 3150 Balance -389.485 / -487.702 -1855.84 / -2343.542 -2634.050 / -2634.050 Physical Exam Const: COMMON NORMALS: patient oriented x3 HENMT: COMMON NORMALS: normocephalic and atraumatic HEAD & SCALP: normocephalic and atraumatic Chest: CHEST: Yes Symmetrical chest wall rise Resp: COMMON NORMALS: normal respiratory effort and clear to auscultation bilaterally EFFORT & INSPECTION: Yes symmetric chest movement AUSCULTATION: clear to auscultation bilaterally Cardio: COMMON NORMALS: regular rate, regular rhythm, S1 normal heart sound present, S2 normal heart sound present, No gallops present (Cardio), No murmurs present (Cardio), No rub (Cardio) and Peripheral pulses 2+ throughout RATE: regular rate RHYTHM: regular rhythm HEART SOUNDS: S1 normal heart sound present and S2 normal heart sound present PERIPHERAL PULSES: Peripheral pulses 2+ throughout GI: COMMON NORMALS: Normal to inspection, nondistended, normoactive bowel sounds present, Soft to palpation and no masses AUSCULTATION: Yes normoactive bowel sounds PALPATION: Yes Soft to palpation RECTAL EXAM: deferred OTHER: Wound bed is clean and right lower quadrant J/P drain in place with serous output Left-sided colostomy is pink patent Extremity: COMMON NORMALS: no clubbing, cyanosis or edema and no pedal edema Neuro: COMMON NORMALS: patient oriented x3 Urinary Catheter Management^: Cervantes: Cath Placed During This Visit: yes Reason for Continuing Indwelling Catheter: Accurate Measurement of Urinary Output in Critically Ill Patients Urinary Catheter Date of Insertion: 04/03/21 Urinary Catheter Time of Insertion: 13:30 Data : 04/07/21 03:07 04/07/21 03:07 Micro: Microbiology 04/04/21 11:20 Gram Stain - Final Sputum - Endotracheal Tube Aspirate Sputum Culture - Final 04/06/21 13:20 Blood Culture - Preliminary Blood SPECIMEN COLLECTED 04/06/21 13:15 Blood Culture - Preliminary Blood SPECIMEN COLLECTED A&P Assessment and plan (1) Septic shock: Status: Acute (2) Diverticular 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: Status: Acute (3) Heart failure with preserved ejection fraction: Status: Acute Qualifiers: Heart failure chronicity: acute on chronic Qualified Code(s): I50.33 - Acute on chronic diastolic (congestive) heart failure (4) Acute and chronic respiratory failure with hypoxia: Status: Acute (5) COPD (chronic obstructive pulmonary disease): Status: Acute Qualifiers: COPD type: unspecified COPD Qualified Code(s): J44.9 - Chronic obstructive pulmonary disease, unspecified (6) Thrombocytosis: Reactive thrombocytosis. Monitor P/C Status: Acute (7) Anemia: Normocytic anemia. Anemia Panel Status: Acute (8) Hypoalbuminemia: Status: Acute Additional A&P Information # Sigmoid diverticular perforation with abscess s/p Ex lap with open sigmoid colectomy and Torres's procedure March Currently remains intubated post operatively with attempted weaning today Start PPN today awaiting return of bowel function, has not had a BM yet maintain NGT to suction # septic shock as a result of above Reducing pressor requirements Continue Zosyn and monitor closely, if persisting leukocytosis/clinical worsening will add vancomycin for additonal enterococcal coverage , pending labs this morning Check blood culture additionally # Acute and chronic respiratory failure with hypoxia contributed by COPD, obesity hypoventilation , CHF and PAH Overall ~5L net positive since admission. S/p extubation Currently diuresing well with iv lasix. Continue Lasix 40 mg I.V Daily Albumin 25 gm q8 h for 1 day. N.p.o., start PPN, enteral nutrition per gen/surg Full code DVT prophylaxis : Heparin 5000s/c q8h Attestations Medical Necessity Statement*: Patient needs to be in hospital for management of sepsis. Procedures Arterial Line Size (Gauge): 20 Coding Level of Care Code Acute Digital Media Buyer for Chg Fwd Diagnoses Septic shock A41.9; R65.21 Diverticular 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 K57.80 Heart failure with preserved ejection fraction I50.33 Heart failure chronicity: acute on chronic Acute and chronic respiratory failure with hypoxia J96.21 COPD (chronic obstructive pulmonary disease) J44.9 COPD type: unspecified COPD Thrombocytosis D47.3 Anemia D64.9 Hypoalbuminemia E88.09
[2021-04-07] MEDS: LORazepam 2 mg/mL INJ 1 mL 1 MG IVP (14:20)
[2021-04-07] MEDS: norepinephrine 8 MG in dextrose 5 % 500 ML 38.1 MG IV (15:27)
[2021-04-07] MEDS: AA-Dex 5%-20% w/Lytes 1,000 ML 42 ML IV (15:28)
[2021-04-07 17:15] LABS: Glucose Point of Care 132 mg/dL (70-110)
[2021-04-07] MEDS: dexmedetomidine 400 MCG in sodium chloride 0.9% (100 ml) 100 ML 12.6 MCG IV (21:26)
[2021-04-07 21:32] LABS: Glucose Point of Care 155 mg/dL (70-110)
[2021-04-08] VITALS (93 sets, daily range): BP systolic 85–172; BP diastolic 47–99; PULSE 72–110; RESP 13–31; TEMP 37.2–37.8; O2SAT 75–100
[2021-04-08] MEDS: ipratropium-albuterol 3 mL Neb INHALATION ×4 (02:38→19:59)
[2021-04-08] MEDS: HYDROmorphone 1 mg/mL INJ 1 mL 2 MG IVP ×4 (04:14→19:58)
[2021-04-08] MEDS: ondansetron 2 mg/ML SDV 2 mL 4 MG IVP (04:29)
[2021-04-08 05:46] LABS: Ferritin 636 ng/mL (15-150); Iron 27 ug/dL (37-145); Percent Saturation 26.2 % (20-50); Total Iron Binding Capacity 103 mcg/dl; Unsaturated Iron Binding 76 ug/dL (112-347)
[2021-04-08] MEDS: piperacillin-tazobactam 3.375 GM in sodium chloride 0.9% (plus) 50 ML IV ×3 (05:52→21:36)
[2021-04-08] MEDS: FUROsemide 10 mg/mL SDV 4mL 40 MG IVP (05:53)
[2021-04-08] MEDS: dexmedetomidine 400 MCG in sodium chloride 0.9% (100 ml) 100 ML 12.6 MCG IV (05:58)
[2021-04-08] MEDS: heparin 5,000 unit/mL INJ 1 mL 5000 UNIT SUBCUT ×2 (06:01→14:00)
[2021-04-08 06:02] LABS: Vitamin B12 559 pg/mL (232-1245)
[2021-04-08] MEDS: famotidine 20 mg/2 mL INJ IVP ×2 (06:02→20:10)
--- NOTE | 2021-04-08 06:19 | PM.PN ---
Subjective Subjective: Interval history: Patient overall feels better yet she did have an episode of emesis overnight. NG continues to be on low intermittent wall suction. Minimal output per stoma. Medications: Reviewed: Yes Vitals/I&O/Wt Last Vital Signs Temp 99.1 F 04/08/21 04:00 Pulse 90 04/08/21 06:00 Resp 23 H 04/08/21 04:14 BP 129/74 04/08/21 04:00 Pulse Ox 95 04/08/21 04:00 04/07/21 04/07/21 04/08/21 14:59 22:59 06:59 Intake Total 515.950 / 515.950 377.59 / 893.540 676.547 / 1570.087 Output Total 3150 / 3150 2540 / 5690 1600 / 7290 Balance -2634.050 / -2634.050 -2162.41 / -4796.460 -923.453 / -5719.913 Physical Exam Narrative: EXAM NARRATIVE: Patient is conscious alert oriented X3 BMI 40 Head and neck examination PERRLA no masses no cervical lymphadenopathy no jaundice NG in place with gastric content light green in color Cardiac examination audible S1-S2 no murmurs no gallops no arrhythmias Chest is clear bilateral,abscence of Rhonchi or wheezes,no surgical emphysema Abdomen nontender except mildly tender at the incision site nondistended soft no organomegaly guarding or rigidity/no signs of peritonitis Morbidly obese. Wound bed is clean and right lower quadrant drain in place with serous output Left-sided colostomy is pink patent with some residual debris is on the side. And minimal output per stoma bag. Urinary Catheter Management^: Cervantes: Cath Placed During This Visit: yes Reason for Continuing Indwelling Catheter: Accurate Measurement of Urinary Output in Critically Ill Patients Urinary Catheter Date of Insertion: 04/03/21 Urinary Catheter Time of Insertion: 13:30 Data : 04/08/21 04:43 04/09/21 05:26 Micro: Microbiology 04/06/21 13:20 Blood Culture - Preliminary Blood NEGATIVE TO DATE 04/06/21 13:15 Blood Culture - Preliminary Blood NEGATIVE TO DATE A&P Assessment and plan (1) Diverticular 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: Patient is a status post exploratory laparotomy with Torres's procedure(open sigmoid colectomy with colostomy) 04/04/2021 Plan: PLAN OF CARE from surgical standpoint of view: Continue n.p.o. status except for ice chips Continue heparin subcu 5000 subcutaneous every 8 hours for pharmacologic DVT prophylaxis Continue incentive spirometer every hour Encourage ambulation with assistance of physical therapy Continue PPI therapy NG to low intermittent wall suction Peripheral parenteral nutrition SKIN AND WOUND: Daily wet to dry dressing change for abdominal incision, packing with Kerlix followed by ABDs We will follow on pathology results Thank you for consulting general surgery to participate taking care Ms. Nunn Status: Acute Attestations Medical Necessity Statement*: Patient is requiring inpatient hospitalization passing 2 midnights for medical and surgical care and awaiting bowel functions. Time Spent in Patient Care: (>than 50% of time spent in counselling and/or direct pt care on unit). Procedures Arterial Line Size (Gauge): 20 Coding Level of Care Code Acute Creative Services Writer for [facility] Fwd Diagnoses Diverticular 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 K57.80
--- NOTE | 2021-04-08 06:37 | PC.NURSE ---
Patient had an eventful night. Reported stomach pain at a 10 on a numeric scale of 1-10. After giving the patient ordered PRN dilaudid patient reported pain in stomach a 9 on a scale of 1-10. Patient cried out throughout the night stating oh help me, God, please help me . Patient vomited this morning at 0600. Emesis was a dark green color. Exact amount of emesis is unknown, patient suctioned the emesis out of her mouth with yaunker catheter left by her bedside.
[2021-04-08] MEDS: budesonide 0.5 mg/2 mL Neb INHALATION ×2 (08:13→19:59)
[2021-04-08] MEDS: levothyroxine 25 mcg Tablet PO (09:33)
[2021-04-08 09:44] LABS: Basophils # 0.1 10^3/uL (0.0-0.1); Basophils % 0.3 %; Eosinophils # 0.2 10^3/uL (0.0-0.8); Hematocrit 27.8 % (37.0-47.0); Hemoglobin 8.4 g/dL (11.5-15.3); Lymphocytes # 3.7 10^3/uL (0.8-4.8); Lymphocytes % 20.3 %; Mean Corpuscular HGB Conc 30.2 g/dL (30.0-36.0); Mean Corpuscular Hemoglobin 27.4 pg (28.0-34.0); Mean Corpuscular Volume 90.6 fL (81-99); Monocytes # 1.8 10^3/uL (0.2-0.9); Monocytes % 9.9 %; Neutrophils # 12.04 10^3/uL (1.8-7.7); Neutrophils % 66.2 %; Nucleated Red Blood Cells % 0 %; Platelet Count 563 10^3/cmm (130-400); Red Blood Count 3.07 10^6/uL (4.1-5.3); Red Cell Distribution Width 15.5 % (12.1-15.1); White Blood Count 18.2 10^3/uL (4.0-10.0)
[2021-04-08 10:00] LABS: Anion Gap 13.2 (5-19); Blood Urea Nitrogen 21 mg/dL (8-23); Calcium 7.9 mg/dL (8.5-10.5); Carbon Dioxide 34 mmol/L (22-29); Chloride 95 mmol/L (98-107); Glomerular Filtration Rate 50.3 mL/min (90-130); Glucose 145 mg/dL (65-115); Osmolality Calculated 294 mOsm/kg (285-295); Potassium 3.2 mmol/L (3.5-5.1); Sodium 139 mmol/L (136-145)
[2021-04-08 11:12] LABS: Glucose Point of Care 169 mg/dL (70-110)
--- NOTE | 2021-04-08 12:11 | PM.PN ---
Subjective Subjective: Interval history: No acute events overnight, currently she is improving slowly, WBC count is slowly trending down, Continues to have robust urine output with IV Lasix, continues to remain afebrile, off Levophed. NG continues to be on low intermittent wall suction. Minimal output per stoma. Medications: Reviewed: Yes Vitals/I&O/Wt Last Vital Signs Temp 99.1 F 04/08/21 04:00 Pulse 73 04/08/21 08:10 Resp 24 H 04/08/21 09:33 BP 129/74 04/08/21 04:00 Pulse Ox 91 04/08/21 09:33 04/07/21 04/08/21 04/08/21 22:59 06:59 14:59 Intake Total 377.59 / 893.540 676.547 / 1570.087 50 / 50 Output Total 2540 / 5690 1600 / 7290 Balance -2162.41 / -4796.460 -923.453 / -5719.913 50 / 50 Physical Exam Const: COMMON NORMALS: patient oriented x3 HENMT: COMMON NORMALS: normocephalic and atraumatic HEAD & SCALP: normocephalic and atraumatic Chest: CHEST: Yes Symmetrical chest wall rise Resp: COMMON NORMALS: normal respiratory effort and clear to auscultation bilaterally EFFORT & INSPECTION: Yes symmetric chest movement AUSCULTATION: clear to auscultation bilaterally Cardio: COMMON NORMALS: regular rate, regular rhythm, S1 normal heart sound present, S2 normal heart sound present, No gallops present (Cardio), No murmurs present (Cardio), No rub (Cardio) and Peripheral pulses 2+ throughout RATE: regular rate RHYTHM: regular rhythm HEART SOUNDS: S1 normal heart sound present and S2 normal heart sound present PERIPHERAL PULSES: Peripheral pulses 2+ throughout GI: COMMON NORMALS: Normal to inspection, nondistended, normoactive bowel sounds present, Soft to palpation and no masses AUSCULTATION: Yes normoactive bowel sounds PALPATION: Yes Soft to palpation RECTAL EXAM: deferred OTHER: Wound bed is clean and right lower quadrant J/P drain in place with serous output Left-sided colostomy is pink patent Extremity: COMMON NORMALS: no clubbing, cyanosis or edema and no pedal edema Neuro: COMMON NORMALS: patient oriented x3 Urinary Catheter Management^: Cervantes: Cath Placed During This Visit: yes Reason for Continuing Indwelling Catheter: Accurate Measurement of Urinary Output in Critically Ill Patients Urinary Catheter Date of Insertion: 04/03/21 Urinary Catheter Time of Insertion: 13:30 Data : 04/08/21 04:43 04/08/21 04:43 Micro: Microbiology 04/03/21 06:24 Blood Culture - Final Blood NO GROWTH AFTER 5 DAYS 04/03/21 06:22 Blood Culture - Final Blood NO GROWTH AFTER 5 DAYS 04/06/21 13:20 Blood Culture - Preliminary Blood NEGATIVE TO DATE 04/06/21 13:15 Blood Culture - Preliminary Blood NEGATIVE TO DATE A&P Assessment and plan (1) Septic shock: Status: Acute (2) Diverticular 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: Status: Acute (3) Heart failure with preserved ejection fraction: Status: Acute Qualifiers: Heart failure chronicity: acute on chronic Qualified Code(s): I50.33 - Acute on chronic diastolic (congestive) heart failure (4) Acute and chronic respiratory failure with hypoxia: Status: Acute (5) COPD (chronic obstructive pulmonary disease): Status: Acute Qualifiers: COPD type: unspecified COPD Qualified Code(s): J44.9 - Chronic obstructive pulmonary disease, unspecified (6) Thrombocytosis: Reactive thrombocytosis. Monitor P/C Status: Acute (7) Anemia: Normocytic anemia : Likely anemia of chronic disease Anemia Panel : Serum Iron : 27, TIBC:103, percent saturation: 26, ferritin: 636 B12:559, folate:2 Status: Acute (8) Hypoalbuminemia: Status: Acute (9) Low folate: Status: Acute Additional A&P Information # Sigmoid diverticular perforation with abscess s/p Ex lap with open sigmoid colectomy and Torres's procedure March Currently remains intubated post operatively with attempted weaning today Start PPN today awaiting return of bowel function, has not had a BM yet maintain NGT to suction # septic shock as a result of above Reducing pressor requirements Continue Zosyn and monitor closely, if persisting leukocytosis/clinical worsening will add vancomycin for additonal enterococcal coverage , pending labs this morning Blood Culture : Negative # Acute and chronic respiratory failure with hypoxia contributed by COPD, obesity hypoventilation , CHF and PAH Overall ~5L net positive since admission. S/p extubation Currently diuresing well with iv lasix. Continue Lasix 40 mg I.V Daily Albumin 25 gm q8 h for 1 day. N.p.o., start PPN, enteral nutrition per gen/surg Full code DVT prophylaxis : Heparin 5000s/c q8h Attestations Medical Necessity Statement*: Patient needs to be in hospital for management of sepsis. Procedures Arterial Line Size (Gauge): 20 Coding Level of Care Code Acute Web Applications Architect for [facility] Fwd Exam Detailed Diagnoses Septic shock A41.9; R65.21 Diverticular 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 K57.80 Heart failure with preserved ejection fraction I50.33 Heart failure chronicity: acute on chronic Acute and chronic respiratory failure with hypoxia J96.21 COPD (chronic obstructive pulmonary disease) J44.9 COPD type: unspecified COPD Thrombocytosis D47.3 Anemia D64.9 Hypoalbuminemia E88.09 Low folate E53.8
[2021-04-08] MEDS: lidocaine 1% 5 ML in potassium chloride premix 100 ML 25 ML IV (12:38)
--- NOTE | 2021-04-08 14:31 | PC.NURSE ---
Left radial art-line has poor wave form. Will remove if ok with
[2021-04-08] MEDS: AA-Dex 5%-20% w/Lytes 1,000 ML 423 ML IV (17:07)
[2021-04-08 17:34] LABS: Glucose Point of Care 102 mg/dL (70-110)
[2021-04-08 17:34] LABS: Glucose Point of Care 140 mg/dL (70-110)
[2021-04-08 20:16] LABS: Glucose Point of Care 147 mg/dL (70-110)
[2021-04-09] VITALS (111 sets, daily range): BP systolic 86–188; BP diastolic 53–97; PULSE 82–117; RESP 13–34; TEMP 36.6–37.7; O2SAT 74–100
[2021-04-09] MEDS: heparin 5,000 unit/mL INJ 1 mL 5000 UNIT SUBCUT ×4 (00:01→22:57)
[2021-04-09] MEDS: HYDROmorphone 1 mg/mL INJ 1 mL 2 MG IVP ×6 (00:57→22:57)
[2021-04-09] MEDS: ipratropium-albuterol 3 mL Neb INHALATION ×4 (02:35→21:29)
[2021-04-09 06:00] LABS: Anion Gap 10.4 (5-19); Blood Urea Nitrogen 22 mg/dL (8-23); Calcium 8.2 mg/dL (8.5-10.5); Carbon Dioxide 35 mmol/L (22-29); Chloride 98 mmol/L (98-107); Glomerular Filtration Rate 56.2 mL/min (90-130); Glucose 136 mg/dL (65-115); Osmolality Calculated 295 mOsm/kg (285-295); Potassium 3.4 mmol/L (3.5-5.1); Sodium 140 mmol/L (136-145)
[2021-04-09] MEDS: FUROsemide 10 mg/mL SDV 4mL 40 MG IVP (06:02)
[2021-04-09] MEDS: piperacillin-tazobactam 3.375 GM in sodium chloride 0.9% (plus) 50 ML IV ×2 (06:03→15:07)
--- NOTE | 2021-04-09 06:47 | PC.NURSE ---
Dr. Vergara came by to see the patient this morning and gave verbal orders to clamp NG tube. Patient had an uneventful night.
--- NOTE | 2021-04-09 06:53 | P.PN_ITS ---
Subjective Subjective: Interval history: Patient seems to feel better, no bowel functions yet,less NGt output. Medications: Reviewed: Yes Vitals/I&O/Wt Last Vital Signs Temp 99.8 F H 04/09/21 04:00 Pulse 97 04/09/21 06:00 Resp 17 04/09/21 05:04 BP 145/82 04/09/21 04:45 Pulse Ox 99 04/09/21 04:45 04/08/21 04/08/21 04/09/21 14:59 22:59 06:59 Intake Total 301.22 / 301.22 1393.86 / 1695.08 275 / 1970.08 Output Total 750 / 750 2700 / 3450 850 / 4300 Balance -448.78 / -448.78 -1306.14 / -1754.92 -575 / -2329.92 Physical Exam Narrative: EXAM NARRATIVE: Patient is conscious alert oriented X3 BMI 40 Head and neck examination PERRLA no masses no cervical lymphadenopathy no jaund ice NG in place with gastric content light green in color Cardiac examination audible S1-S2 no murmurs no gallops no arrhythmias Chest is clear bilateral,abscence of Rhonchi or wheezes,no surgical emphysema Abdomen nontender except mildly tender at the incision site nondistended soft no organomegaly guarding or rigidity/no signs of peritonitis Morbidly obese. Wound bed is clean and right lower quadrant drain in place with serous output Left-sided colostomy is pink patent with some residual debris is on the side. And minimal output per stoma bag. Urinary Catheter Management^: Cervantes: Cath Placed During This Visit: yes Reason for Continuing Indwelling Catheter: Accurate Measurement of Urinary Output in Critically Ill Patients Urinary Catheter Date of Insertion: 04/03/21 Urinary Catheter Time of Insertion: 13:30 Data : 04/09/21 07:35 04/09/21 05:26 Micro: Microbiology 04/03/21 06:24 Blood Culture - Final Blood NO GROWTH AFTER 5 DAYS 04/03/21 06:22 Blood Culture - Final Blood NO GROWTH AFTER 5 DAYS A&P Assessment and plan (1) Diverticular 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: Patient is a status post exploratory laparotomy with Torres's procedure(open sigmoid colectomy with colostomy) 04/04/2021 Plan: PLAN OF CARE from surgical standpoint of view: Continue n.p.o. status except for ice chips We will clamp NG tube for 2 hours and will check residuals if less than 200 mL will DC NG tube and start the patient slowly on clear liquid diet. Continue heparin subcu 5000 subcutaneous every 8 hours for pharmacologic DVT prophylaxis Continue incentive spirometer every hour Encourage ambulation with assistance of physical therapy Continue PPI therapy Highly recommend to start TPN instead of PPN SKIN AND WOUND: Daily wet to dry dressing change for abdominal incision, packing with Kerlix followed by ABDs We will follow on pathology results Thank you for consulting general surgery to participate taking care Ms. Nunn Status: Acute Attestations Medical Necessity Statement*: Patient is requiring inpatient hospitalization passing 2 midnights for medical and surgical care and awaiting bowel functions. Time Spent in Patient Care: (>than 50% of time spent in counselling and/or direct pt care on unit) . Procedures Arterial Line Size (Gauge): 20 Coding Level of Care Code Acute Commercial Announcer for [facility] Fwd Diagnoses Diverticular 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 K57.80
[2021-04-09] MEDS: famotidine 20 mg/2 mL INJ IVP ×2 (07:38→20:28)
[2021-04-09 07:39] LABS: Glucose Point of Care 144 mg/dL (70-110)
[2021-04-09 07:53] LABS: Basophils # 0.1 10^3/uL (0.0-0.1); Basophils % 0.4 %; Eosinophils # 0.4 10^3/uL (0.0-0.8); Eosinophils % 2.4 %; Hematocrit 30.7 % (37.0-47.0); Hemoglobin 9.3 g/dL (11.5-15.3); Lymphocytes # 3.7 10^3/uL (0.8-4.8); Lymphocytes % 20.4 %; Mean Corpuscular HGB Conc 30.3 g/dL (30.0-36.0); Mean Corpuscular Hemoglobin 27.8 pg (28.0-34.0); Mean Corpuscular Volume 91.6 fL (81-99); Mean Platelet Volume 9.6 fL (7.4-10.4); Monocytes # 1.9 10^3/uL (0.2-0.9); Monocytes % 10.7 %; Neutrophils % 61.5 %; Nucleated Red Blood Cells % 0.1 %; Platelet Count 604 10^3/cmm (130-400); Red Blood Count 3.35 10^6/uL (4.1-5.3); Red Cell Distribution Width 14.9 % (12.1-15.1)
[2021-04-09] MEDS: budesonide 0.5 mg/2 mL Neb INHALATION ×2 (08:01→21:30)
[2021-04-09] MEDS: levothyroxine 25 mcg Tablet PO (08:30)
[2021-04-09] MEDS: lidocaine 1% 5 ML in potassium chloride premix 100 ML 25 ML IV (10:52)
[2021-04-09] MEDS: vancomycin 1,250 MG/250 ML PIGGYBACK 250 MG IV (11:05)
[2021-04-09 12:02] LABS: Glucose Point of Care 165 mg/dL (70-110)
--- NOTE | 2021-04-09 13:14 | P.PN_ITS ---
Subjective Subjective: Interval history: Patient had low-grade temperature spike: T max was noted to be: 100.1 WBC count is slowly trending down, Continues to have robust urine output with IV Lasix. no bowel functions yet,less NGt output Medications: Reviewed: Yes Vitals/I&O/Wt Last Vital Signs Temp 98 F 04/09/21 12:00 Pulse 106 H 04/09/21 12:00 Resp 24 H 04/09/21 13:09 BP 86/68 04/09/21 12:00 Pulse Ox 93 04/09/21 13:09 04/08/21 04/09/21 04/09/21 22:59 06:59 14:59 Intake Total 1393.86 / 1695.08 275 / 1970.08 299.792 / 299.792 Output Total 2700 / 3450 850 / 4300 1200 / 1200 Balance -1306.14 / -1754.92 -575 / -2329.92 -900.208 / -900.208 Physical Exam Const: COMMON NORMALS: patient oriented x3 HENMT: COMMON NORMALS: normocephalic and atraumatic HEAD & SCALP: normocephalic and atraumatic Chest: CHEST: Yes Symmetrical chest wall rise Resp: COMMON NORMALS: normal respiratory effort and clear to auscultation bilaterally EFFORT & INSPECTION: Yes symmetric chest movement AUSCULTATION: clear to auscultation bilaterally Cardio: COMMON NORMALS: regular rate, regular rhythm, S1 normal heart sound present, S2 normal heart sound present, No gallops present (Cardio), No murmurs present (Cardio), No rub (Cardio) and Peripheral pulses 2+ throughout RATE: regular rate RHYTHM: regular rhythm HEART SOUNDS: S1 normal heart sound present and S2 normal heart sound present PERIPHERAL PULSES: Peripheral pulses 2+ throughout GI: COMMON NORMALS: Normal to inspection, nondistended, normoactive bowel sounds present, Soft to palpation and no masses AUSCULTATION: Yes normoactive bowel sounds PALPATION: Yes Soft to palpation RECTAL EXAM: deferred OTHER: Wound bed is clean and right lower quadrant J/P drain in place with serous output Left-sided colostomy is pink patent Extremity: COMMON NORMALS: no clubbing, cyanosis or edema and no pedal edema Neuro: COMMON NORMALS: patient oriented x3 Urinary Catheter Management^: Cervantes: Cath Placed During This Visit: yes Reason for Continuing Indwelling Catheter: Accurate Measurement of Urinary Output in Critically Ill Patients Urinary Catheter Date of Insertion: 04/03/21 Urinary Catheter Time of Insertion: 13:30 Data : 04/09/21 07:35 04/09/21 05:26 A&P Assessment and plan (1) Septic shock: Status: Acute (2) Diverticular 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: Status: Acute (3) Heart failure with preserved ejection fraction: Status: Acute Qualifiers: Heart failure chronicity: acute on chronic Qualified Code(s): I50.33 - Acute on chronic diastolic (congestive) heart failure (4) Acute and chronic respiratory failure with hypoxia: Status: Acute (5) COPD (chronic obstructive pulmonary disease): Status: Acute Qualifiers: COPD type: unspecified COPD Qualified Code(s): J44.9 - Chronic obstructive pulmonary disease, unspecified (6) Thrombocytosis: Reactive thrombocytosis. Monitor P/C Status: Acute (7) Anemia: Normocytic anemia : Likely anemia of chronic disease Anemia Panel : Serum Iron : 27, TIBC:103, percent saturation: 26, ferritin: 636 B12:559, folate:2 Status: Acute (8) Hypoalbuminemia: Status: Acute (9) Low folate: Status: Acute Additional A&P Information # Sigmoid diverticular perforation with abscess s/p Ex lap with open sigmoid colectomy and Torres's procedure March Currently remains intubated post operatively with attempted weaning today Start PPN today awaiting return of bowel function, has not had a BM yet maintain NGT to suction # septic shock as a result of above : Blood culture: Have been negative so far, lactic acid: 1.7, initially she was on Levophed, later it was weaned off, Initially she was on Zosyn. Zosyn was stopped on 04/09, imipenem as well as vancomycin was added, as he had persistent leukocytosis, as well as she started having low-grade temperatures. # Acute and chronic respiratory failure with hypoxia contributed by COPD, obesity hypoventilation , CHF and PAH Overall ~5L net positive since admission. S/p extubation Initially on Lasix I.V Daily. Has been switched to p.o. Lasix from 04/10. She has also received albumin 25 gm IV q8 h I.V for 1 day. Currently she is 4.3Ls negative. N.p.o., start PPN, enteral nutrition per gen/surg Full code DVT prophylaxis : Heparin 5000s/c q8h Attestations Medical Necessity Statement*: Patient is to be in hospital for management of defined problems. Procedures Arterial Line Size (Gauge): 20 Coding Level of Care Code Acute Plasterer Maintenance for [facility] Fwd Exam Detailed Diagnoses Septic shock A41.9; R65.21 Diverticular 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 K57.80 Heart failure with preserved ejection fraction I50.33 Heart failure chronicity: acute on chronic Acute and chronic respiratory failure with hypoxia J96.21 COPD (chronic obstructive pulmonary disease) J44.9 COPD type: unspecified COPD Thrombocytosis D47.3 Anemia D64.9 Hypoalbuminemia E88.09 Low folate E53.8
--- NOTE | 2021-04-09 13:17 | PC.NURSE ---
Patient wanting to have RN call the physician to see if she is able to drink or eat. Called et spoke with Dr. Crawley. Updated on patient condition. New orders noted et implemented. Will continue to monitor.
--- NOTE | 2021-04-09 15:02 | XR_ITS ---
WS: [id number] Portable AP semiupright chest, 04/09/2021 Clinical Data: SOB Comparison: Portable chest, 04/05/2021. Findings: No nodules, masses or effusions are seen. The heart is normal. The pulmonary vascularity is not increased. No pneumonia or pneumothorax is seen. The nasogastric tube remains in good position. The left subclavian catheter ends in the superior vena cava. Monitor leads are on the chest wall. XR/XR chest 1V portable [id number] Impression: No change in endotracheal tube and left subclavian catheter.
[2021-04-09] MEDS: AA-Dex 5%-20% w/Lytes 1,000 ML 423 ML IV (15:22)
--- NOTE | 2021-04-09 15:25 | PC.NUTR ---
Parenteral nutrition follow up: Trial clamp of NGT noted today. If oral diet not initiated, recommend increase parenteral nutrition provision to 55 ml/hr, and continue with current lipid provision, to provide 1662 kcal, 66 g protein. Recommend monitor labs and tolerance. If pt able to consume oral diet, recommend advance as tolerated and decrease parenteral nutrition as appropriate. Contacted Dr. Vergara requesting additional information on the nutritional plan if possible and notified of RD recs in EMR.
[2021-04-09 20:28] LABS: Glucose Point of Care 136 mg/dL (70-110)
[2021-04-09 21:03] LABS: Glucose Point of Care 138 mg/dL (70-110)
[2021-04-10] VITALS (73 sets, daily range): BP systolic 95–143; BP diastolic 56–108; PULSE 82–109; RESP 13–33; TEMP 36.7–37.1; O2SAT 92–100
[2021-04-10] MEDS: HYDROmorphone 1 mg/mL INJ 1 mL 2 MG IVP ×2 (03:16→07:46)
[2021-04-10 03:41] LABS: Basophils # 0.1 10^3/uL (0.0-0.1); Basophils % 0.3 %; Eosinophils # 0.7 10^3/uL (0.0-0.8); Eosinophils % 3.8 %; Hematocrit 29.4 % (37.0-47.0); Hemoglobin 8.8 g/dL (11.5-15.3); Lymphocytes # 4.4 10^3/uL (0.8-4.8); Lymphocytes % 24.3 %; Mean Corpuscular HGB Conc 29.9 g/dL (30.0-36.0); Mean Corpuscular Hemoglobin 27.6 pg (28.0-34.0); Mean Corpuscular Volume 92.2 fL (81-99); Mean Platelet Volume 9.5 fL (7.4-10.4); Monocytes % 11.4 %; Neutrophils # 9.76 10^3/uL (1.8-7.7); Neutrophils % 54.3 %; Nucleated Red Blood Cells % 0.2 %; Platelet Count 639 10^3/cmm (130-400); Red Blood Count 3.19 10^6/uL (4.1-5.3); Red Cell Distribution Width 14.9 % (12.1-15.1)
[2021-04-10] MEDS: ipratropium-albuterol 3 mL Neb INHALATION ×3 (03:50→14:05)
[2021-04-10 03:57] LABS: Anion Gap 9.4 (5-19); Blood Urea Nitrogen 26 mg/dL (8-23); Calcium 8.4 mg/dL (8.5-10.5); Carbon Dioxide 38 mmol/L (22-29); Chloride 97 mmol/L (98-107); Glomerular Filtration Rate 56.2 mL/min (90-130); Glucose 122 mg/dL (65-115); Osmolality Calculated 298 mOsm/kg (285-295); Potassium 3.4 mmol/L (3.5-5.1); Sodium 141 mmol/L (136-145)
[2021-04-10 04:12] LABS: Slide Review Slide Review Perform
[2021-04-10] MEDS: vancomycin 1,250 MG/250 ML PIGGYBACK 250 MG IV ×2 (04:55→23:25)
[2021-04-10] MEDS: famotidine 20 mg/2 mL INJ IVP ×2 (06:44→19:04)
[2021-04-10] MEDS: heparin 5,000 unit/mL INJ 1 mL 5000 UNIT SUBCUT ×3 (06:44→23:26)
[2021-04-10 07:25] LABS: Glucose Point of Care 116 mg/dL (70-110)
[2021-04-10] MEDS: FUROsemide 40 mg Tablet PO ×2 (07:48→17:06)
[2021-04-10] MEDS: budesonide 0.5 mg/2 mL Neb INHALATION (08:03)
[2021-04-10 08:05] LABS: Glucose Point of Care 130 mg/dL (70-110)
[2021-04-10] MEDS: levothyroxine 25 mcg Tablet PO (08:09)
--- NOTE | 2021-04-10 09:28 | PC.CHAP ---
Pastoral Care Encounter/Spiritual Assessment Type of Contact [] Declined architectural intern visit [] Patient/Family/Request visit [] Outpatient visit [] Follow-up visit [] Physician referral [] Code/Alert [x] Routine visit [] Staff referral [] Actively dying [] Patient sleeping [] Family support [] [] Out of room [] Palliative care [] [] Receiving care in room [] Pre-surgical visit [] Trauma [] Long length of stay [x] ICU visit [] Other: Relational/Emotional Strength [] Patient feels connected with others/family/visitors/staff [] Distress [] Loneliness/isolation [] Abandonment Spirituality of Patient [] Person of Isa [] Attends Presybeterian of their Isa [] Believes in Prayer [] Reads Bible or Mandaen materials [] There are Spiritual issues to be addressed Cosmetic Dentist Interventions [x] Prayer [] Active listening [] Non-anxious presence [] Spiritual/emotional support [] Crisis/trauma care [] Spiritual counseling [] Bereavement support [] Provided bereavement packet [] Provided Bible/devotional materials [] Provided toy/stuffed animal, coloring book to patient or family member [] Provided Communion [] Anointing/[place] [] Salvation [x] Completed spiritual assessment [] Other: Impact on Illness or Injury [] Angry [] Fearful [] Anxious [] Often cries [] Exhaustion [] Unable to work [] Unable to attend advent [] Unable to walk/stand [] Unable to read [] Unable to drive [] Unable to eat/drink [] Unable to sleep [] Unable to be with family [] Patient intubated [] Other: Summary Time spent with patient
[2021-04-10] MEDS: lidocaine 1% 5 ML in potassium chloride premix 100 ML 50 ML IV (09:52)
[2021-04-10 12:02] LABS: Glucose Point of Care 145 mg/dL (70-110)
--- NOTE | 2021-04-10 13:11 | P.PN_ITS ---
Subjective Subjective: Interval history: Patient was seen and examined this morning, currently resting comfortably in bed.No acute event overnight.Currently saturating well 3-4 Ls oxygen via NC. Medications: Reviewed: Yes Vitals/I&O/Wt Last Vital Signs Temp 98.1 F 04/10/21 02:45 Pulse 88 04/10/21 08:06 Resp 20 H 04/10/21 12:29 BP 109/58 04/10/21 04:00 Pulse Ox 96 04/10/21 12:29 04/09/21 04/10/21 04/10/21 22:59 06:59 14:59 Intake Total 300 / 599.792 225 / 824.792 Output Total 2495 / 3695 510 / 4205 Balance -2195 / -3095.208 -285 / -3380.208 Physical Exam Const: COMMON NORMALS: patient oriented x3 HENMT: COMMON NORMALS: normocephalic and atraumatic HEAD & SCALP: normocephalic and atraumatic Chest: CHEST: Yes Symmetrical chest wall rise Resp: COMMON NORMALS: normal respiratory effort and clear to auscultation bilaterally EFFORT & INSPECTION: Yes symmetric chest movement AUSCULTAT ION: clear to auscultation bilaterally Cardio: COMMON NORMALS: regular rate, regular rhythm, S1 normal heart sound present, S2 normal heart sound present, No gallops present (Cardio), No murmurs present (Cardio), No rub (Cardio) and Peripheral pulses 2+ throughout RATE: regular rate RHYTHM: regular rhythm HEART SOUNDS: S1 normal heart sound present and S2 normal heart sound present PERIPHERAL PULSES: Peripheral pulses 2+ throughout GI: COMMON NORMALS: Normal to inspection, nondistended, normoactive bowel sounds present, Soft to palpation and no masses AUSCULTATION: Yes normoactive bowel sounds PALPATION: Yes Soft to palpation RECTAL EXAM: deferred OTHER: Wound bed is clean and right lower quadrant J/P drain in place with serous output Left-sided colostomy is pink patent Extremity: COMMON NORMALS: no clubbing, cyanosis or edema and no pedal edema Neuro: COMMON NORMALS: patient oriented x3 Urinary Catheter Management^: Cervantes: Cath Placed During This Visit: yes Reason for Continuing Indwelling Catheter: Accurate Measurement of Urinary Output in Critically Ill Patients Urinary Catheter Date of Insertion: 04/03/21 Urinary Catheter Time of Insertion: 13:30 Data : 04/10/21 03:26 04/10/21 03:26 A&P Assessment and plan (1) Septic shock: Status: Acute (2) Diverticular 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: Status: Acute (3) Heart failure with preserved ejection fraction: Status: Acute Qualifiers: Heart failure chronicity: acute on chronic Qualified Code(s): I50.33 - Acute on chronic diastolic (congestive) heart failure (4) Acute and chronic respiratory failure with hypoxia: Status: Acute (5) COPD (chronic obstructive pulmonary disease): Status: Acute Qualifiers: COPD type: unspecified COPD Qualified Code(s): J44.9 - Chronic obstructive pulmonary disease, unspecified (6) Thrombocytosis: Reactive thrombocytosis. Monitor P/C Status: Acute (7) Anemia: Normocytic anemia : Likely anemia of chronic disease Anemia Panel : Serum Iron : 27, TIBC:103, percent saturation: 26, ferritin: 636 B12:559, folate:2 Status: Acute (8) Hypoalbuminemia: Status: Acute (9) Low folate: Status: Acute (10) Hypokalemia: Status: Acute Additional A&P Information # Sigmoid diverticular perforation with abscess s/p Ex lap with open sigmoid colectomy and Torres's procedure March Initially she was intubated post operatively s/p extubation.Currently saturating well on R/A Currently she is passing gas and she has been started on Clear liquid consistent carbohydrate diet. On PPN 45cc/hr NG Tube has been removed. # septic shock as a result of above : Blood culture: Have been negative so far, lactic acid: 1.7, initially she was on Levophed, later it was weaned off, Initially she was on Zosyn.Zosyn was stopped on 04/09, imipenem as well as vancomycin was added, as he had persistent leukocytosis, as well as she started having low-grade temperatures. # Acute and chronic respiratory failure with hypoxia contributed by COPD, obesity hypoventilation , CHF and PAH. S/p extubation Initially on Lasix I.V Daily. Has been switched to p.o. Lasix from 04/10. She has also received albumin 25 gm IV q8 h I.V for 1 day. Currently she is 4.3Ls negative. Full code DVT prophylaxis : Heparin 5000s/c q8h Attestations Medical Necessity Statement*: Patient needs to be in hospital for the management of sepsis. Procedures Arterial Line Size (Gauge): 20 Coding Level of Care Code Acute Supervisor Locomotive for Chg Fwd Diagnoses Septic shock A41.9; R65.21 Diverticular 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 K57.80 Heart failure with preserved ejection fraction I50.33 Heart failure chronicity: acute on chronic Acute and chronic respiratory failure with hypoxia J96.21 COPD (chronic obstructive pulmonary disease) J44.9 COPD type: unspecified COPD Thrombocytosis D47.3 Anemia D64.9 Hypoalbuminemia E88.09 Low folate E53.8 Hypokalemia E87.6
[2021-04-10] MEDS: AA-Dex 5%-20% w/Lytes 1,000 ML 423 ML IV (16:14)
[2021-04-10 16:49] LABS: Glucose Point of Care 148 mg/dL (70-110)
--- NOTE | 2021-04-10 16:49 | P.PN_ITS ---
Subjective Subjective: Interval history: Patient feels a whole lot better and starts passing gas per stoma, tolerating clear liquid diet. No acute events overnight. Medications: Reviewed: Yes Vitals/I&O/Wt Last Vital Signs Temp 98.5 F 04/10/21 11:00 Pulse 94 04/10/21 15:00 Resp 22 H 04/10/21 16:26 BP 143/86 04/10/21 15:00 Pulse Ox 96 04/10/21 16:26 04/10/21 04/10/21 04/10/21 06:59 14:59 22:59 Intake Total 225 / 1824.792 805 / 805 Output Total 510 / 4205 750 / 750 Balance -285 / -2380.208 55 / 55 Physical Exam Narrative: EXAM NARRATIVE: Patient is conscious alert oriented X3 BMI 40 Head and neck examination PERRLA no masses no cervical lymphadenopathy no jaundice Abdomen nontender except mildly tender at the incision site nondistended soft no organomegaly guarding or rigidity/no signs of peritonitis Morbidly obese. Wound bed is clean and right lower quadrant drain in place with serous output Left-sided colostomy is pink patent with gas appreciated at the colostomy bag with some output per stoma bag. Urinary Catheter in place Urinary Catheter Management^: Cervantes: Cath Placed During This Visit: yes Reason for Continuing Indwelling Catheter: Accurate Measurement of Urinary Output in Critically Ill Patients Urinary Catheter Date of Insertion: 04/03/21 Urinary Catheter Time of Insertion: 13:30 Data : 04/11/21 03:35 04/11/21 03:35 Other data: Pathology report A. Colon, sigmoid colon segment suture proximal , open sigmoid colectomy and Torres's procedure: ?Perforated diverticulosis with diverticulitis and abscess formation with peritonitis. ?0.2 cm hyperplastic polyp. ?0.15 cm hemangioma. ?Margins are negative. ?7 benign lymph nodes. ?No atypia, dysplasia or malignancy identified. B. Colon, colonic segment staple line , excision: ?Benign colonic segment with a single benign lymph node. ?No diverticulitis, diverticulosis, dysplasia or malignancy identified. A&P Assessment and plan (1) Diverticular 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: Patient is a status post exploratory laparotomy with Torres's procedure(open sigmoid colectomy with colostomy) 04/04/2021 Plan: PLAN OF CARE from surgical standpoint of view: Continue clear liquids and emphasis on protein shakes with every meal Continue pharmacologic DVT prophylaxis Continue incentive spirometer every hour Encourage ambulation with assistance of physical therapy Will coordinate with hospitalist service to wean off TPN SKIN AND WOUND: Daily wet to dry dressing change for abdominal incision, packing with Kerlix followed by Rajat Thank you for consulting general surgery to participate taking care Ms. Nunn Status: Acute Attestations Medical Necessity Statement*: Patient is requiring inpatient hospitalization passing 2 midnights for medical and surgical care nutrition and surgical care of the wound. Time Spent in Patient Care: (>than 50% of time spent in counselling and/or direct pt care on unit) . Procedures Arterial Line Size (Gauge): 20 Coding Level of Care Code Acute Presser And Blocker Knitted Goods for Landon Cha Diagnoses Diverticular 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 K57.80
--- NOTE | 2021-04-10 17:15 | PC.NURSE ---
Spoke to Dr. Vergara. Orders to give Mg Citrate if patient has not had any stool out of her colostomy. Reported to Dr. Vergara that patient has had a small, soft, formed stool out of her colostomy. Orders to hold Mg Citrate.
[2021-04-10 20:06] LABS: Glucose Point of Care 113 mg/dL (70-110)
[2021-04-10 22:31] LABS: Vancomycin Trough 14.9 ug/mL (10-15)
[2021-04-11] VITALS (55 sets, daily range): BP systolic 90–150; BP diastolic 63–88; PULSE 81–102; RESP 12–34; TEMP 36.6–37; O2SAT 93–100
[2021-04-11 04:10] LABS: Basophils # 0.1 10^3/uL (0.0-0.1); Basophils % 0.4 %; Eosinophils # 0.7 10^3/uL (0.0-0.8); Eosinophils % 3.4 %; Hematocrit 30.4 % (37.0-47.0); Hemoglobin 9.3 g/dL (11.5-15.3); Lymphocytes # 4.6 10^3/uL (0.8-4.8); Mean Corpuscular HGB Conc 30.6 g/dL (30.0-36.0); Mean Corpuscular Hemoglobin 27.7 pg (28.0-34.0); Mean Corpuscular Volume 90.5 fL (81-99); Monocytes # 2.4 10^3/uL (0.2-0.9); Monocytes % 11.4 %; Neutrophils # 12.23 10^3/uL (1.8-7.7); Neutrophils % 58.1 %; Nucleated Red Blood Cells # 0.1 /100WBC; Nucleated Red Blood Cells % 0.3 %; Platelet Count 750 10^3/cmm (130-400); Red Blood Count 3.36 10^6/uL (4.1-5.3); Red Cell Distribution Width 14.7 % (12.1-15.1); White Blood Count 21.1 10^3/uL (4.0-10.0)
[2021-04-11 04:24] LABS: Blood Urea Nitrogen 25 mg/dL (8-23); Calcium 8.3 mg/dL (8.5-10.5); Chloride 89 mmol/L (98-107); Glomerular Filtration Rate 56.2 mL/min (90-130); Glucose 131 mg/dL (65-115); Osmolality Calculated 286 mOsm/kg (285-295); Sodium 135 mmol/L (136-145)
[2021-04-11 04:37] LABS: Carbon Dioxide 42 mmol/L (22-29)
[2021-04-11] MEDS: famotidine 20 mg/2 mL INJ IVP ×2 (06:41→18:29)
[2021-04-11] MEDS: heparin 5,000 unit/mL INJ 1 mL 5000 UNIT SUBCUT ×3 (06:41→22:54)
[2021-04-11 07:30] LABS: Glucose Point of Care 140 mg/dL (70-110)
[2021-04-11] MEDS: budesonide 0.5 mg/2 mL Neb INHALATION ×2 (08:42→20:04)
[2021-04-11] MEDS: ipratropium-albuterol 3 mL Neb INHALATION ×2 (08:42→20:04)
[2021-04-11] MEDS: levothyroxine 25 mcg Tablet PO (09:11)
[2021-04-11] MEDS: FUROsemide 40 mg Tablet PO (09:11)
[2021-04-11] MEDS: potassium chloride premix 100 ML 50 MEQ IV (09:11)
--- NOTE | 2021-04-11 09:11 | PM.PN ---
Subjective Subjective: Interval history: Overall tolertaing po intake and having bowel movements per stoma. Medications: Reviewed: Yes Vitals/I&O/Wt Last Vital Signs Temp 98.6 F 04/11/21 04:30 Pulse 96 04/11/21 08:47 Resp 18 04/11/21 08:44 BP 90/74 04/11/21 04:30 Pulse Ox 97 04/11/21 08:44 04/10/21 04/11/21 04/11/21 22:59 06:59 14:59 Intake Total 1500 / 2305 535 / 2840 81.667 / 81.667 Output Total 2560 / 3310 10 / 3320 Balance -1060 / -1005 525 / -480 81.667 / 81.667 Physical Exam Narrative: EXAM NARRATIVE: Patient is conscious alert oriented X3 BMI 40 Head and neck examination PERRLA no masses no cervical lymphadenopathy no jaundice Abdomen nontender except mildly tender at the incision site nondistended soft no organomegaly guarding or rigidity/no signs of peritonitis Morbidly obese. Wound bed is clean and right lower quadrant drain in place with serous output Left-sided colostomy is pink patent with gas appreciated at the colostomy bag with some output per stoma bag. Urinary Catheter Management^: Cervantes: Cath Placed During This Visit: yes, but has since been removed by the nurse Reason for Continuing Indwelling Catheter: Accurate Measurement of Urinary Output in Critically Ill Patients Urinary Catheter Date of Insertion: 04/03/21 Urinary Catheter Time of Insertion: 13:30 Date Urinary Catheter Removed: 04/10/21 Time Urinary Catheter Discontinued: 18:20 Data : 04/11/21 03:35 04/11/21 03:35 A&P Assessment and plan (1) Diverticular 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: Patient is a status post exploratory laparotomy with Torres's procedure(open sigmoid colectomy with colostomy) 04/04/2021 Plan: PLAN OF CARE from surgical standpoint of view: Advance to full liquid with emphasis on protein shakes with every meal Continue pharmacologic DVT prophylaxis Continue incentive spirometer every hour Encourage ambulation with assistance of physical therapy Will coordinate with hospitalist service to wean off TPN SKIN AND WOUND: Daily wet to dry dressing change for abdominal incision, packing with Kerlix followed by Rajat I Discussed with the patient about the importance of entertaining the concept of long-term rehab to restore her strength with focusing on nutrition and physical therapy in addition to pulmonary care.Patient is not interested to go to rehab and she is interested to go home with home health. I did discuss with the patient her options in the presence of her caring nurse SOLOMON Thank you for consulting general surgery to participate taking care Ms. Nunn Status: Acute Attestations Medical Necessity Statement*: Patient is requiring inpatient hospitalization passing 2 midnights for medical and surgical care nutrition and surgical care of the wound. Time Spent in Patient Care: (>than 50% of time spent in counselling and/or direct pt care on unit). Procedures Arterial Line Size (Gauge): 20 Coding Level of Care Code Acute Race Board Attendant for jett Cha Diagnoses Diverticular 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 K57.80
[2021-04-11 11:16] LABS: Glucose Point of Care 147 mg/dL (70-110)
--- NOTE | 2021-04-11 13:24 | PC.NURSE ---
frequent request for pain medication q 3 hrs small amt po this am then c/o burping up bile.. encouraged to get up had refused earlier , I just want to take the day off.. explained importance of movement to increase stomach function and help get pain under control up with walker to wheelchair incontinent of urine but aware after going requesting to be cleaned ulp transfer to room 256
--- NOTE | 2021-04-11 14:45 | P.PN_ITS ---
Subjective Subjective: Interval history: Patient was seen and examined this morning,overall she is doing better.Started on full liquid diet. Medications: Reviewed: Yes Vitals/I&O/Wt Last Vital Signs Temp 98 F 04/11/21 12:00 Pulse 88 04/11/21 12:00 Resp 27 H 04/11/21 12:00 BP 150/86 04/11/21 12:00 Pulse Ox 96 04/11/21 12:00 04/10/21 04/11/21 04/11/21 22:59 06:59 14:59 Intake Total 1500 / 2305 535 / 2840 327.940 / 327.940 Output Total 2560 / 3310 10 / 3320 400 / 400 Balance -1060 / -1005 525 / -480 -72.060 / -72.060 Physical Exam Const: COMMON NORMALS: patient oriented x3 HENMT: COMMON NORMALS: normocephalic and atraumatic HEAD & SCALP: normocephalic and atraumatic Resp: COMMON NORMALS: clear to auscultation bilaterally EFFORT & IN SPECTION: Yes symmetric chest movement AUSCULTATION: clear to auscultation bilaterally Cardio: COMMON NORMALS: regular rate, regular rhythm, S1 normal heart sound present, S2 normal heart sound present, No gallops present (Cardio), No murmurs present (Cardio), No rub (Cardio) and Peripheral pulses 2+ throughout RATE: regular rate RHYTHM: regular rhythm HEART SOUNDS: S1 normal heart sound present and S2 normal heart sound present PERIPHERAL PULSES: Peripheral pulses 2+ throughout GI: COMMON NORMALS: Normal to inspection, nondistended, normoactive bowel sounds present, Soft to palpation, non-tender, No hepatosplenomegaly present and no masses AUSCULTATION: Yes normoactive bowel sounds PALPATION: Yes Soft to palpation and Yes No hepatosplenomegaly present RECTAL EXAM: deferred OTHER: Wound bed is clean and right lower quadrant J/P drain in place with serous output Left-sided colostomy is pink patent with minimal output. Extremity: COMMON NORMALS: no clubbing, cyanosis or edema and no pedal edema Neuro: COMMON NORMALS: patient oriented x3 Urinary Catheter Management^: Cervantes: Cath Placed During This Visit: yes, but has since been removed by the nurse Reason for Continuing Indwelling Catheter: Accurate Measurement of Urinary Output in Critically Ill Patients Urinary Catheter Date of Insertion: 04/03/21 Urinary Catheter Time of Insertion: 13:30 Date Urinary Catheter Removed: 04/10/21 Time Urinary Catheter Discontinued: 18:20 Data : 04/11/21 03:35 04/11/21 03:35 Micro: Microbiology 04/06/21 13:20 Blood Culture - Final Blood NO GROWTH AFTER 5 DAYS 04/06/21 13:15 Blood Culture - Final Blood NO GROWTH AFTER 5 DAYS A&P Assessment and plan (1) Septic shock: Status: Acute (2) Diverticular 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: Status: Acute (3) Heart failure with preserved ejection fraction: Status: Acute Qualifiers: Heart failure chronicity: acute on chronic Qualified Code(s): I50.33 - Acute on chronic diastolic (congestive) heart failure (4) Acute and chronic respiratory failure with hypoxia: Status: Acute (5) COPD (chronic obstructive pulmonary disease): Status: Acute Qualifiers: COPD type: unspecified COPD Qualified Code(s): J44.9 - Chronic obstructive pulmonary disease, unspecified (6) Thrombocytosis: Reactive thrombocytosis. Monitor P/C Status: Acute (7) Anemia: Normocytic anemia : Likely anemia of chronic disease Anemia Panel : Serum Iron : 27, TIBC:103, percent saturation: 26, ferritin: 636 B12:559, folate:2 Status: Acute (8) Hypoalbuminemia: Status: Acute (9) Low folate: Status: Acute (10) Hypokalemia: Status: Acute Additional A&P Information # Sigmoid diverticular perforation with abscess s/p Ex lap with open sigmoid colectomy and Torres's procedure March Initially she was intubated post operatively s/p extubation.Currently saturating well on R/A Currently she is passing gas and she has been started on Clear liquid consistent carbohydrate diet. On PPN 45cc/hr NG Tube has been removed. # septic shock as a result of above : Blood culture: Have been negative so far, lactic acid: 1.7, initially she was on Levophed, later it was weaned off, Initially she was on Zosyn.Zosyn was stopped on 04/09, imipenem as well as vancomycin was added, as she had persistent leukocytosis, as well as she started having low-grade temperatures.Later seeing overall hemodynamic stability, will start deescaling abxs,starting with vancomycin. # Acute and chronic respiratory failure with hypoxia contributed by COPD, obesity hypoventilation , CHF and PAH. S/p extubation Initially on Lasix I.V Daily. Has been switched to p.o. Lasix from 04/10. She has also received albumin 25 gm IV q8 h I.V for 1 day. Currently she is 5.5 Ls negative. #Contraction Alkalosis: Lasix 40 mg po BID has been stopped.Currently on lasix 40 mg po daily, will add dimox. # Full code DVT prophylaxis : Heparin 5000s/c q8h. Disposition:Patient has denied SNF Placement on multiple occasions.She has agreed to go home with [facility]. Attestations Medical Necessity Statement*: Patient needs to be in hospital for the management of s/p Ex lap with open sigmoid colectomy, and sepsis. Procedures Arterial Line Size (Gauge): 20 Coding Level of Care Code Acute Solar Installation Foreman for g Fwd Diagnoses Septic shock A41.9; R65.21 Diverticular 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 K57.80 Heart failure with preserved ejection fraction I50.33 Heart failure chronicity: acute on chronic Acute and chronic respiratory failure with hypoxia J96.21 COPD (chronic obstructive pulmonary disease) J44.9 COPD type: unspecified COPD Thrombocytosis D47.3 Anemia D64.9 Hypoalbuminemia E88.09 Low folate E53.8 Hypokalemia E87.6
[2021-04-11] MEDS: AA-Dex 5%-20% w/Lytes 1,000 ML 423 ML IV (16:04)
[2021-04-11 17:09] LABS: Glucose Point of Care 140 mg/dL (70-110)
[2021-04-11] MEDS: vancomycin 1,250 MG/250 ML PIGGYBACK 250 MG IV (17:30)
[2021-04-11 20:16] LABS: Glucose Point of Care 143 mg/dL (70-110)
[2021-04-12] VITALS (17 sets, daily range): BP systolic 92–116; BP diastolic 61–73; PULSE 83–103; RESP 16–19; TEMP 36.1–36.9; O2SAT 92–99
--- NOTE | 2021-04-12 05:19 | PC.NURSE ---
SHIFT SUMMARY Has rested well tonight. Requests her po Dilaudid right at [id number] or earlier. c/o abdominal incisional pain as well as back pain. Getting up to BSC to urinate. Discussed need for her to try to be more active. Dressing to abdomen D&I. SONIA drain without any measurable drainage this shift. TPN continues. Soft formed stool in colostomy bag. O2 at 2.5 l NC. Says still SOB when she moves around. Telemetry showing SR
[2021-04-12] MEDS: famotidine 20 mg/2 mL INJ IVP ×2 (06:18→18:32)
[2021-04-12] MEDS: heparin 5,000 unit/mL INJ 1 mL 5000 UNIT SUBCUT ×3 (06:26→23:48)
[2021-04-12 06:30] LABS: Glucose Point of Care 163 mg/dL (70-110)
[2021-04-12 06:30] LABS: Glucose Point of Care > 600 mg/dL (70-110)
[2021-04-12] MEDS: ondansetron 2 mg/ML SDV 2 mL 4 MG IVP (07:25)
[2021-04-12] MEDS: levothyroxine 25 mcg Tablet PO (08:29)
[2021-04-12] MEDS: FUROsemide 40 mg Tablet PO (08:30)
--- NOTE | 2021-04-12 09:55 | P.PN_ITS ---
Subjective Subjective: Interval history: Patient got transferred from the ICU to the floor and seems overall to be doing appropriately well. Continues to have persistent leukocytosis but no evidence of hemodynamic instability or fevers Medications: Reviewed: Yes Vitals/I&O/Wt Last Vital Signs Temp 98.2 F 04/12/21 07:35 Pulse 83 04/12/21 08:53 Resp 18 04/12/21 08:53 BP 116/73 04/12/21 07:35 Pulse Ox 97 04/12/21 08:53 04/11/21 04/12/21 04/12/21 22:59 06:59 14:59 Intake Total 550 / 877.940 565 / 6147.188 3231 / 1100 Output Total 515 / 915 300 / 1215 Balance 35 / -37.060 265 / 593.483 1713 / 1100 Weight last 48 hrs Weight 202 lb 8 oz Physical Exam Narrative: EXAM NARRATIVE: Patient is conscious alert oriented X3 BMI 40 Head and neck examination PERRLA no masses no cervical lymphadenopathy no jaundice Abdomen nontender except mildly tender at the incision site nondistended soft no organomegaly guarding or rigidity/no signs of peritonitis Morbidly obese. Wound bed is clean and right lower quadrant drain in place with serous output Left-sided colostomy is pink patent with gas appreciated at the colostomy bag and soft brown stool. Mild necrotic tissues at the circumferential part of the colostomy but the actual colostomy looks healthy. Urinary Catheter Management^: Cervantes: Cath Placed During This Visit: yes, but has since been removed by the nurse Reason for Continuing Indwelling Catheter: Accurate Measurement of Urinary Output in Critically Ill Patients Urinary Catheter Date of Insertion: 04/03/21 Urinary Catheter Time of Insertion: 13:30 Date Urinary Catheter Removed: 04/10/21 Time Urinary Catheter Discontinued: 18:20 Data : 04/12/21 09:39 04/11/21 03:35 Micro: Microbiology 04/06/21 13:20 Blood Culture - Final Blood NO GROWTH AFTER 5 DAYS 04/06/21 13:15 Blood Culture - Final Blood NO GROWTH AFTER 5 DAYS A&P Assessment and plan (1) Diverticular 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: Patient is a status post exploratory laparotomy with Torres's procedure(open sigmoid colectomy with colostomy) 04/04/2021 PLAN OF CARE from surgical standpoint of view: We will advance to soft GI diet and continue protein shakes with every meal Continue pharmacologic DVT prophylaxis Continue incentive spirometer every hour Encourage ambulation with assistance of physical therapy Recommend to DC central line and obtain a chest x-ray, if patient continues to have persistent elevated WBC count CT scan of the abdomen and pelvis with oral only contrast likely would be warranted to rule out intra-abdominal abscess formation. SKIN AND WOUND: Daily wet to dry dressing change for abdominal incision, packing with Kerlix followed by ABDs Thank you for consulting general surgery to participate taking care Ms. Nunn Status: Acute Attestations Medical Necessity Statement*: Patient is requiring inpatient hospitalization passing 2 midnights for medical and surgical care nutrition and surgical care of the wound. Time Spent in Patient Care: (>than 50% of time spent in counselling and/or direct pt care on unit) . Procedures Arterial Line Size (Gauge): 20 Coding Level of Care Code Acute Director Career Services for g Fwd Diagnoses Diverticular 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 K57.80
[2021-04-12 10:06] LABS: Basophils # 0.1 10^3/uL (0.0-0.1); Basophils % 0.5 %; Eosinophils # 0.6 10^3/uL (0.0-0.8); Eosinophils % 2.8 %; Hematocrit 30.4 % (37.0-47.0); Hemoglobin 9.2 g/dL (11.5-15.3); Lymphocytes # 4.3 10^3/uL (0.8-4.8); Mean Corpuscular HGB Conc 30.3 g/dL (30.0-36.0); Mean Corpuscular Hemoglobin 27.5 pg (28.0-34.0); Mean Platelet Volume 10.2 fL (7.4-10.4); Monocytes # 2.2 10^3/uL (0.2-0.9); Monocytes % 10.4 %; Neutrophils # 13.34 10^3/uL (1.8-7.7); Neutrophils % 62.6 %; Nucleated Red Blood Cells % 0.2 %; Platelet Count 720 10^3/cmm (130-400); Red Blood Count 3.34 10^6/uL (4.1-5.3); Red Cell Distribution Width 14.7 % (12.1-15.1); White Blood Count 21.3 10^3/uL (4.0-10.0)
[2021-04-12 10:16] LABS: Anion Gap 11.4 (5-19); Blood Urea Nitrogen 30 mg/dL (8-23); Calcium 8.6 mg/dL (8.5-10.5); Carbon Dioxide 36 mmol/L (22-29); Chloride 91 mmol/L (98-107); Glomerular Filtration Rate 56.2 mL/min (90-130); Glucose 138 mg/dL (65-115); Osmolality Calculated 288 mOsm/kg (285-295); Potassium 3.4 mmol/L (3.5-5.1); Sodium 135 mmol/L (136-145)
--- NOTE | 2021-04-12 10:38 | XRR_ITS ---
PROCEDURE INFORMATION: Exam: XR Chest Exam date and time: 04/12/2021 12:12 PM Age: 60 years old Clinical indication: Other: Leukocytosis; Additional info: Persistent leukocyotosis TECHNIQUE: Imaging protocol: XR of the chest. Views: 1 view. COMPARISON: CR XR chest 1V portable [id number] 04/09/2021 3:37 PM FINDINGS: Lungs: Unremarkable. No consolidation. Pleural spaces: Unremarkable. No pleural effusion. No pneumothorax. Heart/Mediastinum: Unremarkable. No cardiomegaly. Bones/joints: Unremarkable. XR/XR chest 1V portable [id number] IMPRESSION: Negative for infiltrate
[2021-04-12 11:13] LABS: Glucose Point of Care 183 mg/dL (70-110)
--- NOTE | 2021-04-12 13:27 | P.PN_ITS ---
Subjective Subjective: Interval history: Patient was seen and examined this morning,overall she is doing better. The only issue is persistent leukocytosis, in the absence of hemodynamic instability (afebrile, normotensive, no tachycardia no tachypnea, at baseline oxygen requirement) Medications: Reviewed: Yes Vitals/I&O/Wt Last Vital Signs Temp 97.1 F L 04/12/21 11:49 Pulse 103 H 04/12/21 11:49 Resp 18 04/12/21 11:49 BP 92/64 04/12/21 11:49 Pulse Ox 93 04/12/21 11:49 04/11/21 04/12/21 04/12/21 22:59 06:59 14:59 Intake Total 550 / 877.940 565 / 2294.304 6620 / 1100 Output Total 515 / 915 300 / 1215 Balance 35 / -37.060 265 / 517.207 3269 / 1100 Weight last 48 hrs Weight 91.852 kg Physical Exam Const: COMMON NORMALS: patient oriented x3 HENMT: COMMON NORMALS: normocephalic and atraumatic HEAD & SCALP: normocephalic and atraumatic Chest: CHEST: Yes Symmetrical chest wall rise Resp: COMMON NORMALS: clear to auscultation bilaterally EFFORT & INSPECTION: Yes symmetric chest movement AUSCULTATION: clear to auscultation bilaterally Cardio: COMMON NORMALS: regular rate, regular rhythm, S1 normal heart sound present, S2 normal heart sound present, No gallops present (Cardio), No murmurs present (Cardio), No rub (Cardio) and Peripheral pulses 2+ throughout RATE: regular rate RHYTHM: regular rhythm HEART SOUNDS: S1 normal heart sound present and S2 normal heart sound present PERIPHERAL PULSES: Peripheral pulses 2+ throughout GI: COMMON NORMALS: Normal to inspection, nondistended, normoactive bowel sounds present, Soft to palpation, non-tender, No hepatosplenomegaly present and no masses AUSCULTATION: Yes normoactive bowel sounds PALPATION: Yes Soft to palpation and Yes No hepatosplenomegaly present RECTAL EXAM: deferred OTHER: Wound bed is clean and right lower quadrant J/P drain in place with serous output Left-sided colostomy is pink patent with minimal output. Extremity: COMMON NORMALS: no clubbing, cyanosis or edema and no pedal edema Neuro: COMMON NORMALS: patient oriented x3 Urinary Catheter Management^: Cervantes: Cath Placed During This Visit: yes, but has since been removed by the nurse Reason for Continuing Indwelling Catheter: Accurate Measurement of Urinary Output in Critically Ill Patients Urinary Catheter Date of Insertion: 04/03/21 Urinary Catheter Time of Insertion: 13:30 Date Urinary Catheter Removed: 04/10/21 Time Urinary Catheter Discontinued: 18:20 Data : 04/12/21 09:39 04/12/21 09:39 Micro: Microbiology 04/06/21 13:20 Blood Culture - Final Blood NO GROWTH AFTER 5 DAYS 04/06/21 13:15 Blood Culture - Final Blood NO GROWTH AFTER 5 DAYS A&P Assessment and plan (1) Septic shock: Status: Acute (2) Diverticular 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: Status: Acute (3) Heart failure with preserved ejection fraction: Status: Acute Qualifiers: Heart failure chronicity: acute on chronic Qualified Code(s): I50.33 - Acute on chronic diastolic (congestive) heart failure (4) Acute and chronic respiratory failure with hypoxia: Status: Acute (5) COPD (chronic obstructive pulmonary disease): Status: Acute Qualifiers: COPD type: unspecified COPD Qualified Code(s): J44.9 - Chronic obstructive pulmonary disease, unspecified (6) Thrombocytosis: Reactive thrombocytosis. Monitor P/C Status: Acute (7) Anemia: Normocytic anemia : Likely anemia of chronic disease Anemia Panel : Serum Iron : 27, TIBC:103, percent saturation: 26, ferritin: 636 B12:559, folate:2 Status: Acute (8) Hypoalbuminemia: Status: Acute (9) Low folate: Status: Acute (10) Hypokalemia: Status: Acute Additional A&P Information # Sigmoid diverticular perforation with abscess s/p Ex lap with open sigmoid colectomy and Torres's procedure March Initially she was intubated post operatively s/p extubation.Currently saturating well on R/A Currently diet has been advanced to GI soft . Initially on PPN 45cc/hr, was stopped on 04/12. NG Tube has been removed. # septic shock as a result of above : Blood culture: Have been negative so far, lactic acid: 1.7,X-ray chest: No acute cardio pulmonary pathology.Right subclavian central line have been removed, catheter tip cultured ordered. Repeat urinalysis and urine culture: Procalcitonin: initially she was on Levophed, later it was weaned off. She has continued to maintain good MAP off Levophed. Initially she was on Zosyn.Zosyn was stopped on 04/09, imipenem as well as vancomycin was added, as she had persistent leukocytosis, as well as she started having low-grade temperatures.Later seeing overall hemodynamic stability, will start deescalating abxs,starting with vancomycin. #Persistent leukocytosis: # Acute and chronic respiratory failure with hypoxia contributed by COPD, obesity hypoventilation , CHF and PAH. S/p extubation Initially on Lasix I.V Daily. Has been switched to p.o. Lasix from 04/10. She has also received albumin 25 gm IV q8 h I.V for 1 day. Currently she is 5.5 Ls negative. #Contraction Alkalosis: Lasix 40 mg po BID has been stopped.Currently on lasix 40 mg po daily, will add dimox. # Full code DVT prophylaxis : Heparin 5000s/c q8h. Disposition:Patient has denied SNF Placement on multiple occasions.She has agreed to go home with [facility]. Attestations Medical Necessity Statement*: Patient needs to be in hospital for management of above defined problems. 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
[2021-04-12 17:22] LABS: Glucose Point of Care 129 mg/dL (70-110)
[2021-04-12 20:17] LABS: Glucose Point of Care 133 mg/dL (70-110)
[2021-04-13] VITALS (16 sets, daily range): BP systolic 88–104; BP diastolic 60–68; PULSE 82–98; RESP 12–19; TEMP 36.4–36.9; O2SAT 94–98
[2021-04-13 04:56] LABS: Basophils # 0.1 10^3/uL (0.0-0.1); Basophils % 0.5 %; Eosinophils # 0.4 10^3/uL (0.0-0.8); Eosinophils % 1.8 %; Hemoglobin 8.6 g/dL (11.5-15.3); Lymphocytes # 3.8 10^3/uL (0.8-4.8); Lymphocytes % 17.3 %; Mean Corpuscular HGB Conc 29.7 g/dL (30.0-36.0); Mean Corpuscular Hemoglobin 27.9 pg (28.0-34.0); Mean Corpuscular Volume 94.2 fL (81-99); Mean Platelet Volume 10.2 fL (7.4-10.4); Monocytes # 2.5 10^3/uL (0.2-0.9); Monocytes % 11.2 %; Neutrophils # 14.49 10^3/uL (1.8-7.7); Neutrophils % 66.2 %; Nucleated Red Blood Cells % 0.1 %; Platelet Count 738 10^3/cmm (130-400); Red Blood Count 3.08 10^6/uL (4.1-5.3); Red Cell Distribution Width 15.2 % (12.1-15.1); White Blood Count 21.9 10^3/uL (4.0-10.0)
[2021-04-13 05:24] LABS: Procalcitonin 0.52 ng/mL (0-0.5)
[2021-04-13] MEDS: famotidine 20 mg/2 mL INJ IVP ×2 (06:19→18:41)
[2021-04-13] MEDS: heparin 5,000 unit/mL INJ 1 mL 5000 UNIT SUBCUT ×3 (06:19→23:07)
[2021-04-13 06:28] LABS: Anion Gap 11.2 (5-19); Blood Urea Nitrogen 33 mg/dL (8-23); Calcium 8.4 mg/dL (8.5-10.5); Carbon Dioxide 37 mmol/L (22-29); Chloride 90 mmol/L (98-107); Glomerular Filtration Rate 41.5 mL/min (90-130); Glucose 121 mg/dL (65-115); Osmolality Calculated 289 mOsm/kg (285-295); Potassium 3.2 mmol/L (3.5-5.1); Sodium 135 mmol/L (136-145)
[2021-04-13 06:50] LABS: Glucose Point of Care 127 mg/dL (70-110)
[2021-04-13] MEDS: ipratropium-albuterol 3 mL Neb INHALATION (08:27)
--- NOTE | 2021-04-13 08:40 | CTR_ITS ---
PROCEDURE INFORMATION: Exam: CT Chest Without Contrast; Diagnostic Exam date and time: 04/13/2021 9:47 AM Age: 60 years old Clinical indication: Abdominal pain; Generalized; Chest pressure; Additional info: Persistent leukocytosis TECHNIQUE: Imaging protocol: Diagnostic computed tomography of the chest without contrast. Radiation optimization: All CT scans at this facility use at least one of these dose optimization techniques: automated exposure control; mA and/or kV adjustment per patient size (includes targeted exams where dose is matched to clinical indication); or iterative reconstruction. Other contrast: Oral, Omnipaque 300 , 20ml; COMPARISON: CT abdomen pelvis w con* [id number] 04/04/2021 3:27 AM RADIATION DOSE METRICS: Total DLP (mGy-cm): FINDINGS: Lungs: Decreased right lateral costophrenic angle opacities with mild residual 7 mm right lateral costophrenic angle atelectasis/scar. No followup needed. Pleural spaces: Unremarkable. No pneumothorax. No pleural effusion. Heart: Severe calcified coronary artery disease. Aorta: Unremarkable. No aortic aneurysm. Lymph nodes: Calcified right hilar nodes and/or mediastinal nodes and/or lung granulomas consistent with old granulomatous disease. Bones/joints: Moderate thoracic spondylosis. Soft tissues: Unremarkable. IMPRESSION: Severe calcified coronary artery disease. PROCEDURE INFORMATION: Exam: CT Abdomen And Pelvis Without Contrast Exam date and time: 04/13/2021 9:47 AM Age: 60 years old Clinical indication: Abdominal pain; Generalized; Chest pressure; Additional info: Persistenet leukocytosis TECHNIQUE: Imaging protocol: Computed tomography of the abdomen and pelvis without contrast. Radiation optimization: All CT scans at this facility use at least one of these dose optimization techniques: automated exposure control; mA and/or kV adjustment per patient size (includes targeted exams where dose is matched to clinical indication); or iterative reconstruction. Other contrast: Oral, Omnipaque 300 , 20ml; COMPARISON: CT abdomen pelvis w con* [id number] 04/04/2021 3:27 AM RADIATION DOSE METRICS: Total DLP (mGy-cm): 2091.51 FINDINGS: Liver: Multiple hepatic cysts at least one of which measures larger than 1.0 cm in size. Other low-attenuation lesions in the liver are too small to characterize. Gallbladder and bile ducts: Normal. No calcified stones. No ductal dilation. Pancreas: Normal. No ductal dilation. Spleen: Calcified splenic granulomas. Adrenal glands: Normal. No mass. Kidneys and ureters: Normal. No hydronephrosis. Stomach and bowel: Interval resection of sigmoid colon with residual rectal stump. Interval left lower quadrant colostomy. Mild bowel wall thickening in the residual left colon including pericolic fat consistent with postoperative inflammation versus infectious colitis versus microvascular ischemic colitis. Appendix: No evidence of appendicitis. Intraperitoneal space: Unremarkable. No free air. No significant fluid collection. Vasculature: Unremarkable. No abdominal aortic aneurysm. Lymph nodes: Unremarkable. No enlarged lymph nodes. Urinary bladder: Unremarkable as visualized. Reproductive: Unremarkable as visualized. Bones/joints: Unremarkable. No acute fracture. Soft tissues: Midline row of anterior abdominal wall vertical skin kellie with some areas without skin kellie consistent with healing by 2nd intention. CT/CT chest abd pel wo con IMPRESSION: 1. Midline row of anterior abdominal wall vertical skin kellie with some areas without skin kellie consistent with healing by 2nd intention. 2. Interval resection of sigmoid colon with residual rectal stump. 3. Interval left lower quadrant colostomy. 4. Mild bowel wall thickening in the residual left colon including pericolic fat consistent with postoperative inflammation versus infectious colitis versus microvascular ischemic colitis. Radiation Dose CTDIVOL = (mGy): DLP = 2092.51~2092.51 (mGy-cm)
[2021-04-13] MEDS: levothyroxine 25 mcg Tablet PO (08:49)
--- NOTE | 2021-04-13 10:37 | PM.PN ---
Subjective Subjective: Interval history: Patient overall tolerating po intake and maintain good colostomy output,no acute events except BP is softer likley due to pain meds. Serous output per drain. Persistent lecucystosis Continues to complain of pain specially at the incision site Medications: Reviewed: Yes Vitals/I&O/Wt Last Vital Signs Temp 98.1 F 04/13/21 08:00 Pulse 85 04/13/21 08:31 Resp 12 04/13/21 10:29 BP 90/65 04/13/21 08:00 Pulse Ox 98 04/13/21 10:29 04/12/21 04/13/21 04/13/21 22:59 06:59 14:59 Intake Total 615 / 1835 103.333 / 1938.333 Output Total 1170 / 1370 850 / 2220 145 / 145 Balance -555 / 465 -746.667 / -281.667 -145 / -145 Weight last 48 hrs Weight 202 lb 8 oz Physical Exam Narrative: EXAM NARRATIVE: Patient is conscious alert oriented X3 BMI 40 Head and neck examination PERRLA no masses no cervical lymphadenopathy no jaundice Abdomen nontender except mildly tender at the incision site nondistended soft no organomegaly guarding or rigidity/no signs of peritonitis Morbidly obese. Wound bed is clean except for some residual necrotic tissues,pack was removed by myself bed side and repacked and right lower quadrant drain in place with serous output Left-sided colostomy is pink patent with gas appreciated at the colostomy bag and soft brown stool.Stable Mild necrotic tissues at the circumferential part of the colostomy but the actual colostomy looks healthy. Urinary Catheter Management^: Cervantes: Cath Placed During This Visit: yes, but has since been removed by the nurse Reason for Continuing Indwelling Catheter: Accurate Measurement of Urinary Output in Critically Ill Patients Urinary Catheter Date of Insertion: 04/03/21 Urinary Catheter Time of Insertion: 13:30 Date Urinary Catheter Removed: 04/10/21 Time Urinary Catheter Discontinued: 18:20 Data : 04/13/21 04:22 04/13/21 05:51 Micro: Microbiology 04/12/21 11:00 Catheter Tip Culture - Preliminary Central Line 04/12/21 11:15 Urine Culture - Preliminary Urine,Voided A&P Assessment and plan (1) Diverticular 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: Patient is a status post exploratory laparotomy with Torres's procedure(open sigmoid colectomy with colostomy) 04/04/2021 PLAN OF CARE from surgical standpoint of view: We will advance to soft GI diet and continue protein shakes with every meal Continue pharmacologic DVT prophylaxis Continue incentive spirometer every hour Encourage ambulation with assistance of physical therapy Will follow on the CT scan of the Abdomen and Pelvis to r/o potential fluid collection that may require IR to drain. Continue Daily wet to dry dressing change for abdominal incision, packing with Kerlix followed by ABDs. Pain control,I would highly recommend to match patients home narcotic dose and my consider additional pain meds for break thru pain as PRN. Thank you for consulting general surgery to participate taking care Ms. Nunn Status: Acute Attestations Medical Necessity Statement*: Patient is requiring inpatient hospitalization passing 2 midnights for medical and surgical care nutrition and surgical care of the wound. Time Spent in Patient Care: (>than 50% of time spent in counselling and/or direct pt care on unit). 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
[2021-04-13] MEDS: iohexol 300 mg/mL 50 mL Btl PO (11:18)
[2021-04-13 11:24] LABS: Glucose Point of Care 122 mg/dL (70-110)
--- NOTE | 2021-04-13 14:24 | PM.PN ---
Subjective Subjective: Interval history: Patient was seen and examined this morning.She is complaining of persistent abdominal pain. Continued to remain afebrile,b/p was soft today possibly due to excess pain medications use. Medications: Reviewed: Yes Vitals/I&O/Wt Last Vital Signs Temp 98.4 F 04/13/21 12:00 Pulse 86 04/13/21 12:00 Resp 18 04/13/21 12:00 BP 91/65 04/13/21 12:00 Pulse Ox 98 04/13/21 10:29 04/12/21 04/13/21 04/13/21 22:59 06:59 14:59 Intake Total 615 / 1835 103.333 / 1938.333 Output Total 1170 / 1370 850 / 2220 145 / 145 Balance -555 / 465 -746.667 / -281.667 -145 / -145 Weight last 48 hrs Weight 91.852 kg Physical Exam Const: COMMON NORMALS: patient oriented x3 HENMT: COMMON NORMALS: normocephalic and atraumatic HEAD & SCALP: normocephalic and atraumatic Chest: CHEST: Yes Symmetrical chest wall rise Resp: COMMON NORMALS: clear to auscultation bilaterally EFFORT & INSPECTION: Yes symmetric chest movement AUSCULTATION: clear to auscultation bilaterally Cardio: COMMON NORMALS: regular rate, regular rhythm, S1 normal heart sound present, S2 normal heart sound present, No gallops present (Cardio), No murmurs present (Cardio), No rub (Cardio) and Peripheral pulses 2+ throughout RATE: regular rate RHYTHM: regular rhythm HEART SOUNDS: S1 normal heart sound present and S2 normal heart sound present PERIPHERAL PULSES: Peripheral pulses 2+ throughout GI: COMMON NORMALS: Normal to inspection, nondistended, normoactive bowel sounds present, Soft to palpation, non-tender, No hepatosplenomegaly present and no masses AUSCULTATION: Yes normoactive bowel sounds PALPATION: Yes Soft to palpation and Yes No hepatosplenomegaly present RECTAL EXAM: deferred OTHER: Wound bed is clean and right lower quadrant J/P drain in place with serous output Left-sided colostomy is pink patent with minimal output. Extremity: COMMON NORMALS: no clubbing, cyanosis or edema and no pedal edema Neuro: COMMON NORMALS: patient oriented x3 Urinary Catheter Management^: Cervantes: Cath Placed During This Visit: yes, but has since been removed by the nurse Reason for Continuing Indwelling Catheter: Accurate Measurement of Urinary Output in Critically Ill Patients Urinary Catheter Date of Insertion: 04/03/21 Urinary Catheter Time of Insertion: 13:30 Date Urinary Catheter Removed: 04/10/21 Time Urinary Catheter Discontinued: 18:20 Data : 04/13/21 04:22 04/13/21 05:51 Micro: Microbiology 04/12/21 11:00 Catheter Tip Culture - Preliminary Central Line 04/12/21 11:15 Urine Culture - Preliminary Urine,Voided A&P Assessment and plan (1) Septic shock: Status: Acute (2) Diverticular 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: Status: Acute (3) Heart failure with preserved ejection fraction: Status: Acute Qualifiers: Heart failure chronicity: acute on chronic Qualified Code(s): I50.33 - Acute on chronic diastolic (congestive) heart failure (4) Acute and chronic respiratory failure with hypoxia: Status: Acute (5) COPD (chronic obstructive pulmonary disease): Status: Acute Qualifiers: COPD type: unspecified COPD Qualified Code(s): J44.9 - Chronic obstructive pulmonary disease, unspecified (6) Thrombocytosis: Reactive thrombocytosis. Monitor P/C Status: Acute (7) Anemia: Normocytic anemia : Likely anemia of chronic disease Anemia Panel : Serum Iron : 27, TIBC:103, percent saturation: 26, ferritin: 636 B12:559, folate:2 Status: Acute (8) Hypoalbuminemia: Status: Acute (9) Low folate: Status: Acute (10) Hypokalemia: Status: Acute Additional A&P Information # Sigmoid diverticular perforation with abscess s/p Ex lap with open sigmoid colectomy and Torres's procedure March. Initially she was intubated post operatively s/p extubation.Currently saturating well on R/A Currently diet has been advanced to GI soft . Initially on PPN 45cc/hr, was stopped on 04/12. NG Tube has been removed. # septic shock as a result of above : Blood culture: Have been negative so far, lactic acid: 1.7,X-ray chest: No acute cardio pulmonary pathology.Right subclavian central line have been removed, catheter tip cultured:NTD . Repeat urinalysis and urine culture: Procalcitonin: 0.52. Repeat C.T Chest,abdomen and pelvis ( 04/13 ) : Normal initially she was on Levophed, later it was weaned off. She has continued to maintain good MAP off Levophed. Initially she was on Zosyn.Zosyn was stopped on 04/09, imipenem as well as vancomycin was added, as she had persistent leukocytosis, as well as she started having low-grade temperatures.Later seeing overall hemodynamic stability, will start deescalating abxs,starting with vancomycin. Metronidazole I.V was added on 04/13 for better G/I Anerobic coverage #Persistent leukocytosis: # Acute and chronic respiratory failure with hypoxia contributed by COPD, obesity hypoventilation , CHF and PAH. S/p extubation Initially on Lasix 40 MG I.V Daily. Has been switched to p.o. Lasix from 04/10.Lasix was held today as the b/p was soft. Another Soft B/P Could be due to her Excess pain Medications. Currently she is - 6Ls. She has also received albumin 25 gm IV q8 h I.V for 1 day. # Full code DVT prophylaxis : Heparin 5000s/c q8h. Disposition:Patient has denied SNF Placement on multiple occasions.She has agreed to go home with [facility]. Attestations Medical Necessity Statement*: Patient needs to be in hospital for the management of above defined problems. Procedures Arterial Line Size (Gauge): 20 Coding Level of Care Code Acute Clinical Specialist Vascular for [facility] Fwd Diagnoses Septic shock A41.9; R65.21 Diverticular 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 K57.80 Heart failure with preserved ejection fraction I50.33 Heart failure chronicity: acute on chronic Acute and chronic respiratory failure with hypoxia J96.21 COPD (chronic obstructive pulmonary disease) J44.9 COPD type: unspecified COPD Thrombocytosis D47.3 Anemia D64.9 Hypoalbuminemia E88.09 Low folate E53.8 Hypokalemia E87.6
[2021-04-13] MEDS: oxyCODONE 5 mg IR Tab/Cap 15 MG PO ×2 (15:22→20:39)
[2021-04-13] MEDS: ondansetron 2 mg/ML SDV 2 mL 4 MG IVP (15:24)
[2021-04-13] MEDS: metroNIDAZOLE IV 500 MG/100 ML PREMIX 100 MG IV ×2 (16:32→20:42)
[2021-04-13 18:23] LABS: Glucose Point of Care 174 mg/dL (70-110)
[2021-04-13] MEDS: nystatin cream 30 gm 1 APPLIC TOPICAL (18:41)
[2021-04-13 20:37] LABS: Glucose Point of Care 141 mg/dL (70-110)
[2021-04-14] VITALS (14 sets, daily range): BP systolic 91–134; BP diastolic 59–74; PULSE 81–104; RESP 14–18; TEMP 36.3–37.1; O2SAT 96–98
[2021-04-14] MEDS: oxyCODONE 5 mg IR Tab/Cap 15 MG PO ×4 (02:16→21:10)
[2021-04-14 04:46] LABS: Basophils # 0.1 10^3/uL (0.0-0.1); Basophils % 0.6 %; Eosinophils # 0.5 10^3/uL (0.0-0.8); Eosinophils % 2.4 %; Hematocrit 28.6 % (37.0-47.0); Lymphocytes # 4.2 10^3/uL (0.8-4.8); Lymphocytes % 20.2 %; Mean Corpuscular Volume 96.6 fL (81-99); Mean Platelet Volume 9.9 fL (7.4-10.4); Monocytes # 2.5 10^3/uL (0.2-0.9); Monocytes % 11.8 %; Neutrophils # 12.96 10^3/uL (1.8-7.7); Neutrophils % 62.3 %; Nucleated Red Blood Cells % 0.1 %; Platelet Count 746 10^3/cmm (130-400); Red Blood Count 2.96 10^6/uL (4.1-5.3); Red Cell Distribution Width 15.2 % (12.1-15.1); White Blood Count 20.8 10^3/uL (4.0-10.0)
[2021-04-14 05:02] LABS: Anion Gap 11.3 (5-19); Blood Urea Nitrogen 26 mg/dL (8-23); Calcium 7.9 mg/dL (8.5-10.5); Carbon Dioxide 33 mmol/L (22-29); Chloride 94 mmol/L (98-107); Glomerular Filtration Rate 63.4 mL/min (90-130); Glucose 97 mg/dL (65-115); Osmolality Calculated 285 mOsm/kg (285-295); Potassium 3.3 mmol/L (3.5-5.1); Sodium 135 mmol/L (136-145)
[2021-04-14] MEDS: metroNIDAZOLE IV 500 MG/100 ML PREMIX 100 MG IV (05:08)
[2021-04-14] MEDS: heparin 5,000 unit/mL INJ 1 mL 5000 UNIT SUBCUT ×3 (06:11→23:44)
--- NOTE | 2021-04-14 06:32 | P.PN_ITS ---
Subjective Subjective: Interval history: Patient overall seems to be resting better. Continues to tolerate p.o. intake and having appropriate colostomy output and adequate urine output. Medications: Reviewed: Yes Vitals/I&O/Wt Last Vital Signs Temp 97.6 F 04/14/21 04:00 Pulse 84 04/14/21 06:00 Resp 16 04/14/21 04:00 BP 92/59 04/14/21 04:00 Pulse Ox 98 04/14/21 04:00 04/13/21 04/13/21 04/14/21 14:59 22:59 06:59 Intake Total 420 / 420 200 / 620 Output Total 145 / 145 350 / 495 Balance -145 / -145 420 / 275 -150 / 125 Physical Exam Narrative: EXAM NARRATIVE: Patient is conscious alert oriented X3 BMI 40 Head and neck examination PERRLA no masses no cervical lymphadenopathy no jaundice Abdomen nontender except mildly tender at the incision site nondistended soft no organomegaly guarding or rigidity/no signs of peritonitis Morbidly obese. Wound bed is clean except for some residual necrotic tissues,pack was removed by myself bed side and repacked and right lower quadrant drain in place with serous output/fascia is intact. Left-sided colostomy is pink patent with gas appreciated at the colostomy bag and soft brown stool.Stable Mild necrotic residual tissues at the circumferential part of the colostomy but the actual colostomy looks healthy. Urinary Catheter Management^: Cervantes: Cath Placed During This Visit: yes, but has since been removed by the nurse Reason for Continuing Indwelling Catheter: Accurate Measurement of Urinary Output in Critically Ill Patients Urinary Catheter Date of Insertion: 04/03/21 Urinary Catheter Time of Insertion: 13:30 Date Urinary Catheter Removed: 04/10/21 Time Urinary Catheter Discontinued: 18:20 Data : 04/14/21 04:17 04/14/21 04:17 Micro: Microbiology 04/12/21 11:00 Catheter Tip Culture - Preliminary Central Line 04/12/21 11:15 Urine Culture - Preliminary Urine,Voided Attestation for Other Data: I personally reviewed and interpreted the following: (No evidence of intra-abdominal fluid collection for drainage) Other data: IMPRESSION: 1. Midline row of anterior abdominal wall vertical skin kellie with some areas without skin kellie consistent with healing by 2nd intention. 2. Interval resection of sigmoid colon with residual rectal stump. 3. Interval left lower quadrant colostomy. 4. Mild bowel wall thickening in the residual left colon including pericolic fat consistent with postoperative inflammation versus infectious colitis versus microvascular ischemic colitis. A&P Assessment and plan (1) Diverticular 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: Patient is a status post exploratory laparotomy with Torres's procedure(open sigmoid colectomy with colostomy) 04/04/2021 PLAN OF CARE from surgical standpoint of view: Can advance diet as tolerated and continue protein shakes with every meal Stable leukocytosis yet the patient have a component of thrombocytosis as well makes me little bit concerned about hemoconcentration.It Will be a fine line between diuretics and maintaining appropriate euvolemia,will defer to hospitalist service with that regard. Continue pharmacologic DVT prophylaxis with close monitoring of H&H Continue incentive spirometer every hour Encourage ambulation with assistance of physical therapy CT scan findings are of insignificance as I did review them myself. Continue Daily wet to dry dressing change for abdominal incision, packing with Kerlix followed by ABDs. Continue patients home narcotic dose and my consider additional pain meds for break thru pain as PRN. Thank you for consulting general surgery to participate taking care Ms. Nunn Status: Acute Attestations Medical Necessity Statement*: Patient is requiring inpatient hospitalization passing 2 midnights for medical and surgical care nutrition and surgical care of the wound. Time Spent in Patient Care: (>than 50% of time spent in counselling and/or direct pt care on unit) . 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
[2021-04-14] MEDS: famotidine 20 mg/2 mL INJ IVP ×2 (06:45→18:35)
[2021-04-14 06:58] LABS: Glucose Point of Care 135 mg/dL (70-110)
--- NOTE | 2021-04-14 07:02 | PC.NURSE ---
Patient request pain medication, this designer/writer went and pulled the pain medication. After going back into the patient's room the patient was sleeping.
[2021-04-14] MEDS: ipratropium-albuterol 3 mL Neb INHALATION (08:39)
[2021-04-14] MEDS: levothyroxine 25 mcg Tablet PO (10:40)
[2021-04-14] MEDS: nystatin cream 30 gm 1 APPLIC TOPICAL ×2 (10:40→18:18)
[2021-04-14] MEDS: ondansetron 2 mg/ML SDV 2 mL 4 MG IVP (10:44)
[2021-04-14 12:07] LABS: Glucose Point of Care 147 mg/dL (70-110)
[2021-04-14 16:57] LABS: Glucose Point of Care 165 mg/dL (70-110)
--- NOTE | 2021-04-14 16:58 | P.PN_ITS ---
Subjective Subjective: Interval history: No new complaints today, leukocytosis stable at 20.8, mild hypokalemia. Tolerating p.o. intake. Medications: Reviewed: Yes Vitals/I&O/Wt Last Vital Signs Temp 97.8 F 04/14/21 15:47 Pulse 90 04/14/21 15:47 Resp 18 04/14/21 15:47 BP 107/69 04/14/21 15:47 Pulse Ox 96 04/14/21 15:47 04/14/21 04/14/21 04/14/21 06:59 14:59 22:59 Intake Total 200 / 620 760 / 760 100 / 860 Output Total 350 / 495 130 / 130 Balance -150 / 125 760 / 760 -30 / 730 Physical Exam Narrative: EXAM NARRATIVE: GEN: Awake, alert and oriented, no acute distress CVS: S1S2 N RS: CTA B/L RADIO TELEVISION ANNOUNCER: no focal neuro deficits Urinary Catheter Management^: Cervantes: Cath Placed During This Visit: yes, but has since been removed by the nurse Reason for Continuing Indwelling Catheter: Accurate Measurement of Urinary Output in Critically Ill Patients Urinary Catheter Date of Insertion: 04/03/21 Urinary Catheter Time of Insertion: 13:30 Date Urinary Catheter Removed: 04/10/21 Time Urinary Catheter Discontinued: 18:20 Data : 04/14/21 04:17 04/14/21 04:17 Micro: Microbiology 04/12/21 11:00 Catheter Tip Culture - Final Central Line 04/12/21 11:15 Urine Culture - Final Urine,Voided A&P Assessment and plan (1) Septic shock: resolved Status: Acute (2) Diverticular 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: s/p Ex lap with open sigmoid colectomy and Torres's procedure March. Difficult extubation post operatively Currently tolerating p.o. at 20.8 since post procedure. Infectious work-up overall negative. Multiple bloody Urine cultures remain negative. No signs of pneumonia on chest x-ray. CT yael st abdomen and pelvis was performed yesterday which did not reveal any over untreated infection. Patient is clinically improving, remains off pressors. central line removed Antibiotic treatment so far has included Zosyn until 04/09, iv vancomycin and now primaxin Discontinue metronidazole as no added advantage or anaerobic coverage over Primaxin. I clinically stable, will plan to discontinue Status: Acute (3) Heart failure with preserved ejection fraction: Currently clinically euvolemic on Lasix 40 mg p.o. daily, the latter has been on hold here since yesterday due to soft blood pressures. Status: Acute Qualifiers: Heart failure chronicity: acute on chronic Qualified Code(s): I50.33 - Acute on chronic diastolic (congestive) heart failure (4) Acute and chronic respiratory failure with hypoxia: contributed by COPD, obesity hypoventilation , CHF and PAH. Currently stable Status: Acute (5) COPD (chronic obstructive pulmonary disease): continue budesonide, duoneb inhalation Status: Acute Qualifiers: COPD type: unspecified COPD Qualified Code(s): J44.9 - Chronic obstructive pulmonary disease, unspecified Additional A&P Information DVT ppx: heaprin 5K q8h Full code Attestations Medical Necessity Statement*: Ongoing need for IV antibiotics resume Lasix Procedures Arterial Line Size (Gauge): 20 Coding Level of Care Code Acute Heat Plant Specialist for [facility] Fwd Diagnoses Septic shock A41.9; R65.21 Diverticular 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 K57.80 Heart failure with preserved ejection fraction I50.33 Heart failure chronicity: acute on chronic Acute and chronic respiratory failure with hypoxia J96.21 COPD (chronic obstructive pulmonary disease) J44.9 COPD type: unspecified COPD
[2021-04-14] MEDS: potassium chloride ER 20 mEq Tablet 40 MEQ PO (18:17)
[2021-04-14 20:24] LABS: Glucose Point of Care 111 mg/dL (70-110)
[2021-04-15] VITALS (14 sets, daily range): BP systolic 87–124; BP diastolic 61–84; PULSE 80–93; RESP 15–19; TEMP 36.3–37.2; O2SAT 94–99
[2021-04-15] MEDS: oxyCODONE 5 mg IR Tab/Cap 15 MG PO ×3 (02:59→19:50)
[2021-04-15] MEDS: ondansetron 2 mg/ML SDV 2 mL 4 MG IVP ×2 (04:40→10:36)
[2021-04-15] MEDS: heparin 5,000 unit/mL INJ 1 mL 5000 UNIT SUBCUT ×3 (06:10→22:58)
[2021-04-15] MEDS: famotidine 20 mg/2 mL INJ IVP ×2 (06:10→18:42)
[2021-04-15 06:31] LABS: Glucose Point of Care 111 mg/dL (70-110)
[2021-04-15] MEDS: FUROsemide 40 mg Tablet PO (09:01)
[2021-04-15] MEDS: levothyroxine 25 mcg Tablet PO (09:01)
[2021-04-15] MEDS: nystatin cream 30 gm 1 APPLIC TOPICAL ×2 (09:03→18:46)
--- NOTE | 2021-04-15 11:04 | PM.PN ---
Subjective Subjective: Interval history: Patient overall is doing well. Tolerating p.o. intake and no acute events overnight. Medications: Reviewed: Yes Vitals/I&O/Wt Last Vital Signs Temp 98.9 F 04/15/21 08:00 Pulse 84 04/15/21 08:15 Resp 18 04/15/21 09:00 BP 108/65 04/15/21 08:00 Pulse Ox 94 04/15/21 08:15 04/14/21 04/15/21 04/15/21 22:59 06:59 14:59 Intake Total 220 / 980 100 / 1080 100 / 100 Output Total 130 / 130 200 / 330 800 / 800 Balance 90 / 850 -100 / 750 -700 / -700 Physical Exam Narrative: EXAM NARRATIVE: Patient is conscious alert oriented X3 BMI 40 Head and neck examination PERRLA no masses no cervical lymphadenopathy no jaundice Abdomen nontender except mildly tender at the incision site nondistended soft no organomegaly guarding or rigidity/no signs of peritonitis Morbidly obese. Wound bed is clean except for some residual necrotic tissues,pack was removed by myself bed side and repacked and right lower quadrant drain in place with serous output/fascia is intact. Left-sided colostomy is pink patent with gas appreciated at the colostomy bag and soft brown stool.Stable Mild necrotic residual tissues at the circumferential part of the colostomy but the actual colostomy looks healthy. Urinary Catheter Management^: Cervantes: Cath Placed During This Visit: yes, but has since been removed by the nurse Reason for Continuing Indwelling Catheter: Accurate Measurement of Urinary Output in Critically Ill Patients Urinary Catheter Date of Insertion: 04/03/21 Urinary Catheter Time of Insertion: 13:30 Date Urinary Catheter Removed: 04/10/21 Time Urinary Catheter Discontinued: 18:20 Data : 04/16/21 05:05 04/16/21 05:05 Micro: Microbiology 04/12/21 11:00 Catheter Tip Culture - Final Central Line 04/12/21 11:15 Urine Culture - Final Urine,Voided A&P Assessment and plan (1) Diverticular 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: Patient is a status post exploratory laparotomy with Torres's procedure(open sigmoid colectomy with colostomy) 04/04/2021 PLAN OF CARE from surgical standpoint of view: Can advance diet as tolerated and continue protein shakes with every meal Stable leukocytosis yet the patient have a component of thrombocytosis as well makes me little bit concerned about hemoconcentration.It Will be a fine line between diuretics and maintaining appropriate euvolemia,will defer to hospitalist service with that regard. Continue pharmacologic DVT prophylaxis with close monitoring of H&H Continue incentive spirometer every hour Encourage ambulation with assistance of physical therapy CT scan findings are of insignificance as I did review them myself. We will plan to DC drain today Continue Daily wet to dry dressing change for abdominal incision, packing with Kerlix followed by ABDs. Continue patients home narcotic dose and my consider additional pain meds for break thru pain as PRN. Upon discharge from the hospital patient will need to follow-up with me in 1 week Thank you for consulting general surgery to participate taking care Ms. Nunn Status: Acute Attestations Medical Necessity Statement*: Patient is requiring inpatient hospitalization passing 2 midnights for medical and surgical care nutrition and surgical care of the wound. Time Spent in Patient Care: (>than 50% of time spent in counselling and/or direct pt care on unit). Procedures Arterial Line Size (Gauge): 20 Coding Level of Care Code Acute Credit Administration Manager for [facility] Fwd Diagnoses Diverticular 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 K57.80
[2021-04-15 11:16] LABS: Glucose Point of Care 115 mg/dL (70-110)
--- NOTE | 2021-04-15 11:19 | PC.NURSE ---
PT has been in pain, declines bath and linen change at the present until primary nurse speaks with DR regarding pain medication.
--- NOTE | 2021-04-15 12:36 | PC.NURSE ---
Nurse and WIREWORKER Trisha attempted to educate patient's about colostomy bag. Patient's was not very attentive to instructions and refused to watch.
[2021-04-15] MEDS: ketorolac 30 mg/mL INJ 15 MG IVP (13:05)
--- NOTE | 2021-04-15 13:18 | PC.OT ---
OT TREATMENT ATTEMPTED TWICE. BOTH TIMES PATIENT REPORTS THAT SHE IS 10/10 PAIN. NURSING INFORMED. AT 1300 NURSE IS PRESENT AND ADMINISTERING PAIN MEDS TREATMENT TO BE ATTEMPTED AT A LATER TIME.
--- NOTE | 2021-04-15 14:24 | P.PN_ITS ---
Subjective Subjective: Interval history: No acute interim events, continue to complain of abdominal soreness and pain, Toradol added to her medication regimen. Will application today. Plan for drain removal later today Medications: Reviewed: Yes Vitals/I&O/Wt Last Vital Signs Temp 98.6 F 04/15/21 12:00 Pulse 90 04/15/21 12:00 Resp 18 04/15/21 12:00 BP 100/67 04/15/21 12:00 Pulse Ox 94 04/15/21 12:00 04/14/21 04/15/21 04/15/21 22:59 06:59 14:59 Intake Total 220 / 980 100 / 1080 100 / 100 Output Total 130 / 130 200 / 330 1000 / 1000 Balance 90 / 850 -100 / 750 -900 / -900 Physical Exam Narrative: EXAM NARRATIVE: GEN: Awake, alert and oriented, no acute distress CVS: S1S2 N RS: CTA B/L COIL MAKER: no focal neuro deficits Urinary Catheter Management^: Cervantes: Cath Placed During This Visit: yes, but has since been removed by the nurse Reason for Continuing Indwelling Catheter: Accurate Measurement of Urinary Output in Critically Ill Patients Urinary Catheter Date of Insertion: 04/03/21 Urinary Catheter Time of Insertion: 13:30 Date Urinary Catheter Removed: 04/10/21 Time Urinary Catheter Discontinued: 18:20 Data : 04/14/21 04:17 04/14/21 04:17 A&P Assessment and plan (1) Septic shock: resolved Status: Acute (2) Diverticular 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: s/p Ex lap with open sigmoid colectomy and Torres's procedure March. Difficult extubation post operatively Currently tolerating oral intake since post procedure. Persisting leukocytosis noted, however infectious work-up overall negative. Multiple blood and urine cultures remain negative. No signs of pneumonia on chest x-ray. CT chest abdomen and pelvis was performed yesterday which did not reveal any over untreated infection. Patient is clinically improving, remains off pressors. central line removed Antibiotic treatment so far has included Zosyn 04/03- 04/09, iv vancomycin and now primaxin. Overall she is day 12 of abx post surgery Discontinue Primaxin today and monitor closely over the next 24 hours for any signs of clinical deterioration. Status: Acute (3) Heart failure with preserved ejection fraction: Currently clinically euvolemic on Lasix 40 mg p.o. daily Status: Acute Qualifiers: Heart failure chronicity: acute on chronic Qualified Code(s): I50.33 - Acute on chronic diastolic (congestive) heart failure (4) Acute and chronic respiratory failure with hypoxia: contributed by COPD, obesity hypoventilation , CHF and PAH. Currently stable Status: Acute (5) COPD (chronic obstructive pulmonary disease): continue budesonide, duoneb inhalation Status: Acute Qualifiers: COPD type: unspecified COPD Qualified Code(s): J44.9 - Chronic obstructive pulmonary disease, unspecified Additional A&P Information DVT ppx: heaprin 5K q8h Full code Disposition Home with home health Attestations Medical Necessity Statement*: Discontinue antibiotics today and monitor closely for any signs of clinical deterioration, plan for drain removal today, likely discharge home in the upcoming 24 hours Procedures Arterial Line Size (Gauge): 20 Coding Level of Care Code Acute Survey Field Technician for [facility] Fwd Diagnoses Septic shock A41.9; R65.21 Diverticular 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 K57.80 Heart failure with preserved ejection fraction I50.33 Heart failure chronicity: acute on chronic Acute and chronic respiratory failure with hypoxia J96.21 COPD (chronic obstructive pulmonary disease) J44.9 COPD type: unspecified COPD
[2021-04-15 17:07] LABS: Glucose Point of Care 130 mg/dL (70-110)
[2021-04-15 20:42] LABS: Glucose Point of Care 149 mg/dL (70-110)
[2021-04-16] VITALS (8 sets, daily range): BP systolic 90–105; BP diastolic 58–69; PULSE 80–90; RESP 16–20; TEMP 36.5–37.6; O2SAT 96–100
[2021-04-16] MEDS: ketorolac 30 mg/mL INJ 15 MG IVP ×2 (04:01→12:32)
[2021-04-16 05:17] LABS: Basophils # 0.1 10^3/uL (0.0-0.1); Basophils % 0.6 %; Eosinophils # 0.5 10^3/uL (0.0-0.8); Eosinophils % 3.1 %; Hematocrit 27.2 % (37.0-47.0); Hemoglobin 8.1 g/dL (11.5-15.3); Lymphocytes # 4.1 10^3/uL (0.8-4.8); Lymphocytes % 24.2 %; Mean Corpuscular HGB Conc 29.8 g/dL (30.0-36.0); Mean Corpuscular Hemoglobin 27.8 pg (28.0-34.0); Mean Corpuscular Volume 93.5 fL (81-99); Mean Platelet Volume 9.8 fL (7.4-10.4); Monocytes % 11.9 %; Neutrophils # 9.91 10^3/uL (1.8-7.7); Neutrophils % 58.2 %; Nucleated Red Blood Cells % 0 %; Platelet Count 788 10^3/cmm (130-400); Red Blood Count 2.91 10^6/uL (4.1-5.3); Red Cell Distribution Width 15.5 % (12.1-15.1)
[2021-04-16 05:40] LABS: Alanine Aminotransferase 9 U/L (0-33); Albumin Level 2.8 g/dL (3.5-5.2); Alkaline Phosphatase 105 IU/L (35-105); Anion Gap 9.9 (5-19); Aspartate Amino Transferase 22 U/L (0-32); Blood Urea Nitrogen 19 mg/dL (8-23); Calcium 8.1 mg/dL (8.5-10.5); Carbon Dioxide 36 mmol/L (22-29); Chloride 96 mmol/L (98-107); Globulin 3.6 g/dL (1.3-4.6); Glomerular Filtration Rate 56.2 mL/min (90-130); Glucose 121 mg/dL (65-115); Osmolality Calculated 290 mOsm/kg (285-295); Potassium 3.9 mmol/L (3.5-5.1); Sodium 138 mmol/L (136-145); Total Bilirubin 0.2 mg/dL (0.15-1.2); Total Protein 6.4 g/dL (6.6-8.7)
[2021-04-16 06:44] LABS: Glucose Point of Care 123 mg/dL (70-110)
[2021-04-16 06:45] LABS: Slide Review Slide Review Perform
[2021-04-16] MEDS: heparin 5,000 unit/mL INJ 1 mL 5000 UNIT SUBCUT (08:31)
[2021-04-16] MEDS: FUROsemide 40 mg Tablet PO (08:31)
[2021-04-16] MEDS: levothyroxine 25 mcg Tablet PO (08:31)
[2021-04-16] MEDS: famotidine 20 mg/2 mL INJ IVP (08:31)
[2021-04-16] MEDS: oxyCODONE 5 mg IR Tab/Cap 15 MG PO ×2 (08:31→15:41)
[2021-04-16] MEDS: nystatin cream 30 gm 1 APPLIC TOPICAL (08:32)
[2021-04-16 11:30] LABS: Glucose Point of Care 117 mg/dL (70-110)
--- NOTE | 2021-04-16 15:45 | PM.DCS ---
Discharge Providers Date of Admission: 04/03/21 05:14 Date of Discharge: April 16, 2021 Attending Provider at Admission: Elmo Davis MD Attending Provider at Discharge: Fatimah Murray MD Primary Care Provider: Ed Hunter Diagnoses at Discharge Discharge Diagnosis (1) Septic shock: Status: Acute (2) Diverticular 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: Status: Acute (3) Heart failure with preserved ejection fraction: Status: Acute Qualifiers: Heart failure chronicity: acute on chronic Qualified Code(s): I50.33 - Acute on chronic diastolic (congestive) heart failure (4) Acute and chronic respiratory failure with hypoxia: Status: Acute (5) COPD (chronic obstructive pulmonary disease): Status: Acute Qualifiers: COPD type: unspecified COPD Qualified Code(s): J44.9 - Chronic obstructive pulmonary disease, unspecified Reason for Visit Reason for Visit: diverticulitis with perforation Hospital Course Hospital Course Reyna Nunn is a 60 year old female who presented to the hospital on April 03 after being transferred from an outside hospital with perforated sigmoid diverticulitis, pneumoperitoneum and abscess. The patient was initially managed conservatively however due to deterioration of her clinical condition was taken to the OR and underwent exploratory laparotomy with open sigmoid colectomy and Rosamaria procedure on April 04. extubation was difficult in view of previous diagnosis of COPD , pulmonary artery hypertension with chronic hypoxic respiratory failure requiring 2 L oxygen. She also carries a diagnosis of heart failure and pulmonary hypertension. She is on chronic pain medication at home for back pain. Pulm/critical care was consulted, she was succesfully extubated and tranferred out of ICU. She she was briefly on PPN, now currently tolerating p.o. intake with a GI soft diet. She has stool output in her colostomy.. Hospital course has been notable for persisting leukocytosis of around 20. Infectious work-up thus far has included negative blood and urine cultures, removal of central lines, CT chest abdomen and pelvis on April 13 without any evidence of untreated infection, procalcitonin trending down. She has received an extensive course of IV antibiotics including Zosyn until 04/09, thereafter changed to imipenem between 04/09 to 04/15. Given that there is no evidence of persisting infection at this time, imipenem has been discontinued. Patient is being discharged today in stable condition on oral Cipro and Flagyl until she follows up with surgery in 5 to 7 days. Antihypertensives have been held at discharge as she remained with systolic pressure between 90-100 during the course of admission of antihip hypertensives.follow up with primary Physical Exam Narrative: EXAM NARRATIVE: GEN: Awake, alert and oriented, no acute distress CVS: S1S2 N RS: CTA B/L Abd: Soft, nt/nd , bs+ , colostomy in place MEDICARE SALES EXECUTIVE: no focal neuro deficits Urinary Catheter Management^: Cervantes: Cath Placed During This Visit: yes, but has since been removed by the nurse Reason for Continuing Indwelling Catheter: Accurate Measurement of Urinary Output in Critically Ill Patients Urinary Catheter Date of Insertion: 04/03/21 Urinary Catheter Time of Insertion: 13:30 Date Urinary Catheter Removed: 04/10/21 Time Urinary Catheter Discontinued: 18:20 Discharge Data Data Completed and Pending: Completed Studies During Hospitalization Category Date Time Status CT abdomen pelvis w con* [id number] Stat Cat Scan 04/04/21 02:[address] chest abd pel wo con Routine Cat Scan 04/13/21 08:40 Completed XR chest 1V yosvany ble [id number] Routine Exams 04/09/21 15:02 Completed XR chest 1V yosvany ble [id number] Routine Exams 04/12/21 10:38 Completed XR chest 1V yosvany ble [id number] Stat Exams 04/04/21 09:47 Completed XR chest 1V yosvany ble [id number] Stat Exams 04/05/21 16:32 Completed Pathology: Surgic al [PTH] Routine Pth 04/04/21 08:56 Completed Labs from last 24 hours 04/16/21 04/16/21 04/16/21 11:22 06:12 05:05 WBC RBC Hgb Hct MCV MCH MCHC RDW Plt Count MPV Neut % (Auto) Lymph % (Auto) [place] % (Auto) Eos % (Auto) Baso % (Auto) Neut # (Auto) Lymph # (Auto) [place] # (Auto) Eos # (Auto) Baso # (Auto) Nucleated RBC % (a uto) Nucleated RBCs # Sodium 138 Potassium 3.9 Chloride 96 L Carbon Dioxide 36 H Anion Gap 9.9 BUN 19 Creatinine 1.0 H GFR Calculation 56.2 L Glucose 121 H POC Glucose 117 H 123 H Calculated Osmolal ity 290 Calcium 8.1 L Total Bilirubin 0.2 AST 22 ALT 9 Alkaline Phosphata se 105 Total Protein 6.4 L Albumin 2.8 L Globulin 3.6 04/16/21 04/15/21 04/15/21 05:05 20:31 17:03 WBC 17.0 H RBC 2.91 L Hgb 8.1 L Hct 27.2 L MCV 93.5 MCH 27.8 L MCHC 29.8 L RDW 15.5 H Plt Count 788 H MPV 9.8 Neut % (Auto) 58.2 Lymph % (Auto) 24.2 [place] % (Auto) 11.9 Eos % (Auto) 3.1 Baso % (Auto) 0.6 Neut # (Auto) 9.91 H Lymph # (Auto) 4.1 [place] # (Auto) 2.0 H Eos # (Auto) 0.5 Baso # (Auto) 0.1 Nucleated RBC % (a uto) 0 Nucleated RBCs # 0.0 Sodium Potassium Chloride Carbon Dioxide Anion Gap BUN Creatinine GFR Calculation Glucose POC Glucose 149 H 130 H Calculated Osmolal ity Calcium Total Bilirubin AST ALT Alkaline Phosphata se Total Protein Albumin Globulin Vitals: Last Vital Signs Temp 97.7 F 04/16/21 11:25 Pulse 90 04/16/21 11:25 Resp 16 04/16/21 15:41 BP 96/60 04/16/21 11:25 Pulse Ox 100 04/16/21 15:41 Discharge Plan Discharge Patient Disposition: Home Condition: Stable Prescriptions: New budesonide 0.5 mg/2 mL Suspension For Nebulization 0.5 mg inhalation BID.RESPIRATORY Qty: 60 RF: 0 oxycodone 5 mg Tablet 15 mg PO Q4H PRN (Reason: Severe Pain) 5 Days Qty: 30 RF: 0 Cipro 500 mg tablet 500 mg PO BID 7 Days Qty: 14 RF: 0 Flagyl 500 mg tablet 500 mg PO Q8H 7 Days Qty: 21 RF: 0 Continued aspirin 81 mg tablet,chewable 81 mg PO DAILY RF: 0 duloxetine [Cymbalta] 30 mg capsule,delayed release(DR/EC) 30 mg PO BID Qty: 60 RF: 1 levothyroxine 25 mcg capsule 25 mcg PO DAILY RF: 0 albuterol sulfate [Proventil HFA] 90 mcg/actuation HFA aerosol inhaler 2 puff INHALATION Q6H PRN (Reason: Shortness Of Breath) RF: 0 budesonide [Pulmicort] 0.5 mg/2 mL suspension for nebulization 0.5 mg INHALATION BID RF: 0 nystatin [Nystop] 100,000 unit/gram powder 1 applic TOPICAL BID RF: 0 furosemide [Lasix] 20 mg tablet 20 mg PO QAM Qty: 30 RF: 0 Euthyrox 25 mcg Tablet 25 mcg PO DAILY@0600 RF: 0 oxycodone 15 mg tablet 15 mg PO 5XD RF: 0 Changed metoprolol tartrate 25 mg Tablet 12.5 mg PO BID Qty: 30 RF: 0 Discontinued naproxen 500 mg tablet 500 mg PO BID Qty: 60 RF: 5 amlodipine [Norvasc] 10 mg tablet 10 mg PO DAILY Qty: 30 RF: 0 lisinopril 10 mg tablet 10 mg PO BID Qty: 30 RF: 0 Discharge Orders: Discharge Order (Routine); Ordered 04/16/21 Ordered By: Fatimah Murray Referrals: [facility] [place] Home Care ([facility]) [Outside] Ed Hunter [Primary Care Provider] - 04/23/21 11:00 am Pablo Vergara MD [Physician] - 1 week Discharge Diet: GI Soft Discharge Activity: Resume usual activity and Increase activity as tolerated Patient Instructions: Diverticulitis (DC), Colostomy Care (DC), Hypokalemia (DC), Chronic Obstructive Pulmonary Disease (DC), Sepsis (DC), Perforated Bowel (DC), Opioid Safety Discharge Attestations Time Spent in Discharge Care*: greater than 30 min Status at Discharge: Cognitive status at discharge: cognitively intact, Behavioral status at discharge: cooperative, Quality Metrics Clinical Quality Measures During this hospital stay, did patient experience: None Coding Level of Care Code Acute Chg FW DC note Diagnoses Septic shock A41.9; R65.21 Diverticular 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 K57.80 Heart failure with preserved ejection fraction I50.33 Heart failure chronicity: acute on chronic Acute and chronic respiratory failure with hypoxia J96.21 COPD (chronic obstructive pulmonary disease) J44.9 COPD type: unspecified COPD
--- NOTE | 2021-04-16 16:37 | PC.NURSE ---
PT HAS DONE WELL FOR ME TODAY. PT HAS HAD SOME COMPLAINTS OF PAIN. WHEN THIS NURSE WOULD ENTER THIS PT'S ROOM SHE WOULD BE LAYING IN BED ASLEEP. THIS NURSE WENT AHEAD AND GAVE PT THE REQUESTED PAIN MEDICATION. PT HAS BEEN UP WITH STUDENTS TODAY TO GET A BATH. PT WAS ALSO UP WITH THERAPY AND HAS BEEN UP WITH ME MULTIPLE TIMES. PT WILL DISCHARGE TODAY PER DOCTOR'S ORDERS. THIS NURSE ASSISTED PT INTO A SMALL BED BATH, NEW BRIEF, NEW GOWN, AND HELPED BAG UP HER BELONGINGS. THIS NURSE WENT OVER PT'S DISCHARGE PAPERWORK. ALL QUESTIONS WERE ANSWERED. THIS NURSE SHOWED THE PT'S DAUGHTER HOW TO EMPTY THE COLOSTOMY BAG. DRESSINGS WERE CHANGED. IV WAS REMOVED. PT TOLERATED WELL. IV CATHETER TIP INTACT. THIS PT WAS WHEELED OUT BY THIS NURSE. PT SAFELY DISCHARGED FROM THIS HOSPITAL AT 1417.
--- NOTE | 2021-04-16 17:01 | PC.NURSE ---
correction on last note from this nurse PT SAFELY DISCHARGED FROM THIS HOSPITAL AT 1617.
== END 2021-04-16 16:17 | disposition home health service (06) | DRG 853 ==
LOC: MEDSURG 07:19 → ICU 04-04 03:26 → MEDSURG 04-11 13:50
PROVIDERS: Internal Medicine; Internal Medicine Critical Care Medicine; Surgery; Admitting Provider Internal Medicine; PCP Physician Assistant Medical; Visit Provider Student in an Organized Health Care Education/Training Program
PROC: 0DTN0ZZ Resection of Sigmoid Colon, Open Approach (ICD-10-PCS; CPT 49000; principal; 2021-04-04 04:45)
DX: A41.9 Sepsis, unspecified organism (principal); I50.33 Acute on chronic diastolic (congestive) heart failure; J96.21 Acute and chronic respiratory failure with hypoxia; R65.21 Severe sepsis with septic shock; K65.0 Generalized (acute) peritonitis; K57.20 Diverticulitis of large intestine with perforation and abscess without bleeding; E87.3 Alkalosis; E66.2 Morbid (severe) obesity with alveolar hypoventilation; I11.0 Hypertensive heart disease with heart failure; J44.9 Chronic obstructive pulmonary disease, unspecified; E03.9 Hypothyroidism, unspecified; F17.210 Nicotine dependence, cigarettes, uncomplicated; I27.20 Pulmonary hypertension, unspecified; M51.36 Other intervertebral disc degeneration, lumbar region; D64.9 Anemia, unspecified; E88.09 Other disorders of plasma-protein metabolism, not elsewhere classified; E53.8 Deficiency of other specified B group vitamins; D47.3 Essential (hemorrhagic) thrombocythemia; E87.6 Hypokalemia; Z68.38 Body mass index [BMI] 38.0-38.9, adult; Z82.49 Family history of ischemic heart disease and other diseases of the circulatory system; Z79.82 Long term (current) use of aspirin; Z79.891 Long term (current) use of opiate analgesic; Z99.81 Dependence on supplemental oxygen
CPT/HCPCS: 36415; 36416; 36592; 36600; 51702; 71045; 71250; 74176; 74177; 80048; 80051; 80053; 80202; 82330; 82607; 82728; 82746; 82803; 82805; 82962; 83540; 83550; 83605; 84145; 85007; 85025; 86850; 86900; 87040; 87070; 87075; 87086; 87205; 88309; 94002; 94003; 94640; 94799; 96372; 97110; 97116; 97163; 97167; 97530; 97535; A9281; C9290; J0330; J0743; J1100; J1170; J1644; J1815; J1885; J1940; J2060; J2250; J2370; J2405; J2543; J2704; J3010; J3370; J3480; J3490; J7030; J7626; P9041; P9047; Q9967; S0030

== ENCOUNTER → 2021-04-30 08:54 | Outpatient (BNVA) | payer MEDICAID, SELFPAY | PROVIDERS: PCP Physician Assistant Medical; Visit Provider Anesthesiology | DX: M51.36 Other intervertebral disc degeneration, lumbar region (principal); M54.9 Dorsalgia, unspecified; F17.210 Nicotine dependence, cigarettes, uncomplicated; Z79.899 Other long term (current) drug therapy; Z79.891 Long term (current) use of opiate analgesic | CPT/HCPCS: 99213 ==

== ENCOUNTER → 2021-06-27 13:07 | Outpatient (BNVA) | payer MEDICAID, SELFPAY | PROVIDERS: PCP Physician Assistant Medical; Visit Provider Anesthesiology | DX: G89.29 Other chronic pain (principal); M54.41 Lumbago with sciatica, right side; M54.42 Lumbago with sciatica, left side; M51.36 Other intervertebral disc degeneration, lumbar region; F17.210 Nicotine dependence, cigarettes, uncomplicated; Z79.891 Long term (current) use of opiate analgesic | CPT/HCPCS: 99213 ==

== ENCOUNTER → 2021-08-20 12:59 | Outpatient (BNVA) | payer MEDICAID, SELFPAY | PROVIDERS: PCP Physician Assistant Medical; Visit Provider Nurse Practitioner | DX: G89.29 Other chronic pain (principal); M51.36 Other intervertebral disc degeneration, lumbar region; M25.511 Pain in right shoulder; M25.512 Pain in left shoulder; R20.2 Paresthesia of skin; G56.03 Carpal tunnel syndrome, bilateral upper limbs; F17.210 Nicotine dependence, cigarettes, uncomplicated; Z79.891 Long term (current) use of opiate analgesic; Z71.6 Tobacco abuse counseling | CPT/HCPCS: 99214 ==

== ENCOUNTER → 2021-09-18 13:16 | Outpatient (BNVA) | payer MEDICAID, SELFPAY | PROVIDERS: PCP Physician Assistant Medical; Visit Provider Anesthesiology | DX: G89.29 Other chronic pain (principal); M51.36 Other intervertebral disc degeneration, lumbar region; M25.511 Pain in right shoulder; M25.512 Pain in left shoulder; F17.210 Nicotine dependence, cigarettes, uncomplicated; Z79.899 Other long term (current) drug therapy; Z79.891 Long term (current) use of opiate analgesic; Z71.6 Tobacco abuse counseling | CPT/HCPCS: 99214 ==

== ENCOUNTER → 2021-10-08 13:53 | Outpatient (BNVA) | payer MEDICAID, SELFPAY | PROVIDERS: PCP Physician Assistant Medical; Visit Provider Anesthesiology | DX: G89.29 Other chronic pain (principal); M51.36 Other intervertebral disc degeneration, lumbar region; M25.511 Pain in right shoulder; M25.512 Pain in left shoulder; F17.200 Nicotine dependence, unspecified, uncomplicated; Z79.899 Other long term (current) drug therapy; Z79.891 Long term (current) use of opiate analgesic | CPT/HCPCS: 99214 ==

== ENCOUNTER → 2021-12-11 10:46 | Outpatient (BNVA) | payer MEDICAID, SELFPAY | PROVIDERS: PCP Nurse Practitioner Family; Visit Provider Anesthesiology | DX: G89.29 Other chronic pain (principal); M51.36 Other intervertebral disc degeneration, lumbar region; M25.511 Pain in right shoulder; M25.512 Pain in left shoulder; F17.210 Nicotine dependence, cigarettes, uncomplicated; Z79.891 Long term (current) use of opiate analgesic; Z79.899 Other long term (current) drug therapy | CPT/HCPCS: 99213; 99214 ==

== ENCOUNTER 2023-08-06 08:27 | Emergency (ER) | payer MEDICAID, SELFPAY ==
[2023-08-06 08:27] VITALS: BP 163/122; PULSE 102; RESP 18; TEMP 36.6; O2SAT 96; BMI 42.0
--- NOTE | 2023-08-06 08:36 | ECG_ITS ---
[facility] Test Date: 2023-08-06 Pat Name: Reyna Nunn Department: Room: Gender: Female Supervisor [employer]: : 1960 Requested By: [place] Order Number: [id number] Jaqueline MD: Bony Moreno M.D. Measurements Intervals [place] Rate: 94 P: 67 IN: 168 QRS: 33 QRSD: 84 T: 47 QT: 323 QTc: 404 Interpretive Statements SINUS RHYTHM Compared to ECG 06/10/2020 21:21:00 Sinus tachycardia no longer present Electronically Signed On 08-06-2023 17:20:33 CDT by Bony Moreno M.D. [id number]
--- NOTE | 2023-08-06 08:36 | XR_ITS ---
WS: [id number] Portable AP upright chest, 08/06/2023 Clinical Data: dyspnea/cough Comparison: Portable chest, 04/12/2021. Findings: No nodules, masses or effusions are seen. The heart is normal. The pulmonary vascularity is not increased. No pneumonia or pneumothorax is seen. There are monitor leads on the chest wall. Impression: Negative chest.
[2023-08-06 08:51] LABS: Basophils # 0.1 10^3/uL (0.0-0.1); Basophils % 0.6 %; Eosinophils # 0.1 10^3/uL (0.0-0.8); Lymphocytes # 1.9 10^3/uL (0.8-4.8); Lymphocytes % 24.7 %; Mean Corpuscular HGB Conc 32.3 g/dL (30-55); Mean Corpuscular Hemoglobin 30.2 pg (27-33); Mean Corpuscular Volume 93.6 fl (85-98); Mean Platelet Volume 10.6 fL (7.4-10.4); Monocytes # 1.5 10^3/uL (0.2-0.9); Monocytes % 18.7 %; Neutrophils # 4.27 10^3/uL (1.8-7.7); Neutrophils % 54.6 %; Nucleated Red Blood Cells % 0 %; Platelet Count 275 10^3/cmm (157-399); Red Cell Distribution Width 12.8 % (12.1-15.1); White Blood Count 7.82 10^3/uL (3.29-11.43)
--- NOTE | 2023-08-06 09:00 | ED_ITS ---
HPI - SOB/Dyspnea General: Chief Complaint: Shortness of Breath/Dyspnea Stated Complaint: sob, neck pain Time Seen by Provider: 08/06/23 08:31 Source: patient Mode of arrival: ambulatory History of Present Illness: HPI Narrative: 62-year-old female presents to the emergency room with complaint of shortness of breath was initial complaint per EMS I reviewed the nurse triage note and talk to the patient she focused highly on systemic myalgias she said legs are neck and back hurt worse than ever. She has chronic back pain she is previously seen by Dr. Franco now she is seen in another pain clinic she is chronically on morphine which reviewing the notes appears to been a long-term strategy for pain control for her. No chest pain. She says she has a typical normal baseline cough. MD elicited complaint: shortness of breath Pertinent past history: COPD and congestive heart failure Onset (ago): day(s) Timing: constant Severity: severe Exacerbating factors: movement Relieving factors: rest Known history of: COPD and congestive heart failure Associated symptoms: Reports chest congestion, cough, extremity pain, myalgias and nausea; Deny abdominal pain, chest pain, diaphoresis, dizziness, fever(s), hemoptysis, lightheadedness, orthopnea, palpitations, paresthesias, polydipsia, polyuria, rash, sense of impending doom, syncope or vomiting Treatment prior to arrival: other (Oral morphine which patient is on c hronically) Review of Systems Const: Denies: fever(s), chills or diaphoresis ENMT: Denies: throat pain, ear or mastoid pain, nasal discharge or nasal congestion Card: Denies: chest pain, palpitations, lightheadedness, syncope or orthopnea Resp: Reports: chest congestion; Denies: hemoptysis GI: Reports: nausea; Denies: abdominal pain or vomiting : Denies: flank pain, difficulty voiding, dysuria, urinary frequency or urinary urgency Musc: Reports: extremity pain Skin/Breast: Denies: rash or pruritus Neuro: Denies: dizziness Endo: Denies: polyuria or polydipsia [facility] ED PFSH: Medical History Acute and chronic respiratory failure with hypoxia Acute on chronic respiratory failure with hypoxia and hypercapnia Bilateral shoulder pain Carpal tunnel syndrome, bilateral CHF (congestive heart failure) -on Lasix -Echo (12/2019): EF wnl, G1DD, mild pulmonary HTN - Chronic low back pain COPD (chronic obstructive pulmonary disease) DDD (degenerative disc disease), lumbar Diverticular 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 Heart failure with preserved ejection fraction Hypertension Hypothyroidism -on levothyroxine Long-term use of high-risk medication Opioid contract exists KEO (obstructive sleep apnea) Paresthesia of right upper extremity Requires oxygen therapy Smoker unmotivated to quit Tobacco abuse Surgical History History of nasal surgery NOSE RESECTION S/P hernia surgery S/P hysterectomy Family History Father Cancer Heart disease Diabetes Mother Heart disease Diabetes Fibromyalgia Brother Heart disease Sister Heart disease Diabetes Social History Smoking and tobacco status: current every day smoker cigarettes [ Other cigarette details: 01/30 pck day] Alcohol intake: never Substance/Drug Use: never Lives independently: Yes Household members: other Details: Says daughter, although not sure how reliable her history is. It takes a while to recall her daughter's name. Marital status: / Physical Exam Const: GENERAL APPEARANCE: cooperative ORIENTATION/CONSCIOUSNESS: Yes awake, Yes oriented to person, Yes oriented to place and Yes oriented to time HENMT: COMMON NORMALS: normocephalic, atraumatic and hearing grossly normal bilaterally HEAD & SCALP: normocephalic and atraumatic Resp: COMMON NORMALS: normal respiratory effort, No retractions, No use of accessory muscles and clear to auscultation bilaterally AUSCULTATION: clear to auscultation bilaterally Cardio: COMMON NORMALS: regular rate, regular rhythm and No murmurs present (Cardio) RATE: regular rate RHYTHM: regular rhythm GI: COMMON NORMALS: Soft to palpation and No hepatosplenomegaly present AUSCULTATION: Yes normoactive bowel sounds PALPATION: Yes Soft to palpation, No Tenderness to palpation present (GI), No Guarding due to palpation present (GI) and Yes No hepatosplenomegaly present Extremity: COMMON NORMALS: normal to inspection, capillary refill normal, no clubbing, cyanosis or edema, no calf tenderness and no pedal edema Neuro: SENSORIUM/ORIENTATION: Yes oriented to person, Yes oriented to place and Yes oriented to time Skin: COMMON NORMALS: no rashes or lesions noted GENERAL SKIN EXAM: no rashes or lesions noted Course Vital Signs: Vital signs: Vital Signs Temperature 97.9 F 08/06/23 08:27 Pulse Rate 85 08/06/23 11:22 Respiratory Rate 18 08/06/23 10:29 Blood Pressure 131/81 08/06/23 11:22 Pulse Oximetry 98 08/06/23 10:29 Oxygen Delivery Me thod Nasal Cannula 08/06/23 10:29 Oxygen Flow Rate 2 08/06/23 10:29 MDM - SOB/Dyspnea Medical Decision Making Labs and imaging reviewed no acute findings. Oxygen requirement same as before. No expiratory wheezing noted she is not tachycardic she is not tachypneic and sats remain normal and normal oxygen supplementation continue current medications including Advair and albuterol as needed follow-up with her primary care doctor. Follow-up with pain clinic doctor to manage long-term pain issues. Medical Records I reviewed the patient's medical records. Lab Data I reviewed the patient's lab results. 08/06/23 08:41 08/06/23 09:10 Labs/Radiology: Laboratory Results WBC 7.82 10^3/uL (3.29-11.43) 08/06/23 08:41 RBC 4.70 10^6/uL (3.85-5.65) 08/06/23 08:41 Hgb 14.20 g/dL (11.27-16.99) 08/06/23 08:41 Hct 44.0 % (36-47) 08/06/23 08:41 MCV 93.6 fl (85-98) 08/06/23 08:41 MCH 30.2 pg (27-33) 08/06/23 08:41 MCHC 32.3 g/dL (30-55) 08/06/23 08:41 RDW 12.8 % (12.1-15.1) 08/06/23 08:41 Plt Count 275 10^3/cmm (157-399) 08/06/23 08:41 MPV 10.6 fL (7.4-10.4) H 08/06/23 08:41 Neut % (Auto) 54.6 % 08/06/23 08:41 Lymph % (Auto) 24.7 % 08/06/23 08:41 Moffat % (Auto) 18.7 % 08/06/23 08:41 Eos % (Auto) 1.0 % 08/06/23 08:41 Baso % (Auto) 0.6 % 08/06/23 08:41 Neut # (Auto) 4.27 10^3/uL (1.8-7.7) 08/06/23 08:41 Lymph # (Auto) 1.9 10^3/uL (0.8-4.8) 08/06/23 08:41 Moffat # (Auto) 1.5 10^3/uL (0.2-0.9) H 08/06/23 08:41 Eos # (Auto) 0.1 10^3/uL (0.0-0.8) 08/06/23 08:41 Baso # (Auto) 0.1 10^3/uL (0.0-0.1) 08/06/23 08:41 Nucleated RBC % (auto) 0 % 08/06/23 08:41 Nucleated RBCs # 0.0 /100WBC 08/06/23 08:41 Specimen Type Arterial 08/06/23 09:08 Sample Site Radial, right 08/06/23 09:08 ABG pH 7.41 (7.35-7.45) 08/06/23 09:08 ABG pCO2 51.0 mmHg (35-45) H 08/06/23 09:08 ABG pO2 91.8 mmHg (80.0-100.0) 08/06/23 09:08 ABG HCO3 32.1 mmol/L (22-26) H 08/06/23 09:08 ABG O2 Saturation 96.9 08/06/23 09:08 ABG Base Excess 6.0 mmol/L (-2.0-2.0) H 08/06/23 09:08 Faheem Test Pos 08/06/23 09:08 A-a O2 Gradient Not Reportable 08/06/23 09:08 Hematocrit 42.9 % (37-47) 08/06/23 09:08 Hgb O2 Saturation 94.5 % (95-100) L 08/06/23 09:08 Carboxyhemoglobin 1.8 %THgb (0.4-20.1) 08/06/23 09:08 Methemoglobin 0.7 % (0.4-1.5) 08/06/23 09:08 Total Hemoglobin 14.0 g/dL (12-16) 08/06/23 09:08 Sodium 136.0 mmol/L (131-143) 08/06/23 09:08 Potassium 4.4 mmol/L (3.5-5.0) 08/06/23 09:08 Glucose 110.0 mg/dL (70-115) 08/06/23 09:08 Ionized Calcium 1.2 mmol/L (1.1-1.4) 08/06/23 09:08 O2 Delivery Device Nc 08/06/23 09:08 O2 Liters/Min 3.5 % 08/06/23 09:08 Insulation Technician ID [place] 08/06/23 09:08 Sodium 134 mmol/L (136-145) L 08/06/23 09:10 Potassium 3.9 mmol/L (3.5-5.1) 08/06/23 09:10 Chloride 97 mmol/L (98-107) L 08/06/23 09:10 Carbon Dioxide 27 mmol/L (22-29) 08/06/23 09:10 Anion Gap 13.9 (5-19) 08/06/23 09:10 BUN 9 mg/dL (8-23) 08/06/23 09:10 Creatinine 0.7 mg/dL (0.5-0.9) 08/06/23 09:10 GFR Calculation 84.2 mL/min (90-130) L 08/06/23 09:10 Glucose 104 mg/dL (65-115) 08/06/23 09:10 Calculated Osmolality 277 mOsm/kg (285-295) L 08/06/23 09:10 Calcium 8.9 mg/dL (8.5-10.5) 08/06/23 09:10 Total Bilirubin 0.3 mg/dL (0.15-1.2) 08/06/23 09:10 AST 163 U/L (0-32) H 08/06/23 09:10 ALT 111 U/L (0-33) H 08/06/23 09:10 Alkaline Phosphatase 86 U/L (35-105) 08/06/23 09:10 Troponin T Baseline 24 ng/L (0-10) H 08/06/23 09:10 Troponin T 120 Minute 22.99 ng/L (0-10) H 08/06/23 11:00 Delta Troponin T -1.01 ABS# (0-10) L 08/06/23 11:00 NT-Pro-B Natriuret Pep 201 pg/mL (0-125) H 08/06/23 09:10 Total Protein 7.2 g/dL (6.6-8.7) 08/06/23 09:10 Albumin 3.7 g/dL (3.5-5.2) 08/06/23 09:10 Globulin 3.5 g/dL (1.3-4.6) 08/06/23 09:10 Coronavirus 229E (PCR) Not detected (NOT DETECT) 08/06/23 10:25 Hepatitis A IgM Ab Non-reactive (Nonreactive) 08/06/23 08:41 Hep Bs Antigen Non-reactive (Nonreactive) 08/06/23 08:41 Hep B Core IgM Ab Non-reactive (Nonreactive) 08/06/23 08:41 Hepatitis C Antibody Non-reactive (Nonreactive) 08/06/23 08:41 SARS-CoV-2 (PCR) Detected (NOT DETECT) A 08/06/23 10:25 Discharge Plan Discharge Patient Disposition: Home Clinical Impression: Chronic low back pain, Bilateral shoulder pain Condition: Stable Prescriptions: No Action aspirin 81 mg tablet,chewable 81 mg PO DAILY Rx Instructions: pt unable to verify medications but pt brought in medication albuterol sulfate [Proventil HFA] 90 mcg/actuation HFA aerosol inhaler 2 puff INHALATION Q6H PRN (Reason: Shortness Of Breath) Rx Instructions: pt unable to verify medications but pt brought in medication guaifenesin 100 mg/5 mL liquid 200 mg PO Q4H PRN (Reason: Cough) duloxetine [Cymbalta] 30 mg capsule,delayed release(DR/EC) 30 mg PO BID 30 Days Qty: 60 1RF nystatin [Nystop] 100,000 unit/gram powder 1 applic TOPICAL BID furosemide [Lasix] 20 mg tablet 20 mg PO QAM Qty: 30 0RF levothyroxine [Euthyrox] 25 mcg Tablet 25 mcg PO DAILY@0600 metoprolol tartrate 25 mg Tablet 12.5 mg PO BID Qty: 30 0RF morphine 15 mg tablet extended release 15 mg PO BID morphine 15 mg tablet 15 mg PO Q8H PRN (Reason: Pain) Advair Diskus 250-50 mcg/dose blister with device 1 inh INHALATION BID Discharge Orders: Discharge ED (Routine); Ordered 08/06/23 Ordered By: New Amaral Referrals: Nino Cowan [Primary Care Provider] - Discharge Diet: Usual diet Discharge Activity: Increase activity as tolerated Patient Instructions: Opioid Safety, Pain Management Activity Restrictions/Additional Instructions: Follow-up with your pain management doctor as needed. Continue all of your previously prescribed medications. Coding Level of Care Code ED Level Vial Inspector And Tester for Landon Cha
[2023-08-06] MEDS: ipratropium-albuterol 3 mL Neb INHALATION (09:11)
[2023-08-06 09:16] VITALS: PULSE 99; RESP 18; O2SAT 98
[2023-08-06 09:20] LABS: ABG PH Result 7.41 (7.35-7.45); Arterial Blood Gas Hematocrit 42.9 % (37-47); Blood Gas Allen Test Pos; Blood Gas LPM 3.5 %; Blood Gas Operator Identificat WALCI; Blood Gas Sample Site Radial, right; Blood Gas Sample Type Arterial; Carboxyhemoglobin 1.8 %THgb (0.4-20.1); HCO3 ABG 32.1 mmol/L (22-26); HGB O2 Sat 94.5 % (95-100); Ionized Calcium Level - ABG 1.2 mmol/L (1.1-1.4); Methemoglobin 0.7 % (0.4-1.5); Oxygen Device NC; Oxygen Saturation ABG 96.9; PO2 ABG 91.8 mmHg (80.0-100.0); Potassium Level - ABG 4.4 mmol/L (3.5-5.0)
[2023-08-06 09:24] VITALS: PULSE 100
[2023-08-06] MEDS: dexamethasone 10 mg/mL INJ IVP (09:37)
[2023-08-06] MEDS: ketorolac 30 mg/mL INJ IVP (09:38)
[2023-08-06] MEDS: orphenadrine 30 mg/mL Inj 2 mL 60 MG IVP (09:38)
[2023-08-06 09:40] LABS: Troponin(5th) Baseline 24 ng/L (0-10)
[2023-08-06 09:44] LABS: Alanine Aminotransferase 111 U/L (0-33); Albumin Level 3.7 g/dL (3.5-5.2); Alkaline Phosphatase 86 U/L (35-105); Aspartate Amino Transferase 163 U/L (0-32); Blood Urea Nitrogen 9 mg/dL (8-23); Calcium 8.9 mg/dL (8.5-10.5); Carbon Dioxide 27 mmol/L (22-29); Chloride 97 mmol/L (98-107); Creatinine Clr Calc Pharmacy 92.0171; Globulin 3.5 g/dL (1.3-4.6); Glomerular Filtration Rate 84.2 mL/min (90-130); Glucose 104 mg/dL (65-115); NT Pro B Type Natriuretic Pept 201 pg/mL (0-125); Osmolality Calculated 277 mOsm/kg (285-295); Sodium 134 mmol/L (136-145); Total Bilirubin 0.3 mg/dL (0.15-1.2); Total Protein 7.2 g/dL (6.6-8.7)
[2023-08-06 09:48] LABS: Anion Gap 13.9 (5-19); Potassium 3.9 mmol/L (3.5-5.1)
[2023-08-06 10:29] VITALS: BP 144/79; PULSE 61; RESP 18; O2SAT 98
[2023-08-06 10:33] LABS: Hepatitis A Antibody IgM Non-Reactive (Nonreactive); Hepatitis B Core IgM Non-Reactive (Nonreactive); Hepatitis B Surface Antigen Non-Reactive (Nonreactive); Hepatitis C Virus Antibody Non-Reactive (Nonreactive)
--- NOTE | 2023-08-06 10:36 | ECG_ITS ---
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 Measurements Intervals [place] Rate: 82 P: 72 MI: 163 QRS: 29 QRSD: 86 T: 41 QT: 342 QTc: 401 Interpretive Statements SINUS RHYTHM Compared to ECG 08/06/2023 08:40:00 No significant changes Electronically Signed On 08-06-2023 17:22:26 CDT by Bony Moreno M.D. [id number]
[2023-08-06 11:22] VITALS: BP 131/81; PULSE 85
[2023-08-06 11:25] LABS: Troponin 5 2HR 22.99 ng/L (0-10)
[2023-08-06 11:28] LABS: Troponin 5 2HR Delta -1.01 ABS# (0-10)
[2023-08-06 12:47] LABS: Adenovirus Not Detected (NOT DETECT); Chlamydia Pneumoniae Not Detected (NOT DETECT); Coronavirus 229E,HKU1,NL63,OC4 Not Detected (NOT DETECT); Human Metapneumovirus Not Detected (NOT DETECT); Human Rhinovirus/Enterovirus Not Detected (NOT DETECT); Influenza A Not Detected (NOT DETECT); Influenza A H1 Not Detected (NOT DETECT); Influenza A H1-2009 Not Detected (NOT DETECT); Influenza A H3 Not Detected (NOT DETECT); Influenza B Not Detected (NOT DETECT); Mycoplasma Pneumoniae Not Detected (NOT DETECT); Parainfluenza Virus Type 1 Not Detected (NOT DETECT); Parainfluenza Virus Type 2 Not Detected (NOT DETECT); Parainfluenza Virus Type 3 Not Detected (NOT DETECT); Parainfluenza Virus Type 4 Not Detected (NOT DETECT); Respiratory Syncytial Virus A Not Detected (NOT DETECT); Respiratory Syncytial Virus B Not Detected (NOT DETECT)
[2023-08-06 12:57] LABS: SARS-COV-2 Detected (NOT DETECT)
== END 2023-08-06 13:24 | disposition home or self-care (01) ==
PROVIDERS: Emergency Provider Family Medicine; PCP Nurse Practitioner Family
DX: U07.1 COVID-19 (principal); G89.29 Other chronic pain; M54.50 Low back pain, unspecified; M25.512 Pain in left shoulder; M25.511 Pain in right shoulder; Z79.82 Long term (current) use of aspirin; F17.210 Nicotine dependence, cigarettes, uncomplicated; I11.0 Hypertensive heart disease with heart failure; I50.9 Heart failure, unspecified; J44.9 Chronic obstructive pulmonary disease, unspecified; Z99.81 Dependence on supplemental oxygen
CPT/HCPCS: 36600; 71045; 80051; 80053; 80074; 82330; 82805; 83880; 84484; 85025; 87635; 93005; 94640; 96374; 96375; 99285; J1100; J1885; J2360